=== PATIENT | male | born 1980 | race Caucasian/White ===

== ENCOUNTER 2018-11-27 18:07 | Emergency (ER) | payer OTHER, SELFPAY ==
[2018-11-27 18:23] VITALS: BP 112/74; PULSE 78; RESP 16; TEMP 36.1; O2SAT 98; BMI 25.7
--- NOTE | 2018-11-27 18:26 | DI.RAD.S_ITS ---
PROCEDURE: XR FINGER LT MIN 2V INDICATIONS: lacerated finger on machinery/disc pad grinder TECHNIQUE: AP hand, 2 views of the left second finger(s) acquired. COMPARISON: None. FINDINGS: Bones: No fractures or dislocations. No suspicious bony lesions. Soft tissues: No suspicious soft tissue calcifications. IMPRESSION: No acute fracture. No osseous lesion. If clinical suspicion and/or symptoms persist, further assessment with repeat plainfilms, or advanced imaging (e.g., CT, MRI, or bone scan) may be helpful for further assessment. Dictated by: Rufino Brown M.D. on 11/27/2018 at 19:16 Approved by: Rufino Brown M.D. on 11/27/2018 at 19:17
--- NOTE | 2018-11-27 19:36 | ED.UPPEXIN ---
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 He was using a circular saw at home and suffered the stated injury. He has full range of motion with a small amount of pain. He denies any numbness or tingling. He denies any other injury and is otherwise well and free of complaint complaint: injury to: left Onset (ago): minute(s) Other Extremity Injury: Left: fingers Other injuries: none Handedness: right Place: home Severity: mild Relieving factors: rest Exacerbating factors: movement of extremity Context: laceration Associated symptoms: denies other symptoms Treatments prior to arrival: bandage Related Data Home Medications Medication Instructions Recorded Confirmed Fexofenadine Hydrochloride 30 mg PO #0 04/04/12 (ALDEN~) Previous Rx's Medication Instructions Recorded cephalexin [Keflex] 500 mg PO QID 7 Days #28 cap 11/27/18 Review of Systems Constitutional Constitutional: Denies chills, Denies fatigue, Denies fever(s), Denies frequent falls, Denies lethargy and Denies weakness Eyes Eyes: Denies change in vision, Denies eye discharge, Denies irritation and Denies loss of vision ENT Ears, Nose, Mouth, and Throat: Denies change in voice, Denies dizziness, Denies neck pain, Denies sore throat and Denies throat swelling Cardiovascular Cardiovascular: Denies chest pain, Denies irregular heart rhythm, Denies lightheadedness, Denies palpitations, Denies dyspnea, Denies dyspnea on exertion and Denies orthopnea Respiratory Respiratory: Denies cough, Denies dyspnea, Denies dyspnea on exertion and Denies wheezing Gastrointestinal Gastrointestinal: Denies abdominal pain, Denies change in bowel habits, Denies diarrhea, Denies nausea and Denies vomiting Genitourinary Genitourinary: Denies hematuria, Denies flank pain, Denies urinary incontinence and Denies urinary urgency Musculoskeletal Musculoskeletal: Denies back pain, Denies muscle weakness, Denies neck pain, Denies numbness and Denies tingling Integumentary/Breasts Skin/Breast: Denies pruritus, Denies erythema, Denies rash and Reports wounds Neurologic Neurologic: Denies behavioral changes, Denies confusion, Denies dizziness, Denies frequent falls, Denies loss of vision, Denies numbness, Denies tingling and Denies weakness Psychiatric Psychiatric: Denies anxiety, Denies behavioral changes, Denies confusion, Denies depression, Denies homicidal ideation and Denies suicidal ideation Endocrine Endocrine: Denies fatigue, Denies flushing and Denies palpitations Hematologic/Lymphatic Hematologic/Lymphatic: Denies easy bruising Allergic/Immunologic Allergic/Immunologic: Denies urticaria, Denies throat swelling and Denies wheezing PFS Social History Smoking Status: Never smoker Social History Smoking Status: Never smoker Exam Narrative Exam Narrative: GEN: AOx3 and in mild distress EYES: Pupils are equal, round, and reactive to light and accommodation. Extraoccular muscles are intact bilaterally. There is no subconjunctival hemorrhage or exudate. CHEST: Lungs are clear to auscultation bilaterally and free of wheezes, rales, or rhonchi. Heart rate is regular rhythm, there are no murmurs, clicks, rubs, or gallops. There is no chest wall tenderness. ABD: Abdomen is soft and nontender. There is no guarding or rebound. Bowel sounds are normal in all 4 quadrants. There is no mass or organomegaly. EXT: Full painless ROM of all extremities with no loss of sensation or strength. SKIN: 1.25cm laceration on dorsal surface of L index finger overlying PIP. Visualized in bloodless field and no tendon injury noted. Warm, pink, and dry. No erythema or rash Initial Vital Signs Initial Vital Signs: Vital Signs Temperature 97.0 F L 11/27/18 18:23 Pulse Rate 78 11/27/18 18:23 Respiratory Rate 16 11/27/18 18:23 Blood Pressure 112/74 11/27/18 18:23 Pulse Oximetry 98 11/27/18 18:23 Procedures Laceration Repair Laceration 1: Site: hand Side (If applicable): left Size (cm): 1.25 Description: linear Depth: involves muscle layer Local Anesthetic: lidocaine 1% and with bicarb Amount of anesthesia used (mL): 3 Pre-repair: wound explored and irrigated extensively Skin layer closed with: nylon Size (cm): 5-0 Number of sutures: 3 Technique: simple, interrupted Course Orders Ordered: ED Orders 11/27/18 18:26 XR finger LT min 2V Stat Discontinued Medications Lidocaine/Sodium Bicarbonate (Buffered Lidocaine 10 Ml Syr) 10 ml INJ NOW ONE Stop: 11/27/18 19:18 Last Admin: 11/27/18 19:45 Dose: 4 ml Documented by: SKY Vital Signs Vital signs: Vital Signs - 8 hr 11/27/18 18:23 Temperature 97.0 F L Pulse Rate 78 Respiratory Rate 16 Blood Pressure 112/74 Pulse Oximetry 98 MDM - Extremity Injury (Upper) Imaging Data Finger Xray: Radiologist's impression: PROCEDURE: XR FINGER LT MIN 2V 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 COMPARISON: None. FINDINGS: Bones: No fractures or dislocations. No suspicious bony lesions. Soft tissues: No suspicious soft tissue calcifications. IMPRESSION: No acute fracture. No osseous lesion. If clinical suspicion and/or symptoms persist, further assessment with repeat plainfilms, or advanced imaging (e.g., CT, MRI, or bone scan) may be helpful for further assessment. Dictated by: Rufino Brown M.D. on 11/27/2018 at 19:16 Approved by: Rufino Brown M.D. on 11/27/2018 at 19:17 Discharge Plan Departure Patient Disposition: Home Clinical Impression: Finger laceration Qualifiers: Encounter type: initial encounter Finger: index finger Damage to nail status: without damage Foreign body presence: without foreign body Laterality: left Qualified Code(s): S61.211A - Laceration without foreign body of left index finger without damage to nail, initial encounter Discharge Date/Time: 11/27/18 19:50 Instructions: DI for Laceration Repair Activity Restrictions/Additional Instructions: Please keep the wound clean and dry to the best of your ability. Please monitor for signs of infection such as redness to the skin or increasing pain. Have the sutures removed by your doctor in about 7 days. If you are unable to get into your doctor, we would be happy to remove the sutures in that same timeframe. Prescriptions: New cephalexin [Keflex] 500 mg capsule 500 mg PO QID 7 Days Qty: 28 RF: 0 No Action Fexofenadine Hydrochloride (ALDEN~) 30 mg PO Qty: 0 RF: 0
[2018-11-27] MEDS: LIDO 1%/SOD BICARB 8.4% (10ML) 10 ML SYRINGE INJ (19:45)
== END 2018-11-27 19:50 | disposition home or self-care (01) ==
PROVIDERS: Emergency Provider Emergency Medicine
DX: S61.211A Laceration without foreign body of left index finger without damage to nail, initial encounter (principal); W31.2XXA Contact with powered woodworking and forming machines, initial encounter
CPT/HCPCS: 12001; 73140; 99282; 99283

== ENCOUNTER → 2020-02-12 09:34 | Outpatient (CLI) | payer OTHER, SELFPAY ==
--- NOTE | 2020-02-12 | DI.MRI.S_ITS ---
PROCEDURE: MR FOOT RT WO CON INDICATIONS: Pain in unspecified foot TECHNIQUE: Noncontrast sagittal T1 spin echo and T2 fast spin echo with fat saturation, long-axis T1 spin echo and T2 fast spin echo with fat saturation, short-axis T1 spin echo and T2 fast spin echo with fat saturation through the forefoot. COMPARISON: None. FINDINGS: Image quality: Excellent. Bones and joints: No bone marrow contusions or metatarsal stress fractures. The sesamoid bones appear in expected positions, without internal edema. No metatarsophalangeal joint degeneration. No intraosseous lesions. Soft tissues: The visualized plantar foot muscles demonstrate normal signal and bulk. Visualized flexor and extensor tendons appear intact, without tenosynovitis. The distal insertions of the peroneus brevis and longus tendons appear intact. The principal Lisfranc ligament appears intact. 1st MTP joint effusion. There is also small amount of fluid between the 1st and 2nd and 3rd and 4th metatarsal heads raising possibility of intermetatarsal bursitis. Sagittal images demonstrate no evidence for plantar plate tears. IMPRESSION: 1st MTP joint effusion 1st-2nd and 3rd-4th intermetatarsal bursitis. Dictated by: Artemio Dumont M.D. on 02/12/2020 at 11:10 Approved by: Artemio Dumont M.D. on 02/12/2020 at 11:15
== END ==
PROVIDERS: Visit Provider Student in an Organized Health Care Education/Training Program
DX: M79.673 Pain in unspecified foot (principal); M25.474 Effusion, right foot; M77.51 Other enthesopathy of right foot and ankle
CPT/HCPCS: 73718

== ENCOUNTER 2020-02-27 13:30 | Outpatient (RCR) | payer OTHER, SELFPAY ==
--- NOTE | 2020-01-15 12:17 | PT.OIE ---
Current Diagnoses Stiffness of left hand, not elsewhere classified (01/15/20) Muscle weakness (generalized) (01/15/20) Pain in unspecified finger(s) (01/15/20) Visit Care Team Role Provider Type Pramod Sams MD Attending Provider Non-Staff Primary Care Provider Referring Provider Specialty: Medical Address: [address] [place] [address], [id number] Email: Physical Therapy Initial Evaluation PT-OP-A Visit Information Start: 01/12/20 17:56 Freq: Status: Active Protocol: Document 01/15/20 10:00 LRN (Rec: 01/15/20 11:54 LRN [id number]) Out-Patient Physical Therapy Visit Information Visit Information Visit Type Initial Evaluation Visit Start Time 10:00 Visit Stop Time 10:51 Total Visit Minutes 51 Visit Number 1 Evaluation Information Evaluation Date 01/15/20 Precautions Precautions Back and neck pain PT-OP-B Current Condition Start: 01/12/20 17:56 Freq: Status: Active Protocol: Document 01/15/20 10:00 LRN (Rec: 01/15/20 11:54 LRN [id number]) Current Condition History of Current Condition Onset Date 11/18/19 Current Complaints Constant ache, sharp pain with use, can't bend knuckle History of Current Condition L index finger, ran terrazzo grinder across the knuckle 15 months ago, 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 Now with bending (PIP jt) gets pain, used to have scar tissue and smashed it between a wall and regfrigerator and squashed all the scar tissue giving him more movement. Since smashing his finge, the rod feeling under the skin has dissipated. Prior Treatments and Tests X-rays, he was told nothing was broken and no damage to ligs and tendons. Future Testing and Treatments Planned None Treatment Goals Patient/Caregiver Goals Pt goal is to get as much ROM back without pain as possible. Prior Functional Status Baseline Function- ADL's Independent Baseline Function- Mobility Independent Baseline Function- Other Normal Current Functional Impairments (Reported) Functional Limitations- ADL's L index finger PIP joint pain hinders: Pulling boots on using L index finger. Unscrewing a jar lid. Tying shoe laces. Pain with lateral movements of the finger, & with cold weather pain. Personal Factors Other Personal Factors That May Effect Back and neck pain. Therapy/Recovery PT-OP-C Subjective Start: 01/12/20 17:56 Freq: Status: Active Protocol: Document 01/15/20 10:00 LRN (Rec: 01/15/20 11:54 LRN [id number]) Patient Questionnaires Quick Dash- Upper Extremity Quick Dash UE Score 23 Quick Dash UE Impairment 20 to 39% Impaired (Score 20- 39) OP-PT Pain Assessment Pain Assessment Grid Paper Pain Assessment Grid Completed Yes Location Left Volar Finger Pain Location Details Top of L index finger PIP jt Intensity 4 Scale Used Numeric (0 - 10) Description Aching Description- Other Sharp when using, 80% of time aches Pain Duration Pain with squeezing or stress on lateral sides of finger. Other Pain Aggravating Factors Lateral stress on Other Pain Alleviating Factors Rub it. PT-OP-H Neuro Start: 01/12/20 17:56 Freq: Status: Active Protocol: Document 01/15/20 10:00 LRN (Rec: 01/15/20 11:54 LRN [id number]) Sensation Evaluation Location Details Left Dorsal Index Finger Light Touch Impaired Sharp/Dull Impaired Comments Summary Comments Sensation changes of the L index finger PIP joint at the Dorsal surface & Ulnar/Radial sides PT-OP-J Posture/Palpation/Skin Start: 01/12/20 17:56 Freq: Status: Active Protocol: Document 01/15/20 10:00 LRN (Rec: 01/15/20 11:54 LRN [id number]) Palpation Assessment Location L index finger/PIP joint Palpation Location L index finger/PIP joint: Radial/Ulnar side Palpation Findings Edema,Soft Tissue Tightness, Tenderness Palpation Details Decreased fascial mobility in distal to proximal direction in the dorsal, radial and ulnar side of the PIP joint. PT-OP-K Range of Motion Start: 01/12/20 17:56 Freq: Status: Active Protocol: Document 01/15/20 10:00 LRN (Rec: 01/15/20 11:54 LRN [id number]) Wrist Goniometric Range of Motion Wrist Right Wrist ROM WFL Yes Left Wrist ROM WFL Yes Finger Goniometric Range of Motion Finger Right Second Finger ROM WFL Yes PIP Flexion Active (degrees) 100 DIP Flexion Active (70-90 degrees) 27 L Left Second Finger ROM WFL No PIP Flexion Active (degrees) 90 PIP Extension Passive (degrees) 0 DIP Flexion Active (70-90 degrees) 16 L Finger ROM Limitations Comments DIP ROM measured with PIP joint in 0 deg's flexion. Thumb Goniometric Range of Motion Thumb Right Thumb ROM WFL Yes Left Thumb ROM WFL Yes PT-OP-M Strength Start: 01/12/20 17:56 Freq: Status: Active Protocol: Document 01/15/20 10:00 LRN (Rec: 01/15/20 11:54 LRN [id number]) Wrist Strength Wrist Manual Muscle Testing Right Comments WNL Left Comments WNL Finger/Thumb Strength Finger Manual Muscle Testing Right Second Flexion (fingers C8) 5 Normal Extension (thumb C8) 5 Normal Adduction 5 Normal Abduction (fingers T1) 5 Normal Left Second Flexion (fingers C8) 4+ Good+ Extension (thumb C8) 4+ Good+ Adduction 4 Good Abduction (fingers T1) 5 Normal Hand Log Carrier Operator/Pinch Strength Hand Dominance Hand Dominance Right Hand Strength Right Log Carrier Operator (lbs) 111 Tip Pinch (lbs) 12 Comments Log Carrier Operator: 3 Trials (lbs): 110, 112, 110 Pinch Test: 3 Trials (lbs): 13, 12, 12 Left Log Carrier Operator (lbs) 98 Tip Pinch (lbs) 11 Comments Log Carrier Operator: 3 Trials (lbs): 104, 95, 94 Pinch Test: 3 Trials (in lbs) : 11.5, 11.5, 10.5 PT-OP-Q Treatments Start: 01/12/20 17:56 Freq: Status: Active Protocol: Document 01/15/20 10:00 LRN (Rec: 01/15/20 11:54 LRN [id number]) Therapeutic Exercises Sitting Exercises L Index AD Sitting Exercise Name L Index AD Side left Equipment Used Yellow Putty L Index AB Sitting Exercise Name L Index AB Side left Equipment Used Yellow Putty L Index/Thumb Pinch Sitting Exercise Name L Index/Thumb Pinch Side left Equipment Used Yellow Putty Hand squeeze Sitting Exercise Name Hand squeeze Side left Equipment Used Yellow Putty Manual Therapy Treatment Soft Tissue Mobilization L Index, PIP joint Body Location L index finger, PIP joint Mobilization Type Myofascial Release Intensity/Depth Superficial Body Position Sitting Comments Restriction with distal to proximal glide on dorsal, radial, ulnar side of PIP joint. Self-Care/Home Management Treatment Education Patient Education Home Exercise Program Other Education Educated pt with verbal instructions given for Contrast Bath, and use of MH prior to stretch and cold water bath for post exercise. Activities Self-Care/Home Management Activities Issued Yellow T-Putty, reviewed Putty L hand exercises (see Therapeutic Exercises). I/S pt in self MFR of L index finger, PIP joint. PT-OP-T Assessment and Plan Start: 01/12/20 17:56 Freq: Status: Active Protocol: Document 01/15/20 10:00 LRN (Rec: 01/15/20 11:54 LRN [id number]) Physical Therapy Assessment Rehab Potential Rehabilitation Potential Good Evaluation Complexity Number of Personal Factors/Comorbidities 0 Number of Body Systems Impaired 4 or More Clinical Presentation at Evaluation Stable Impairments Impairments Functional Mobility,Pain,ROM, Sensation,Soft Tissue Mobility ,Strength Goals Four Impairment Constant ache in L index finger PIP joint. Short Term Goal (STG) Pain will no longer be constant with pain no greater than 2/10 with use. STG Duration 02/01/20 Correction Goal (LTG) L index finger PIP joint pain hinders: Pulling boots on using L index finger. Unscrewing a jar lid. Tying shoe laces. Pain with lateral movements of the finger. LTG Duration 03/15/20 Three Impairment Decreased L index finger strength, (pain with use) Short Term Goal (STG) Improve L index finger pinch strength with reports of less pain with tying shoes or pulling on boots STG Duration 02/01/20 Two Impairment Decreased L index finger PIP joint AROM Short Term Goal (STG) Improve while on a HEP, L index finger PIP joint AROM. STG Duration 02/01/20 One Impairment Lacks appropriate self care HEP Short Term Goal (STG) Pt will be independent in a self care HEP. STG Duration 02/01/20 Assessment Summary Assessment Pt presents with L index finger PIP joint decreased AROM due to soft tissue dysfunction of swelling and scar tissue restriction. He has decreased stability PIP joint, ulnar and radial side. Pt is expected to do well on his HEP to improve his L hand mobility and strength, but it may take time to resolve the swelling and pain at the PIP joint. The pt will benefit from skilled physical therapy for occasional rechecks to progress his home program, but if progress can't be achieved on a HEP then it would be recommended to continue on a more regular basis, probably 2x/week. Physical Therapy Plan Frequency and Duration Frequency of Treatment 1x/Week Plan of Care Start Date 01/15/20 Plan of Care End Date 03/15/20 Therapeutic Interventions Therapeutic Interventions Home Exercise Program,Joint Mobilizations,Manual Therapy, Patient/Caregiver Education, Self-Care/Home Management,Soft Tissue Mobilization,Taping, Therapeutic Exercises Modalities Cold Pack/Ice Massage,Hot Packs,Paraffin Bath Next Visit Focus/Plan Next Note Type Treatment Note Next Visit Plan Paraffin Dip, MFR (graston scrapping) and ROM, remeasure, review strengthening HEP & ADD finger ext strengthening. Probable DC to HEP if pt progressing well. Issue contrast bath handout and ROM (PIP joint of index finger)/ strengthening (L hand) exercises.
--- NOTE | 2020-02-01 11:38 | PT.OTN ---
Current Diagnoses Stiffness of left hand, not elsewhere classified (02/01/20) Muscle weakness (generalized) (02/01/20) Pain in unspecified finger(s) (02/01/20) Physical Therapy Treatment Note PT-OP-A Visit Information Start: 01/12/20 17:56 Freq: Status: Active Protocol: Document 02/01/20 08:17 LRN (Rec: 02/01/20 09:03 LRN [id number]) Out-Patient Physical Therapy Visit Information Visit Information Visit Type Treatment Note Visit Start Time 08:17 Visit Stop Time 09:00 Total Visit Minutes 43 Visit Number 2 PT-OP-B Current Condition Start: 01/12/20 17:56 Freq: Status: Active Protocol: Document 01/15/20 10:00 LRN (Rec: 01/15/20 11:54 LRN [id number]) Current Condition History of Current Condition Onset Date 11/18/19 Current Complaints Constant ache, sharp pain with use, can't bend knuckle History of Current Condition L index finger, 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 Now with bending (PIP jt) gets pain, used to have scar tissue and smashed it between a wall and regfrigerator and squashed all the scar tissue giving him more movement. Since smashing his finge, the ord feeling under the skin has dissipated. Prior Treatments and Tests X-rays, he was told nothing was broken and no damage to ligs and tendons. Future Testing and Treatments Planned None Treatment Goals Patient/Caregiver Goals Pt goal is to get as much ROM back without pain as possible. Prior Functional Status Baseline Function- ADL's Independent Baseline Function- Mobility Independent Baseline Function- Other Normal Current Functional Impairments (Reported) Functional Limitations- ADL's L index finger PIP joint pain hinders: Pulling boots on using L index finger. Unscrewing a jar lid. Tying shoe laces. Pain with lateral movements of the finger, & with cold weather pain. Personal Factors Other Personal Factors That May Effect Back and neck pain. Therapy/Recovery PT-OP-C Subjective Start: 01/12/20 17:56 Freq: Status: Active Protocol: Document 02/01/20 08:17 LRN (Rec: 02/01/20 09:03 LRN [id number]) OP-PT Subjective Patient Comments Patient Comments Has been squeezing the putty. Not getting the sharp pain when putting on shoes. PT-OP-H Neuro Start: 01/12/20 17:56 Freq: Status: Active Protocol: Document 01/15/20 10:00 LRN (Rec: 01/15/20 11:54 LRN [id number]) Sensation Evaluation Location Details Left Dorsal Index Finger Light Touch Impaired Sharp/Dull Impaired Comments Summary Comments Sensation changes of the L index finger PIP joint at the Dorsal surface & Ulnar/Radial sides PT-OP-J Posture/Palpation/Skin Start: 01/12/20 17:56 Freq: Status: Active Protocol: Document 01/15/20 10:00 LRN (Rec: 01/15/20 11:54 LRN [id number]) Palpation Assessment Location L index finger/PIP joint Palpation Location L index finger/PIP joint: Radial/Ulnar side Palpation Findings Edema,Soft Tissue Tightness, Tenderness Palpation Details Decreased fascial mobility in distal to proximal direction in the dorsal, radial and ulnar side of the PIP joint. PT-OP-K Range of Motion Start: 01/12/20 17:56 Freq: Status: Active Protocol: Document 02/01/20 08:17 LRN (Rec: 02/01/20 09:03 LRN [id number]) Finger Goniometric Range of Motion Finger Left Second Finger ROM WFL No MCP Flexion Active (degrees) 90 PIP Flexion Active (degrees) 86 PIP Flexion Passive (degrees) 110 DIP Flexion Active (70-90 degrees) 46 L PT-OP-M Strength Start: 01/12/20 17:56 Freq: Status: Active Protocol: Document 01/15/20 10:00 LRN (Rec: 01/15/20 11:54 LRN [id number]) Wrist Strength Wrist Manual Muscle Testing Right Comments WNL Left Comments WNL Finger/Thumb Strength Finger Manual Muscle Testing Right Second Flexion (fingers C8) 5 Normal Extension (thumb C8) 5 Normal Adduction 5 Normal Abduction (fingers T1) 5 Normal Left Second Flexion (fingers C8) 4+ Good+ Extension (thumb C8) 4+ Good+ Adduction 4 Good Abduction (fingers T1) 5 Normal Hand [employer] Foreman/Pinch Strength Hand Dominance Hand Dominance Right Hand Strength Right [employer] Foreman (lbs) 111 Tip Pinch (lbs) 12 Comments [employer] Foreman: 3 Trials (lbs): 110, 112, 110 Pinch Test: 3 Trials (lbs): 13, 12, 12 Left [employer] Foreman (lbs) 98 Tip Pinch (lbs) 11 Comments [employer] Foreman: 3 Trials (lbs): 104, 95, 94 Pinch Test: 3 Trials (in lbs) : 11.5, 11.5, 10.5 PT-OP-Q Treatments Start: 01/12/20 17:56 Freq: Status: Active Protocol: Document 02/01/20 08:17 LRN (Rec: 02/01/20 09:03 [facility] [id number]) Therapeutic Exercises Sitting Exercises L Index AD Sitting Exercise Name L Index AD Side left Equipment Used Rubberband Reps/Minutes 5' L Index AB Sitting Exercise Name L Index AB Side left Equipment Used Rubberband Reps/Minutes 5' L Index/Thumb Pinch Sitting Exercise Name L Index/Thumb Pinch Side left Equipment Used Digiflex 0.7 kg Reps/Minutes 4' Hand squeeze Sitting Exercise Name L index finger flex into fist. Side left Reps/Minutes 6' Comments Finger ROM taken after ex Manual Therapy Treatment Soft Tissue Mobilization L Index, PIP joint Body Location L index finger, PIP joint Mobilization Type Instrument Assisted,Myofascial Release Intensity/Depth Superficial Body Position Sitting Comments Restriction with distal to proximal glide on dorsal surface of PIP joint. Joint Mobilizations L index PIP jt Joint L index PIP Direction PA Grade II Body Position Sitting Reps/Duration 2' Manual Techniques MWM Type PA glide of 2nd phalanx and PIP jt with flex Body Position Sitting PROM Type L index PIP joint PROM - FLex Body Position Sitting Self-Care/Home Management Treatment Education Patient Education Home Exercise Program Activities Self-Care/Home Management Activities Issued & reviewed HEP for Contrast Baths. IS in finger strengtrhening with rubber band. PT-OP-R Modalities Start: 01/12/20 17:56 Freq: Status: Active Protocol: Document 02/01/20 08:17 LRN (Rec: 02/01/20 09:03 [facility] [id number]) Paraffin Bath Treatment Left Hand Treatment Technique Dip-immersion Number Wax Layers (layers) 6 Duration (minutes) 10 Patient Tolerance Good PT-OP-T Assessment and Plan Start: 01/12/20 17:56 Freq: Status: Active Protocol: Document 02/01/20 08:17 LRN (Rec: 02/01/20 09:03 LRN [id number]) Physical Therapy Assessment Goals Four Impairment Constant ache in L index finger PIP joint. Short Term Goal (STG) Pain will no longer be constant with pain no greater than 2/10 with use. STG Duration 02/01/20 Fdc Goal (LTG) L index finger PIP joint pain hinders: Pulling boots on using L index finger. Unscrewing a jar lid. Tying shoe laces. Pain with lateral movements of the finger. LTG Duration 03/15/20 Three Impairment Decreased L index finger strength, (pain with use) Short Term Goal (STG) Improve L index finger pinch strength with reports of less pain with tying shoes or pulling on boots. STG Duration 02/01/20 Two Impairment Decreased L index finger PIP joint AROM Short Term Goal (STG) Improve while on a HEP, L index finger PIP joint AROM. STG Duration 02/01/20 One Impairment Lacks appropriate self care HEP Short Term Goal (STG) Pt will be independent in a self care HEP. (02/01/20: Pt instructed in HEP of strengthening and ROM ex). STG Duration 02/01/20 (02/01/20: Progressing). Progress Towards Goals Progress Comments Pt not having sharp pain in L index finger PIP joint, only aches. Assessment Summary Assessment Pt pain symptoms have decreased. His L index finger DIP flexion mobility has improved, but the PIP joint remains limited. His PIP joint flex mobility tolerated greater flexion with MWM treatment. Pt appears to be in greater discomfort of his hips than finger. Physical Therapy Plan Frequency and Duration Frequency of Treatment 1x/Week Plan of Care Start Date 01/15/20 Plan of Care End Date 03/15/20 Next Visit Focus/Plan Next Note Type Treatment Note Next Visit Plan ROM taken to start, f/b Paraffin Dip, MFR (graston scrapping) and ROM, remeasure. Probable DC to HEP if pt progressing well. Assess response to contrast bath home program. Assess response to ROM (L index finger PIP joint ). Add: strengthening (L hand) exercises, then discuss DC with starting of therapy of the hips/back.
--- NOTE | 2020-02-27 14:58 | PT.OTN ---
Current Diagnoses Stiffness of left hand, not elsewhere classified (02/27/20) Muscle weakness (generalized) (02/27/20) Pain in unspecified finger(s) (02/27/20) Physical Therapy Treatment Note PT-OP-A Visit Information Start: 01/12/20 17:56 Freq: Status: Active Protocol: Document 02/27/20 13:36 LRN (Rec: 02/27/20 14:58 LRN [id number]) Out-Patient Physical Therapy Visit Information Visit Information Visit Type Treatment Note Visit Start Time 13:36 Visit Stop Time 14:25 Total Visit Minutes 49 Visit Number 3 Evaluation Information Evaluation Date 01/15/20 Precautions Precautions Back and neck pain PT-OP-B Current Condition Start: 01/12/20 17:56 Freq: Status: Active Protocol: Document 01/15/20 10:00 LRN (Rec: 01/15/20 11:54 LRN [id number]) Current Condition History of Current Condition Onset Date 11/18/19 Current Complaints Constant ache, sharp pain with use, can't bend knuckle History of Current Condition L index finger, 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 Now with bending (PIP jt) gets pain, used to have scar tissue and smashed it between a wall and regfrigerator and squashed all the scar tissue giving him more movement. Since smashing his finge, the rod feeling under the skin has dissipated. Prior Treatments and Tests X-rays, he was told nothing was broken and no damage to ligs and tendons. Future Testing and Treatments Planned None Treatment Goals Patient/Caregiver Goals Pt goal is to get as much ROM back without pain as possible. Prior Functional Status Baseline Function- ADL's Independent Baseline Function- Mobility Independent Baseline Function- Other Normal Current Functional Impairments (Reported) Functional Limitations- ADL's L index finger PIP joint pain hinders: Pulling boots on using L index finger. Unscrewing a jar lid. Tying shoe laces. Pain with lateral movements of the finger, & with cold weather pain. Personal Factors Other Personal Factors That May Effect Back and neck pain. Therapy/Recovery PT-OP-C Subjective Start: 01/12/20 17:56 Freq: Status: Active Protocol: Document 02/27/20 13:36 LRN (Rec: 02/27/20 14:58 LRN [id number]) OP-PT Subjective Patient Comments Patient Comments Thinks he has a little more motion. States he has a referral for his R hip so prefers to do therapy on hip and do HEP for finger. PT-OP-H Neuro Start: 01/12/20 17:56 Freq: Status: Active Protocol: Document 01/15/20 10:00 LRN (Rec: 01/15/20 11:54 LRN [id number]) Sensation Evaluation Location Details Left Dorsal Index Finger Light Touch Impaired Sharp/Dull Impaired Comments Summary Comments Sensation changes of the L index finger PIP joint at the Dorsal surface & Ulnar/Radial sides PT-OP-J Posture/Palpation/Skin Start: 01/12/20 17:56 Freq: Status: Active Protocol: Document 01/15/20 10:00 LRN (Rec: 01/15/20 11:54 LRN [id number]) Palpation Assessment Location L index finger/PIP joint Palpation Location L index finger/PIP joint: Radial/Ulnar side Palpation Findings Edema,Soft Tissue Tightness, Tenderness Palpation Details Decreased fascial mobility in distal to proximal direction in the dorsal, radial and ulnar side of the PIP joint. PT-OP-K Range of Motion Start: 01/12/20 17:56 Freq: Status: Active Protocol: Document 02/27/20 13:36 LRN (Rec: 02/27/20 14:58 LRN [id number]) Finger Goniometric Range of Motion Finger Right Second Finger ROM WFL Yes MCP Flexion Active (degrees) 90 PIP Flexion Active (degrees) 100 DIP Flexion Active (70-90 degrees) 72 Left Second Finger ROM WFL No MCP Flexion Active (degrees) 72 PIP Flexion Active (degrees) 90 PIP Flexion Passive (degrees) 98 DIP Flexion Active (70-90 degrees) 52 L Comments Above are pre-treatment ROM measurements. Post-treatment ROM measurements: Active MCP flex 80 deg's, passive flex 90 deg's, Active PIP flex 100 deg's, passive flex 100 deg's, Active PIP flex is 60 deg's, passive flex is 66 deg's. PT-OP-M Strength Start: 01/12/20 17:56 Freq: Status: Active Protocol: Document 01/15/20 10:00 LRN (Rec: 01/15/20 11:54 LRN [id number]) Wrist Strength Wrist Manual Muscle Testing Right Comments WNL Left Comments WNL Finger/Thumb Strength Finger Manual Muscle Testing Right Second Flexion (fingers C8) 5 Normal Extension (thumb C8) 5 Normal Adduction 5 Normal Abduction (fingers T1) 5 Normal Left Second Flexion (fingers C8) 4+ Good+ Extension (thumb C8) 4+ Good+ Adduction 4 Good Abduction (fingers T1) 5 Normal Hand Heel Burnisher/Pinch Strength Hand Dominance Hand Dominance Right Hand Strength Right Heel Burnisher (lbs) 111 Tip Pinch (lbs) 12 Comments Heel Burnisher: 3 Trials (lbs): 110, 112, 110 Pinch Test: 3 Trials (lbs): 13, 12, 12 Left Heel Burnisher (lbs) 98 Tip Pinch (lbs) 11 Comments Heel Burnisher: 3 Trials (lbs): 104, 95, 94 Pinch Test: 3 Trials (in lbs) : 11.5, 11.5, 10.5 PT-OP-Q Treatments Start: 01/12/20 17:56 Freq: Status: Active Protocol: Document 02/27/20 13:36 LRN (Rec: 02/27/20 14:58 LRN [id number]) Therapeutic Exercises Sitting Exercises Finger flex/hand intrinsic Sitting Exercise Name Assisted Form hook 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 Extra time to determine max stretch hold MCP/PIP/DIP stretch Sitting Exercise Name Index finger Side left Reps/Minutes 10 hold x 10 Comments Extra time to determine max stretch hold Manual Therapy Treatment Soft Tissue Mobilization L Index, PIP joint Body Location L index finger, PIP joint Mobilization Type Instrument Assisted,Myofascial Release Intensity/Depth Superficial Body Position Sitting Comments Mild restriction with distal to proximal glide on dorsal surface of PIP joint. Self-Care/Home Management Treatment Education Patient Education Home Exercise Program Activities Self-Care/Home Management Activities Issued & reviewed HEP: Index finger MCP/PIP/DIP flex stretch & intrinsic stretch; strengthening of finger flex, ext, AB, AD. PT-OP-R Modalities Start: 01/12/20 17:56 Freq: Status: Active Protocol: Document 02/27/20 13:36 LRN (Rec: 02/27/20 14:58 LRN [id number]) Paraffin Bath Treatment Left Hand Treatment Technique Dip-immersion Number Wax Layers (layers) 6 Duration (minutes) 10 Patient Tolerance Good PT-OP-T Assessment and Plan Start: 01/12/20 17:56 Freq: Status: Active Protocol: Document 02/27/20 13:36 LRN (Rec: 02/27/20 14:58 LRN [id number]) Physical Therapy Assessment Goals Four Impairment Constant ache in L index finger PIP joint. Short Term Goal (STG) Pain will no longer be constant with pain no greater than 2/10 with use. (02/27/20: Pt is not in constant pain. 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 Unscrewing a jar lid (MET GOAL). Tying shoe laces. Pain with lateral movements of the finger. LTG Duration 03/15/20 (02/27/20: PARTIALLY MET GOAL) Three Impairment Decreased L index finger strength, (pain with use) Short Term Goal (STG) Improve L index finger pinch strength with reports of less pain with tying shoes or pulling on boots. (02/27/20: Pt has not assessed ) STG Duration 02/01/20 (02/27/20: Not assessed by pt) Two Impairment Decreased L index finger PIP joint AROM Short Term Goal (STG) Improve while on a HEP, L index finger PIP joint AROM. (02/27/20: Improved as per ROM measurements in above note) STG Duration 02/01/20 (02/27/20: MET GOAL) One Impairment Lacks appropriate self care HEP Short Term Goal (STG) Pt will be independent in a self care HEP. (02/27/20: Pt issued HEP of strengthening and ROM ex's for index finger). STG Duration 02/01/20 (02/27/20: MET GOAL) . Assessment Summary Assessment Due to eary discharge the pt has only met some of his goals . He has potiential to improve but at this time due to insurance limitations he is choosing to change his therapy focus on his hip pain and will continue to work on his finger with a HEP. The pt would benefit from further physical or occupational therapy for his L finger in the future. Physical Therapy Plan Discharge Physical Therapy Discharge Reasons Patient Request Discharge Comments Pt choosing to discharge in order to start physical therapy for his hip. The pt has discharged early; therefore would benefit from physical or occupational therapy for his L finger in the future.
== END 2020-04-17 07:42 ==
LOC: PHYS 13:30
PROVIDERS: PCP Student in an Organized Health Care Education/Training Program; Referring Provider Student in an Organized Health Care Education/Training Program; Visit Provider Student in an Organized Health Care Education/Training Program
DX: M79.646 Pain in unspecified finger(s) (principal); M25.642 Stiffness of left hand, not elsewhere classified; M62.81 Muscle weakness (generalized)
CPT/HCPCS: 97018; 97110; 97140; 97161

== ENCOUNTER → 2020-03-22 12:42 | Outpatient (CLI) | payer OTHER, SELFPAY ==
--- NOTE | 2020-03-22 | DI.RAD.S_ITS ---
PROCEDURE: FL HIP INJECTION MR/CT RT INDICATIONS: Pain in right hip TECHNIQUE: The indications, alternatives, benefits, risks, and complications of the procedure were explained to the patient. Written informed consent was obtained and placed in the chart. The hip was examined fluoroscopically with the legs fixed in slight internal rotation, and a site for needle placement chosen for entry into the hip joint from an anterior approach. Care was taken to locate the common femoral artery and vein beforehand. The skin was prepped and draped in a sterile fashion, and 1% Lidocaine infiltrated from skin down to joint capsule. A spinal needle was inserted into the joint, and a small amount of iodinated contrast media injected to confirm intra-articular placement of the needle tip. This was followed by approximately 10 mL dilute solution of a gadolinium containing MR contrast agent. The needle was removed and a dressing was applied. The patient was given postprocedural instructions and sent to the MR suite for imaging. COMPARISON: None. FINDINGS: A single fluoroscopic spot image demonstrates intra-articular location of injected iodinated contrast. IMPRESSION: Successful fluoroscopically guided administration of dilute Gadolinium solution into the hip joint for MR arthrogram. Dictated by: Nishant Montez M.D. on 03/22/2020 at 13:52 Approved by: Nishant Montez M.D. on 03/22/2020 at 13:52
--- NOTE | 2020-03-22 | DI.MRI.S_ITS ---
PROCEDURE: MR HIP RT W CON INDICATIONS: Pain in right hip TECHNIQUE: After the administration of 10 mL of dilute intra-articular Gadolinium contrast, coronal STIR of the bony pelvis; coronal and oblique axial T1 spin echo with fat saturation, axial T2 fast spin echo with fat saturation, sagittal T1 spin echo with and without fat saturation of the involved hip. COMPARISON: None. FINDINGS: Image quality: Excellent. Bones and joints: There is no marrow edema. No fracture or dislocation. Mild right hip joint osteoarthritic changes are seen with superior joint space narrowing and small marginal osteophyte formation. Prominence of right femoral head neck junction is also seen which can be seen associated with CAM type femoral acetabular impingement. No avascular necrosis of the femoral head. The visualized lower lumbar spine appears normally aligned. The ligamental, neck, and labral plicae appear normal where visualized. Tendons and ligaments: The gluteus medius and minimus tendons appear intact, without associated muscle atrophy. The nearby proximal iliotibial band also appears intact. The iliopsoas tendon appears intact, without adjacent bursal fluid collections or evidence for impingement syndrome. The origin of the hamstring tendon is intact at the ischial tuberosity, as well as the associated sacrotuberous ligament. The straight and reflected heads of the rectus femoris muscle origin appear intact, as well as the conjoint tendon. The ligamentum teres appears intact where visualized. Labrum and cartilage: Focal area of signal abnormality and contour irregularity involving superior anterior labrum is seen consistent with focal superior anterior labral tear. Cartilage surface of the femoral head appears thinned. No paralabral cysts. The alpha angle of the femur is within normal limits at less than 55 degrees. Soft tissues: Visualized muscles demonstrate normal bulk and internal signal. Quadratus femoris muscle demonstrates no internal edema to suggest ischiofemoral impingement. The proximal sciatic neurovascular bundle appears normal adjacent to the hamstring tendons. No free pelvic fluid. Bladder wall thickness is normal. Genitourinary structures and bowel loops appear normal where visualized. IMPRESSION: 1. Mild right hip joint osteoarthritis and thinning of articulating cartilages of femoral head. No marrow edema. No evidence of avascular necrosis of femoral head. 2. Prominence of right femoral head neck junction which can be seen associated with CAM type femoral acetabular impingement. 3. Suggestion of focal superior anterior right hip labral tear. 4. No gross muscle or tendon signal abnormality. Dictated by: Maximiliano Hernandez M.D. on 03/22/2020 at 14:23 Approved by: Maximiliano Hernandez M.D. on 03/22/2020 at 15:41
== END ==
DX: M25.551 Pain in right hip (principal); M16.11 Unilateral primary osteoarthritis, right hip
CPT/HCPCS: 27093; 73722; 77002

== ENCOUNTER 2020-04-12 07:30 | Outpatient (RCR) | payer OTHER, SELFPAY ==
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
--- NOTE | 2020-03-06 16:16 | PT.OPPOC ---
Physical, Occupational & Speech Therapy At [facility] Current Diagnoses Pain in right hip (03/06/20) Other specified joint disorders, right hip (03/06/20) Visit Care Team Role Provider Type Santos Oneal Primary Care Provider Non-Staff Specialty: Medical Address: [id number] [place] [address], [id number] Email: Frederic Scott DO Attending Provider Non-Staff Referring Provider Specialty: Family Practice Address: [address] [place] [address], [id number] Email: Plan Of Care PT-OP-T Assessment and Plan Start: 03/05/20 07:58 Freq: Status: Active Protocol: Document 03/06/20 07:31 MB (Rec: 03/06/20 16:15 MB [id number]) Physical Therapy Assessment Rehab Potential Rehabilitation Potential Fair Evaluation Complexity Number of Personal Factors/Comorbidities 1-2 Number of Body Systems Impaired 1-2 Clinical Presentation at Evaluation Evolving Impairments Impairments Activity Tolerance,Gait,Pain, Posture,ROM,Soft Tissue Mobility,Strength Goals Four Thread Grinder Goal (LTG) Pt will report an overall 25% improvement in right hip pain to improve quality of life by 04/28/20. LTG Duration 6 weeks Three [facility] Goal (LTG) Pt will present with an improved LEF score to reflect no more than 40% impairment to improve quality of life by . LTG Duration 6 weeks Two Thread Grinder Goal (LTG) Pt will present with improved right hip flexion and abduction strength to 5/5 to improve gait quality and pain by 04/28/20. LTG Duration 6 weeks One Thread Grinder Goal (LTG) Pt will perform progressive HEP with I including pelvic realignment, flexibility, self -myofascial mobility, and strengthening exercises to improve pain and strength by . LTG Duration 6 weeks Assessment Summary Assessment Pt is a 39 y/o male presenting with progressive right hip pain that is in his groin and moves down his right leg. He has most trouble with standing and sitting and being still. He reports that recent right hip x-ray revealed changes to the joint. He presents with antalgic gait with decreased right hip and knee flexion, weakness, negative right SI testing and positive right hip testing with Scour, SLR and LEO today. PT suspects anatomical change to the joint including either the femoral head, labrum or ligaments. PT recommends right hip MRI with contrast to determine what the underlying change is in order to progress plan to include orthopedic surgeon consult. Pt will benefit from PT to improve hip myofascial flexibility, core and LE strength to tolerance in setting of anatomical changes. Physical Therapy Plan Frequency and Duration Frequency of Treatment 2x/Week Duration of Treatment 8 weeks Plan of Care Start Date 03/06/20 Plan of Care End Date 04/26/20 Therapeutic Interventions Therapeutic Interventions Balance Training,Canalithic Repositioning,Gait Training, Home Exercise Program,Joint Mobilizations,Manual Therapy, Neuromuscular Re-education, Patient/Caregiver Education, Self-Care/Home Management, Sensory Integration,Soft Tissue Mobilization,Taping, Therapeutic Activities, Therapeutic Exercises Modalities Cold Pack/Ice Massage,Electric Stimulation,Hot Packs, Ultrasound Next Visit Focus/Plan Next Note Type Treatment Note Next Visit Plan Initiate pelvic realignment exercises Plan of Care Dates Plan of Care Start Date 03/06/20 Plan of Care End Date 04/26/20 Electronically Signed by: Aislinn Wills PT 03/06/20 0847 Please Sign and Return: I have reviewed this Plan of Care and certify that the skilled therapy services above are required to meet the patient?s needs. Physician Signature Date Printed Name and Credentials Clinical Instructor Signature Printed Name and Credentials
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
== END 2020-04-16 10:01 ==
LOC: PHYS 07:30
PROVIDERS: Referring Provider Family Medicine; Visit Provider Family Medicine
DX: M25.551 Pain in right hip (principal); M25.851 Other specified joint disorders, right hip
CPT/HCPCS: 97110; 97140; 97161; 97535

== ENCOUNTER 2020-05-26 14:11 | Emergency (ER) | payer OTHER, SELFPAY ==
--- NOTE | 2020-05-26 14:30 | DI.RAD.S_ITS ---
PROCEDURE: XR ANKLE RT MIN 3V INDICATIONS: fell out of travel trailer. 3 feet fall. right ankle rolled TECHNIQUE: 3 views of the ankle were acquired. COMPARISON: [facility], MR, MR FOOT RT WO CON, 02/12/2020, 9:56. FINDINGS: Bones: No fractures or dislocations. Ankle mortise is normally aligned. No suspicious bony lesions. The talar dome demonstrates no gayla abnormality. Soft tissues: Soft tissue swelling is seen laterally. IMPRESSION: Soft tissue swelling is seen, without an acute bony abnormality seen by plain film. If there is point tenderness (or other clinical suspicion for a fracture not seen on these images) then a dedicated CT or a short-term followup plain film series could be considered for further evaluation, as clinically appropriate. Dictated by: Michele Walker M.D. on 05/26/2020 at 13:42 Approved by: Michele Walker M.D. on 05/26/2020 at 13:43
[2020-05-26 14:31] VITALS: BP 117/69; PULSE 73; RESP 18; TEMP 36.6; O2SAT 98; BMI 26.4
--- NOTE | 2020-05-26 15:09 | ED_ITS ---
HPI - Extremity Injury (Lower) <KATHRIN Martell - Last Filed: 05/26/20 16:22> General Chief Complaint: Extremity Injury, Lower Stated Complaint: right ankle Time Seen by Provider: 05/26/20 14:45 Source: patient Mode of arrival: Family Vehicle Limitations: no limitations History of Present Illness HPI Narrative: This is a 39-year-old male, nonsmoker, has no contributory medical history presents to ED with isolated injury to right ankle and pain. Patient reports fell backwards was stepping in travel trailer and possibly inverted right foot and reports pain and swelling in lateral right ankle. Patient denies mid foot pain and he was able to bear weight with discomfort. Patient reports is able to plantar flex and dorsiflex affected foot and has intact sensation and able to move all toes in right foot. Patient had taken ibuprofen before coming into ED. patient denies knee pain or lower extremity pain. Patient denies injuring head or other areas. Related Data Home Medications Medication Instructions Recorded Confirmed Fexofenadine Hydrochloride 30 mg PO #0 04/04/12 (ALDEN~) Allergies Allergy/AdvReac Type Severity Reaction Status Date / Time No Known Drug Allergies Allergy Verified 05/26/20 14:34 Review of Systems <KATHRIN Martell - Last Filed: 05/26/20 16:22> Review of Systems Narrative: General: Denies fever, chills, fatigue, malaise, sweats. Respiratory: Denies dyspnea, cough, wheezing, hemoptysis, sputum. Cardiovascular: Denies chest pain, palpitations, orthopnea, edema. Gastrointestinal: Denies nausea, vomiting, abdominal pain, diarrhea, constipation, melena. Musculoskeletal: See HPI Skin: Denies rash, skin lesions, or other. Neurologic: Denies weakness, headache, numbness, change in speech, confusion, seizures, incoordination. Patient History <KATHRIN Martell - Last Filed: 05/26/20 16:22> Social History Smoking Status: Never smoker Smoking Status: Never smoker alcohol intake frequency: 0-2 drinks per day Substance Use Type: does not use Exam <KATHRIN Martell - Last Filed: 05/26/20 16:22> Narrative Exam Narrative: General appearance: well developed, well nourished, in no acute distress. Head: normocephalic, atraumatic, no scalp lesions, non-tender. ENT: Hearing grossly intact. Airway patent. Neck/Thyroid: neck supple, full range of motion, no visible masses or meningeal signs. No JVD, non-tender without lymphadenopathy. Skin: no suspicious rashes, lesions over visible areas. Warm and dry and appropriate color for ethnicity. Heart: no clubbing, no cyanosis, no edema. Lungs: Breathing even and unlabored. No stridor. No accessory muscles used. Able to speak in full sentences. Chest: normal shape and expansion. Abdomen: non-obese, non-distended. Neurologic: alert and oriented. 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 Psych: good eye contact, normal affect. Initial Vital Signs Initial Vital Signs: Vital Signs Temperature 97.8 F 05/26/20 14:31 Pulse Rate 73 05/26/20 14:31 Respiratory Rate 18 05/26/20 14:31 Blood Pressure 117/69 05/26/20 14:31 Pulse Oximetry 98 05/26/20 14:31 Extrem Right lower extremity: lower leg Details: normal to inspection; no tenderness, ankle Details: abnormal to inspection, tenderness Location: of the lateral malleolus, swelling Details: laterally and normal ROM; no abrasions, no lacerations and no ecchymosis and foot Details: toes with normal ROM, vascular exam Details: dorsalis pedis pulse present and normal capillary refill, tendon exam Details: active flexion normal and active extension normal and motor- sensory exam Details: light-touch normal; no tenderness and no edema <Rebecca Boyer DO - Last Filed: 05/26/20 19:29> Initial Vital Signs Initial Vital Signs: Vital Signs Temperature 97.8 F 05/26/20 14:31 Pulse Rate 73 05/26/20 14:31 Respiratory Rate 18 05/26/20 14:31 Blood Pressure 117/69 05/26/20 14:31 Pulse Oximetry 98 05/26/20 14:31 Procedures <KATHRIN Martell - Last Filed: 05/26/20 16:22> Orthopedic Splinting/Casting Injury #1: Side: right Lower Extremity Injury Location: ankle Lower Extremity Immobilizer: stirrup splint and Palmer wrap Other Orthopedic Equipment: crutches Post splinting neuro exam: intact Post splinting vascular exam: intact Placed by: Nursing Scores <KATHRIN Martell - Last Filed: 05/26/20 16:22> GCS Margaret coma scale eye opening: Spontaneous Margaret coma scale verbal response: Orientated Margaret coma scale motor response: Obey commands Margaret coma scale total score: 15 Course <KATHRIN Martell - Last Filed: 05/26/20 16:22> Orders Ordered: ED Orders 05/26/20 14:30 XR ankle RT min 3V Stat Vital Signs Vital signs: Vital Signs - 8 hr 05/26/20 14:31 Temperature 97.8 F Pulse Rate 73 Respiratory Rate 18 Blood Pressure 117/69 Pulse Oximetry 98 <Rebecca Boyer DO - Last Filed: 05/26/20 19:29> Orders Ordered: ED Orders 05/26/20 14:30 XR ankle RT min 3V Stat Vital Signs Vital signs: Vital Signs - 8 hr 05/26/20 14:31 Temperature 97.8 F Pulse Rate 73 Respiratory Rate 18 Blood Pressure 117/69 Pulse Oximetry 98 MDM - Extremity Injury (Lower) <Regan DuffyKATHRIN Finch - Last Filed: 05/26/20 16:22> Differential Diagnosis Differential diagnosis: Likely ankle sprain and strain and ankle fracture Medical Records Attestation: I reviewed the patient's medical records. Imaging Data XR- Ankle RT: Radiologist's Impression: [address] [id number] ReportSigned Patient: Arnaud Jackson MMR#: [id number]: [id number]:[id number]/Sex: 39 / MDate of Service: 05/26/20Loc: EDAccession Number: [id number] Procedure: XR ankle RT min 3V Ordering Provider: Rebecca Boyer D.O. PROCEDURE: XR ANKLE RT MIN 3V INDICATIONS: fell out of travel trailer. 3 feet fall. right ankle rolled TECHNIQUE: 3 views of the ankle were acquired. COMPARISON: [facility], MR, MR FOOT RT WO CON, 02/12/2020, 9:56. FINDINGS: Bones: No fractures or dislocations. Ankle mortise is normally aligned. No suspicious bony lesions. The talar dome demonstrates no gayla abnormality. Soft tissues: Soft tissue swelling is seen laterally. IMPRESSION: Soft tissue swelling is seen, without an acute bony abnormality seen by plain film. If there is point tenderness (or other clinical suspicion for a fracture not seen on these images) then a dedicated CT or a short-term followup plain film series could be considered for further evaluation, as clinically appropriate. Dictated by: Michele Walker M.D. on 05/26/2020 at 13:42 Approved by: Michele Walker M.D. on 05/26/2020 at 13:43 [facility] Narrative Medical decision making narrative: This is a 39-year-old gentleman who presents to ED after possibly inverted right ankle when he was falling backwards hitting into travel trail before coming into ED. physical exam appreciated swelling to right lateral ankle with intact sensation and distal pedal pulse and brisk cap refills. Patient was able to plantar extend and dorsiflex against resistance without difficulty. Achillis tendon feels intact. X-ray test no acute findings such as fractures or dislocations. Affected foot applied on Palmer wrap and ster ile prefabricated splint provided crutches for ambulation. Patient advise early rehabilitation with gentle stretching exercises as soon as acute pain improves. Advised to use [id number] Tylenol and or Motrin as needed. Advised RICE therapy as well for pain. Return precautions discussed with patient and he verbalized understanding and agreement with the treatment plan. Discharge Plan Departure Patient Disposition: Home Clinical Impression: Ankle sprain and strain Instructions: DI for Ankle Sprain Activity Restrictions/Additional Instructions: You have been diagnosed with [right lateral ankle sprain. X-ray test does not show acute findings including dislocations or fractures but soft tissue swelling.]. What to do: *Take your medications as directed. Please use [id number] and or Motrin as needed for discomfort. Tylenol 650 mg up to 3 to 4 times a day as needed for pain. Ibuprofen 400-600 mg to 3 times a day as needed for pain with food to decrease GI irritations. Please use stirrup ankle splint and crutches for pain and immobilization/support. Use cool pack on affected site for swelling and inflammation for next couple of days. And elevate affected leg during rest. If bearing weight becomes painful, you can use crutches. When acute pain subsides, see do gentle stretching and rehabilitation exercises. *Follow up with your primary care provider in 2-3 days, call for an appointment. Let them know you were seen in the ED and that we asked you to be seen in follow up. *Return to ED if you have any new, worsening, or concerning symptoms, such as [worsening pain, tingling/numbness/weakness to affected ankle and distal foot, chest pain, breathing difficulty, unable to tolerate fluids, or any acute concerns]. Have a wonderful trip!! Prescriptions: No Action Fexofenadine Hydrochloride (ALDEN~) 30 mg PO Qty: 0 RF: 0 Referrals: Santos Oneal [Primary Care Provider] - <Rebecca Boyer DO - Last Filed: 05/26/20 19:29> Cosign ED Attending Abielature Attestation: I was immediately available in the department for consultation. Documentation has been reviewed.
== END 2020-05-26 15:55 | disposition home or self-care (01) ==
PROVIDERS: Emergency Provider Nurse Practitioner Family
DX: S93.401A Sprain of unspecified ligament of right ankle, initial encounter (principal); S96.911A Strain of unspecified muscle and tendon at ankle and foot level, right foot, initial encounter; W18.30XA Fall on same level, unspecified, initial encounter
CPT/HCPCS: 29540; 73610; 99283

== ENCOUNTER 2020-11-20 09:45 | Outpatient (RCR) | payer OTHER, SELFPAY ==
--- NOTE | 2020-07-22 17:57 | PT.OIE ---
Current Diagnoses Stiffness of unspecified hip, not elsewhere classified (07/22/20) Difficulty in walking, not elsewhere classified (07/22/20) Weakness (07/22/20) Other sprain of right hip, initial encounter (07/22/20) Visit Care Team Role Provider Type Santos Kimmy Primary Care Provider Non-Staff Specialty: Medical Address: [address] [place], [address] Email: Addison Sher MD Attending Provider Non-Staff Referring Provider Specialty: Orthopedic Surgery Address: [address] [place] [address] , [place], [address] Email: Physical Therapy Initial Evaluation PT-OP-A Visit Information Start: 07/21/20 08:10 Freq: Status: Active Protocol: Document 07/22/20 08:14 SAK (Rec: 07/22/20 09:05 SAK [id number]) Out-Patient Physical Therapy Visit Information Visit Information Visit Type Initial Evaluation Visit Note 19 days post-op right hip labral repair Visit Start Time 08:15 Visit Stop Time 09:10 Total Visit Minutes 55 Visit Number 1 Evaluation Information Evaluation Date 07/22/20 Precautions Precautions post-op protocol from physician in chart: Post-op days 1-7: NWB for first 2 days progressing to toe touch weight-bearing with crutches. Foot flat weight bearing appropriate if patient understands concept. Maintain foot-flat until four weeks postoperative. Immediate post-op exercises: glut sets, quad sets, hamstring sets, adductor sets, abductor sets, ankle pumps. AAAROM in all planes without pain. Limitations placed by surgeon with respect to overall range, usually limites include flexion to 90, IR to 30, ER 45 for the first month. Hip mobilization if beneficial in decreasing pain and increasing ROM with straight distraction: inf glide and posterior glide PT-OP-B Current Condition Start: 07/21/20 08:10 Freq: Status: Active Protocol: Document 07/22/20 08:14 SAK (Rec: 07/22/20 09:05 SAK [id number]) Current Condition History of Current Condition Onset Date 07/03/20 Current Complaints stiffness and pain right hip History of Current Condition s/p right labral repair 07/03/20 due to persistent, function- limitingright hip pain. Reports doctor said I could ditch the crutches after a couple days if it felt ok so hasn't used crutches since a couple days post-op. Had follow-up appointment last with surgeon's PA; states PA encouraged him to not overdo as it sounds like he had been, otherwise things looked good. Patient ambulating without device, c/o stiffness today, more than usual. May have overdone getting trailer ready for camping over weekend, in and out of trailer. Doing step- to on stairs. Worst pain he has experienced since surgery is with twisting to get off toilet. Has had difficulty putting socks on without rotating his leg. Reports right foot/ankle sore since surgery ( sprained ankle end of April and feels positioning during surgery may have contributed to this increase in pain). States he wasn't shown exercises after surgery. 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 Prior Functional Status Baseline Function- ADL's Independent Baseline Function- Mobility Independent Baseline Function- Gait no device, no limp Baseline Function- Work/School no limitations Baseline Function- Recreation/Hobbies mountain-biking Current Functional Impairments (Reported) Functional Limitations- ADL's painful, guarded Functional Limitations- Mobility/Gait limited to household, short distance community, no device but antalgic Functional Limitations- Work/School not back to work yet Functional Limitations- Recreation/ unable Hobbies Personal Factors Other Personal Factors That May Effect Patient tends to push too hard Therapy/Recovery PT-OP-C Subjective Start: 07/21/20 08:10 Freq: Status: Active Protocol: Document 07/22/20 08:14 YIN (Rec: 07/22/20 17:50 [facility] [id number]) Patient Questionnaires Lower Extremity Functional Scale LEFS Score 23 OP-PT Pain Assessment Pain Assessment Grid Paper Pain Assessment Grid Completed Yes Location Left Volar Finger Pain Location Details right anterior hip, right buttock Description Pulling,Tender,Tightness Frequency Intermittent Pain Duration twisting Pain Aggravating Factors Changing Position,Activity, Standing Pain Alleviating Factors Medication,Inactivity Pain Behaviors Pain Behaviors Facial Grimacing,Guarding, Wincing PT-OP-G Mobility & Gait Start: 07/21/20 08:10 Freq: Status: Active Protocol: Document 07/22/20 08:14 [facility] (Rec: 07/22/20 17:50 [facility] [id number]) OP Mobility Evaluation Bed Mobility Supine to and from Sit safe method without twisting Transfers Sit to Stand may decrease weight-bearing through right leg if painful Car Transfers instructed in correct method for hip protection, sit first, swing legs in, reverse to exit. Functional Movements Lifting and Carrying not allowed at this lb Squats not allowed Running Assessment unable/not allowed OP Gait Assessment Gait Gait Assistance Required: Independent Assistive Devices Assistive Device None Orthotic/Prosthetic Devices or Brace: No Gait Deviations General Gait Pattern Antalgic Factors Limiting Gait Function Factors Limiting Gait Function Limited Range of Motion,Pain Comments Gait Comments protocol states foot flat for 4 weeks, patient instructed to decrease step length, foot flat technique Stair Climbing Evaluation Comments Stair Climbing Comments not evaluated today, patient verbalizes correct sequencing for hip protection with step- to pattern PT-OP-H Neuro Start: 07/21/20 08:10 Freq: Status: Active Protocol: Document 07/22/20 08:14 [facility] (Rec: 07/22/20 17:50 [facility] [id number]) Sensation Evaluation Gross Sensation Gross Sensation WNL PT-OP-J Posture/Palpation/Skin Start: 07/21/20 08:10 Freq: Status: Active Protocol: Document 07/22/20 08:14 [facility] (Rec: 07/22/20 17:50 [facility] [id number]) Palpation Assessment Location right proximal thigh Palpation Findings Edema Skin Assessment Incisional Assessment Incision Appearance/Comments 3 small incisions, all healing well, no signs or symptoms of infection PT-OP-K Range of Motion Start: 07/21/20 08:10 Freq: Status: Active Protocol: Document 07/22/20 08:14 [facility] (Rec: 07/22/20 17:50 [facility] [id number]) Hip Goniometric Range of Motion Hip Right Flexion w/Knee Flexed 90 Extension 0 Abduction 25 Internal Rotation 5 External Rotation 30 Comments AAROM Left Hip ROM WFL Yes Hip ROM Limitations Hip ROM Limitations Pain Comments guarding with internal rotation Knee Goniometric Range of Motion Knee celestina Knee ROM WFL Yes Ankle and Foot Goniometric Range of Motion Ankle and Foot ROM Limitations ROM Limitations Pain Comments right foot limited due to pain , mild swelling PT-OP-M Strength Start: 07/21/20 08:10 Freq: Status: Active Protocol: Document 07/22/20 08:14 [facility] (Rec: 07/22/20 17:50 [facility] [id number]) Hip Strength Hip Manual Muscle Testing Right Comments not assessed due to post-op restrictions Left Comments WFL Knee Strength Knee Manual Muscle Testing celestina Comments anti-gravity extension PT-OP-Q Treatments Start: 07/21/20 08:10 Freq: Status: Active Protocol: Document 07/22/20 08:14 [facility] (Rec: 07/22/20 17:50 [facility] [id number]) Self-Care/Home Management Treatment Education Patient Education Home Exercise Program Other Education Read-through post-op instructions days 1-7 and weeks 2-3, clarified information as able, patient reports surgeon told him ok to wean off crutches after 2 days. Patient instructed in post-op isometric exercises, hasn't been doing, was issued handout. Activities Self-Care/Home Management Activities ice 2-3x/day due to swelling and to prevent post-exercise soreness. PT-OP-R Modalities Start: 07/21/20 08:10 Freq: Status: Active Protocol: Document 07/22/20 08:14 [facility] (Rec: 07/22/20 17:51 [facility] [id number]) Hot Pack/Cold Pack Treatment Cold Pack Location right anterior hip Patient Position Supine Treatment Duration (minutes) 10 Patient Tolerance Good PT-OP-T Assessment and Plan Start: 07/21/20 08:10 Freq: Status: Active Protocol: Document 07/22/20 08:14 [facility] (Rec: 07/22/20 17:50 [facility] [id number]) Physical Therapy Assessment Rehab Potential Rehabilitation Potential Good Evaluation Complexity Number of Personal Factors/Comorbidities 1-2 Number of Body Systems Impaired 3 Clinical Presentation at Evaluation Evolving Impairments Impairments Activity Tolerance,Gait,ROM, Strength Goals Four Impairment weakness right hip Short Term Goal (STG) Patient to be independent and compliant with progressive HEP following post-op protocol STG Duration 09/29/20 Fpc Goal (LTG) Patient to demonstrate at least 4+/5 muscle strength throughout right hip LTG Duration 10/20/20 Three Impairment limited right hip ROM with internal rotation 5 degrees Short Term Goal (STG) Patient to be independent and compliant with progressive HEP for hip ROM following post-op protocol Fpc Goal (LTG) Patient to improve right hip ROM to WNL with emphasis on hip internal rotation LTG Duration 10/20/20 Two Impairment Lower extremity functional scale 23% Short Term Goal (STG) Improve LEFS to at least 50% STG Duration Fpc Goal (LTG) Improve LEFS to at least 80% LTG Duration 10/20/20 One Impairment antalgic gait Short Term Goal (STG) Patient will be able to ambulate household distances with least restrictive device without limp STG Duration 08/08/20 Calculus Teacher Goal (LTG) Patient will be able to ambulate on level surfaces, stairs, other uneven surfaces without pain or limp, without assistive device LTG Duration 10/20/20 Assessment Summary Assessment Patient presents to PT for rehab 19 days post-op right hip labral repair, comes with post-op protocol. Was advised by physian he could wean off crutches after 2 days if felt ok. Patient ambulating without crutches with limp and was instructed in modification of his gait to eliminate limp or use 1-2 crutches to offload hip for improved gait. Incisions examined and appear to be healing well, almost ready for scar massage. No signs or symptoms of infection. Swelling without heat or redness evident in surgical area and increased frequency of icing advised. He was instructed in post-op exercises isometric exercises that he hasn't been doing and was issued a handout. Patient very guarded with internal rotation ROM with limitation of 5 degrees, external rotation to 20. Gentle AAROM performed to tolerance. Ice pack applied to right hip. Aquatic exercise encouraged. Discussed post-op protocol and patient advised not to overdo, to listen to his body. Ice after activity and exercise. He is highly motivated to return to his prior level of function that included mountain biking. He demonstrated good understanding of all instructions. Physical Therapy Plan Frequency and Duration Frequency of Treatment 2x/Week Duration of Treatment 12 weeks Plan of Care Start Date 07/22/20 Plan of Care End Date 10/20/20 Therapeutic Interventions Therapeutic Interventions Gait Training,Home Exercise Program,Joint Mobilizations, Manual Therapy,Neuromuscular Re-education,Patient/Caregiver Education,Self-Care/Home Management,Soft Tissue Mobilization,Taping, Therapeutic Activities, Therapeutic Exercises Modalities Cold Pack/Ice Massage,Electric Stimulation,Hot Packs Next Visit Focus/Plan Next Note Type Treatment Note Next Visit Plan Patient to be seen again in 2 days, will review HEP, do further gait training, AAROM to right hip, consider gentle joint mobilization as indicated, progress exercises as tolerated per protocol to include exercise bike. Issue handout for aquatic exercise.
--- NOTE | 2020-07-22 17:58 | PT.OPPOC ---
Physical, Occupational & Speech Therapy At [facility] Current Diagnoses Stiffness of unspecified hip, not elsewhere classified (07/22/20) Difficulty in walking, not elsewhere classified (07/22/20) Weakness (07/22/20) Other sprain of right hip, initial encounter (07/22/20) Visit Care Team Role Provider Type Santos Oneal Primary Care Provider Non-Staff Specialty: Medical Address: [address] [place] [address], [id number] Email: Addison Sher MD Attending Provider Non-Staff Referring Provider Specialty: Orthopedic Surgery Address: [facility] Erin Myers, [place], [address] Email: Plan Of Care PT-OP-T Assessment and Plan Start: 07/21/20 08:10 Freq: Status: Active Protocol: Document 07/22/20 08:14 [facility] (Rec: 07/22/20 17:50 [facility] [id number]) Physical Therapy Assessment Rehab Potential Rehabilitation Potential Good Evaluation Complexity Number of Personal Factors/Comorbidities 1-2 Number of Body Systems Impaired 3 Clinical Presentation at Evaluation Evolving Impairments Impairments Activity Tolerance,Gait,ROM, Strength Goals Four Impairment weakness right hip Short Term Goal (STG) Patient to be independent and compliant with progressive HEP following post-op protocol STG Duration 09/29/20 Cook Apprentice Pastry Goal (LTG) Patient to demonstrate at least 4+/5 muscle strength throughout right hip LTG Duration 10/20/20 Three Impairment limited right hip ROM with internal rotation 5 degrees Short Term Goal (STG) Patient to be independent and compliant with progressive HEP for hip ROM following post-op protocol Cook Apprentice Pastry Goal (LTG) Patient to improve right hip ROM to WNL with emphasis on hip internal rotation LTG Duration 10/20/20 Two Impairment Lower extremity functional scale 23% Short Term Goal (STG) Improve LEFS to at least 50% STG Duration Snf Goal (LTG) Improve LEFS to at least 80% LTG Duration 10/20/20 One Impairment antalgic gait Short Term Goal (STG) Patient will be able to ambulate household distances with least restrictive device without limp STG Duration 08/08/20 Snf Goal (LTG) Patient will be able to ambulate on level surfaces, stairs, other uneven surfaces without pain or limp, without assistive device LTG Duration 10/20/20 Assessment Summary Assessment Patient presents to PT for rehab 19 days post-op right hip labral repair, comes with post-op protocol. Was advised by physian he could wean off crutches after 2 days if felt ok. Patient ambulating without crutches with limp and was instructed in modification of his gait to eliminate limp or use 1-2 crutches to offload hip for improved gait. Incisions examined and appear to be healing well, almost ready for scar massage. No signs or symptoms of infection. Swelling without heat or redness evident in surgical area and increased frequency of icing advised. He was instructed in post-op exercises isometric exercises that he hasn't been doing and was issued a handout. Patient very guarded with internal rotation ROM with limitation of 5 degrees, external rotation to 20. Gentle AAROM performed to tolerance. Ice pack applied to right hip. Aquatic exercise encouraged. Discussed post-op protocol and patient advised not to overdo, to listen to his body. Ice after activity and exercise. He is highly motivated to return to his prior level of function that included mountain biking. He demonstrated good understanding of all instructions. Physical Therapy Plan Frequency and Duration Frequency of Treatment 2x/Week Duration of Treatment 12 weeks Plan of Care Start Date 07/22/20 Plan of Care End Date 10/20/20 Therapeutic Interventions Therapeutic Interventions Gait Training,Home Exercise Program,Joint Mobilizations, Manual Therapy,Neuromuscular Re-education,Patient/Caregiver Education,Self-Care/Home Management,Soft Tissue Mobilization,Taping, Therapeutic Activities, Therapeutic Exercises Modalities Cold Pack/Ice Massage,Electric Stimulation,Hot Packs Next Visit Focus/Plan Next Note Type Treatment Note Next Visit Plan Patient to be seen again in 2 days, will review HEP, do further gait training, AAROM to right hip, consider gentle joint mobilization as indicated, progress exercises as tolerated per protocol to include exercise bike. Issue handout for aquatic exercise. Plan of Care Dates Plan of Care Start Date 07/22/20 Plan of Care End Date 10/20/20 Electronically Signed by: Pina Taylor, PT 07/22/20 [id number] Please Sign and Return: I have reviewed this Plan of Care and certify that the skilled therapy services above are required to meet the patient?s needs. Physician Signature Date Printed Name and Credentials Clinical Instructor Signature Printed Name and Credentials
--- NOTE | 2020-07-24 10:54 | PT.OTN ---
Current Diagnoses Stiffness of unspecified hip, not elsewhere classified (07/24/20) Difficulty in walking, not elsewhere classified (07/24/20) Weakness (07/24/20) Other sprain of right hip, initial encounter (07/24/20) Physical Therapy Treatment Note PT-OP-A Visit Information Start: 07/21/20 08:10 Freq: Status: Active Protocol: Document 07/24/20 09:48 [facility] (Rec: 07/24/20 10:54 [facility] [id number]) Out-Patient Physical Therapy Visit Information Visit Information Visit Type Treatment Note Visit Note 21 days postop Visit Start Time 09:47 Total Visit Minutes 55 Visit Number 2 Evaluation Information Evaluation Date 07/22/20 Precautions Precautions post-op protocol from physician in chart: Post-op days 1-7: NWB for first 2 days progressing to toe touch weight-bearing with crutches. Foot flat weight bearing appropriate if patient understands concept. Maintain foot-flat until four weeks postoperative. Immediate post-op exercises: glut sets, quad sets, hamstring sets, adductor sets, abductor sets, ankle pumps. AAAROM in all planes without pain. Limitations placed by surgeon with respect to overall range, usually limites include flexion to 90, IR to 30, ER 45 for the first month. Hip mobilization if beneficial in decreasing pain and increasing ROM with straight distraction: inf glide and posterior glide PT-OP-B Current Condition Start: 07/21/20 08:10 Freq: Status: Active Protocol: Document 07/22/20 08:14 [facility] (Rec: 07/22/20 09:05 [facility] [id number]) Current Condition History of Current Condition Onset Date 07/03/20 Current Complaints stiffness and pain right hip History of Current Condition s/p right labral repair 07/03/20 due to persistent, function- limitingright hip pain. Reports doctor said I could ditch the crutches after a couple days if it felt ok so hasn't used crutches since a couple days post-op. Had follow-up appointment last with surgeon's PA; states PA encouraged him to not overdo as it sounds like he had been, otherwise things looked good. Patient ambulating without device, c/o stiffness today, more than usual. May have overdone getting trailer ready for camping over weekend, in and out of trailer. Doing step- to on stairs. Worst pain he has experienced since surgery is with twisting to get off toilet. Has had difficulty putting socks on without rotating his leg. Reports right foot/ankle sore since surgery ( sprained ankle end of April and feels positioning during surgery may have contributed to this increase in pain). States he wasn't shown exercises after surgery. 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 Prior Functional Status Baseline Function- ADL's Independent Baseline Function- Mobility Independent Baseline Function- Gait no device, no limp Baseline Function- Work/School no limitations Baseline Function- Recreation/Hobbies mountain-biking Current Functional Impairments (Reported) Functional Limitations- ADL's painful, guarded Functional Limitations- Mobility/Gait limited to household, short distance community, no device but antalgic Functional Limitations- Work/School not back to work yet Functional Limitations- Recreation/ unable Hobbies Personal Factors Other Personal Factors That May Effect Patient tends to push too hard Therapy/Recovery PT-OP-C Subjective Start: 07/21/20 08:10 Freq: Status: Active Protocol: Document 07/24/20 09:48 [facility] (Rec: 07/24/20 10:54 [facility] [id number]) OP-PT Subjective Patient Comments Patient Comments overdid a little yesterday fixing portable electric grill (green [employer] grill), no increase in pain. Iced more as instructed. No difficulty with exercises. Did 5 min on ex bike ([place]), no resistance PT-OP-G Mobility & Gait Start: 07/21/20 08:10 Freq: Status: Active Protocol: Document 07/22/20 08:14 [facility] (Rec: 07/22/20 17:50 [facility] [id number]) OP Mobility Evaluation Bed Mobility Supine to and from Sit safe method without twisting Transfers Sit to Stand may decrease weight-bearing through right leg if painful Car Transfers instructed in correct method for hip protection, sit first, swing legs in, reverse to exit. Functional Movements Lifting and Carrying not allowed at this lb Squats not allowed Running Assessment unable/not allowed OP Gait Assessment Gait Gait Assistance Required: Independent Assistive Devices Assistive Device None Orthotic/Prosthetic Devices or Brace: No Gait Deviations General Gait Pattern Antalgic Factors Limiting Gait Function Factors Limiting Gait Function Limited Range of Motion,Pain Comments Gait Comments protocol states foot flat for 4 weeks, patient instructed to decrease step length, foot flat technique Stair Climbing Evaluation Comments Stair Climbing Comments not evaluated today, patient verbalizes correct sequencing for hip protection with step- to pattern PT-OP-H Neuro Start: 07/21/20 08:10 Freq: Status: Active Protocol: Document 07/22/20 08:14 [facility] (Rec: 07/22/20 17:50 [facility] [id number]) Sensation Evaluation Gross Sensation Gross Sensation WNL PT-OP-J Posture/Palpation/Skin Start: 07/21/20 08:10 Freq: Status: Active Protocol: Document 07/22/20 08:14 [facility] (Rec: 07/22/20 17:50 [facility] [id number]) Palpation Assessment Location right proximal thigh Palpation Findings Edema Skin Assessment Incisional Assessment Incision Appearance/Comments 3 small incisions, all healing well, no signs or symptoms of infection PT-OP-K Range of Motion Start: 07/21/20 08:10 Freq: Status: Active Protocol: Document 07/22/20 08:14 [facility] (Rec: 07/22/20 17:50 [facility] [id number]) Hip Goniometric Range of Motion Hip Right Flexion w/Knee Flexed 90 Extension 0 Abduction 25 Internal Rotation 5 External Rotation 30 Comments AAROM Left Hip ROM WFL Yes Hip ROM Limitations Hip ROM Limitations Pain Comments guarding with internal rotation Knee Goniometric Range of Motion Knee celestina Knee ROM WFL Yes Ankle and Foot Goniometric Range of Motion Ankle and Foot ROM Limitations ROM Limitations Pain Comments right foot limited due to pain , mild swelling PT-OP-M Strength Start: 07/21/20 08:10 Freq: Status: Active Protocol: Document 07/22/20 08:14 [facility] (Rec: 07/22/20 17:50 [facility] [id number]) Hip Strength Hip Manual Muscle Testing Right Comments not assessed due to post-op restrictions Left Comments WFL Knee Strength Knee Manual Muscle Testing celestina Comments anti-gravity extension PT-OP-Q Treatments Start: 07/21/20 08:10 Freq: Status: Active Protocol: Document 07/24/20 09:48 [facility] (Rec: 07/24/20 10:54 [facility] [id number]) Cardio Equipment Bicycle (Upright) Duration (Minutes) 8 Resistance 1 Seat Position 6 Therapeutic Exercises Supine Exercises hip flexion Reps/Minutes 10x Comments right LE on 55 cm therapy ball , PT assist hip IR at 90 deg Reps/Minutes 10x Comments manual assist AAROM IR to no greater than 30 (matteo 10 today) , ER to 45 hooklying hip IR/ER Reps/Minutes 10x hip IR/ER Reps/Minutes 10x Comments leg straight, limit to 45 ER, 30 IR heel slide Reps/Minutes 10x hip abduction Equipment Used L2 TB Reps/Minutes 10x Comments knees straight Bridge Reps/Minutes 10x Standing Exercises hip ab,ad Equipment Used L2 TB Reps/Minutes 10x Self-Care/Home Management Treatment Education Patient Education Home Exercise Program,Pain Management Other Education don't overdo, take trekking poles for walking while camping Activities Self-Care/Home Management Activities ice 2-3x/day due to swelling and to prevent post-exercise soreness. May use heat alternately PT-OP-R Modalities Start: 07/21/20 08:10 Freq: Status: Active Protocol: Document 07/24/20 09:48 [facility] (Rec: 07/24/20 10:54 [facility] [id number]) Hot Pack/Cold Pack Treatment Cold Pack Location right anterior hip Patient Position Supine Treatment Duration (minutes) 10 Patient Tolerance Good PT-OP-T Assessment and Plan Start: 07/21/20 08:10 Freq: Status: Active Protocol: Document 07/24/20 09:48 [facility] (Rec: 07/24/20 10:54 [facility] [id number]) Physical Therapy Assessment Goals Four Impairment weakness right hip Short Term Goal (STG) Patient to be independent and compliant with progressive HEP following post-op protocol STG Duration 09/29/20 Hand Inserter Operator Goal (LTG) Patient to demonstrate at least 4+/5 muscle strength throughout right hip LTG Duration 10/20/20 Three Impairment limited right hip ROM with internal rotation 5 degrees Short Term Goal (STG) Patient to be independent and compliant with progressive HEP for hip ROM following post-op protocol Hand Inserter Operator Goal (LTG) Patient to improve right hip ROM to WNL with emphasis on hip internal rotation LTG Duration 10/20/20 Two Impairment Lower extremity functional scale 23% Short Term Goal (STG) Improve LEFS to at least 50% STG Duration Hand Inserter Operator Goal (LTG) Improve LEFS to at least 80% LTG Duration 10/20/20 One Impairment antalgic gait Short Term Goal (STG) Patient will be able to ambulate household distances with least restrictive device without limp STG Duration 08/08/20 Assisted Goal (LTG) Patient will be able to ambulate on level surfaces, stairs, other uneven surfaces without pain or limp, without assistive device LTG Duration 10/20/20 Assessment Summary Assessment Patient had muscle soreness but no increase in pain after first PT appointment, demonstrates good understanding of ther ex previously instructed in and progression of ex today with new handout. Also initiated scar massage with patient instructed for self-massage with vitamin E oil as has at home. Hip tight into flexion, unable to flex to 90 initially. Decreased pressure with inferior glide allowing patient to then flex to 90 degrees. Physical Therapy Plan Frequency and Duration Frequency of Treatment 2x/Week Duration of Treatment 12 weeks Plan of Care Start Date 07/22/20 Plan of Care End Date 10/20/20 Therapeutic Interventions Therapeutic Interventions Gait Training,Home Exercise Program,Joint Mobilizations, Manual Therapy,Neuromuscular Re-education,Patient/Caregiver Education,Self-Care/Home Management,Soft Tissue Mobilization,Taping, Therapeutic Activities, Therapeutic Exercises Modalities Cold Pack/Ice Massage,Electric Stimulation,Hot Packs Next Visit Focus/Plan Next Note Type Treatment Note Next Visit Plan Asses response to last session and progress ther ex per protocol, joint mobilization as indicated to improve ROM with inferior and posterior glides at 90 degrees flexion per protocol.
--- NOTE | 2020-07-24 15:23 | PT.OTN ---
Current Diagnoses Stiffness of unspecified hip, not elsewhere classified (07/24/20) Difficulty in walking, not elsewhere classified (07/24/20) Weakness (07/24/20) Other sprain of right hip, initial encounter (07/24/20) Physical Therapy Treatment Note PT-OP-A Visit Information Start: 07/21/20 08:10 Freq: Status: Active Protocol: Document 07/24/20 09:48 [facility] (Rec: 07/24/20 10:54 [facility] [id number]) Out-Patient Physical Therapy Visit Information Visit Information Visit Type Treatment Note Visit Note 21 days postop Visit Start Time 09:47 Total Visit Minutes 55 Visit Number 2 Evaluation Information Evaluation Date 07/22/20 Precautions Precautions post-op protocol from physician in chart: Post-op days 1-7: NWB for first 2 days progressing to toe touch weight-bearing with crutches. Foot flat weight bearing appropriate if patient understands concept. Maintain foot-flat until four weeks postoperative. Immediate post-op exercises: glut sets, quad sets, hamstring sets, adductor sets, abductor sets, ankle pumps. AAAROM in all planes without pain. Limitations placed by surgeon with respect to overall range, usually limites include flexion to 90, IR to 30, ER 45 for the first month. Hip mobilization if beneficial in decreasing pain and increasing ROM with straight distraction: inf glide and posterior glide PT-OP-B Current Condition Start: 07/21/20 08:10 Freq: Status: Active Protocol: Document 07/22/20 08:14 [facility] (Rec: 07/22/20 09:05 [facility] [id number]) Current Condition History of Current Condition Onset Date 07/03/20 Current Complaints stiffness and pain right hip History of Current Condition s/p right labral repair 07/03/20 due to persistent, function- limitingright hip pain. Reports doctor said I could ditch the crutches after a couple days if it felt ok so hasn't used crutches since a couple days post-op. Had follow-up appointment last with surgeon's PA; states PA encouraged him to not overdo as it sounds like he had been, otherwise things looked good. Patient ambulating without device, c/o stiffness today, more than usual. May have overdone getting trailer ready for camping over weekend, in and out of trailer. Doing step- to on stairs. Worst pain he has experienced since surgery is with twisting to get off toilet. Has had difficulty putting socks on without rotating his leg. Reports right foot/ankle sore since surgery ( sprained ankle end of April and feels positioning during surgery may have contributed to this increase in pain). States he wasn't shown exercises after surgery. 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 Prior Functional Status Baseline Function- ADL's Independent Baseline Function- Mobility Independent Baseline Function- Gait no device, no limp Baseline Function- Work/School no limitations Baseline Function- Recreation/Hobbies mountain-biking Current Functional Impairments (Reported) Functional Limitations- ADL's painful, guarded Functional Limitations- Mobility/Gait limited to household, short distance community, no device but antalgic Functional Limitations- Work/School not back to work yet Functional Limitations- Recreation/ unable Hobbies Personal Factors Other Personal Factors That May Effect Patient tends to push too hard Therapy/Recovery PT-OP-C Subjective Start: 07/21/20 08:10 Freq: Status: Active Protocol: Document 07/24/20 09:48 [facility] (Rec: 07/24/20 10:54 [facility] [id number]) OP-PT Subjective Patient Comments Patient Comments overdid a little yesterday fixing portable electric grill (green [employer] grill), no increase in pain. Iced more as instructed. No difficulty with exercises. Did 5 min on ex bike ([place]), no resistance with good tolerance PT-OP-G Mobility & Gait Start: 07/21/20 08:10 Freq: Status: Active Protocol: Document 07/22/20 08:14 [facility] (Rec: 07/22/20 17:50 [facility] [id number]) OP Mobility Evaluation Bed Mobility Supine to and from Sit safe method without twisting Transfers Sit to Stand may decrease weight-bearing through right leg if painful Car Transfers instructed in correct method for hip protection, sit first, swing legs in, reverse to exit. Functional Movements Lifting and Carrying not allowed at this lb Squats not allowed Running Assessment unable/not allowed OP Gait Assessment Gait Gait Assistance Required: Independent Assistive Devices Assistive Device None Orthotic/Prosthetic Devices or Brace: No Gait Deviations General Gait Pattern Antalgic Factors Limiting Gait Function Factors Limiting Gait Function Limited Range of Motion,Pain Comments Gait Comments protocol states foot flat for 4 weeks, patient instructed to decrease step length, foot flat technique Stair Climbing Evaluation Comments Stair Climbing Comments not evaluated today, patient verbalizes correct sequencing for hip protection with step- to pattern PT-OP-H Neuro Start: 07/21/20 08:10 Freq: Status: Active Protocol: Document 07/22/20 08:14 [facility] (Rec: 07/22/20 17:50 [facility] [id number]) Sensation Evaluation Gross Sensation Gross Sensation WNL PT-OP-J Posture/Palpation/Skin Start: 07/21/20 08:10 Freq: Status: Active Protocol: Document 07/22/20 08:14 [facility] (Rec: 07/22/20 17:50 [facility] [id number]) Palpation Assessment Location right proximal thigh Palpation Findings Edema Skin Assessment Incisional Assessment Incision Appearance/Comments 3 small incisions, all healing well, no signs or symptoms of infection PT-OP-K Range of Motion Start: 07/21/20 08:10 Freq: Status: Active Protocol: Document 07/22/20 08:14 [facility] (Rec: 07/22/20 17:50 [facility] [id number]) Hip Goniometric Range of Motion Hip Right Flexion w/Knee Flexed 90 Extension 0 Abduction 25 Internal Rotation 5 External Rotation 30 Comments AAROM Left Hip ROM WFL Yes Hip ROM Limitations Hip ROM Limitations Pain Comments guarding with internal rotation Knee Goniometric Range of Motion Knee celestina Knee ROM WFL Yes Ankle and Foot Goniometric Range of Motion Ankle and Foot ROM Limitations ROM Limitations Pain Comments right foot limited due to pain , mild swelling PT-OP-M Strength Start: 07/21/20 08:10 Freq: Status: Active Protocol: Document 07/22/20 08:14 [facility] (Rec: 07/22/20 17:50 [facility] [id number]) Hip Strength Hip Manual Muscle Testing Right Comments not assessed due to post-op restrictions Left Comments WFL Knee Strength Knee Manual Muscle Testing celestina Comments anti-gravity extension PT-OP-Q Treatments Start: 07/21/20 08:10 Freq: Status: Active Protocol: Document 07/24/20 09:48 [facility] (Rec: 07/24/20 10:54 [facility] [id number]) Cardio Equipment Bicycle (Upright) Duration (Minutes) 8 Resistance 2 Seat Position 6 Therapeutic Exercises Supine Exercises hip flexion Reps/Minutes 10x Comments right LE on 55 cm therapy ball , PT assist hip IR at 90 deg Reps/Minutes 10x Comments manual assist AAROM IR to no greater than 30 (matteo 10 today) , ER to 45 hooklying hip IR/ER Reps/Minutes 10x hip IR/ER Reps/Minutes 10x Comments leg straight, limit to 45 ER, 30 IR heel slide Reps/Minutes 10x hip abduction Equipment Used L2 TB Reps/Minutes 10x Comments knees straight Bridge Reps/Minutes 10x Standing Exercises hip ab,ad Equipment Used L2 TB Reps/Minutes 10x Comments preferred supine Manual Therapy Treatment Joint Mobilizations right hip Direction inferior glide, hip flexed to 90 Grade II Body Position Supine Reps/Duration 3 min Comments bambi d asilva reports decreased feeling of pressure Self-Care/Home Management Treatment Education Patient Education Home Exercise Program,Pain Management Other Education don't overdo, take trekking poles for walking while camping self scar massage instruction technique and use of vitamin E oil Activities Self-Care/Home Management Activities ice 2-3x/day due to swelling and to prevent post-exercise soreness. May use heat alternately PT-OP-R Modalities Start: 07/21/20 08:10 Freq: Status: Active Protocol: Document 07/24/20 09:48 [facility] (Rec: 07/24/20 10:54 [facility] [id number]) Hot Pack/Cold Pack Treatment Cold Pack Location right anterior hip Patient Position Supine Treatment Duration (minutes) 10 Patient Tolerance Good PT-OP-T Assessment and Plan Start: 07/21/20 08:10 Freq: Status: Active Protocol: Document 07/24/20 09:48 [facility] (Rec: 07/24/20 10:54 [facility] [id number]) Physical Therapy Assessment Goals Four Impairment weakness right hip Short Term Goal (STG) Patient to be independent and compliant with progressive HEP following post-op protocol STG Duration 09/29/20 Registered Pharmacy Technician Goal (LTG) Patient to demonstrate at least 4+/5 muscle strength throughout right hip LTG Duration 10/20/20 Three Impairment limited right hip ROM with internal rotation 5 degrees Short Term Goal (STG) Patient to be independent and compliant with progressive HEP for hip ROM following post-op protocol Registered Pharmacy Technician Goal (LTG) Patient to improve right hip ROM to WNL with emphasis on hip internal rotation LTG Duration 10/20/20 Two Impairment Lower extremity functional scale 23% Short Term Goal (STG) Improve LEFS to at least 50% STG Duration Senior Living Goal (LTG) Improve LEFS to at least 80% LTG Duration 10/20/20 One Impairment antalgic gait Short Term Goal (STG) Patient will be able to ambulate household distances with least restrictive device without limp STG Duration 08/08/20 Senior Living Goal (LTG) Patient will be able to ambulate on level surfaces, stairs, other uneven surfaces without pain or limp, without assistive device LTG Duration 10/20/20 Assessment Summary Assessment Patient had muscle soreness but no increase in pain after first PT appointment, demonstrates good understanding of ther ex previously instructed in and progression of ex today with new handout. Also initiated scar massage with patient instructed for self-massage with vitamin E oil as has at home. Hip tight into flexion, unable to flex to 90 initially. Decreased pressure with inferior glide allowing patient to then flex to 90 degrees. Physical Therapy Plan Frequency and Duration Frequency of Treatment 2x/Week Duration of Treatment 12 weeks Plan of Care Start Date 07/22/20 Plan of Care End Date 10/20/20 Therapeutic Interventions Therapeutic Interventions Gait Training,Home Exercise Program,Joint Mobilizations, Manual Therapy,Neuromuscular Re-education,Patient/Caregiver Education,Self-Care/Home Management,Soft Tissue Mobilization,Taping, Therapeutic Activities, Therapeutic Exercises Modalities Cold Pack/Ice Massage,Electric Stimulation,Hot Packs Next Visit Focus/Plan Next Note Type Treatment Note Next Visit Plan Asses response to last session and progress ther ex per protocol, joint mobilization as indicated to improve ROM with inferior and posterior glides at 90 degrees flexion per protocol.
--- NOTE | 2020-07-30 17:04 | PT.OTN ---
Current Diagnoses Stiffness of unspecified hip, not elsewhere classified (07/30/20) Difficulty in walking, not elsewhere classified (07/30/20) Weakness (07/30/20) Other sprain of right hip, initial encounter (07/30/20) Physical Therapy Treatment Note PT-OP-A Visit Information Start: 07/21/20 08:10 Freq: Status: Active Protocol: Document 07/30/20 08:13 [facility] (Rec: 07/30/20 08:58 [facility] [id number]) Out-Patient Physical Therapy Visit Information Visit Information Visit Type Treatment Note Visit Note 27 days post-op Visit Start Time 08:15 Visit Stop Time 09:10 Total Visit Minutes 55 Visit Number 3 Precautions Precautions post-op protocol from physician in chart: Post-op days 1-7: NWB for first 2 days progressing to toe touch weight-bearing with crutches. Foot flat weight bearing appropriate if patient understands concept. Maintain foot-flat until four weeks postoperative. Immediate post-op exercises: glut sets, quad sets, hamstring sets, adductor sets, abductor sets, ankle pumps. AAAROM in all planes without pain. Limitations placed by surgeon with respect to overall range, usually limites include flexion to 90, IR to 30, ER 45 for the first month. Hip mobilization if beneficial in decreasing pain and increasing ROM with straight distraction: inf glide and posterior glide PT-OP-B Current Condition Start: 07/21/20 08:10 Freq: Status: Active Protocol: Document 07/22/20 08:14 [facility] (Rec: 07/22/20 09:05 [facility] [id number]) Current Condition History of Current Condition Onset Date 07/03/20 Current Complaints stiffness and pain right hip History of Current Condition s/p right labral repair 07/03/20 due to persistent, function- limitingright hip pain. Reports doctor said I could ditch the crutches after a couple days if it felt ok so hasn't used crutches since a couple days post-op. Had follow-up appointment last with surgeon's PA; states PA encouraged him to not overdo as it sounds like he had been, otherwise things looked good. Patient ambulating without device, c/o stiffness today, more than usual. May have overdone getting trailer ready for camping over weekend, in and out of trailer. Doing step- to on stairs. Worst pain he has experienced since surgery is with twisting to get off toilet. Has had difficulty putting socks on without rotating his leg. Reports right foot/ankle sore since surgery ( sprained ankle end of April and feels positioning during surgery may have contributed to this increase in pain). States he wasn't shown exercises after surgery. 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 Prior Functional Status Baseline Function- ADL's Independent Baseline Function- Mobility Independent Baseline Function- Gait no device, no limp Baseline Function- Work/School no limitations Baseline Function- Recreation/Hobbies mountain-biking Current Functional Impairments (Reported) Functional Limitations- ADL's painful, guarded Functional Limitations- Mobility/Gait limited to household, short distance community, no device but antalgic Functional Limitations- Work/School not back to work yet Functional Limitations- Recreation/ unable Hobbies Personal Factors Other Personal Factors That May Effect Patient tends to push too hard Therapy/Recovery PT-OP-C Subjective Start: 07/21/20 08:10 Freq: Status: Active Protocol: Document 07/30/20 08:13 [facility] (Rec: 07/30/20 08:58 [facility] [id number]) OP-PT Subjective Patient Comments Patient Comments Reports sore from long drive back from camping yesterday, lots of switching from gas to brake due to high traffic level. Feels very tight when bending/squatting to help his daughter with fishing. Followed instruction to not use paddle board yet. Initially over the weekend walked up and down stairs with a step-to pattern, then switched to alternating pattern on steps with minimal to no pain. Took ice pack but didn't use. Did self-massage to scars. Patient Reported Progress Improving PT-OP-G Mobility & Gait Start: 07/21/20 08:10 Freq: Status: Active Protocol: Document 07/22/20 08:14 [facility] (Rec: 07/22/20 17:50 [facility] [id number]) OP Mobility Evaluation Bed Mobility Supine to and from Sit safe method without twisting Transfers Sit to Stand may decrease weight-bearing through right leg if painful Car Transfers instructed in correct method for hip protection, sit first, swing legs in, reverse to exit. Functional Movements Lifting and Carrying not allowed at this lb Squats not allowed Running Assessment unable/not allowed OP Gait Assessment Gait Gait Assistance Required: Independent Assistive Devices Assistive Device None Orthotic/Prosthetic Devices or Brace: No Gait Deviations General Gait Pattern Antalgic Factors Limiting Gait Function Factors Limiting Gait Function Limited Range of Motion,Pain Comments Gait Comments protocol states foot flat for 4 weeks, patient instructed to decrease step length, foot flat technique Stair Climbing Evaluation Comments Stair Climbing Comments not evaluated today, patient verbalizes correct sequencing for hip protection with step- to pattern PT-OP-H Neuro Start: 07/21/20 08:10 Freq: Status: Active Protocol: Document 07/22/20 08:14 [facility] (Rec: 07/22/20 17:50 [facility] [id number]) Sensation Evaluation Gross Sensation Gross Sensation WNL PT-OP-J Posture/Palpation/Skin Start: 07/21/20 08:10 Freq: Status: Active Protocol: Document 07/22/20 08:14 [facility] (Rec: 07/22/20 17:50 [facility] [id number]) Palpation Assessment Location right proximal thigh Palpation Findings Edema Skin Assessment Incisional Assessment Incision Appearance/Comments 3 small incisions, all healing well, no signs or symptoms of infection PT-OP-K Range of Motion Start: 07/21/20 08:10 Freq: Status: Active Protocol: Document 07/22/20 08:14 [facility] (Rec: 07/22/20 17:50 [facility] [id number]) Hip Goniometric Range of Motion Hip Right Flexion w/Knee Flexed 90 Extension 0 Abduction 25 Internal Rotation 5 External Rotation 30 Comments AAROM Left Hip ROM WFL Yes Hip ROM Limitations Hip ROM Limitations Pain Comments guarding with internal rotation Knee Goniometric Range of Motion Knee celestina Knee ROM WFL Yes Ankle and Foot Goniometric Range of Motion Ankle and Foot ROM Limitations ROM Limitations Pain Comments right foot limited due to pain , mild swelling PT-OP-M Strength Start: 07/21/20 08:10 Freq: Status: Active Protocol: Document 07/22/20 08:14 [facility] (Rec: 07/22/20 17:50 [facility] [id number]) Hip Strength Hip Manual Muscle Testing Right Comments not assessed due to post-op restrictions Left Comments WFL Knee Strength Knee Manual Muscle Testing celestina Comments anti-gravity extension PT-OP-Q Treatments Start: 07/21/20 08:10 Freq: Status: Active Protocol: Document 07/30/20 08:13 [facility] (Rec: 07/30/20 08:58 [facility] [id number]) Cardio Equipment Bicycle (Upright) Duration (Minutes) 8 Resistance 3 Seat Position 7 Gym Equipment Shuttle Recovery Unilateral Squats Resistance 37 Shuttle Recovery Platform Stable Reps/Time 10x2 Bilateral Squats Resistance 50 Shuttle Recovery Platform Stable Reps/Time 10x2 Therapeutic Exercises Supine Exercises SLR Side bilateral Reps/Minutes 10x Comments AAROM (PT assist) hip flexion Reps/Minutes 10x Comments PT assist with inf glide hip point hip IR at 90 deg Reps/Minutes 10x Comments manual assist AAROM IR to no greater than 30 (matteo 10 today) , ER to 45 hooklying hip IR/ER Reps/Minutes 10x hip IR/ER Reps/Minutes 10x Comments leg straight, limit to 45 ER, 30 IR Bridge Reps/Minutes 10x Sitting Exercises hamstring curl Equipment Used L2 TB Reps/Minutes 10x Standing Exercises flex/ext, ab/ad, circles Reps/Minutes 10x ea Comments standing on step Manual Therapy Treatment Joint Mobilizations right hip Direction inferior glide, posterior glide hip flexed to 90 Grade II Body Position Supine Reps/Duration 5 min Comments good tolerance reports decreased feeling of pressure Self-Care/Home Management Treatment Education Patient Education Home Exercise Program,Pain Management PT-OP-R Modalities Start: 07/21/20 08:10 Freq: Status: Active Protocol: Document 07/30/20 08:13 [facility] (Rec: 07/30/20 08:58 [facility] [id number]) Hot Pack/Cold Pack Treatment Cold Pack Location right anterior hip Patient Position Supine Treatment Duration (minutes) 10 Patient Tolerance Good PT-OP-T Assessment and Plan Start: 07/21/20 08:10 Freq: Status: Active Protocol: Document 07/30/20 08:13 [facility] (Rec: 07/30/20 08:58 [facility] [id number]) Physical Therapy Assessment Goals Four Impairment weakness right hip Short Term Goal (STG) Patient to be independent and compliant with progressive HEP following post-op protocol STG Duration 09/29/20 Cassandra Architect Goal (LTG) Patient to demonstrate at least 4+/5 muscle strength throughout right hip LTG Duration 10/20/20 Three Impairment limited right hip ROM with internal rotation 5 degrees Short Term Goal (STG) Patient to be independent and compliant with progressive HEP for hip ROM following post-op protocol Senior Living Goal (LTG) Patient to improve right hip ROM to WNL with emphasis on hip internal rotation LTG Duration 10/20/20 Two Impairment Lower extremity functional scale 23% Short Term Goal (STG) Improve LEFS to at least 50% STG Duration Senior Living Goal (LTG) Improve LEFS to at least 80% LTG Duration 10/20/20 One Impairment antalgic gait Short Term Goal (STG) Patient will be able to ambulate household distances with least restrictive device without limp STG Duration 08/08/20 Senior Living Goal (LTG) Patient will be able to ambulate on level surfaces, stairs, other uneven surfaces without pain or limp, without assistive device LTG Duration 10/20/20 Assessment Summary Assessment Patient ambulating without limp today, tolerated shuttle leg press well with low resistance, good tolerance for exercise bike, gentle wall squat. Hip IR to 30 deg, ER to 45 with good tolerance. Hip flex to 95 degrees with joint. Good progress Physical Therapy Plan Frequency and Duration Frequency of Treatment 2x/Week Duration of Treatment 12 weeks Plan of Care Start Date 07/22/20 Plan of Care End Date 10/20/20 Therapeutic Interventions Therapeutic Interventions Gait Training,Home Exercise Program,Joint Mobilizations, Manual Therapy,Neuromuscular Re-education,Patient/Caregiver Education,Self-Care/Home Management,Soft Tissue Mobilization,Taping, Therapeutic Activities, Therapeutic Exercises Modalities Cold Pack/Ice Massage,Electric Stimulation,Hot Packs Next Visit Focus/Plan Next Note Type Treatment Note Next Visit Plan Continue PT progression per protocol.
--- NOTE | 2020-08-01 12:15 | PT.OTN ---
Current Diagnoses Stiffness of unspecified hip, not elsewhere classified (08/01/20) Difficulty in walking, not elsewhere classified (08/01/20) Weakness (08/01/20) Other sprain of right hip, initial encounter (08/01/20) Physical Therapy Treatment Note PT-OP-A Visit Information Start: 07/21/20 08:10 Freq: Status: Active Protocol: Document 08/01/20 08:18 [facility] (Rec: 08/01/20 09:09 [facility] [id number]) Out-Patient Physical Therapy Visit Information Visit Information Visit Type Treatment Note Visit Note 29 days post-op Visit Start Time 08:15 Visit Stop Time 09:10 Total Visit Minutes 55 Visit Number 3 Precautions Precautions post-op protocol from physician in chart: Post-op days 1-7: NWB for first 2 days progressing to toe touch weight-bearing with crutches. Foot flat weight bearing appropriate if patient understands concept. Maintain foot-flat until four weeks postoperative. Immediate post-op exercises: glut sets, quad sets, hamstring sets, adductor sets, abductor sets, ankle pumps. AAAROM in all planes without pain. Limitations placed by surgeon with respect to overall range, usually limites include flexion to 90, IR to 30, ER 45 for the first month. Hip mobilization if beneficial in decreasing pain and increasing ROM with straight distraction: inf glide and posterior glide PT-OP-B Current Condition Start: 07/21/20 08:10 Freq: Status: Active Protocol: Document 07/22/20 08:14 [facility] (Rec: 07/22/20 09:05 [facility] [id number]) Current Condition History of Current Condition Onset Date 07/03/20 Current Complaints stiffness and pain right hip History of Current Condition s/p right labral repair 07/03/20 due to persistent, function- limitingright hip pain. Reports doctor said I could ditch the crutches after a couple days if it felt ok so hasn't used crutches since a couple days post-op. Had follow-up appointment last with surgeon's PA; states PA encouraged him to not overdo as it sounds like he had been, otherwise things looked good. Patient ambulating without device, c/o stiffness today, more than usual. May have overdone getting trailer ready for camping over weekend, in and out of trailer. Doing step- to on stairs. Worst pain he has experienced since surgery is with twisting to get off toilet. Has had difficulty putting socks on without rotating his leg. Reports right foot/ankle sore since surgery ( sprained ankle end of April and feels positioning during surgery may have contributed to this increase in pain). States he wasn't shown exercises after surgery. 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 Prior Functional Status Baseline Function- ADL's Independent Baseline Function- Mobility Independent Baseline Function- Gait no device, no limp Baseline Function- Work/School no limitations Baseline Function- Recreation/Hobbies mountain-biking Current Functional Impairments (Reported) Functional Limitations- ADL's painful, guarded Functional Limitations- Mobility/Gait limited to household, short distance community, no device but antalgic Functional Limitations- Work/School not back to work yet Functional Limitations- Recreation/ unable Hobbies Personal Factors Other Personal Factors That May Effect Patient tends to push too hard Therapy/Recovery PT-OP-C Subjective Start: 07/21/20 08:10 Freq: Status: Active Protocol: Document 08/01/20 08:18 [facility] (Rec: 08/01/20 09:09 [facility] [id number]) OP-PT Subjective Patient Comments Patient Comments Patient reports going back to work 2 days ago, pain increased feels more pinching 5/10 intensity this am. Feels inflamed. Tried to sit and stand throughout the day but states he sits for more than 1 hour at a time. No heat or ice while at work. 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 PT-OP-G Mobility & Gait Start: 07/21/20 08:10 Freq: Status: Active Protocol: Document 07/22/20 08:14 [facility] (Rec: 07/22/20 17:50 [facility] [id number]) OP Mobility Evaluation Bed Mobility Supine to and from Sit safe method without twisting Transfers Sit to Stand may decrease weight-bearing through right leg if painful Car Transfers instructed in correct method for hip protection, sit first, swing legs in, reverse to exit. Functional Movements Lifting and Carrying not allowed at this lb Squats not allowed Running Assessment unable/not allowed OP Gait Assessment Gait Gait Assistance Required: Independent Assistive Devices Assistive Device None Orthotic/Prosthetic Devices or Brace: No Gait Deviations General Gait Pattern Antalgic Factors Limiting Gait Function Factors Limiting Gait Function Limited Range of Motion,Pain Comments Gait Comments protocol states foot flat for 4 weeks, patient instructed to decrease step length, foot flat technique Stair Climbing Evaluation Comments Stair Climbing Comments not evaluated today, patient verbalizes correct sequencing for hip protection with step- to pattern PT-OP-H Neuro Start: 07/21/20 08:10 Freq: Status: Active Protocol: Document 07/22/20 08:14 [facility] (Rec: 07/22/20 17:50 [facility] [id number]) Sensation Evaluation Gross Sensation Gross Sensation WNL PT-OP-J Posture/Palpation/Skin Start: 07/21/20 08:10 Freq: Status: Active Protocol: Document 07/22/20 08:14 [facility] (Rec: 07/22/20 17:50 [facility] [id number]) Palpation Assessment Location right proximal thigh Palpation Findings Edema Skin Assessment Incisional Assessment Incision Appearance/Comments 3 small incisions, all healing well, no signs or symptoms of infection PT-OP-K Range of Motion Start: 07/21/20 08:10 Freq: Status: Active Protocol: Document 07/22/20 08:14 [facility] (Rec: 07/22/20 17:50 [facility] [id number]) Hip Goniometric Range of Motion Hip Right Flexion w/Knee Flexed 90 Extension 0 Abduction 25 Internal Rotation 5 External Rotation 30 Comments AAROM Left Hip ROM WFL Yes Hip ROM Limitations Hip ROM Limitations Pain Comments guarding with internal rotation Knee Goniometric Range of Motion Knee celestina Knee ROM WFL Yes Ankle and Foot Goniometric Range of Motion Ankle and Foot ROM Limitations ROM Limitations Pain Comments right foot limited due to pain , mild swelling PT-OP-M Strength Start: 07/21/20 08:10 Freq: Status: Active Protocol: Document 07/22/20 08:14 [facility] (Rec: 07/22/20 17:50 [facility] [id number]) Hip Strength Hip Manual Muscle Testing Right Comments not assessed due to post-op restrictions Left Comments WFL Knee Strength Knee Manual Muscle Testing celestina Comments anti-gravity extension PT-OP-Q Treatments Start: 07/21/20 08:10 Freq: Status: Active Protocol: Document 08/01/20 08:18 [facility] (Rec: 08/01/20 09:09 [facility] [id number]) Cardio Equipment Bicycle (Upright) Duration (Minutes) 10 Resistance 3 Seat Position 7 Therapeutic Exercises Supine Exercises hip flexion Reps/Minutes 10x Comments PT assist with inf glide hip point Sidelying Exercises hip abduction Reps/Minutes 10x Comments cues for alignment, core activation, non painful clam, reverse clam Reps/Minutes 10x Comments cues for alignment, core activation, non painful Manual Therapy Treatment Joint Mobilizations R hip Joint right hip Direction inferior glide at 90 deg Comments 90/90: trial use of L4 TB at upper thigh to facilitate inferior glide of hip with gentle hip flex, not tolerated . right hip Direction inferior glide, posterior glide hip flexed to 90, long axis distraction Grade II Body Position Supine Reps/Duration 5 min Comments good tolerance reports decreased feeling of pressure Self-Care/Home Management Treatment Education Patient Education Home Exercise Program,Pain Management Other Education heat in am, take breaks, stand at least every half hour for a few min, ice at work, see if able to wear tennis shoes vs work boots with uniform for better cushioning. PT-OP-R Modalities Start: 07/21/20 08:10 Freq: Status: Active Protocol: Document 08/01/20 08:18 [facility] (Rec: 08/01/20 09:09 [facility] [id number]) Hot Pack/Cold Pack Treatment Cold Pack Location right anterior hip Patient Position Supine Treatment Duration (minutes) 10 Patient Tolerance Good PT-OP-T Assessment and Plan Start: 07/21/20 08:10 Freq: Status: Active Protocol: Document 08/01/20 08:18 [facility] (Rec: 08/01/20 09:09 [facility] [id number]) Physical Therapy Assessment Goals Four Impairment weakness right hip Short Term Goal (STG) Patient to be independent and compliant with progressive HEP following post-op protocol STG Duration 09/29/20 Assisted Goal (LTG) Patient to demonstrate at least 4+/5 muscle strength throughout right hip LTG Duration 10/20/20 Three Impairment limited right hip ROM with internal rotation 5 degrees Short Term Goal (STG) Patient to be independent and compliant with progressive HEP for hip ROM following post-op protocol Assisted Goal (LTG) Patient to improve right hip ROM to WNL with emphasis on hip internal rotation LTG Duration 10/20/20 Two Impairment Lower extremity functional scale 23% Short Term Goal (STG) Improve LEFS to at least 50% STG Duration Machine Finisher Goal (LTG) Improve LEFS to at least 80% LTG Duration 10/20/20 One Impairment antalgic gait Short Term Goal (STG) Patient will be able to ambulate household distances with least restrictive device without limp STG Duration 08/08/20 Assisted Goal (LTG) Patient will be able to ambulate on level surfaces, stairs, other uneven surfaces without pain or limp, without assistive device LTG Duration 10/20/20 Assessment Summary Assessment Patient pain flared, appears likely due to work demands, change in footwear, increased time in seated, flexed position. Some relief with joint mobilizations. Patient education regarding possible different footwear, use of heat at home in am, ice at work, more frequent change in positions at work. Physical Therapy Plan Frequency and Duration Frequency of Treatment 2x/Week Duration of Treatment 12 weeks Plan of Care Start Date 07/22/20 Plan of Care End Date 10/20/20 Therapeutic Interventions Therapeutic Interventions Gait Training,Home Exercise Program,Joint Mobilizations, Manual Therapy,Neuromuscular Re-education,Patient/Caregiver Education,Self-Care/Home Management,Soft Tissue Mobilization,Taping, Therapeutic Activities, Therapeutic Exercises Modalities Cold Pack/Ice Massage,Electric Stimulation,Hot Packs Next Visit Focus/Plan Next Note Type Treatment Note Next Visit Plan Evaluate patient reponse to above recommendations, progress ther ex and HEP as tolerated per protocol.
--- NOTE | 2020-08-06 11:15 | PT.OTN ---
Current Diagnoses Stiffness of unspecified hip, not elsewhere classified (08/06/20) Difficulty in walking, not elsewhere classified (08/06/20) Weakness (08/06/20) Other sprain of right hip, initial encounter (08/06/20) Physical Therapy Treatment Note PT-OP-A Visit Information Start: 07/21/20 08:10 Freq: Status: Active Protocol: Document 08/06/20 08:14 [facility] (Rec: 08/06/20 09:50 [facility] [id number]) Out-Patient Physical Therapy Visit Information Visit Information Visit Type Treatment Note Visit Note 34 days post-op Visit Start Time 08:15 Visit Stop Time 09:10 Total Visit Minutes 55 Visit Number 4 Precautions Precautions post-op protocol from physician in chart: Post-op days 1-7: NWB for first 2 days progressing to toe touch weight-bearing with crutches. Foot flat weight bearing appropriate if patient understands concept. Maintain foot-flat until four weeks postoperative. Immediate post-op exercises: glut sets, quad sets, hamstring sets, adductor sets, abductor sets, ankle pumps. AAAROM in all planes without pain. Limitations placed by surgeon with respect to overall range, usually limites include flexion to 90, IR to 30, ER 45 for the first month. Hip mobilization if beneficial in decreasing pain and increasing ROM with straight distraction: inf glide and posterior glide PT-OP-B Current Condition Start: 07/21/20 08:10 Freq: Status: Active Protocol: Document 07/22/20 08:14 [facility] (Rec: 07/22/20 09:05 [facility] [id number]) Current Condition History of Current Condition Onset Date 07/03/20 Current Complaints stiffness and pain right hip History of Current Condition s/p right labral repair 07/03/20 due to persistent, function- limitingright hip pain. Reports doctor said I could ditch the crutches after a couple days if it felt ok so hasn't used crutches since a couple days post-op. Had follow-up appointment last with surgeon's PA; states PA encouraged him to not overdo as it sounds like he had been, otherwise things looked good. Patient ambulating without device, c/o stiffness today, more than usual. May have overdone getting trailer ready for camping over weekend, in and out of trailer. Doing step- to on stairs. Worst pain he has experienced since surgery is with twisting to get off toilet. Has had difficulty putting socks on without rotating his leg. Reports right foot/ankle sore since surgery ( sprained ankle end of April and feels positioning during surgery may have contributed to this increase in pain). States he wasn't shown exercises after surgery. 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 Prior Functional Status Baseline Function- ADL's Independent Baseline Function- Mobility Independent Baseline Function- Gait no device, no limp Baseline Function- Work/School no limitations Baseline Function- Recreation/Hobbies mountain-biking Current Functional Impairments (Reported) Functional Limitations- ADL's painful, guarded Functional Limitations- Mobility/Gait limited to household, short distance community, no device but antalgic Functional Limitations- Work/School not back to work yet Functional Limitations- Recreation/ unable Hobbies Personal Factors Other Personal Factors That May Effect Patient tends to push too hard Therapy/Recovery PT-OP-C Subjective Start: 07/21/20 08:10 Freq: Status: Active Protocol: Document 08/06/20 08:14 [facility] (Rec: 08/06/20 09:50 [facility] [id number]) OP-PT Subjective Patient Comments Patient Comments Trying to change positions frequently, had hard time sitting in bleachers to watch daughter's softball game last night. Trying to take weight off of his leg, standing on bottom stair as shown. Hasn't tried aquatic exercise yet. PT-OP-G Mobility & Gait Start: 07/21/20 08:10 Freq: Status: Active Protocol: Document 07/22/20 08:14 [facility] (Rec: 07/22/20 17:50 [facility] [id number]) OP Mobility Evaluation Bed Mobility Supine to and from Sit safe method without twisting Transfers Sit to Stand may decrease weight-bearing through right leg if painful Car Transfers instructed in correct method for hip protection, sit first, swing legs in, reverse to exit. Functional Movements Lifting and Carrying not allowed at this lb Squats not allowed Running Assessment unable/not allowed OP Gait Assessment Gait Gait Assistance Required: Independent Assistive Devices Assistive Device None Orthotic/Prosthetic Devices or Brace: No Gait Deviations General Gait Pattern Antalgic Factors Limiting Gait Function Factors Limiting Gait Function Limited Range of Motion,Pain Comments Gait Comments protocol states foot flat for 4 weeks, patient instructed to decrease step length, foot flat technique Stair Climbing Evaluation Comments Stair Climbing Comments not evaluated today, patient verbalizes correct sequencing for hip protection with step- to pattern PT-OP-H Neuro Start: 07/21/20 08:10 Freq: Status: Active Protocol: Document 07/22/20 08:14 [facility] (Rec: 07/22/20 17:50 [facility] [id number]) Sensation Evaluation Gross Sensation Gross Sensation WNL PT-OP-J Posture/Palpation/Skin Start: 07/21/20 08:10 Freq: Status: Active Protocol: Document 07/22/20 08:14 [facility] (Rec: 07/22/20 17:50 [facility] [id number]) Palpation Assessment Location right proximal thigh Palpation Findings Edema Skin Assessment Incisional Assessment Incision Appearance/Comments 3 small incisions, all healing well, no signs or symptoms of infection PT-OP-K Range of Motion Start: 07/21/20 08:10 Freq: Status: Active Protocol: Document 07/22/20 08:14 [facility] (Rec: 07/22/20 17:50 [facility] [id number]) Hip Goniometric Range of Motion Hip Right Flexion w/Knee Flexed 90 Extension 0 Abduction 25 Internal Rotation 5 External Rotation 30 Comments AAROM Left Hip ROM WFL Yes Hip ROM Limitations Hip ROM Limitations Pain Comments guarding with internal rotation Knee Goniometric Range of Motion Knee celestina Knee ROM WFL Yes Ankle and Foot Goniometric Range of Motion Ankle and Foot ROM Limitations ROM Limitations Pain Comments right foot limited due to pain , mild swelling PT-OP-M Strength Start: 07/21/20 08:10 Freq: Status: Active Protocol: Document 07/22/20 08:14 [facility] (Rec: 07/22/20 17:50 [facility] [id number]) Hip Strength Hip Manual Muscle Testing Right Comments not assessed due to post-op restrictions Left Comments WFL Knee Strength Knee Manual Muscle Testing celestina Comments anti-gravity extension PT-OP-Q Treatments Start: 07/21/20 08:10 Freq: Status: Active Protocol: Document 08/06/20 08:14 [facility] (Rec: 08/06/20 09:50 [facility] [id number]) Cardio Equipment Bicycle (Upright) Duration (Minutes) 10 Resistance 3 Seat Position 7 Therapeutic Exercises Supine Exercises hip flexion Reps/Minutes 10x Comments PT assist with inf glide hip point hip IR at 90 deg Reps/Minutes 10x Comments manual assist AAROM IR to no greater than 30 (matteo 10 today) , ER to 45 hooklying hip IR/ER Reps/Minutes 10x Sitting Exercises sit to stand Reps/Minutes 4x Comments emphasis on not moving into hip hyperextension hip hinge Reps/Minutes 2 min Comments knee below hip Standing Exercises wall posture Reps/Minutes 5 min Comments cues to prevent hip hyperextension hip hinge Reps/Minutes 50x Comments with cues for self-manual mobilization head of femur posterior, to 90 deg flex/ext, ab/ad, circles Reps/Minutes 10x ea Comments standing on step, extension to neutral only Manual Therapy Treatment Joint Mobilizations R hip Joint right hip Direction inferior glide at 90 deg Grade III Body Position Supine Reps/Duration 6 min Comments strap right hip Direction inferior glide, posterior glide hip flexed to 90, long axis distraction Grade II Body Position Supine Reps/Duration 5 min Comments good tolerance reports decreased feeling of pressure with inf glide with strap Self-Care/Home Management Treatment Education Other Education hip biomechanics, neutral posture with emphasis on not hyperextending hips as is patient's habit PT-OP-R Modalities Start: 07/21/20 08:10 Freq: Status: Active Protocol: Document 08/01/20 08:18 [facility] (Rec: 08/01/20 09:09 [facility] [id number]) Hot Pack/Cold Pack Treatment Cold Pack Location right anterior hip Patient Position Supine Treatment Duration (minutes) 10 Patient Tolerance Good PT-OP-T Assessment and Plan Start: 07/21/20 08:10 Freq: Status: Active Protocol: Document 08/06/20 08:14 [facility] (Rec: 08/06/20 09:50 [facility] [id number]) Physical Therapy Assessment Goals Four Impairment weakness right hip Short Term Goal (STG) Patient to be independent and compliant with progressive HEP following post-op protocol STG Duration 09/29/20 Stiff Neck Loader Goal (LTG) Patient to demonstrate at least 4+/5 muscle strength throughout right hip LTG Duration 10/20/20 Three Impairment limited right hip ROM with internal rotation 5 degrees Short Term Goal (STG) Patient to be independent and compliant with progressive HEP for hip ROM following post-op protocol Stiff Neck Loader Goal (LTG) Patient to improve right hip ROM to WNL with emphasis on hip internal rotation LTG Duration 10/20/20 Two Impairment Lower extremity functional scale 23% Short Term Goal (STG) Improve LEFS to at least 50% STG Duration Stiff Neck Loader Goal (LTG) Improve LEFS to at least 80% LTG Duration 10/20/20 One Impairment antalgic gait Short Term Goal (STG) Patient will be able to ambulate household distances with least restrictive device without limp STG Duration 08/08/20 Care Home Goal (LTG) Patient will be able to ambulate on level surfaces, stairs, other uneven surfaces without pain or limp, without assistive device LTG Duration 10/20/20 Assessment Summary Assessment some pinching initially on ex bike today, hasn't had that sensation before on bike. Hasn't changed footwear for work. After discussion of workstation thinking he may be sitting too low and will adjust higher. He demonstrated good understanding of hip biomechanics and need for head of femur to rotate back and down, and imortance of not hyperextending hips in standing to prevent anterior translation of femoral head causing pinching. Further discussion of benefits of aquatic exercise with patient reporting he will try. ROM limited to 90 degrees flexion at this time, ER 45, IR 20 right hip. Inferior glide with strap best at decompression right hip, symptoms return after mob, needs further gentle functional mobilization for correct biomechanics. Physical Therapy Plan Frequency and Duration Frequency of Treatment 2x/Week Duration of Treatment 12 weeks Plan of Care Start Date 07/22/20 Plan of Care End Date 10/20/20 Therapeutic Interventions Therapeutic Interventions Gait Training,Home Exercise Program,Joint Mobilizations, Manual Therapy,Neuromuscular Re-education,Patient/Caregiver Education,Self-Care/Home Management,Soft Tissue Mobilization,Taping, Therapeutic Activities, Therapeutic Exercises Modalities Cold Pack/Ice Massage,Electric Stimulation,Hot Packs Next Visit Focus/Plan Next Note Type Treatment Note Next Visit Plan Review hip biomechanics, sitting alignment at work, hip hinge, self-mob, standing posture. Joint mob post and inf hip and MWM for improved ROM right hip.
--- NOTE | 2020-08-08 12:33 | PT.OTN ---
Current Diagnoses Stiffness of unspecified hip, not elsewhere classified (08/08/20) Difficulty in walking, not elsewhere classified (08/08/20) Weakness (08/08/20) Other sprain of right hip, initial encounter (08/08/20) Physical Therapy Treatment Note PT-OP-A Visit Information Start: 07/21/20 08:10 Freq: Status: Active Protocol: Document 08/08/20 08:13 [facility] (Rec: 08/08/20 09:04 [facility] [id number]) Out-Patient Physical Therapy Visit Information Visit Information Visit Type Treatment Note Visit Note 36 days post-op Visit Start Time 08:15 Visit Stop Time 09:10 Total Visit Minutes 55 Visit Number 4 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 Foot flat weight bearing appropriate if patient understands concept. Maintain foot-flat until four weeks postoperative. Immediate post-op exercises: glut sets, quad sets, hamstring sets, adductor sets, abductor sets, ankle pumps. AAAROM in all planes without pain. Limitations placed by surgeon with respect to overall range, usually limites include flexion to 90, IR to 30, ER 45 for the first month. Hip mobilization if beneficial in decreasing pain and increasing ROM with straight distraction: inf glide and posterior glide PT-OP-B Current Condition Start: 07/21/20 08:10 Freq: Status: Active Protocol: Document 07/22/20 08:14 [facility] (Rec: 07/22/20 09:05 [facility] [id number]) Current Condition History of Current Condition Onset Date 07/03/20 Current Complaints stiffness and pain right hip History of Current Condition s/p right labral repair 07/03/20 due to persistent, function- limitingright hip pain. Reports doctor said I could ditch the crutches after a couple days if it felt ok so hasn't used crutches since a couple days post-op. Had follow-up appointment last with surgeon's PA; states PA encouraged him to not overdo as it sounds like he had been, otherwise things looked good. Patient ambulating without device, c/o stiffness today, more than usual. May have overdone getting trailer ready for camping over weekend, in and out of trailer. Doing step- to on stairs. Worst pain he has experienced since surgery is with twisting to get off toilet. Has had difficulty putting socks on without rotating his leg. Reports right foot/ankle sore since surgery ( sprained ankle end of April and feels positioning during surgery may have contributed to this increase in pain). States he wasn't shown exercises after surgery. 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 Prior Functional Status Baseline Function- ADL's Independent Baseline Function- Mobility Independent Baseline Function- Gait no device, no limp Baseline Function- Work/School no limitations Baseline Function- Recreation/Hobbies mountain-biking Current Functional Impairments (Reported) Functional Limitations- ADL's painful, guarded Functional Limitations- Mobility/Gait limited to household, short distance community, no device but antalgic Functional Limitations- Work/School not back to work yet Functional Limitations- Recreation/ unable Hobbies Personal Factors Other Personal Factors That May Effect Patient tends to push too hard Therapy/Recovery PT-OP-C Subjective Start: 07/21/20 08:10 Freq: Status: Active Protocol: Document 08/08/20 08:13 [facility] (Rec: 08/08/20 09:04 [facility] [id number]) OP-PT Subjective Patient Comments Patient Comments Sees doctor 08/15/20 for follow -up. Not as much pinching today, still pressure. Trying to sit on higher surfaces as recommended. PT-OP-G Mobility & Gait Start: 07/21/20 08:10 Freq: Status: Active Protocol: Document 07/22/20 08:14 [facility] (Rec: 07/22/20 17:50 [facility] [id number]) OP Mobility Evaluation Bed Mobility Supine to and from Sit safe method without twisting Transfers Sit to Stand may decrease weight-bearing through right leg if painful Car Transfers instructed in correct method for hip protection, sit first, swing legs in, reverse to exit. Functional Movements Lifting and Carrying not allowed at this lb Squats not allowed Running Assessment unable/not allowed OP Gait Assessment Gait Gait Assistance Required: Independent Assistive Devices Assistive Device None Orthotic/Prosthetic Devices or Brace: No Gait Deviations General Gait Pattern Antalgic Factors Limiting Gait Function Factors Limiting Gait Function Limited Range of Motion,Pain Comments Gait Comments protocol states foot flat for 4 weeks, patient instructed to decrease step length, foot flat technique Stair Climbing Evaluation Comments Stair Climbing Comments not evaluated today, patient verbalizes correct sequencing for hip protection with step- to pattern PT-OP-H Neuro Start: 07/21/20 08:10 Freq: Status: Active Protocol: Document 07/22/20 08:14 [facility] (Rec: 07/22/20 17:50 [facility] [id number]) Sensation Evaluation Gross Sensation Gross Sensation WNL PT-OP-J Posture/Palpation/Skin Start: 07/21/20 08:10 Freq: Status: Active Protocol: Document 07/22/20 08:14 [facility] (Rec: 07/22/20 17:50 [facility] [id number]) Palpation Assessment Location right proximal thigh Palpation Findings Edema Skin Assessment Incisional Assessment Incision Appearance/Comments 3 small incisions, all healing well, no signs or symptoms of infection PT-OP-K Range of Motion Start: 07/21/20 08:10 Freq: Status: Active Protocol: Document 07/22/20 08:14 [facility] (Rec: 07/22/20 17:50 [facility] [id number]) Hip Goniometric Range of Motion Hip Right Flexion w/Knee Flexed 90 Extension 0 Abduction 25 Internal Rotation 5 External Rotation 30 Comments AAROM Left Hip ROM WFL Yes Hip ROM Limitations Hip ROM Limitations Pain Comments guarding with internal rotation Knee Goniometric Range of Motion Knee celestina Knee ROM WFL Yes Ankle and Foot Goniometric Range of Motion Ankle and Foot ROM Limitations ROM Limitations Pain Comments right foot limited due to pain , mild swelling PT-OP-M Strength Start: 07/21/20 08:10 Freq: Status: Active Protocol: Document 07/22/20 08:14 [facility] (Rec: 07/22/20 17:50 [facility] [id number]) Hip Strength Hip Manual Muscle Testing Right Comments not assessed due to post-op restrictions Left Comments WFL Knee Strength Knee Manual Muscle Testing celestina Comments anti-gravity extension PT-OP-Q Treatments Start: 07/21/20 08:10 Freq: Status: Active Protocol: Document 08/08/20 08:13 [facility] (Rec: 08/08/20 09:04 [facility] [id number]) Cardio Equipment Bicycle (Upright) Duration (Minutes) 10 Resistance 3 Seat Position 9 Gym Equipment Shuttle Recovery Unilateral Squats Details pain-free ROM Resistance 25 Shuttle Recovery Platform Stable Reps/Time 10x2 Bilateral Squats Details pain-free ROM Resistance 50 Shuttle Recovery Platform Stable Reps/Time 10x2 Therapeutic Exercises Sitting Exercises sit to stand Reps/Minutes 4x Comments emphasis on not moving into hip hyperextension hip hinge Reps/Minutes 2 min Comments knee below hip Standing Exercises hip hinge Reps/Minutes 10x Comments R LE elevated 10 on stool, with self mobilization, to 100 deg Manual Therapy Treatment Soft Tissue Mobilization scar mobilization Body Location proximal right thigh, 3 arthroscopy scars Mobilization Type Myofascial Release,Rolling, Sustained Pressure Intensity/Depth Deep Body Position Hooklying Joint Mobilizations right hip Direction posterior glide Grade III Body Position Supine Reps/Duration 2 min Self-Care/Home Management Treatment Education Other Education hip biomechanics and arthrokinematics using hip skeleton model PT-OP-R Modalities Start: 07/21/20 08:10 Freq: Status: Active Protocol: Document 08/08/20 08:13 [facility] (Rec: 08/08/20 12:33 [facility] [id number]) Hot Pack/Cold Pack Treatment Hot Pack Location right anterior hip Patient Position Supine Treatment Duration (minutes) 10 Patient Tolerance Good PT-OP-T Assessment and Plan Start: 07/21/20 08:10 Freq: Status: Active Protocol: Document 08/08/20 08:13 [facility] (Rec: 08/08/20 09:04 [facility] [id number]) Physical Therapy Assessment Goals Four Impairment weakness right hip Short Term Goal (STG) Patient to be independent and compliant with progressive HEP following post-op protocol STG Duration 09/29/20 Lead Developer Goal (LTG) Patient to demonstrate at least 4+/5 muscle strength throughout right hip LTG Duration 10/20/20 Three Impairment limited right hip ROM with internal rotation 5 degrees Short Term Goal (STG) Patient to be independent and compliant with progressive HEP for hip ROM following post-op protocol Retirement Goal (LTG) Patient to improve right hip ROM to WNL with emphasis on hip internal rotation LTG Duration 10/20/20 Two Impairment Lower extremity functional scale 23% Short Term Goal (STG) Improve LEFS to at least 50% STG Duration Lead Developer Goal (LTG) Improve LEFS to at least 80% LTG Duration 10/20/20 One Impairment antalgic gait Short Term Goal (STG) Patient will be able to ambulate household distances with least restrictive device without limp STG Duration 08/08/20 Retirement Goal (LTG) Patient will be able to ambulate on level surfaces, stairs, other uneven surfaces without pain or limp, without assistive device LTG Duration 10/20/20 Assessment Summary Assessment Improved hip flexion to 100 deg on shuttle leg press today , continue to cue for ROM with out pain or pinching. patient demonstrating good understanding of hip biomechanics and arthrokinematics, value of joint mobilization by PT and also self-mob to facilitate improved movement. Patient modifying how he sits at work per recommendations. Good progress with flexion, no pinching pain with ex bike today unless bends forward too far. Physical Therapy Plan Frequency and Duration Frequency of Treatment 2x/Week Duration of Treatment 12 weeks Plan of Care Start Date 07/22/20 Plan of Care End Date 10/20/20 Therapeutic Interventions Therapeutic Interventions Gait Training,Home Exercise Program,Joint Mobilizations, Manual Therapy,Neuromuscular Re-education,Patient/Caregiver Education,Self-Care/Home Management,Soft Tissue Mobilization,Taping, Therapeutic Activities, Therapeutic Exercises Modalities Cold Pack/Ice Massage,Electric Stimulation,Hot Packs Next Visit Focus/Plan Next Note Type Treatment Note Next Visit Plan Emphasis on rotation ROM, continue PT per protocol. Patient to see physician next week.
--- NOTE | 2020-08-12 16:14 | PT.OTN ---
Current Diagnoses Stiffness of unspecified hip, not elsewhere classified (08/12/20) Difficulty in walking, not elsewhere classified (08/12/20) Weakness (08/12/20) Other sprain of right hip, initial encounter (08/12/20) Physical Therapy Treatment Note PT-OP-A Visit Information Start: 07/21/20 08:10 Freq: Status: Active Protocol: Document 08/12/20 08:13 [facility] (Rec: 08/12/20 09:02 [facility] [id number]) Out-Patient Physical Therapy Visit Information Visit Information Visit Type Treatment Note Visit Note 40 days post-op Visit Start Time 08:15 Visit Stop Time 09:10 Total Visit Minutes 55 Visit Number 6 Precautions Precautions post-op protocol from physician in chart: Post-op days 1-7: NWB for first 2 days progressing to toe touch weight-bearing with crutches. Foot flat weight bearing appropriate if patient understands concept. Maintain foot-flat until four weeks postoperative. Immediate post-op exercises: glut sets, quad sets, hamstring sets, adductor sets, abductor sets, ankle pumps. AAAROM in all planes without pain. Limitations placed by surgeon with respect to overall range, usually limites include flexion to 90, IR to 30, ER 45 for the first month. Hip mobilization if beneficial in decreasing pain and increasing ROM with straight distraction: inf glide and posterior glide PT-OP-B Current Condition Start: 07/21/20 08:10 Freq: Status: Active Protocol: Document 07/22/20 08:14 [facility] (Rec: 07/22/20 09:05 [facility] [id number]) Current Condition History of Current Condition Onset Date 07/03/20 Current Complaints stiffness and pain right hip History of Current Condition s/p right labral repair 07/03/20 due to persistent, function- limitingright hip pain. Reports doctor said I could ditch the crutches after a couple days if it felt ok so hasn't used crutches since a couple days post-op. Had follow-up appointment last with surgeon's PA; states PA encouraged him to not overdo as it sounds like he had been, otherwise things looked good. Patient ambulating without device, c/o stiffness today, more than usual. May have overdone getting trailer ready for camping over weekend, in and out of trailer. Doing step- to on stairs. Worst pain he has experienced since surgery is with twisting to get off toilet. Has had difficulty putting socks on without rotating his leg. Reports right foot/ankle sore since surgery ( sprained ankle end of April and feels positioning during surgery may have contributed to this increase in pain). States he wasn't shown exercises after surgery. 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 Prior Functional Status Baseline Function- ADL's Independent Baseline Function- Mobility Independent Baseline Function- Gait no device, no limp Baseline Function- Work/School no limitations Baseline Function- Recreation/Hobbies mountain-biking Current Functional Impairments (Reported) Functional Limitations- ADL's painful, guarded Functional Limitations- Mobility/Gait limited to household, short distance community, no device but antalgic Functional Limitations- Work/School not back to work yet Functional Limitations- Recreation/ unable Hobbies Personal Factors Other Personal Factors That May Effect Patient tends to push too hard Therapy/Recovery PT-OP-C Subjective Start: 07/21/20 08:10 Freq: Status: Active Protocol: Document 08/12/20 08:13 [facility] (Rec: 08/12/20 09:02 [facility] [id number]) OP-PT Subjective Patient Comments Patient Comments [place] good all weekend until sat on the floor, almost cross legged, then uncomfortable, not painful. Painful when absent mindedly did full squat Did some things around the house and yard, didn't sit much. Rode ex bike 10 min yesterday, felt good. Sees doctor 11:00 08/16/20. Able to do 2 [address] stairs with alternating pattern without pain. Had pain when sitting in waiting room chair with leg hanging down, straight leg. Used his hot tub for ROM, felt good, hasn't tried pool yet. PT-OP-G Mobility & Gait Start: 07/21/20 08:10 Freq: Status: Active Protocol: Document 07/22/20 08:14 [facility] (Rec: 07/22/20 17:50 [facility] [id number]) OP Mobility Evaluation Bed Mobility Supine to and from Sit safe method without twisting Transfers Sit to Stand may decrease weight-bearing through right leg if painful Car Transfers instructed in correct method for hip protection, sit first, swing legs in, reverse to exit. Functional Movements Lifting and Carrying not allowed at this lb Squats not allowed Running Assessment unable/not allowed OP Gait Assessment Gait Gait Assistance Required: Independent Assistive Devices Assistive Device None Orthotic/Prosthetic Devices or Brace: No Gait Deviations General Gait Pattern Antalgic Factors Limiting Gait Function Factors Limiting Gait Function Limited Range of Motion,Pain Comments Gait Comments protocol states foot flat for 4 weeks, patient instructed to decrease step length, foot flat technique Stair Climbing Evaluation Comments Stair Climbing Comments not evaluated today, patient verbalizes correct sequencing for hip protection with step- to pattern PT-OP-H Neuro Start: 07/21/20 08:10 Freq: Status: Active Protocol: Document 07/22/20 08:14 [facility] (Rec: 07/22/20 17:50 [facility] [id number]) Sensation Evaluation Gross Sensation Gross Sensation WNL PT-OP-J Posture/Palpation/Skin Start: 07/21/20 08:10 Freq: Status: Active Protocol: Document 07/22/20 08:14 [facility] (Rec: 07/22/20 17:50 [facility] [id number]) Palpation Assessment Location right proximal thigh Palpation Findings Edema Skin Assessment Incisional Assessment Incision Appearance/Comments 3 small incisions, all healing well, no signs or symptoms of infection PT-OP-K Range of Motion Start: 07/21/20 08:10 Freq: Status: Active Protocol: Document 07/22/20 08:14 [facility] (Rec: 07/22/20 17:50 [facility] [id number]) Hip Goniometric Range of Motion Hip Right Flexion w/Knee Flexed 90 Extension 0 Abduction 25 Internal Rotation 5 External Rotation 30 Comments AAROM Left Hip ROM WFL Yes Hip ROM Limitations Hip ROM Limitations Pain Comments guarding with internal rotation Knee Goniometric Range of Motion Knee celestina Knee ROM WFL Yes Ankle and Foot Goniometric Range of Motion Ankle and Foot ROM Limitations ROM Limitations Pain Comments right foot limited due to pain , mild swelling PT-OP-M Strength Start: 07/21/20 08:10 Freq: Status: Active Protocol: Document 07/22/20 08:14 [facility] (Rec: 07/22/20 17:50 [facility] [id number]) Hip Strength Hip Manual Muscle Testing Right Comments not assessed due to post-op restrictions Left Comments WFL Knee Strength Knee Manual Muscle Testing celestina Comments anti-gravity extension PT-OP-Q Treatments Start: 07/21/20 08:10 Freq: Status: Active Protocol: Document 08/12/20 08:13 [facility] (Rec: 08/12/20 09:02 [facility] [id number]) Cardio Equipment Bicycle (Upright) Duration (Minutes) 10 Resistance 3 Seat Position 8 Gym Equipment Shuttle Recovery Unilateral Squats Details pain-free ROM Resistance 25 Shuttle Recovery Platform Stable Reps/Time 10x2 Bilateral Squats Details pain-free ROM Resistance 50 Shuttle Recovery Platform Stable Reps/Time 10x2 Therapeutic Exercises Supine Exercises hip flexion Supine Exercise Name AAROM Reps/Minutes 10x Comments PT assist with inf glide hip joint mob hip IR at 90 deg Reps/Minutes 10x Comments manual assist AAROM IR to no greater than 30 (matteo 10 today) , ER to 45 hooklying hip IR/ER Reps/Minutes 10x2 Comments AAROM Prone Exercises hip extension Side bilateral Reps/Minutes 10x Comments from flex to neutral Sidelying Exercises hip ad Reps/Minutes 10x Comments top leg on pillows hip abduction Reps/Minutes 10x Comments bottom leg straight, cues for alignment and core activation clam, reverse clam Reps/Minutes 10x Comments cues for alignment, core activation, non painful Manual Therapy Treatment Joint Mobilizations R hip Joint right hip Direction inferior glide at 90 deg, lateral distraction Grade III Body Position Supine Reps/Duration 4 min ea Comments strap Manual Techniques contract relax Type for hip IR and ER Body Position supine 90/90 Reps/Duration 3x2 ea Comments submax contraction MWM Type hip IR/ER Comments AAROM Self-Care/Home Management Treatment Education Patient Education Home Exercise Program PT-OP-R Modalities Start: 07/21/20 08:10 Freq: Status: Active Protocol: Document 08/12/20 08:13 [facility] (Rec: 08/12/20 16:13 [facility] [id number]) Hot Pack/Cold Pack Treatment Cold Pack Location right anterior hip Patient Position Supine Treatment Duration (minutes) 10 Patient Tolerance Good PT-OP-T Assessment and Plan Start: 07/21/20 08:10 Freq: Status: Active Protocol: Document 08/12/20 08:13 [facility] (Rec: 08/12/20 09:02 [facility] [id number]) Physical Therapy Assessment Goals Four Impairment weakness right hip Short Term Goal (STG) Patient to be independent and compliant with progressive HEP following post-op protocol STG Duration 09/29/20 Mcc Goal (LTG) Patient to demonstrate at least 4+/5 muscle strength throughout right hip LTG Duration 10/20/20 Three Impairment limited right hip ROM with internal rotation 5 degrees Short Term Goal (STG) Patient to be independent and compliant with progressive HEP for hip ROM following post-op protocol Mcc Goal (LTG) Patient to improve right hip ROM to WNL with emphasis on hip internal rotation LTG Duration 10/20/20 Two Impairment Lower extremity functional scale 23% Short Term Goal (STG) Improve LEFS to at least 50% STG Duration Pre Sales Technical Consultant Goal (LTG) Improve LEFS to at least 80% LTG Duration 10/20/20 One Impairment antalgic gait Short Term Goal (STG) Patient will be able to ambulate household distances with least restrictive device without limp STG Duration 08/08/20 Pre Sales Technical Consultant Goal (LTG) Patient will be able to ambulate on level surfaces, stairs, other uneven surfaces without pain or limp, without assistive device LTG Duration 10/20/20 Assessment Summary Assessment Good tolerance contract relax with increased ROM into hip IR and ER; IR 30 deg, ER 50. Hip flex to 105 today. Good reesponse to hip joint mobs. Physical Therapy Plan Frequency and Duration Frequency of Treatment 2x/Week Duration of Treatment 12 weeks Plan of Care Start Date 07/22/20 Plan of Care End Date 10/20/20 Therapeutic Interventions Therapeutic Interventions Gait Training,Home Exercise Program,Joint Mobilizations, Manual Therapy,Neuromuscular Re-education,Patient/Caregiver Education,Self-Care/Home Management,Soft Tissue Mobilization,Taping, Therapeutic Activities, Therapeutic Exercises Modalities Cold Pack/Ice Massage,Electric Stimulation,Hot Packs Next Visit Focus/Plan Next Note Type Treatment Note Next Visit Plan Emphasis on rotation ROM, continue PT per protocol pending any further recommendations from physician 08/15/20.
--- NOTE | 2020-08-20 15:46 | PT.OTN ---
Current Diagnoses Stiffness of unspecified hip, not elsewhere classified (08/20/20) Difficulty in walking, not elsewhere classified (08/20/20) Weakness (08/20/20) Other sprain of right hip, initial encounter (08/20/20) Physical Therapy Treatment Note PT-OP-A Visit Information Start: 07/21/20 08:10 Freq: Status: Active Protocol: Document 08/20/20 08:09 [facility] (Rec: 08/20/20 09:01 [facility] [id number]) Out-Patient Physical Therapy Visit Information Visit Information Visit Type Treatment Note Visit Note 48 days post-op Visit Start Time 08:15 Visit Stop Time 09:10 Total Visit Minutes 55 Visit Number 6 Precautions Precautions post-op protocol from physician in chart: Post-op days 1-7: NWB for first 2 days progressing to toe touch weight-bearing with crutches. Foot flat weight bearing appropriate if patient understands concept. Maintain foot-flat until four weeks postoperative. Immediate post-op exercises: glut sets, quad sets, hamstring sets, adductor sets, abductor sets, ankle pumps. AAAROM in all planes without pain. Limitations placed by surgeon with respect to overall range, usually limites include flexion to 90, IR to 30, ER 45 for the first month. Hip mobilization if beneficial in decreasing pain and increasing ROM with straight distraction: inf glide and posterior glide PT-OP-B Current Condition Start: 07/21/20 08:10 Freq: Status: Active Protocol: Document 07/22/20 08:14 [facility] (Rec: 07/22/20 09:05 [facility] [id number]) Current Condition History of Current Condition Onset Date 07/03/20 Current Complaints stiffness and pain right hip History of Current Condition s/p right labral repair 07/03/20 due to persistent, function- limitingright hip pain. Reports doctor said I could ditch the crutches after a couple days if it felt ok so hasn't used crutches since a couple days post-op. Had follow-up appointment last with surgeon's PA; states PA encouraged him to not overdo as it sounds like he had been, otherwise things looked good. Patient ambulating without device, c/o stiffness today, more than usual. May have overdone getting trailer ready for camping over weekend, in and out of trailer. Doing step- to on stairs. Worst pain he has experienced since surgery is with twisting to get off toilet. Has had difficulty putting socks on without rotating his leg. Reports right foot/ankle sore since surgery ( sprained ankle end of April and feels positioning during surgery may have contributed to this increase in pain). States he wasn't shown exercises after surgery. 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 Prior Functional Status Baseline Function- ADL's Independent Baseline Function- Mobility Independent Baseline Function- Gait no device, no limp Baseline Function- Work/School no limitations Baseline Function- Recreation/Hobbies mountain-biking Current Functional Impairments (Reported) Functional Limitations- ADL's painful, guarded Functional Limitations- Mobility/Gait limited to household, short distance community, no device but antalgic Functional Limitations- Work/School not back to work yet Functional Limitations- Recreation/ unable Hobbies Personal Factors Other Personal Factors That May Effect Patient tends to push too hard Therapy/Recovery PT-OP-C Subjective Start: 07/21/20 08:10 Freq: Status: Active Protocol: Document 08/20/20 08:09 [facility] (Rec: 08/20/20 09:01 [facility] [id number]) OP-PT Subjective Patient Comments Patient Comments Saw doctor who stated things looked good, keep doing therapy, may ride bicycle on level surface, cautioned to take it easy if tries paddle boarding. Patient reports feeling pretty good. Minimal pinching, putting on shoes is easier and easier. Doesn't feel need to do self- mobilization of hip as much with flexion. Not as sore from work, continues to change positions frequently. Doing most of the exercises. PT-OP-G Mobility & Gait Start: 07/21/20 08:10 Freq: Status: Active Protocol: Document 07/22/20 08:14 [facility] (Rec: 07/22/20 17:50 [facility] [id number]) OP Mobility Evaluation Bed Mobility Supine to and from Sit safe method without twisting Transfers Sit to Stand may decrease weight-bearing through right leg if painful Car Transfers instructed in correct method for hip protection, sit first, swing legs in, reverse to exit. Functional Movements Lifting and Carrying not allowed at this lb Squats not allowed Running Assessment unable/not allowed OP Gait Assessment Gait Gait Assistance Required: Independent Assistive Devices Assistive Device None Orthotic/Prosthetic Devices or Brace: No Gait Deviations General Gait Pattern Antalgic Factors Limiting Gait Function Factors Limiting Gait Function Limited Range of Motion,Pain Comments Gait Comments protocol states foot flat for 4 weeks, patient instructed to decrease step length, foot flat technique Stair Climbing Evaluation Comments Stair Climbing Comments not evaluated today, patient verbalizes correct sequencing for hip protection with step- to pattern PT-OP-H Neuro Start: 07/21/20 08:10 Freq: Status: Active Protocol: Document 07/22/20 08:14 [facility] (Rec: 07/22/20 17:50 [facility] [id number]) Sensation Evaluation Gross Sensation Gross Sensation WNL PT-OP-J Posture/Palpation/Skin Start: 07/21/20 08:10 Freq: Status: Active Protocol: Document 07/22/20 08:14 [facility] (Rec: 07/22/20 17:50 [facility] [id number]) Palpation Assessment Location right proximal thigh Palpation Findings Edema Skin Assessment Incisional Assessment Incision Appearance/Comments 3 small incisions, all healing well, no signs or symptoms of infection PT-OP-K Range of Motion Start: 07/21/20 08:10 Freq: Status: Active Protocol: Document 07/22/20 08:14 [facility] (Rec: 07/22/20 17:50 [facility] [id number]) Hip Goniometric Range of Motion Hip Right Flexion w/Knee Flexed 90 Extension 0 Abduction 25 Internal Rotation 5 External Rotation 30 Comments AAROM Left Hip ROM WFL Yes Hip ROM Limitations Hip ROM Limitations Pain Comments guarding with internal rotation Knee Goniometric Range of Motion Knee celestina Knee ROM WFL Yes Ankle and Foot Goniometric Range of Motion Ankle and Foot ROM Limitations ROM Limitations Pain Comments right foot limited due to pain , mild swelling PT-OP-M Strength Start: 07/21/20 08:10 Freq: Status: Active Protocol: Document 07/22/20 08:14 [facility] (Rec: 07/22/20 17:50 [facility] [id number]) Hip Strength Hip Manual Muscle Testing Right Comments not assessed due to post-op restrictions Left Comments WFL Knee Strength Knee Manual Muscle Testing celestina Comments anti-gravity extension PT-OP-Q Treatments Start: 07/21/20 08:10 Freq: Status: Active Protocol: Document 08/20/20 08:09 [facility] (Rec: 08/20/20 09:01 [facility] [id number]) Cardio Equipment Bicycle (Upright) Duration (Minutes) 10 Resistance 4 Seat Position 8 Gym Equipment Shuttle Recovery Unilateral Squats Details pain-free ROM Resistance 25 Shuttle Recovery Platform Unstable Reps/Time 10x2 Bilateral Squats Details pain-free ROM Resistance 50 Shuttle Recovery Platform Unstable Reps/Time 10x2 Shuttle Balance chains red Details fwd/bck, side Reps/Duration 5 min Comments simulated paddle board, throw/ catch weighted ball, Therapeutic Exercises Supine Exercises LTR Equipment Used 65 cm ball Reps/Minutes 10x hip flex Equipment Used therapy ball 65 cm hooklying hip IR/ER Reps/Minutes 10x Comments AAROM after contract/relax in increased ROM hip IR/ER Supine Exercise Name unilateral opp directions, celestina LTR Reps/Minutes 10x ea Bridge Equipment Used therapy ball Reps/Minutes 10x Standing Exercises figure 8 Reps/Minutes 10x Manual Therapy Treatment Joint Mobilizations R hip Joint right hip Direction inferior glide at 90 deg, lateral distraction Grade III Body Position Supine Reps/Duration 4 min ea Comments strap right hip Direction posterior glide, inferior glide Grade III Body Position Supine Reps/Duration 2 min Manual Techniques hip flex MWM Comments therapy ball, belt contract relax Type for hip IR and ER Body Position supine 90/90 Reps/Duration 3x2 ea Comments submax contraction MWM Type hip IR/ER Comments AAROM PT-OP-R Modalities Start: 07/21/20 08:10 Freq: Status: Active Protocol: Document 08/20/20 08:09 [facility] (Rec: 08/20/20 09:01 [facility] [id number]) Hot Pack/Cold Pack Treatment Cold Pack Location right anterior hip Patient Position Supine Treatment Duration (minutes) 10 Patient Tolerance Good PT-OP-T Assessment and Plan Start: 07/21/20 08:10 Freq: Status: Active Protocol: Document 08/20/20 08:09 [facility] (Rec: 08/20/20 09:01 [facility] [id number]) Physical Therapy Assessment Goals Four Impairment weakness right hip Short Term Goal (STG) Patient to be independent and compliant with progressive HEP following post-op protocol STG Duration 09/29/20 [employer] Goal (LTG) Patient to demonstrate at least 4+/5 muscle strength throughout right hip LTG Duration 10/20/20 Three Impairment limited right hip ROM with internal rotation 5 degrees Short Term Goal (STG) Patient to be independent and compliant with progressive HEP for hip ROM following post-op protocol Intermediate Goal (LTG) Patient to improve right hip ROM to WNL with emphasis on hip internal rotation LTG Duration 10/20/20 Two Impairment Lower extremity functional scale 23% Short Term Goal (STG) Improve LEFS to at least 50% STG Duration Intermediate Goal (LTG) Improve LEFS to at least 80% LTG Duration 10/20/20 One Impairment antalgic gait Short Term Goal (STG) Patient will be able to ambulate household distances with least restrictive device without limp STG Duration 08/08/20 Intermediate Goal (LTG) Patient will be able to ambulate on level surfaces, stairs, other uneven surfaces without pain or limp, without assistive device LTG Duration 10/20/20 Progress Towards Goals Progress Towards Goals Progressing Toward Goals Assessment Summary Assessment Continues to make good progress, hip IR ROM improved to 40 deg after contract/relax , hip flex to 110, hip ER 55. Added shuttle balance activities, standing figure 8. Gait without limp, improving tolerance for work. hasn't tried riding his bicycle yet, but briefly tried stand-up paddle board, but reports he felt it pretty quickly and did for only a short time. Physical Therapy Plan Frequency and Duration Frequency of Treatment 2x/Week Duration of Treatment 12 weeks Plan of Care Start Date 07/22/20 Plan of Care End Date 10/20/20 Therapeutic Interventions Therapeutic Interventions Gait Training,Home Exercise Program,Joint Mobilizations, Manual Therapy,Neuromuscular Re-education,Patient/Caregiver Education,Self-Care/Home Management,Soft Tissue Mobilization,Taping, Therapeutic Activities, Therapeutic Exercises Modalities Cold Pack/Ice Massage,Electric Stimulation,Hot Packs Next Visit Focus/Plan Next Note Type Treatment Note Next Visit Plan Continue PT for ther ex to strengthen and stabilize hip and core, improve ROM to WNL, and help patient safely return to his PLF per post-op protocol.
--- NOTE | 2020-08-26 11:58 | PT.OTN ---
Current Diagnoses Stiffness of unspecified hip, not elsewhere classified (08/26/20) Difficulty in walking, not elsewhere classified (08/26/20) Weakness (08/26/20) Other sprain of right hip, initial encounter (08/26/20) Physical Therapy Treatment Note PT-OP-A Visit Information Start: 07/21/20 08:10 Freq: Status: Active Protocol: Document 08/26/20 08:10 [facility] (Rec: 08/26/20 09:02 [facility] [id number]) Out-Patient Physical Therapy Visit Information Visit Information Visit Type Treatment Note Visit Note 54 days post-op Visit Start Time 08:15 Visit Stop Time 09:10 Total Visit Minutes 55 Visit Number 7 Precautions Precautions post-op protocol from physician in chart: Post-op days 1-7: NWB for first 2 days progressing to toe touch weight-bearing with crutches. Foot flat weight bearing appropriate if patient understands concept. Maintain foot-flat until four weeks postoperative. Immediate post-op exercises: glut sets, quad sets, hamstring sets, adductor sets, abductor sets, ankle pumps. AAAROM in all planes without pain. Limitations placed by surgeon with respect to overall range, usually limites include flexion to 90, IR to 30, ER 45 for the first month. Hip mobilization if beneficial in decreasing pain and increasing ROM with straight distraction: inf glide and posterior glide PT-OP-B Current Condition Start: 07/21/20 08:10 Freq: Status: Active Protocol: Document 07/22/20 08:14 [facility] (Rec: 07/22/20 09:05 [facility] [id number]) Current Condition History of Current Condition Onset Date 07/03/20 Current Complaints stiffness and pain right hip History of Current Condition s/p right labral repair 07/03/20 due to persistent, function- limitingright hip pain. Reports doctor said I could ditch the crutches after a couple days if it felt ok so hasn't used crutches since a couple days post-op. Had follow-up appointment last with surgeon's PA; states PA encouraged him to not overdo as it sounds like he had been, otherwise things looked good. Patient ambulating without device, c/o stiffness today, more than usual. May have overdone getting trailer ready for camping over weekend, in and out of trailer. Doing step- to on stairs. Worst pain he has experienced since surgery is with twisting to get off toilet. Has had difficulty putting socks on without rotating his leg. Reports right foot/ankle sore since surgery ( sprained ankle end of April and feels positioning during surgery may have contributed to this increase in pain). States he wasn't shown exercises after surgery. 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 Prior Functional Status Baseline Function- ADL's Independent Baseline Function- Mobility Independent Baseline Function- Gait no device, no limp Baseline Function- Work/School no limitations Baseline Function- Recreation/Hobbies mountain-biking Current Functional Impairments (Reported) Functional Limitations- ADL's painful, guarded Functional Limitations- Mobility/Gait limited to household, short distance community, no device but antalgic Functional Limitations- Work/School not back to work yet Functional Limitations- Recreation/ unable Hobbies Personal Factors Other Personal Factors That May Effect Patient tends to push too hard Therapy/Recovery PT-OP-C Subjective Start: 07/21/20 08:10 Freq: Status: Active Protocol: Document 08/26/20 08:10 [facility] (Rec: 08/26/20 09:02 [facility] [id number]) OP-PT Subjective Patient Comments Patient Comments Spent a lot of time on his feet over weekend, 8000 steps. A little soreness but not bad , haven't iced. PT-OP-G Mobility & Gait Start: 07/21/20 08:10 Freq: Status: Active Protocol: Document 07/22/20 08:14 [facility] (Rec: 07/22/20 17:50 [facility] [id number]) OP Mobility Evaluation Bed Mobility Supine to and from Sit safe method without twisting Transfers Sit to Stand may decrease weight-bearing through right leg if painful Car Transfers instructed in correct method for hip protection, sit first, swing legs in, reverse to exit. Functional Movements Lifting and Carrying not allowed at this lb Squats not allowed Running Assessment unable/not allowed OP Gait Assessment Gait Gait Assistance Required: Independent Assistive Devices Assistive Device None Orthotic/Prosthetic Devices or Brace: No Gait Deviations General Gait Pattern Antalgic Factors Limiting Gait Function Factors Limiting Gait Function Limited Range of Motion,Pain Comments Gait Comments protocol states foot flat for 4 weeks, patient instructed to decrease step length, foot flat technique Stair Climbing Evaluation Comments Stair Climbing Comments not evaluated today, patient verbalizes correct sequencing for hip protection with step- to pattern PT-OP-H Neuro Start: 07/21/20 08:10 Freq: Status: Active Protocol: Document 07/22/20 08:14 [facility] (Rec: 07/22/20 17:50 [facility] [id number]) Sensation Evaluation Gross Sensation Gross Sensation WNL PT-OP-J Posture/Palpation/Skin Start: 07/21/20 08:10 Freq: Status: Active Protocol: Document 07/22/20 08:14 [facility] (Rec: 07/22/20 17:50 [facility] [id number]) Palpation Assessment Location right proximal thigh Palpation Findings Edema Skin Assessment Incisional Assessment Incision Appearance/Comments 3 small incisions, all healing well, no signs or symptoms of infection PT-OP-K Range of Motion Start: 07/21/20 08:10 Freq: Status: Active Protocol: Document 07/22/20 08:14 [facility] (Rec: 07/22/20 17:50 [facility] [id number]) Hip Goniometric Range of Motion Hip Right Flexion w/Knee Flexed 90 Extension 0 Abduction 25 Internal Rotation 5 External Rotation 30 Comments AAROM Left Hip ROM WFL Yes Hip ROM Limitations Hip ROM Limitations Pain Comments guarding with internal rotation Knee Goniometric Range of Motion Knee celestina Knee ROM WFL Yes Ankle and Foot Goniometric Range of Motion Ankle and Foot ROM Limitations ROM Limitations Pain Comments right foot limited due to pain , mild swelling PT-OP-M Strength Start: 07/21/20 08:10 Freq: Status: Active Protocol: Document 07/22/20 08:14 [facility] (Rec: 07/22/20 17:50 [facility] [id number]) Hip Strength Hip Manual Muscle Testing Right Comments not assessed due to post-op restrictions Left Comments WFL Knee Strength Knee Manual Muscle Testing celestina Comments anti-gravity extension PT-OP-Q Treatments Start: 07/21/20 08:10 Freq: Status: Active Protocol: Document 08/26/20 08:10 [facility] (Rec: 08/26/20 09:02 [facility] [id number]) Cardio Equipment Bicycle (Upright) Duration (Minutes) 10 Resistance 4 Seat Position 8 Gym Equipment Shuttle Recovery Unilateral Squats Details pain-free ROM Resistance 37 Shuttle Recovery Platform Unstable Reps/Time 10x2 Bilateral Squats Details pain-free ROM Resistance 62 Shuttle Recovery Platform Stable Reps/Time 10x2 Shuttle Balance chains red Details fwd/bck, side Reps/Duration 5 min Comments simulated paddle board, throw/ catch weighted ball, Therapeutic Exercises Supine Exercises hip flex Equipment Used therapy ball 65 cm Prone Exercises hip IR Comments with contract/relax Standing Exercises monster steps Resistance yellow band Reps/Minutes 2 min BOSU lunge Reps/Minutes 10x Manual Therapy Treatment Joint Mobilizations R hip Joint right hip Direction inferior glide at 90 deg, lateral distraction Grade III Body Position Supine Reps/Duration 4 min ea Comments strap right hip Direction posterior glide, inferior glide Grade III Body Position Supine Reps/Duration 2 min L index PIP jt Joint L index PIP Direction PA Grade II Body Position Sitting Reps/Duration 2' Manual Techniques hip flex MWM Comments therapy ball, belt contract relax Type for hip IR and ER Body Position supine 90/90 Reps/Duration 3x2 ea Comments submax contraction MWM Type hip IR/ER Comments AAROM PROM Type L index PIP joint PROM - FLex Body Position Sitting PT-OP-R Modalities Start: 07/21/20 08:10 Freq: Status: Active Protocol: Document 08/26/20 08:10 [facility] (Rec: 08/26/20 09:02 [facility] [id number]) Hot Pack/Cold Pack Treatment Cold Pack Location right anterior hip Patient Position Supine Treatment Duration (minutes) 10 Patient Tolerance Good PT-OP-T Assessment and Plan Start: 07/21/20 08:10 Freq: Status: Active Protocol: Document 08/26/20 08:10 [facility] (Rec: 08/26/20 09:02 [facility] [id number]) Physical Therapy Assessment Goals Four Impairment weakness right hip Short Term Goal (STG) Patient to be independent and compliant with progressive HEP following post-op protocol STG Duration 09/29/20 [facility] Goal (LTG) Patient to demonstrate at least 4+/5 muscle strength throughout right hip LTG Duration 10/20/20 Three Impairment limited right hip ROM with internal rotation 5 degrees Short Term Goal (STG) Patient to be independent and compliant with progressive HEP for hip ROM following post-op protocol Adult Live In Caregiver Goal (LTG) Patient to improve right hip ROM to WNL with emphasis on hip internal rotation LTG Duration 10/20/20 Two Impairment Lower extremity functional scale 23% Short Term Goal (STG) Improve LEFS to at least 50% STG Duration Adult Live In Caregiver Goal (LTG) Improve LEFS to at least 80% LTG Duration 10/20/20 One Impairment antalgic gait Short Term Goal (STG) Patient will be able to ambulate household distances with least restrictive device without limp STG Duration 08/08/20 [facility]fp Goal (LTG) Patient will be able to ambulate on level surfaces, stairs, other uneven surfaces without pain or limp, without assistive device LTG Duration 10/20/20 Assessment Summary Assessment Right hip flex to 113, most limited, able to get IR 40 but with pinching sensation. Needs further joint mobilization to allow free motion in hip; instructed in self-mobilization for inferior glide with flexion with L3 TB , good understanding. Physical Therapy Plan Frequency and Duration Frequency of Treatment 2x/Week Duration of Treatment 12 weeks Plan of Care Start Date 07/22/20 Plan of Care End Date 10/20/20 Therapeutic Interventions Therapeutic Interventions Gait Training,Home Exercise Program,Joint Mobilizations, Manual Therapy,Neuromuscular Re-education,Patient/Caregiver Education,Self-Care/Home Management,Soft Tissue Mobilization,Taping, Therapeutic Activities, Therapeutic Exercises Modalities Cold Pack/Ice Massage,Electric Stimulation,Hot Packs Next Visit Focus/Plan Next Note Type Treatment Note Next Visit Plan Emphasis on join mobilization and ROM.
--- NOTE | 2020-08-29 11:13 | PT.OTN ---
Current Diagnoses Stiffness of unspecified hip, not elsewhere classified (08/29/20) Difficulty in walking, not elsewhere classified (08/29/20) Weakness (08/29/20) Other sprain of right hip, initial encounter (08/29/20) Physical Therapy Treatment Note PT-OP-A Visit Information Start: 07/21/20 08:10 Freq: Status: Active Protocol: Document 08/29/20 08:56 [facility] (Rec: 08/29/20 09:47 [facility] [id number]) Out-Patient Physical Therapy Visit Information Visit Information Visit Type Treatment Note Visit Note 57 days post-op Visit Start Time 09:00 Visit Stop Time 09:45 Total Visit Minutes 45 Visit Number 7 Precautions Precautions post-op protocol from physician in chart: Post-op days 1-7: NWB for first 2 days progressing to toe touch weight-bearing with crutches. Foot flat weight bearing appropriate if patient understands concept. Maintain foot-flat until four weeks postoperative. Immediate post-op exercises: glut sets, quad sets, hamstring sets, adductor sets, abductor sets, ankle pumps. AAAROM in all planes without pain. Limitations placed by surgeon with respect to overall range, usually limites include flexion to 90, IR to 30, ER 45 for the first month. Hip mobilization if beneficial in decreasing pain and increasing ROM with straight distraction: inf glide and posterior glide PT-OP-B Current Condition Start: 07/21/20 08:10 Freq: Status: Active Protocol: Document 07/22/20 08:14 [facility] (Rec: 07/22/20 09:05 [facility] [id number]) Current Condition History of Current Condition Onset Date 07/03/20 Current Complaints stiffness and pain right hip History of Current Condition s/p right labral repair 07/03/20 due to persistent, function- limitingright hip pain. Reports doctor said I could ditch the crutches after a couple days if it felt ok so hasn't used crutches since a couple days post-op. Had follow-up appointment last with surgeon's PA; states PA encouraged him to not overdo as it sounds like he had been, otherwise things looked good. Patient ambulating without device, c/o stiffness today, more than usual. May have overdone getting trailer ready for camping over weekend, in and out of trailer. Doing step- to on stairs. Worst pain he has experienced since surgery is with twisting to get off toilet. Has had difficulty putting socks on without rotating his leg. Reports right foot/ankle sore since surgery ( sprained ankle end of April and feels positioning during surgery may have contributed to this increase in pain). States he wasn't shown exercises after surgery. 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 Prior Functional Status Baseline Function- ADL's Independent Baseline Function- Mobility Independent Baseline Function- Gait no device, no limp Baseline Function- Work/School no limitations Baseline Function- Recreation/Hobbies mountain-biking Current Functional Impairments (Reported) Functional Limitations- ADL's painful, guarded Functional Limitations- Mobility/Gait limited to household, short distance community, no device but antalgic Functional Limitations- Work/School not back to work yet Functional Limitations- Recreation/ unable Hobbies Personal Factors Other Personal Factors That May Effect Patient tends to push too hard Therapy/Recovery PT-OP-C Subjective Start: 07/21/20 08:10 Freq: Status: Active Protocol: Document 08/29/20 08:56 [facility] (Rec: 08/29/20 09:47 [facility] [id number]) OP-PT Subjective Patient Comments Patient Comments sore yesterday after PT, took a break from exercises yesterday. Was able to get a full squat in hot tub a couple days ago, doing hip rotation exercises in hot tub as instructed. More uncomfortable to cross right LE when sitting. Patient reports able to do a full squat. PT-OP-G Mobility & Gait Start: 07/21/20 08:10 Freq: Status: Active Protocol: Document 07/22/20 08:14 [facility] (Rec: 07/22/20 17:50 [facility] [id number]) OP Mobility Evaluation Bed Mobility Supine to and from Sit safe method without twisting Transfers Sit to Stand may decrease weight-bearing through right leg if painful Car Transfers instructed in correct method for hip protection, sit first, swing legs in, reverse to exit. Functional Movements Lifting and Carrying not allowed at this lb Squats not allowed Running Assessment unable/not allowed OP Gait Assessment Gait Gait Assistance Required: Independent Assistive Devices Assistive Device None Orthotic/Prosthetic Devices or Brace: No Gait Deviations General Gait Pattern Antalgic Factors Limiting Gait Function Factors Limiting Gait Function Limited Range of Motion,Pain Comments Gait Comments protocol states foot flat for 4 weeks, patient instructed to decrease step length, foot flat technique Stair Climbing Evaluation Comments Stair Climbing Comments not evaluated today, patient verbalizes correct sequencing for hip protection with step- to pattern PT-OP-H Neuro Start: 07/21/20 08:10 Freq: Status: Active Protocol: Document 07/22/20 08:14 [facility] (Rec: 07/22/20 17:50 [facility] [id number]) Sensation Evaluation Gross Sensation Gross Sensation WNL PT-OP-J Posture/Palpation/Skin Start: 07/21/20 08:10 Freq: Status: Active Protocol: Document 07/22/20 08:14 [facility] (Rec: 07/22/20 17:50 [facility] [id number]) Palpation Assessment Location right proximal thigh Palpation Findings Edema Skin Assessment Incisional Assessment Incision Appearance/Comments 3 small incisions, all healing well, no signs or symptoms of infection PT-OP-K Range of Motion Start: 07/21/20 08:10 Freq: Status: Active Protocol: Document 07/22/20 08:14 [facility] (Rec: 07/22/20 17:50 [facility] [id number]) Hip Goniometric Range of Motion Hip Right Flexion w/Knee Flexed 90 Extension 0 Abduction 25 Internal Rotation 5 External Rotation 30 Comments AAROM Left Hip ROM WFL Yes Hip ROM Limitations Hip ROM Limitations Pain Comments guarding with internal rotation Knee Goniometric Range of Motion Knee celestina Knee ROM WFL Yes Ankle and Foot Goniometric Range of Motion Ankle and Foot ROM Limitations ROM Limitations Pain Comments right foot limited due to pain , mild swelling PT-OP-M Strength Start: 07/21/20 08:10 Freq: Status: Active Protocol: Document 07/22/20 08:14 [facility] (Rec: 07/22/20 17:50 [facility] [id number]) Hip Strength Hip Manual Muscle Testing Right Comments not assessed due to post-op restrictions Left Comments WFL Knee Strength Knee Manual Muscle Testing celestina Comments anti-gravity extension PT-OP-Q Treatments Start: 07/21/20 08:10 Freq: Status: Active Protocol: Document 08/29/20 08:56 [facility] (Rec: 08/29/20 09:47 [facility] [id number]) Cardio Equipment Bicycle (Upright) Duration (Minutes) 10 Resistance 6 Seat Position 8 Therapeutic Exercises Supine Exercises hip flex Equipment Used therapy ball 65 cm hip IR/ER Supine Exercise Name unilateral opp directions, celestina LTR Reps/Minutes 10x ea Prone Exercises quad stretch Equipment Used strap Reps/Minutes 2x30 hip IR Reps/Minutes 3x contract/relax x 2 Comments with contract/relax to inc IR ROM, followed by active IR x 10 reps Sidelying Exercises clam, reverse clam Resistance L1 TB Reps/Minutes 10x Comments cues for alignment, core activation, non painful Sitting Exercises hip rotation stretch Sitting Exercise Name figure 4 and cross body Reps/Minutes 2x 30 Manual Therapy Treatment Soft Tissue Mobilization right LE Body Location lateral quad, IT band Mobilization Type Instrument Assisted Intensity/Depth Deep Body Position Supine Comments rolling pin, white roller Joint Mobilizations R hip Joint right hip Direction long axis distraction Grade III Body Position Supine Reps/Duration 5 min Comments strap right hip Direction posterior glide, inferior glide Grade III Body Position Supine Reps/Duration 10 min Manual Techniques contract relax Type for hip IR and ER Body Position supine 90/90 Reps/Duration 3x2 ea Comments submax contraction MWM Type hip IR/ER Comments AAROM Self-Care/Home Management Treatment Education Patient Education Home Exercise Program,Pain Management Other Education Importance of aquatic exercise , go to pool. PT-OP-R Modalities Start: 07/21/20 08:10 Freq: Status: Active Protocol: Document 08/26/20 08:10 [facility] (Rec: 08/26/20 09:02 [facility] [id number]) Hot Pack/Cold Pack Treatment Cold Pack Location right anterior hip Patient Position Supine Treatment Duration (minutes) 10 Patient Tolerance Good PT-OP-T Assessment and Plan Start: 07/21/20 08:10 Freq: Status: Active Protocol: Document 08/29/20 08:56 [facility] (Rec: 08/29/20 09:47 [facility] [id number]) Physical Therapy Assessment Goals Four Impairment weakness right hip Short Term Goal (STG) Patient to be independent and compliant with progressive HEP following post-op protocol 08/29/20: goal met, ongoing progression STG Duration 09/29/20 Patient Transportation Driver Goal (LTG) Patient to demonstrate at least 4+/5 muscle strength throughout right hip LTG Duration 10/20/20 Three Impairment limited right hip ROM with internal rotation 5 degrees Short Term Goal (STG) Patient to be independent and compliant with progressive HEP for hip ROM following post-op protocol 08/29/20: goal met, ongoing progression STG Duration 08/29/20 Mcfp Goal (LTG) Patient to improve right hip ROM to WNL with emphasis on hip internal rotation 08/29/20: ER WNL, IR to 40 degrees LTG Duration 10/20/20 Two Impairment Lower extremity functional scale 23% Short Term Goal (STG) Improve LEFS to at least 50% 08/29/20: not done this date STG Duration Patient Transportation Driver Goal (LTG) Improve LEFS to at least 80% LTG Duration 10/20/20 One Impairment antalgic gait Short Term Goal (STG) Patient will be able to ambulate household distances with least restrictive device without limp 08/29/20: goal met, no device. STG Duration 08/08/20 Patient Transportation Driver Goal (LTG) Patient will be able to ambulate on level surfaces, stairs, other uneven surfaces without pain or limp, without assistive device 08/29/20: haven't started uneven surface training, able to ambulate without limp on level surfaces LTG Duration 10/20/20 Assessment Summary Assessment After demonstrating full squat for PT reports he feels a delayed pain after doing it at home and experienced same after doing in PT today. Improved pain with joint mobilization. ROM improved hip IR after joint mob and contract/relax techniques. Continue to emphasize benefits of aquatic ex; patient reports he is off next week and will go to pool as instructed. Physical Therapy Plan Frequency and Duration Frequency of Treatment 2x/Week Duration of Treatment 12 weeks Plan of Care Start Date 07/22/20 Plan of Care End Date 10/20/20 Therapeutic Interventions Therapeutic Interventions Gait Training,Home Exercise Program,Joint Mobilizations, Manual Therapy,Neuromuscular Re-education,Patient/Caregiver Education,Self-Care/Home Management,Soft Tissue Mobilization,Taping, Therapeutic Activities, Therapeutic Exercises Modalities Cold Pack/Ice Massage,Electric Stimulation,Hot Packs Next Visit Focus/Plan Next Note Type Treatment Note Next Visit Plan LEFS questionnaire. Continue PT with emphasis on normalizing right hip flex and IR without impingement symptoms in hip, functional strengthening as tolerated. Review self mobilization for inferior glide using theraband .
--- NOTE | 2020-09-09 16:47 | PT.OTN ---
Current Diagnoses Stiffness of unspecified hip, not elsewhere classified (09/09/20) Difficulty in walking, not elsewhere classified (09/09/20) Weakness (09/09/20) Other sprain of right hip, initial encounter (09/09/20) Physical Therapy Treatment Note PT-OP-A Visit Information Start: 07/21/20 08:10 Freq: Status: Active Protocol: Document 09/09/20 08:13 [facility] (Rec: 09/09/20 09:04 [facility] [id number]) Out-Patient Physical Therapy Visit Information Visit Information Visit Type Treatment Note Visit Note 68 days post-op Visit Start Time 08:15 Visit Stop Time 09:10 Total Visit Minutes 55 Visit Number 8 Precautions Precautions post-op protocol from physician in chart: Post-op days 1-7: NWB for first 2 days progressing to toe touch weight-bearing with crutches. Foot flat weight bearing appropriate if patient understands concept. Maintain foot-flat until four weeks postoperative. Immediate post-op exercises: glut sets, quad sets, hamstring sets, adductor sets, abductor sets, ankle pumps. AAAROM in all planes without pain. Limitations placed by surgeon with respect to overall range, usually limites include flexion to 90, IR to 30, ER 45 for the first month. Hip mobilization if beneficial in decreasing pain and increasing ROM with straight distraction: inf glide and posterior glide PT-OP-B Current Condition Start: 07/21/20 08:10 Freq: Status: Active Protocol: Document 07/22/20 08:14 [facility] (Rec: 07/22/20 09:05 [facility] [id number]) Current Condition History of Current Condition Onset Date 07/03/20 Current Complaints stiffness and pain right hip History of Current Condition s/p right labral repair 07/03/20 due to persistent, function- limitingright hip pain. Reports doctor said I could ditch the crutches after a couple days if it felt ok so hasn't used crutches since a couple days post-op. Had follow-up appointment last with surgeon's PA; states PA encouraged him to not overdo as it sounds like he had been, otherwise things looked good. Patient ambulating without device, c/o stiffness today, more than usual. May have overdone getting trailer ready for camping over weekend, in and out of trailer. Doing step- to on stairs. Worst pain he has experienced since surgery is with twisting to get off toilet. Has had difficulty putting socks on without rotating his leg. Reports right foot/ankle sore since surgery ( sprained ankle end of April and feels positioning during surgery may have contributed to this increase in pain). States he wasn't shown exercises after surgery. 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 Prior Functional Status Baseline Function- ADL's Independent Baseline Function- Mobility Independent Baseline Function- Gait no device, no limp Baseline Function- Work/School no limitations Baseline Function- Recreation/Hobbies mountain-biking Current Functional Impairments (Reported) Functional Limitations- ADL's painful, guarded Functional Limitations- Mobility/Gait limited to household, short distance community, no device but antalgic Functional Limitations- Work/School not back to work yet Functional Limitations- Recreation/ unable Hobbies Personal Factors Other Personal Factors That May Effect Patient tends to push too hard Therapy/Recovery PT-OP-C Subjective Start: 07/21/20 08:10 Freq: Status: Active Protocol: Document 09/09/20 08:13 [facility] (Rec: 09/09/20 09:04 [facility] [id number]) OP-PT Subjective Patient Comments Patient Comments Starting on the 01 of September feels like he has gone backward, feels really tight in hip and having more pinching. States did family games on the including a plank challenge on toes; had been doing on his knees; had to stop due to pain. also reports turning over in the middle of the night pushed off with right leg and had sharp pain in hip last night. 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 Uncomfortable ride in car over to [facility] over weekend. Had planned to be out of town last week so no PT was scheduled. Forgot bands for exercise and self- mobilization over the weekend. Having buttock pain again past 4-5 days as well. Also having right knee pain. Hasn't used exercise bike at home or gone to pool for deep water walking as recommended. PT-OP-G Mobility & Gait Start: 07/21/20 08:10 Freq: Status: Active Protocol: Document 07/22/20 08:14 [facility] (Rec: 07/22/20 17:50 [facility] [id number]) OP Mobility Evaluation Bed Mobility Supine to and from Sit safe method without twisting Transfers Sit to Stand may decrease weight-bearing through right leg if painful Car Transfers instructed in correct method for hip protection, sit first, swing legs in, reverse to exit. Functional Movements Lifting and Carrying not allowed at this lb Squats not allowed Running Assessment unable/not allowed OP Gait Assessment Gait Gait Assistance Required: Independent Assistive Devices Assistive Device None Orthotic/Prosthetic Devices or Brace: No Gait Deviations General Gait Pattern Antalgic Factors Limiting Gait Function Factors Limiting Gait Function Limited Range of Motion,Pain Comments Gait Comments protocol states foot flat for 4 weeks, patient instructed to decrease step length, foot flat technique Stair Climbing Evaluation Comments Stair Climbing Comments not evaluated today, patient verbalizes correct sequencing for hip protection with step- to pattern PT-OP-H Neuro Start: 07/21/20 08:10 Freq: Status: Active Protocol: Document 07/22/20 08:14 [facility] (Rec: 07/22/20 17:50 [facility] [id number]) Sensation Evaluation Gross Sensation Gross Sensation WNL PT-OP-J Posture/Palpation/Skin Start: 07/21/20 08:10 Freq: Status: Active Protocol: Document 07/22/20 08:14 [facility] (Rec: 07/22/20 17:50 [facility] [id number]) Palpation Assessment Location right proximal thigh Palpation Findings Edema Skin Assessment Incisional Assessment Incision Appearance/Comments 3 small incisions, all healing well, no signs or symptoms of infection PT-OP-K Range of Motion Start: 07/21/20 08:10 Freq: Status: Active Protocol: Document 07/22/20 08:14 [facility] (Rec: 07/22/20 17:50 [facility] [id number]) Hip Goniometric Range of Motion Hip Right Flexion w/Knee Flexed 90 Extension 0 Abduction 25 Internal Rotation 5 External Rotation 30 Comments AAROM Left Hip ROM WFL Yes Hip ROM Limitations Hip ROM Limitations Pain Comments guarding with internal rotation Knee Goniometric Range of Motion Knee celestina Knee ROM WFL Yes Ankle and Foot Goniometric Range of Motion Ankle and Foot ROM Limitations ROM Limitations Pain Comments right foot limited due to pain , mild swelling PT-OP-M Strength Start: 07/21/20 08:10 Freq: Status: Active Protocol: Document 07/22/20 08:14 [facility] (Rec: 07/22/20 17:50 [facility] [id number]) Hip Strength Hip Manual Muscle Testing Right Comments not assessed due to post-op restrictions Left Comments WFL Knee Strength Knee Manual Muscle Testing celestina Comments anti-gravity extension PT-OP-Q Treatments Start: 07/21/20 08:10 Freq: Status: Active Protocol: Document 09/09/20 08:13 [facility] (Rec: 09/09/20 09:04 [facility] [id number]) Cardio Equipment Bicycle (Upright) Duration (Minutes) 10 Resistance 5 Seat Position 8 Gym Equipment Shuttle Recovery Bilateral Squats Details pain-free ROM Resistance 62 Shuttle Recovery Platform Stable Reps/Time 10x2 Therapeutic Exercises Supine Exercises Shmuel stretch with abdominal drawing in Side bilateral Reps/Minutes 30x2 Prone Exercises hip IR Reps/Minutes 3x contract/relax x 2 Comments with contract/relax to inc IR ROM, followed by active IR x 10 reps Manual Therapy Treatment Joint Mobilizations R hip Joint right hip Direction long axis distraction Grade III Body Position Supine Reps/Duration 5 min Comments strap, Dycem right hip Direction posterior glide, inferior glide Grade III Body Position Supine Reps/Duration 10 min Comments strap for inf Manual Techniques contract relax Type for hip IR and ER, hip flex Body Position supine 90/90 Reps/Duration 3x2 ea Comments submax contraction Self-Care/Home Management Treatment Education Patient Education Body Mechanics,Home Exercise Program,Joint Protection,Pain Management Other Education emphasis on no twisting on hip , use of ice, use of tennis ball for DTM, self-mob for inf glide with theraband as previously instructed. Importance of aquatic exercise , go to pool PT-OP-R Modalities Start: 07/21/20 08:10 Freq: Status: Active Protocol: Document 09/09/20 08:13 [facility] (Rec: 09/09/20 16:47 [facility] [id number]) Hot Pack/Cold Pack Treatment Cold Pack Location right anterior hip Patient Position Supine Treatment Duration (minutes) 10 Patient Tolerance Good PT-OP-T Assessment and Plan Start: 07/21/20 08:10 Freq: Status: Active Protocol: Document 09/09/20 08:13 [facility] (Rec: 09/09/20 09:04 [facility] [id number]) Physical Therapy Assessment Goals Four Impairment weakness right hip Short Term Goal (STG) Patient to be independent and compliant with progressive HEP following post-op protocol 08/29/20: goal met, ongoing progression STG Duration 09/29/20 Senior Care Goal (LTG) Patient to demonstrate at least 4+/5 muscle strength throughout right hip LTG Duration 10/20/20 Three Impairment limited right hip ROM with internal rotation 5 degrees Short Term Goal (STG) Patient to be independent and compliant with progressive HEP for hip ROM following post-op protocol 08/29/20: goal met, ongoing progression STG Duration 08/29/20 Metal Worker Goal (LTG) Patient to improve right hip ROM to WNL with emphasis on hip internal rotation 08/29/20: ER WNL, IR to 40 degrees LTG Duration 10/20/20 Two Impairment Lower extremity functional scale 23% Short Term Goal (STG) Improve LEFS to at least 50% 08/29/20: not done this STG Duration Senior Care Goal (LTG) Improve LEFS to at least 80% LTG Duration 10/20/20 One Impairment antalgic gait Short Term Goal (STG) Patient will be able to ambulate household distances with least restrictive device without limp 08/29/20: goal met, no device. STG Duration 08/08/20 Senior Care Goal (LTG) Patient will be able to ambulate on level surfaces, stairs, other uneven surfaces without pain or limp, without assistive device 08/29/20: haven't started uneven surface training, able to ambulate without limp on level surfaces LTG Duration 10/20/20 Assessment Summary Assessment Patient experienced good inc in hip flex with contract/ relax, mild improvement with IR though less ROM than prev; only to 33 deg IR. Hip flex to 120. Increase in impingment symptoms, needs further low impact exercise, hip distr, inf glide. Low tolerance for posterior glide today. Physical Therapy Plan Frequency and Duration Frequency of Treatment 2x/Week Duration of Treatment 12 weeks Plan of Care Start Date 07/22/20 Plan of Care End Date 10/20/20 Therapeutic Interventions Therapeutic Interventions Gait Training,Home Exercise Program,Joint Mobilizations, Manual Therapy,Neuromuscular Re-education,Patient/Caregiver Education,Self-Care/Home Management,Soft Tissue Mobilization,Taping, Therapeutic Activities, Therapeutic Exercises Modalities Cold Pack/Ice Massage,Electric Stimulation,Hot Packs Next Visit Focus/Plan Next Note Type Treatment Note Next Visit Plan LEFS questionnaire. Continue PT with emphasis on normalizing right hip flex and IR without impingement symptoms in hip, functional strengthening as tolerated. Further instruction in aquatic exercise to include deep water hip distraction
--- NOTE | 2020-09-17 08:13 | PT.OTN ---
Current Diagnoses Stiffness of unspecified hip, not elsewhere classified (09/17/20) Difficulty in walking, not elsewhere classified (09/17/20) Weakness (09/17/20) Other sprain of right hip, initial encounter (09/17/20) Physical Therapy Treatment Note PT-OP-A Visit Information Start: 07/21/20 08:10 Freq: Status: Active Protocol: Document 09/17/20 07:29 MB (Rec: 09/17/20 08:13 MB [id number]) Out-Patient Physical Therapy Visit Information Visit Information Visit Type Treatment Note Visit Note 75 days post-op Visit Start Time 07:29 Visit Stop Time 08:14 Total Visit Minutes 45 Visit Number 9 Precautions Precautions post-op protocol from physician in chart: Post-op days 1-7: NWB for first 2 days progressing to toe touch weight-bearing with crutches. Foot flat weight bearing appropriate if patient understands concept. Maintain foot-flat until four weeks postoperative. Immediate post-op exercises: glut sets, quad sets, hamstring sets, adductor sets, abductor sets, ankle pumps. AAAROM in all planes without pain. Limitations placed by surgeon with respect to overall range, usually limites include flexion to 90, IR to 30, ER 45 for the first month. Hip mobilization if beneficial in decreasing pain and increasing ROM with straight distraction: inf glide and posterior glide PT-OP-B Current Condition Start: 07/21/20 08:10 Freq: Status: Active Protocol: Document 07/22/20 08:14 [facility]AK (Rec: 07/22/20 09:05 SAK [id number]) Current Condition History of Current Condition Onset Date 07/03/20 Current Complaints stiffness and pain right hip History of Current Condition s/p right labral repair 07/03/20 due to persistent, function- limitingright hip pain. Reports doctor said I could ditch the crutches after a couple days if it felt ok so hasn't used crutches since a couple days post-op. Had follow-up appointment last with surgeon's PA; states PA encouraged him to not overdo as it sounds like he had been, otherwise things looked good. Patient ambulating without device, c/o stiffness today, more than usual. May have overdone getting trailer ready for camping over weekend, in and out of trailer. Doing step- to on stairs. Worst pain he has experienced since surgery is with twisting to get off toilet. Has had difficulty putting socks on without rotating his leg. Reports right foot/ankle sore since surgery ( sprained ankle end of April and feels positioning during surgery may have contributed to this increase in pain). States he wasn't shown exercises after surgery. 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 Prior Functional Status Baseline Function- ADL's Independent Baseline Function- Mobility Independent Baseline Function- Gait no device, no limp Baseline Function- Work/School no limitations Baseline Function- Recreation/Hobbies mountain-biking Current Functional Impairments (Reported) Functional Limitations- ADL's painful, guarded Functional Limitations- Mobility/Gait limited to household, short distance community, no device but antalgic Functional Limitations- Work/School not back to work yet Functional Limitations- Recreation/ unable Hobbies Personal Factors Other Personal Factors That May Effect Patient tends to push too hard Therapy/Recovery PT-OP-C Subjective Start: 07/21/20 08:10 Freq: Status: Active Protocol: Document 09/17/20 07:29 MB (Rec: 09/17/20 08:13 MB [id number]) OP-PT Subjective Patient Comments Patient Comments Pt notices deep ache pain with certain activities. PT-OP-G Mobility & Gait Start: 07/21/20 08:10 Freq: Status: Active Protocol: Document 07/22/20 08:14 [facility] (Rec: 07/22/20 17:50 [facility] [id number]) OP Mobility Evaluation Bed Mobility Supine to and from Sit safe method without twisting Transfers Sit to Stand may decrease weight-bearing through right leg if painful Car Transfers instructed in correct method for hip protection, sit first, swing legs in, reverse to exit. Functional Movements Lifting and Carrying not allowed at this lb Squats not allowed Running Assessment unable/not allowed OP Gait Assessment Gait Gait Assistance Required: Independent Assistive Devices Assistive Device None Orthotic/Prosthetic Devices or Brace: No Gait Deviations General Gait Pattern Antalgic Factors Limiting Gait Function Factors Limiting Gait Function Limited Range of Motion,Pain Comments Gait Comments protocol states foot flat for 4 weeks, patient instructed to decrease step length, foot flat technique Stair Climbing Evaluation Comments Stair Climbing Comments not evaluated today, patient verbalizes correct sequencing for hip protection with step- to pattern PT-OP-H Neuro Start: 07/21/20 08:10 Freq: Status: Active Protocol: Document 07/22/20 08:14 [facility] (Rec: 07/22/20 17:50 [facility] [id number]) Sensation Evaluation Gross Sensation Gross Sensation WNL PT-OP-J Posture/Palpation/Skin Start: 07/21/20 08:10 Freq: Status: Active Protocol: Document 07/22/20 08:14 [facility] (Rec: 07/22/20 17:50 [facility] [id number]) Palpation Assessment Location right proximal thigh Palpation Findings Edema Skin Assessment Incisional Assessment Incision Appearance/Comments 3 small incisions, all healing well, no signs or symptoms of infection PT-OP-K Range of Motion Start: 07/21/20 08:10 Freq: Status: Active Protocol: Document 07/22/20 08:14 [facility] (Rec: 07/22/20 17:50 [facility] [id number]) Hip Goniometric Range of Motion Hip Right Flexion w/Knee Flexed 90 Extension 0 Abduction 25 Internal Rotation 5 External Rotation 30 Comments AAROM Left Hip ROM WFL Yes Hip ROM Limitations Hip ROM Limitations Pain Comments guarding with internal rotation Knee Goniometric Range of Motion Knee celestina Knee ROM WFL Yes Ankle and Foot Goniometric Range of Motion Ankle and Foot ROM Limitations ROM Limitations Pain Comments right foot limited due to pain , mild swelling PT-OP-M Strength Start: 07/21/20 08:10 Freq: Status: Active Protocol: Document 07/22/20 08:14 [facility] (Rec: 07/22/20 17:50 [facility] [id number]) Hip Strength Hip Manual Muscle Testing Right Comments not assessed due to post-op restrictions Left Comments WFL Knee Strength Knee Manual Muscle Testing celestina Comments anti-gravity extension PT-OP-Q Treatments Start: 07/21/20 08:10 Freq: Status: Active Protocol: Document 09/17/20 07:29 MB (Rec: 09/17/20 08:13 MB [id number]) Cardio Equipment Bicycle (Upright) Duration (Minutes) 10 Resistance 8 Seat Position 8 Therapeutic Exercises Prone Exercises Racquet ball positional release hip flexor Comments Racquet ball at hip flexor Manual Therapy Treatment Other Other Manual Treatments Pt supine: STM right iliacus and psoas, adductors with leg static and with pt performing heel slide with knee in and out--mobilization with movement. Next, right TFL MWM with PT palpating TrP and pt performing active right hip ER and IR leg straight. Contract and relax with knee bent and resistance through tibia for ER right hip PT-OP-R Modalities Start: 07/21/20 08:10 Freq: Status: Active Protocol: Document 09/09/20 08:13 SAK (Rec: 09/09/20 16:47 SAK [id number]) Hot Pack/Cold Pack Treatment Cold Pack Location right anterior hip Patient Position Supine Treatment Duration (minutes) 10 Patient Tolerance Good PT-OP-T Assessment and Plan Start: 07/21/20 08:10 Freq: Status: Active Protocol: Document 09/17/20 07:29 MB (Rec: 09/17/20 08:13 MB [id number]) Physical Therapy Assessment Goals Four Impairment weakness right hip Short Term Goal (STG) Patient to be independent and compliant with progressive HEP following post-op protocol 08/29/20: goal met, ongoing progression STG Duration 09/29/20 Director Of Design Goal (LTG) Patient to demonstrate at least 4+/5 muscle strength throughout right hip LTG Duration 10/20/20 Three Impairment limited right hip ROM with internal rotation 5 degrees Short Term Goal (STG) Patient to be independent and compliant with progressive HEP for hip ROM following post-op protocol 08/29/20: goal met, ongoing progression STG Duration 08/29/20 Director Of Design Goal (LTG) Patient to improve right hip ROM to WNL with emphasis on hip internal rotation 08/29/20: ER WNL, IR to 40 degrees LTG Duration 10/20/20 Two Impairment Lower extremity functional scale 23% Short Term Goal (STG) Improve LEFS to at least 50% 08/29/20: not done this date STG Duration Custodial Goal (LTG) Improve LEFS to at least 80% LTG Duration 10/20/20 One Impairment antalgic gait Short Term Goal (STG) Patient will be able to ambulate household distances with least restrictive device without limp 08/29/20: goal met, no device. STG Duration 08/08/20 Director Of Design Goal (LTG) Patient will be able to ambulate on level surfaces, stairs, other uneven surfaces without pain or limp, without assistive device 08/29/20: haven't started uneven surface training, able to ambulate without limp on level surfaces LTG Duration 10/20/20 Assessment Summary Assessment Upright bike, manual work and ed pt how to perform racquet ball release of right hip flexor and iliacus in prone. Pt tolerates treatment well. He is due for progress note next treatment/10th visit. Physical Therapy Plan Frequency and Duration Frequency of Treatment 2x/Week Duration of Treatment 12 weeks Plan of Care Start Date 07/22/20 Plan of Care End Date 10/20/20 Therapeutic Interventions Therapeutic Interventions Gait Training,Home Exercise Program,Joint Mobilizations, Manual Therapy,Neuromuscular Re-education,Patient/Caregiver Education,Self-Care/Home Management,Soft Tissue Mobilization,Taping, Therapeutic Activities, Therapeutic Exercises Modalities Cold Pack/Ice Massage,Electric Stimulation,Hot Packs Next Visit Focus/Plan Next Note Type Progress Note Next Visit Plan Per primary PT: LEFS questionnaire. Continue PT with emphasis on normalizing right hip flex and IR without impingement symptoms in hip, functional strengthening as tolerated. Further instruction in aquatic exercise to include deep water hip distraction
--- NOTE | 2020-09-23 12:11 | PT.OTN ---
Current Diagnoses Stiffness of unspecified hip, not elsewhere classified (09/23/20) Difficulty in walking, not elsewhere classified (09/23/20) Weakness (09/23/20) Other sprain of right hip, initial encounter (09/23/20) Physical Therapy Treatment Note PT-OP-A Visit Information Start: 07/21/20 08:10 Freq: Status: Active Protocol: Document 09/23/20 08:13 [facility] (Rec: 09/23/20 09:00 [facility] [id number]) Out-Patient Physical Therapy Visit Information Visit Information Visit Type Treatment Note Visit Note 81 days post-op Visit Start Time 08:15 Visit Stop Time 08:59 Total Visit Minutes 44 Visit Number 10 Precautions Precautions post-op protocol from physician in chart: Post-op days 1-7: NWB for first 2 days progressing to toe touch weight-bearing with crutches. Foot flat weight bearing appropriate if patient understands concept. Maintain foot-flat until four weeks postoperative. Immediate post-op exercises: glut sets, quad sets, hamstring sets, adductor sets, abductor sets, ankle pumps. AAAROM in all planes without pain. Limitations placed by surgeon with respect to overall range, usually limites include flexion to 90, IR to 30, ER 45 for the first month. Hip mobilization if beneficial in decreasing pain and increasing ROM with straight distraction: inf glide and posterior glide PT-OP-B Current Condition Start: 07/21/20 08:10 Freq: Status: Active Protocol: Document 07/22/20 08:14 [facility] (Rec: 07/22/20 09:05 [facility] [id number]) Current Condition History of Current Condition Onset Date 07/03/20 Current Complaints stiffness and pain right hip History of Current Condition s/p right labral repair 07/03/20 due to persistent, function- limitingright hip pain. Reports doctor said I could ditch the crutches after a couple days if it felt ok so hasn't used crutches since a couple days post-op. Had follow-up appointment last with surgeon's PA; states PA encouraged him to not overdo as it sounds like he had been, otherwise things looked good. Patient ambulating without device, c/o stiffness today, more than usual. May have overdone getting trailer ready for camping over weekend, in and out of trailer. Doing step- to on stairs. Worst pain he has experienced since surgery is with twisting to get off toilet. Has had difficulty putting socks on without rotating his leg. Reports right foot/ankle sore since surgery ( sprained ankle end of April and feels positioning during surgery may have contributed to this increase in pain). States he wasn't shown exercises after surgery. 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 Prior Functional Status Baseline Function- ADL's Independent Baseline Function- Mobility Independent Baseline Function- Gait no device, no limp Baseline Function- Work/School no limitations Baseline Function- Recreation/Hobbies mountain-biking Current Functional Impairments (Reported) Functional Limitations- ADL's painful, guarded Functional Limitations- Mobility/Gait limited to household, short distance community, no device but antalgic Functional Limitations- Work/School not back to work yet Functional Limitations- Recreation/ unable Hobbies Personal Factors Other Personal Factors That May Effect Patient tends to push too hard Therapy/Recovery PT-OP-C Subjective Start: 07/21/20 08:10 Freq: Status: Active Protocol: Document 09/23/20 08:13 [facility] (Rec: 09/23/20 09:00 [facility] [id number]) OP-PT Subjective Patient Comments Patient Comments Sore today after being very active, moving furniture. Pain not deep today, more surface. Goes back to doctor 10/17/20. Pain better than before surgery but still persists at 5-6/10 level at worst. Reports manual treatment last time felt good but no long lasting effects, feels joint mobilization helpful. Hasn't done self- mobilization with band at home for awhile. Can cross leg to put on shoe, sore but I can tolerate it. PT-OP-G Mobility & Gait Start: 07/21/20 08:10 Freq: Status: Active Protocol: Document 07/22/20 08:14 [facility] (Rec: 07/22/20 17:50 [facility] [id number]) OP Mobility Evaluation Bed Mobility Supine to and from Sit safe method without twisting Transfers Sit to Stand may decrease weight-bearing through right leg if painful Car Transfers instructed in correct method for hip protection, sit first, swing legs in, reverse to exit. Functional Movements Lifting and Carrying not allowed at this lb Squats not allowed Running Assessment unable/not allowed OP Gait Assessment Gait Gait Assistance Required: Independent Assistive Devices Assistive Device None Orthotic/Prosthetic Devices or Brace: No Gait Deviations General Gait Pattern Antalgic Factors Limiting Gait Function Factors Limiting Gait Function Limited Range of Motion,Pain Comments Gait Comments protocol states foot flat for 4 weeks, patient instructed to decrease step length, foot flat technique Stair Climbing Evaluation Comments Stair Climbing Comments not evaluated today, patient verbalizes correct sequencing for hip protection with step- to pattern PT-OP-H Neuro Start: 07/21/20 08:10 Freq: Status: Active Protocol: Document 07/22/20 08:14 [facility] (Rec: 07/22/20 17:50 [facility] [id number]) Sensation Evaluation Gross Sensation Gross Sensation WNL PT-OP-J Posture/Palpation/Skin Start: 07/21/20 08:10 Freq: Status: Active Protocol: Document 07/22/20 08:14 [facility] (Rec: 07/22/20 17:50 [facility] [id number]) Palpation Assessment Location right proximal thigh Palpation Findings Edema Skin Assessment Incisional Assessment Incision Appearance/Comments 3 small incisions, all healing well, no signs or symptoms of infection PT-OP-K Range of Motion Start: 07/21/20 08:10 Freq: Status: Active Protocol: Document 07/22/20 08:14 [facility] (Rec: 07/22/20 17:50 [facility] [id number]) Hip Goniometric Range of Motion Hip Right Flexion w/Knee Flexed 90 Extension 0 Abduction 25 Internal Rotation 5 External Rotation 30 Comments AAROM Left Hip ROM WFL Yes Hip ROM Limitations Hip ROM Limitations Pain Comments guarding with internal rotation Knee Goniometric Range of Motion Knee celestina Knee ROM WFL Yes Ankle and Foot Goniometric Range of Motion Ankle and Foot ROM Limitations ROM Limitations Pain Comments right foot limited due to pain , mild swelling PT-OP-M Strength Start: 07/21/20 08:10 Freq: Status: Active Protocol: Document 07/22/20 08:14 [facility] (Rec: 07/22/20 17:50 [facility] [id number]) Hip Strength Hip Manual Muscle Testing Right Comments not assessed due to post-op restrictions Left Comments WFL Knee Strength Knee Manual Muscle Testing celestina Comments anti-gravity extension PT-OP-Q Treatments Start: 07/21/20 08:10 Freq: Status: Active Protocol: Document 09/23/20 08:13 [facility] (Rec: 09/23/20 09:00 [facility] [id number]) Cardio Equipment Bicycle (Upright) Duration (Minutes) 10 Resistance 8 Seat Position 8 Gym Equipment Shuttle Recovery Unilateral Squats Details pain-free ROM Resistance 37 Shuttle Recovery Platform Unstable Reps/Time 10x2 Bilateral Squats Details pain-free ROM Resistance 62 Shuttle Recovery Platform Stable Reps/Time 10x2 Therapeutic Exercises Prone Exercises Racquet ball positional release hip flexor Comments tennis ball at hip flexor, IT band hip IR Reps/Minutes 3x contract/relax x 2 Comments with contract/relax to inc IR ROM, followed by active IR x 10 reps Manual Therapy Treatment Joint Mobilizations R hip Joint right hip Direction long axis distraction Grade III Body Position Supine Reps/Duration 5 min Comments strap, Dycem right hip Direction posterior glide, inferior glide Grade III Body Position Supine Reps/Duration 10 min Comments strap for inf Manual Techniques self massage Body Location right hip flex, prox quad, prox TFL. Comments use of tennis ball contract relax Type for hip IR and ER, hip flex Body Position supine 90/90 Reps/Duration 3x2 ea Comments submax contraction Self-Care/Home Management Treatment Education Patient Education Body Mechanics,Home Exercise Program,Joint Protection,Pain Management Other Education emphasis on no twisting on hip , use of ice, use of tennis ball for DTM, self-mob for inf glide with theraband as previously instructed. Importance of aquatic exercise , go to pool PT-OP-R Modalities Start: 07/21/20 08:10 Freq: Status: Active Protocol: Document 09/09/20 08:13 [facility] (Rec: 09/09/20 16:47 [facility] [id number]) Hot Pack/Cold Pack Treatment Cold Pack Location right anterior hip Patient Position Supine Treatment Duration (minutes) 10 Patient Tolerance Good PT-OP-T Assessment and Plan Start: 07/21/20 08:10 Freq: Status: Active Protocol: Document 09/23/20 08:13 [facility] (Rec: 09/23/20 09:00 [facility] [id number]) Physical Therapy Assessment Goals Four Impairment weakness right hip Short Term Goal (STG) Patient to be independent and compliant with progressive HEP following post-op protocol 08/29/20: goal met, ongoing progression STG Duration 8/1/21 Skilled Nursing Goal (LTG) Patient to demonstrate at least 4+/5 muscle strength throughout right hip 09/23/20: right hip flex 3+/5 with pain, ext 4-/5 with pain, abduction 4-/5 with c/o pain. LTG Duration 10/20/20 Three Impairment limited right hip ROM with internal rotation 5 degrees Short Term Goal (STG) Patient to be independent and compliant with progressive HEP for hip ROM following post-op protocol 08/29/20: goal met, ongoing progression STG Duration 08/29/20 Honing Machine Operator S[employer]utomatic Goal (LTG) Patient to improve right hip ROM to WNL with emphasis on hip internal rotation 08/29/20: ER WNL, IR to 40 degrees 09/23/20: ER more tight at 55 deg, IR max 40 at end of session. LTG Duration 10/20/20 Two Impairment Lower extremity functional scale 23% Short Term Goal (STG) Improve LEFS to at least 50% 08/29/20: not done this date 09/23/20: pain level 5-6/10 at worst with turning in ed, bending squatting, twisting, and lifting. LEFS: 50%, goal met. STG Duration Honing Machine Operator Semiautomatic Goal (LTG) Improve LEFS to at least 80% LTG Duration 10/20/20 One Impairment antalgic gait Short Term Goal (STG) Patient will be able to ambulate household distances with least restrictive device without limp 08/29/20: goal met, no device. STG Duration 08/08/20 Skilled Nursing Goal (LTG) Patient will be able to ambulate on level surfaces, stairs, other uneven surfaces without pain or limp, without assistive device 08/29/20: haven't started uneven surface training, able to ambulate without limp on level surfaces 09/23/20: stairs once or twice ok, but then difficult, at times still has to to step-to pattern, though getting better . LTG Duration 10/20/20 Assessment Summary Assessment Making some progress, LEFS improved to 50%. Pain level still as high as 5-6/10 with above activities. Patient has not gone to pool for aquatic exercise, has not been highly compliant to HEP or self- massage; PT stressed importance of all. Physical Therapy Plan Frequency and Duration Frequency of Treatment 2x/Week Duration of Treatment 12 weeks Plan of Care Start Date 07/22/20 Plan of Care End Date 10/20/20 Therapeutic Interventions Therapeutic Interventions Gait Training,Home Exercise Program,Joint Mobilizations, Manual Therapy,Neuromuscular Re-education,Patient/Caregiver Education,Self-Care/Home Management,Soft Tissue Mobilization,Taping, Therapeutic Activities, Therapeutic Exercises Modalities Cold Pack/Ice Massage,Electric Stimulation,Hot Packs Next Visit Focus/Plan Next Note Type Treatment Note Next Visit Plan Continue PT per POC, continue to stress importance of HEP, aquatic ex, self-massage.
--- NOTE | 2020-09-23 15:56 | PT.OPPN ---
Current Diagnoses Stiffness of unspecified hip, not elsewhere classified (09/23/20) Difficulty in walking, not elsewhere classified (09/23/20) Weakness (09/23/20) Other sprain of right hip, initial encounter (09/23/20) Physical Therapy Progress Note PT-OP-A Visit Information Start: 07/21/20 08:10 Freq: Status: Active Protocol: Document 09/23/20 08:13 [facility] (Rec: 09/23/20 09:00 [facility] [id number]) Out-Patient Physical Therapy Visit Information Visit Information Visit Type Treatment Note Visit Note 81 days post-op Visit Start Time 08:15 Visit Stop Time 08:59 Total Visit Minutes 44 Visit Number 10 Precautions Precautions post-op protocol from physician in chart: Post-op days 1-7: NWB for first 2 days progressing to toe touch weight-bearing with crutches. Foot flat weight bearing appropriate if patient understands concept. Maintain foot-flat until four weeks postoperative. Immediate post-op exercises: glut sets, quad sets, hamstring sets, adductor sets, abductor sets, ankle pumps. AAAROM in all planes without pain. Limitations placed by surgeon with respect to overall range, usually limites include flexion to 90, IR to 30, ER 45 for the first month. Hip mobilization if beneficial in decreasing pain and increasing ROM with straight distraction: inf glide and posterior glide PT-OP-B Current Condition Start: 07/21/20 08:10 Freq: Status: Active Protocol: Document 07/22/20 08:14 [facility] (Rec: 07/22/20 09:05 [facility] [id number]) Current Condition History of Current Condition Onset Date 07/03/20 Current Complaints stiffness and pain right hip History of Current Condition s/p right labral repair 07/03/20 due to persistent, function- limitingright hip pain. Reports doctor said I could ditch the crutches after a couple days if it felt ok so hasn't used crutches since a couple days post-op. Had follow-up appointment last with surgeon's PA; states PA encouraged him to not overdo as it sounds like he had been, otherwise things looked good. Patient ambulating without device, c/o stiffness today, more than usual. May have overdone getting trailer ready for camping over weekend, in and out of trailer. Doing step- to on stairs. Worst pain he has experienced since surgery is with twisting to get off toilet. Has had difficulty putting socks on without rotating his leg. Reports right foot/ankle sore since surgery ( sprained ankle end of April and feels positioning during surgery may have contributed to this increase in pain). States he wasn't shown exercises after surgery. 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 Prior Functional Status Baseline Function- ADL's Independent Baseline Function- Mobility Independent Baseline Function- Gait no device, no limp Baseline Function- Work/School no limitations Baseline Function- Recreation/Hobbies mountain-biking Current Functional Impairments (Reported) Functional Limitations- ADL's painful, guarded Functional Limitations- Mobility/Gait limited to household, short distance community, no device but antalgic Functional Limitations- Work/School not back to work yet Functional Limitations- Recreation/ unable Hobbies Personal Factors Other Personal Factors That May Effect Patient tends to push too hard Therapy/Recovery PT-OP-C Subjective Start: 07/21/20 08:10 Freq: Status: Active Protocol: Document 09/23/20 08:13 [facility] (Rec: 09/23/20 09:00 [facility] [id number]) OP-PT Subjective Patient Comments Patient Comments Sore today after being very active, moving furniture. Pain not deep today, more surface. Goes back to doctor 10/17/20. Pain better than before surgery but still persists at 5-6/10 level at worst. Reports manual treatment last time felt good but no long lasting effects, feels joint mobilization helpful. Hasn't done self- mobilization with band at home for awhile. Can cross leg to put on shoe, sore but I can tolerate it. PT-OP-G Mobility & Gait Start: 07/21/20 08:10 Freq: Status: Active Protocol: Document 07/22/20 08:14 [facility] (Rec: 07/22/20 17:50 [facility] [id number]) OP Mobility Evaluation Bed Mobility Supine to and from Sit safe method without twisting Transfers Sit to Stand may decrease weight-bearing through right leg if painful Car Transfers instructed in correct method for hip protection, sit first, swing legs in, reverse to exit. Functional Movements Lifting and Carrying not allowed at this lb Squats not allowed Running Assessment unable/not allowed OP Gait Assessment Gait Gait Assistance Required: Independent Assistive Devices Assistive Device None Orthotic/Prosthetic Devices or Brace: No Gait Deviations General Gait Pattern Antalgic Factors Limiting Gait Function Factors Limiting Gait Function Limited Range of Motion,Pain Comments Gait Comments protocol states foot flat for 4 weeks, patient instructed to decrease step length, foot flat technique Stair Climbing Evaluation Comments Stair Climbing Comments not evaluated today, patient verbalizes correct sequencing for hip protection with step- to pattern PT-OP-H Neuro Start: 07/21/20 08:10 Freq: Status: Active Protocol: Document 07/22/20 08:14 [facility] (Rec: 07/22/20 17:50 [facility] [id number]) Sensation Evaluation Gross Sensation Gross Sensation WNL PT-OP-J Posture/Palpation/Skin Start: 07/21/20 08:10 Freq: Status: Active Protocol: Document 07/22/20 08:14 [facility] (Rec: 07/22/20 17:50 [facility] [id number]) Palpation Assessment Location right proximal thigh Palpation Findings Edema Skin Assessment Incisional Assessment Incision Appearance/Comments 3 small incisions, all healing well, no signs or symptoms of infection PT-OP-K Range of Motion Start: 07/21/20 08:10 Freq: Status: Active Protocol: Document 07/22/20 08:14 [facility] (Rec: 07/22/20 17:50 [facility] [id number]) Hip Goniometric Range of Motion Hip Measured in Degrees Right Flexion w/Knee Flexed 90 Extension 0 Abduction 25 Internal Rotation 5 External Rotation 30 Comments AAROM Left Hip ROM WFL Yes Hip ROM Limitations Hip ROM Limitations Pain Comments guarding with internal rotation Knee Goniometric Range of Motion Knee Measured in Degrees celestina Knee ROM WFL Yes Ankle and Foot Goniometric Range of Motion Ankle and Foot ROM Limitations ROM Limitations Pain Comments right foot limited due to pain , mild swelling PT-OP-M Strength Start: 07/21/20 08:10 Freq: Status: Active Protocol: Document 07/22/20 08:14 [facility] (Rec: 07/22/20 17:50 [facility] [id number]) Hip Strength Hip Manual Muscle Testing Right Comments not assessed due to post-op restrictions Left Comments WFL Knee Strength Knee Manual Muscle Testing celestina Comments anti-gravity extension PT-OP-T Assessment and Plan Start: 07/21/20 08:10 Freq: Status: Active Protocol: Document 09/23/20 08:13 [facility] (Rec: 09/23/20 09:00 [facility] [id number]) Physical Therapy Assessment Goals Four Impairment weakness right hip Short Term Goal (STG) Patient to be independent and compliant with progressive HEP following post-op protocol 08/29/20: goal met, ongoing progression STG Duration 09/29/20 Safety Professional Goal (LTG) Patient to demonstrate at least 4+/5 muscle strength throughout right hip 09/23/20: right hip flex 3+/5 with pain, ext 4-/5 with pain, abduction 4-/5 with c/o pain. LTG Duration 10/20/20 Three Impairment limited right hip ROM with internal rotation 5 degrees Short Term Goal (STG) Patient to be independent and compliant with progressive HEP for hip ROM following post-op protocol 08/29/20: goal met, ongoing progression STG Duration 08/29/20 Mcc Goal (LTG) Patient to improve right hip ROM to WNL with emphasis on hip internal rotation 08/29/20: ER WNL, IR to 40 degrees 09/23/20: ER more tight at 55 deg, IR max 40 at end of session. LTG Duration 10/20/20 Two Impairment Lower extremity functional scale 23% Short Term Goal (STG) Improve LEFS to at least 50% 08/29/20: not done this date 09/23/20: pain level 5-6/10 at worst with turning in ed, bending squatting, twisting, and lifting. LEFS: 50%, goal met. STG Duration Mcc Goal (LTG) Improve LEFS to at least 80% LTG Duration 10/20/20 One Impairment antalgic gait Short Term Goal (STG) Patient will be able to ambulate household distances with least restrictive device without limp 08/29/20: goal met, no device. STG Duration 08/08/20 Mcc Goal (LTG) Patient will be able to ambulate on level surfaces, stairs, other uneven surfaces without pain or limp, without assistive device 08/29/20: haven't started uneven surface training, able to ambulate without limp on level surfaces 09/23/20: stairs once or twice ok, but then difficult, at times still has to to step-to pattern, though getting better . LTG Duration 10/20/20 Assessment Summary Assessment Making some progress, LEFS improved to 50%. Pain level still as high as 5-6/10 with above activities. Patient has not gone to pool for aquatic exercise, has not been highly compliant to HEP or self- massage; PT stressed importance of all. Physical Therapy Plan Frequency and Duration Frequency of Treatment 2x/Week Duration of Treatment 12 weeks Plan of Care Start Date 07/22/20 Plan of Care End Date 10/20/20 Therapeutic Interventions Therapeutic Interventions Gait Training,Home Exercise Program,Joint Mobilizations, Manual Therapy,Neuromuscular Re-education,Patient/Caregiver Education,Self-Care/Home Management,Soft Tissue Mobilization,Taping, Therapeutic Activities, Therapeutic Exercises Modalities Cold Pack/Ice Massage,Electric Stimulation,Hot Packs Next Visit Focus/Plan Next Note Type Treatment Note Next Visit Plan Continue PT per POC, continue to stress importance of HEP, aquatic ex, self-massage.
--- NOTE | 2020-10-03 10:03 | PT.OTN ---
Current Diagnoses Stiffness of unspecified hip, not elsewhere classified (10/03/20) Difficulty in walking, not elsewhere classified (10/03/20) Weakness (10/03/20) Other sprain of right hip, initial encounter (10/03/20) Physical Therapy Treatment Note PT-OP-A Visit Information Start: 07/21/20 08:10 Freq: Status: Active Protocol: Document 10/03/20 08:12 [facility] (Rec: 10/03/20 09:02 [facility] [id number]) Out-Patient Physical Therapy Visit Information Visit Information Visit Type Treatment Note Visit Note 83 days post-op Visit Start Time 15:13 Visit Stop Time 16:08 Total Visit Minutes 55 Visit Number 11 Evaluation Information Evaluation Date 07/22/20 Precautions Precautions per protocol in chart PT-OP-B Current Condition Start: 07/21/20 08:10 Freq: Status: Active Protocol: Document 07/22/20 08:14 [facility] (Rec: 07/22/20 09:05 [facility] [id number]) Current Condition History of Current Condition Onset Date 07/03/20 Current Complaints stiffness and pain right hip History of Current Condition s/p right labral repair 07/03/20 due to persistent, function- limitingright hip pain. Reports doctor said I could ditch the crutches after a couple days if it felt ok so hasn't used crutches since a couple days post-op. Had follow-up appointment last with surgeon's PA; states PA encouraged him to not overdo as it sounds like he had been, otherwise things looked good. Patient ambulating without device, c/o stiffness today, more than usual. May have overdone getting trailer ready for camping over weekend, in and out of trailer. Doing step- to on stairs. Worst pain he has experienced since surgery is with twisting to get off toilet. Has had difficulty putting socks on without rotating his leg. Reports right foot/ankle sore since surgery ( sprained ankle end of April and feels positioning during surgery may have contributed to this increase in pain). States he wasn't shown exercises after surgery. 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 Prior Functional Status Baseline Function- ADL's Independent Baseline Function- Mobility Independent Baseline Function- Gait no device, no limp Baseline Function- Work/School no limitations Baseline Function- Recreation/Hobbies mountain-biking Current Functional Impairments (Reported) Functional Limitations- ADL's painful, guarded Functional Limitations- Mobility/Gait limited to household, short distance community, no device but antalgic Functional Limitations- Work/School not back to work yet Functional Limitations- Recreation/ unable Hobbies Personal Factors Other Personal Factors That May Effect Patient tends to push too hard Therapy/Recovery PT-OP-C Subjective Start: 07/21/20 08:10 Freq: Status: Active Protocol: Document 10/03/20 08:12 [facility] (Rec: 10/03/20 09:02 [facility] [id number]) OP-PT Subjective Patient Comments Patient Comments Sees surgeon in a couple weeks . Got approval for 12 more visits. Feeling a little tight, but minimal pain except with standing rotation doing woodworking. Did single leg bridge, not resisted walking yet. PT-OP-G Mobility & Gait Start: 07/21/20 08:10 Freq: Status: Active Protocol: Document 07/22/20 08:14 [facility] (Rec: 07/22/20 17:50 [facility] [id number]) OP Mobility Evaluation Bed Mobility Supine to and from Sit safe method without twisting Transfers Sit to Stand may decrease weight-bearing through right leg if painful Car Transfers instructed in correct method for hip protection, sit first, swing legs in, reverse to exit. Functional Movements Lifting and Carrying not allowed at this lb Squats not allowed Running Assessment unable/not allowed OP Gait Assessment Gait Gait Assistance Required: Independent Assistive Devices Assistive Device None Orthotic/Prosthetic Devices or Brace: No Gait Deviations General Gait Pattern Antalgic Factors Limiting Gait Function Factors Limiting Gait Function Limited Range of Motion,Pain Comments Gait Comments protocol states foot flat for 4 weeks, patient instructed to decrease step length, foot flat technique Stair Climbing Evaluation Comments Stair Climbing Comments not evaluated today, patient verbalizes correct sequencing for hip protection with step- to pattern PT-OP-H Neuro Start: 07/21/20 08:10 Freq: Status: Active Protocol: Document 07/22/20 08:14 [facility] (Rec: 07/22/20 17:50 [facility] [id number]) Sensation Evaluation Gross Sensation Gross Sensation WNL PT-OP-J Posture/Palpation/Skin Start: 07/21/20 08:10 Freq: Status: Active Protocol: Document 07/22/20 08:14 [facility] (Rec: 07/22/20 17:50 [facility] [id number]) Palpation Assessment Location right proximal thigh Palpation Findings Edema Skin Assessment Incisional Assessment Incision Appearance/Comments 3 small incisions, all healing well, no signs or symptoms of infection PT-OP-K Range of Motion Start: 07/21/20 08:10 Freq: Status: Active Protocol: Document 07/22/20 08:14 [facility] (Rec: 07/22/20 17:50 [facility] [id number]) Hip Goniometric Range of Motion Hip Right Flexion w/Knee Flexed 90 Extension 0 Abduction 25 Internal Rotation 5 External Rotation 30 Comments AAROM Left Hip ROM WFL Yes Hip ROM Limitations Hip ROM Limitations Pain Comments guarding with internal rotation Knee Goniometric Range of Motion Knee celestina Knee ROM WFL Yes Ankle and Foot Goniometric Range of Motion Ankle and Foot ROM Limitations ROM Limitations Pain Comments right foot limited due to pain , mild swelling PT-OP-M Strength Start: 07/21/20 08:10 Freq: Status: Active Protocol: Document 07/22/20 08:14 [facility] (Rec: 07/22/20 17:50 [facility] [id number]) Hip Strength Hip Manual Muscle Testing Right Comments not assessed due to post-op restrictions Left Comments WFL Knee Strength Knee Manual Muscle Testing celestina Comments anti-gravity extension PT-OP-Q Treatments Start: 07/21/20 08:10 Freq: Status: Active Protocol: Document 10/03/20 08:12 [facility] (Rec: 10/03/20 09:02 [facility] [id number]) Cardio Equipment Elliptical Duration (Minutes) 7 Resistance 1 Other cues for neutral LE's Bicycle (Upright) Duration (Minutes) 7 Resistance 10 Seat Position 8 Gym Equipment Cable Column (Body Solid) hip add Resistance 30 Reps/Time 10x hip abd Resistance 30 Reps/Time 10x Shuttle Recovery Unilateral Squats Details pain-free ROM Resistance 50 left, Shuttle Recovery Platform Unstable Reps/Time 10x2 Bilateral Squats Details pain-free ROM Resistance 75 Shuttle Recovery Platform Stable Reps/Time 10x2 Therapeutic Exercises Supine Exercises IT band stretch Reps/Minutes 30 x 1 piriformis stretch Reps/Minutes 30x1 Prone Exercises hip IR Reps/Minutes 3x contract/relax x 2 Comments with contract/relax to inc IR ROM, followed by active IR x 10 reps with MR Standing Exercises monster steps Standing Exercise Name fwd/bck/side Resistance yellow band Reps/Minutes 4 min Manual Therapy Treatment Joint Mobilizations right hip Direction inferior glide Grade III Body Position Supine Reps/Duration 8 min Comments strap, with increasing hip flexion Manual Techniques contract relax Type for hip IR and ER, hip flex Body Position supine 90/90 Reps/Duration 3x2 ea Comments submax contraction Self-Care/Home Management Treatment Education Patient Education Body Mechanics,Home Exercise Program,Joint Protection,Pain Management PT-OP-R Modalities Start: 07/21/20 08:10 Freq: Status: Active Protocol: Document 10/03/20 08:12 [facility] (Rec: 10/03/20 09:02 [facility] [id number]) Hot Pack/Cold Pack Treatment Cold Pack Location right anterior hip Patient Position Supine Treatment Duration (minutes) 10 Patient Tolerance Good PT-OP-T Assessment and Plan Start: 07/21/20 08:10 Freq: Status: Active Protocol: Document 10/03/20 08:12 [facility] (Rec: 10/03/20 09:02 [facility] [id number]) Physical Therapy Assessment Goals Four Impairment weakness right hip Short Term Goal (STG) Patient to be independent and compliant with progressive HEP following post-op protocol 08/29/20: goal met, ongoing progression STG Duration 09/29/20 Diffusion Operator Goal (LTG) Patient to demonstrate at least 4+/5 muscle strength throughout right hip 09/23/20: right hip flex 3+/5 with pain, ext 4-/5 with pain, abduction 4-/5 with c/o pain. LTG Duration 10/20/20 Three Impairment limited right hip ROM with internal rotation 5 degrees Short Term Goal (STG) Patient to be independent and compliant with progressive HEP for hip ROM following post-op protocol 08/29/20: goal met, ongoing progression STG Duration 08/29/20 Diffusion Operator Goal (LTG) Patient to improve right hip ROM to WNL with emphasis on hip internal rotation 08/29/20: ER WNL, IR to 40 degrees 09/23/20: ER more tight at 55 deg, IR max 40 at end of session. Hip flexion to 109 right, 135 left. LTG Duration 10/20/20 Two Impairment Lower extremity functional scale 23% Short Term Goal (STG) Improve LEFS to at least 50% 08/29/20: not done this date 09/23/20: pain level 5-6/10 at worst with turning in ed, bending squatting, twisting, and lifting. LEFS: 50%, goal met. STG Duration Diffusion Operator Goal (LTG) Improve LEFS to at least 80% LTG Duration 10/20/20 One Impairment antalgic gait Short Term Goal (STG) Patient will be able to ambulate household distances with least restrictive device without limp 08/29/20: goal met, no device. STG Duration 08/08/20 Intermediate Goal (LTG) Patient will be able to ambulate on level surfaces, stairs, other uneven surfaces without pain or limp, without assistive device 08/29/20: haven't started uneven surface training, able to ambulate without limp on level surfaces 09/23/20: stairs once or twice ok, but then difficult, at times still has to to step-to pattern, though getting better . LTG Duration 10/20/20 Assessment Summary Assessment Increasing exercise tolerance without pain, added elliptical , monster walks all directions , increased resistance on shuttle leg press, added hip add and abd on weight machine. Still some tightness but ROM improving. Patient has not yet gone to pool but plans to in the next couple days. Physical Therapy Plan Frequency and Duration Frequency of Treatment 2x/Week Duration of Treatment 12 weeks Plan of Care Start Date 07/22/20 Plan of Care End Date 10/20/20 Therapeutic Interventions Therapeutic Interventions Gait Training,Home Exercise Program,Joint Mobilizations, Manual Therapy,Neuromuscular Re-education,Patient/Caregiver Education,Self-Care/Home Management,Soft Tissue Mobilization,Taping, Therapeutic Activities, Therapeutic Exercises Modalities Cold Pack/Ice Massage,Electric Stimulation,Hot Packs Next Visit Focus/Plan Next Note Type Treatment Note Next Visit Plan Continue to progress with hip ROM and functional strengthening.
--- NOTE | 2020-10-10 16:53 | PT.OTN ---
Current Diagnoses Stiffness of unspecified hip, not elsewhere classified (10/10/20) Difficulty in walking, not elsewhere classified (10/10/20) Weakness (10/10/20) Other sprain of right hip, initial encounter (10/10/20) Physical Therapy Treatment Note PT-OP-A Visit Information Start: 07/21/20 08:10 Freq: Status: Active Protocol: Document 10/10/20 08:14 SAK (Rec: 10/10/20 09:02 SAK [id number]) Out-Patient Physical Therapy Visit Information Visit Information Visit Type Treatment Note Visit Start Time 08:15 Visit Stop Time 09:10 Total Visit Minutes 55 Visit Number 13 Precautions Precautions per protocol in chart PT-OP-B Current Condition Start: 07/21/20 08:10 Freq: Status: Active Protocol: Document 07/22/20 08:14 SAK (Rec: 07/22/20 09:05 SAK [id number]) Current Condition History of Current Condition Onset Date 07/03/20 Current Complaints stiffness and pain right hip History of Current Condition s/p right labral repair 07/03/20 due to persistent, function- limitingright hip pain. Reports doctor said I could ditch the crutches after a couple days if it felt ok so hasn't used crutches since a couple days post-op. Had follow-up appointment last with surgeon's PA; states PA encouraged him to not overdo as it sounds like he had been, otherwise things looked good. Patient ambulating without device, c/o stiffness today, more than usual. May have overdone getting trailer ready for camping over weekend, in and out of trailer. Doing step- to on stairs. Worst pain he has experienced since surgery is with twisting to get off toilet. Has had difficulty putting socks on without rotating his leg. Reports right foot/ankle sore since surgery ( sprained ankle end of April and feels positioning during surgery may have contributed to this increase in pain). States he wasn't shown exercises after surgery. 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 Prior Functional Status Baseline Function- ADL's Independent Baseline Function- Mobility Independent Baseline Function- Gait no device, no limp Baseline Function- Work/School no limitations Baseline Function- Recreation/Hobbies mountain-biking Current Functional Impairments (Reported) Functional Limitations- ADL's painful, guarded Functional Limitations- Mobility/Gait limited to household, short distance community, no device but antalgic Functional Limitations- Work/School not back to work yet Functional Limitations- Recreation/ unable Hobbies Personal Factors Other Personal Factors That May Effect Patient tends to push too hard Therapy/Recovery PT-OP-C Subjective Start: 07/21/20 08:10 Freq: Status: Active Protocol: Document 10/10/20 08:14 [facility] (Rec: 10/10/20 09:02 [facility] [id number]) OP-PT Subjective Patient Comments Patient Comments No new c/o, good tolerance for last PT session. Able to walk trail 1.5 miles about 200 ft of elevation. Reports having impingement symptoms more in left hip, not right. Was able to do a few planks, no difficulty this time. Feels has turned a corner this week. PT-OP-G Mobility & Gait Start: 07/21/20 08:10 Freq: Status: Active Protocol: Document 07/22/20 08:14 [facility] (Rec: 07/22/20 17:50 [facility] [id number]) OP Mobility Evaluation Bed Mobility Supine to and from Sit safe method without twisting Transfers Sit to Stand may decrease weight-bearing through right leg if painful Car Transfers instructed in correct method for hip protection, sit first, swing legs in, reverse to exit. Functional Movements Lifting and Carrying not allowed at this lb Squats not allowed Running Assessment unable/not allowed OP Gait Assessment Gait Gait Assistance Required: Independent Assistive Devices Assistive Device None Orthotic/Prosthetic Devices or Brace: No Gait Deviations General Gait Pattern Antalgic Factors Limiting Gait Function Factors Limiting Gait Function Limited Range of Motion,Pain Comments Gait Comments protocol states foot flat for 4 weeks, patient instructed to decrease step length, foot flat technique Stair Climbing Evaluation Comments Stair Climbing Comments not evaluated today, patient verbalizes correct sequencing for hip protection with step- to pattern PT-OP-H Neuro Start: 07/21/20 08:10 Freq: Status: Active Protocol: Document 07/22/20 08:14 [facility] (Rec: 07/22/20 17:50 [facility] [id number]) Sensation Evaluation Gross Sensation Gross Sensation WNL PT-OP-J Posture/Palpation/Skin Start: 07/21/20 08:10 Freq: Status: Active Protocol: Document 07/22/20 08:14 [facility]AK (Rec: 07/22/20 17:50 [facility] [id number]) Palpation Assessment Location right proximal thigh Palpation Findings Edema Skin Assessment Incisional Assessment Incision Appearance/Comments 3 small incisions, all healing well, no signs or symptoms of infection PT-OP-K Range of Motion Start: 07/21/20 08:10 Freq: Status: Active Protocol: Document 07/22/20 08:14 [facility]AK (Rec: 07/22/20 17:50 [facility] [id number]) Hip Goniometric Range of Motion Hip Right Flexion w/Knee Flexed 90 Extension 0 Abduction 25 Internal Rotation 5 External Rotation 30 Comments AAROM Left Hip ROM WFL Yes Hip ROM Limitations Hip ROM Limitations Pain Comments guarding with internal rotation Knee Goniometric Range of Motion Knee celestina Knee ROM WFL Yes Ankle and Foot Goniometric Range of Motion Ankle and Foot ROM Limitations ROM Limitations Pain Comments right foot limited due to pain , mild swelling PT-OP-M Strength Start: 07/21/20 08:10 Freq: Status: Active Protocol: Document 07/22/20 08:14 [facility] (Rec: 07/22/20 17:50 [facility] [id number]) Hip Strength Hip Manual Muscle Testing Right Comments not assessed due to post-op restrictions Left Comments WFL Knee Strength Knee Manual Muscle Testing celestina Comments anti-gravity extension PT-OP-Q Treatments Start: 07/21/20 08:10 Freq: Status: Active Protocol: Document 10/10/20 08:14 [facility] (Rec: 10/10/20 09:02 [facility] [id number]) Cardio Equipment Elliptical Duration (Minutes) 10 Resistance 8 Other cues for neutral LE's Bicycle (Upright) Duration (Minutes) 5 Resistance 10 Seat Position 8 Gym Equipment Cable Column (Body Solid) hamstring curl Resistance 60 Reps/Time 10x2 hip add Resistance 40 Reps/Time 10x2 hip abd Resistance 40 Reps/Time 10x2 Shuttle Recovery Unilateral Squats Details pain-free ROM Resistance 62 left, Shuttle Recovery Platform Stable Reps/Time 10x2 Bilateral Squats Details pain-free ROM Resistance 87 Shuttle Recovery Platform Stable Reps/Time 10x2 Sport Cord red Exercise Details fwd march at end range, , side with inc velocity, back march Cord/Resistance red Reps/Duration 5x ea Therapeutic Exercises Standing Exercises lift Reps/Minutes 10x BOSU Standing Exercise Name Balance dbl , sngl, march, step-ups fwd and side (all round side up) Reps/Minutes 7 min lunge walk Reps/Minutes 20'x2 BOSU lunge Reps/Minutes 5x ea LE Self-Care/Home Management Treatment Education Other Education do hip flex exercise with theraband for distraction to left hip as well as right PT-OP-R Modalities Start: 07/21/20 08:10 Freq: Status: Active Protocol: Document 10/10/20 08:14 [facility]AK (Rec: 10/10/20 09:02 [facility] [id number]) Hot Pack/Cold Pack Treatment Cold Pack Location right anterior hip Patient Position Supine Treatment Duration (minutes) 10 Patient Tolerance Good PT-OP-T Assessment and Plan Start: 07/21/20 08:10 Freq: Status: Active Protocol: Document 10/10/20 08:14 [facility] (Rec: 10/10/20 09:02 [facility] [id number]) Physical Therapy Assessment Goals Four Impairment weakness right hip Short Term Goal (STG) Patient to be independent and compliant with progressive HEP following post-op protocol 08/29/20: goal met, ongoing progression STG Duration 09/29/20 Cook Box Filler Goal (LTG) Patient to demonstrate at least 4+/5 muscle strength throughout right hip 09/23/20: right hip flex 3+/5 with pain, ext 4-/5 with pain, abduction 4-/5 with c/o pain. LTG Duration 10/20/20 Three Impairment limited right hip ROM with internal rotation 5 degrees Short Term Goal (STG) Patient to be independent and compliant with progressive HEP for hip ROM following post-op protocol 08/29/20: goal met, ongoing progression STG Duration 08/29/20 Longterm Goal (LTG) Patient to improve right hip ROM to WNL with emphasis on hip internal rotation 08/29/20: ER WNL, IR to 40 degrees 09/23/20: ER more tight at 55 deg, IR max 40 at end of session. Hip flexion to 109 right, 135 left. LTG Duration 10/20/20 Two Impairment Lower extremity functional scale 23% Short Term Goal (STG) Improve LEFS to at least 50% 08/29/20: not done this date 09/23/20: pain level 5-6/10 at worst with turning in ed, bending squatting, twisting, and lifting. LEFS: 50%, goal met. STG Duration Cook Box Filler Goal (LTG) Improve LEFS to at least 80% LTG Duration 10/20/20 One Impairment antalgic gait Short Term Goal (STG) Patient will be able to ambulate household distances with least restrictive device without limp 08/29/20: goal met, no device. STG Duration 08/08/20 Cook Box Filler Goal (LTG) Patient will be able to ambulate on level surfaces, stairs, other uneven surfaces without pain or limp, without assistive device 08/29/20: haven't started uneven surface training, able to ambulate without limp on level surfaces 09/23/20: stairs once or twice ok, but then difficult, at times still has to to step-to pattern, though getting better . LTG Duration 10/20/20 Progress Towards Goals Progress Towards Goals Progressing Toward Goals Assessment Summary Assessment Good tolerance for progression of exercise, focused on functional strengthening vs ROM today. Physical Therapy Plan Frequency and Duration Frequency of Treatment 2x/Week Duration of Treatment 12 weeks Plan of Care Start Date 07/22/20 Plan of Care End Date 10/20/20 Therapeutic Interventions Therapeutic Interventions Gait Training,Home Exercise Program,Joint Mobilizations, Manual Therapy,Neuromuscular Re-education,Patient/Caregiver Education,Self-Care/Home Management,Soft Tissue Mobilization,Taping, Therapeutic Activities, Therapeutic Exercises Modalities Cold Pack/Ice Massage,Electric Stimulation,Hot Packs Next Visit Focus/Plan Next Note Type Treatment Note Next Visit Plan After ellipitical assess and work on hip ROM with contract relax techniques and and hip mobilization as indicated prior to further strengthening ex.
--- NOTE | 2020-10-14 10:48 | PT.OTN ---
Current Diagnoses Stiffness of unspecified hip, not elsewhere classified (10/14/20) Difficulty in walking, not elsewhere classified (10/14/20) Weakness (10/14/20) Other sprain of right hip, initial encounter (10/14/20) Physical Therapy Treatment Note PT-OP-A Visit Information Start: 07/21/20 08:10 Freq: Status: Active Protocol: Document 10/14/20 09:01 [facility] (Rec: 10/14/20 09:48 [facility] [id number]) Out-Patient Physical Therapy Visit Information Visit Information Visit Type Treatment Note Visit Start Time 09:01 Visit Stop Time 09:56 Total Visit Minutes 55 Visit Number 14 Precautions Precautions per protocol in chart PT-OP-B Current Condition Start: 07/21/20 08:10 Freq: Status: Active Protocol: Document 07/22/20 08:14 [facility] (Rec: 07/22/20 09:05 [facility] [id number]) Current Condition History of Current Condition Onset Date 07/03/20 Current Complaints stiffness and pain right hip History of Current Condition s/p right labral repair 07/03/20 due to persistent, function- limitingright hip pain. Reports doctor said I could ditch the crutches after a couple days if it felt ok so hasn't used crutches since a couple days post-op. Had follow-up appointment last with surgeon's PA; states PA encouraged him to not overdo as it sounds like he had been, otherwise things looked good. Patient ambulating without device, c/o stiffness today, more than usual. May have overdone getting trailer ready for camping over weekend, in and out of trailer. Doing step- to on stairs. Worst pain he has experienced since surgery is with twisting to get off toilet. Has had difficulty putting socks on without rotating his leg. Reports right foot/ankle sore since surgery ( sprained ankle end of April and feels positioning during surgery may have contributed to this increase in pain). States he wasn't shown exercises after surgery. 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 Prior Functional Status Baseline Function- ADL's Independent Baseline Function- Mobility Independent Baseline Function- Gait no device, no limp Baseline Function- Work/School no limitations Baseline Function- Recreation/Hobbies mountain-biking Current Functional Impairments (Reported) Functional Limitations- ADL's painful, guarded Functional Limitations- Mobility/Gait limited to household, short distance community, no device but antalgic Functional Limitations- Work/School not back to work yet Functional Limitations- Recreation/ unable Hobbies Personal Factors Other Personal Factors That May Effect Patient tends to push too hard Therapy/Recovery PT-OP-C Subjective Start: 07/21/20 08:10 Freq: Status: Active Protocol: Document 10/14/20 09:01 [facility] (Rec: 10/14/20 09:48 [facility] [id number]) OP-PT Subjective Patient Comments Patient Comments Pt states that he has started to have twinges in left hip. It is deep and sharp when it comes. It then changes to an ache. This is simliar to how his right hip pain started. He notices it more with being still such as when sleeping. PT-OP-G Mobility & Gait Start: 07/21/20 08:10 Freq: Status: Active Protocol: Document 07/22/20 08:14 [facility] (Rec: 07/22/20 17:50 [facility] [id number]) OP Mobility Evaluation Bed Mobility Supine to and from Sit safe method without twisting Transfers Sit to Stand may decrease weight-bearing through right leg if painful Car Transfers instructed in correct method for hip protection, sit first, swing legs in, reverse to exit. Functional Movements Lifting and Carrying not allowed at this lb Squats not allowed Running Assessment unable/not allowed OP Gait Assessment Gait Gait Assistance Required: Independent Assistive Devices Assistive Device None Orthotic/Prosthetic Devices or Brace: No Gait Deviations General Gait Pattern Antalgic Factors Limiting Gait Function Factors Limiting Gait Function Limited Range of Motion,Pain Comments Gait Comments protocol states foot flat for 4 weeks, patient instructed to decrease step length, foot flat technique Stair Climbing Evaluation Comments Stair Climbing Comments not evaluated today, patient verbalizes correct sequencing for hip protection with step- to pattern PT-OP-H Neuro Start: 07/21/20 08:10 Freq: Status: Active Protocol: Document 07/22/20 08:14 [facility] (Rec: 07/22/20 17:50 [facility] [id number]) Sensation Evaluation Gross Sensation Gross Sensation WNL PT-OP-J Posture/Palpation/Skin Start: 07/21/20 08:10 Freq: Status: Active Protocol: Document 07/22/20 08:14 [facility] (Rec: 07/22/20 17:50 [facility] [id number]) Palpation Assessment Location right proximal thigh Palpation Findings Edema Skin Assessment Incisional Assessment Incision Appearance/Comments 3 small incisions, all healing well, no signs or symptoms of infection PT-OP-K Range of Motion Start: 07/21/20 08:10 Freq: Status: Active Protocol: Document 07/22/20 08:14 [facility] (Rec: 07/22/20 17:50 [facility] [id number]) Hip Goniometric Range of Motion Hip Right Flexion w/Knee Flexed 90 Extension 0 Abduction 25 Internal Rotation 5 External Rotation 30 Comments AAROM Left Hip ROM WFL Yes Hip ROM Limitations Hip ROM Limitations Pain Comments guarding with internal rotation Knee Goniometric Range of Motion Knee celestina Knee ROM WFL Yes Ankle and Foot Goniometric Range of Motion Ankle and Foot ROM Limitations ROM Limitations Pain Comments right foot limited due to pain , mild swelling PT-OP-M Strength Start: 07/21/20 08:10 Freq: Status: Active Protocol: Document 07/22/20 08:14 [facility] (Rec: 07/22/20 17:50 [facility] [id number]) Hip Strength Hip Manual Muscle Testing Right Comments not assessed due to post-op restrictions Left Comments WFL Knee Strength Knee Manual Muscle Testing celestina Comments anti-gravity extension PT-OP-Q Treatments Start: 07/21/20 08:10 Freq: Status: Active Protocol: Document 10/14/20 09:01 [facility] (Rec: 10/14/20 09:48 [facility] [id number]) Cardio Equipment Bicycle (Upright) Duration (Minutes) 10 Resistance 10 Seat Position 9 Therapeutic Exercises Supine Exercises Hip adductor stretch with heel slide Side bilateral Comments Opposite leg bent, one at a time piriformis stretch Side bilateral Comments 30 sec hold x1 Bridge Side bilateral Comments Level 3 band around knees Hook lying clam Side bilateral Comments 10 reps slowly, level 3 band Shmuel stretch with abdominal drawing in Side bilateral Comments Abd drawing in first, HS for MWM Pelvic realignment exercises Side bilateral Comments 5 rep, 3 sec hold all exercises Prone Exercises Racquet ball positional release hip flexor Comments Verbally reviewed and pt to con't on both legs at home Manual Therapy Treatment Other Other Manual Treatments Right hip flexor MWM with PT performing TrP pressure and pt performing HS, also STM hip flexor PT-OP-R Modalities Start: 07/21/20 08:10 Freq: Status: Active Protocol: Document 10/10/20 08:14 [facility] (Rec: 10/10/20 09:02 [facility] [id number]) Hot Pack/Cold Pack Treatment Cold Pack Location right anterior hip Patient Position Supine Treatment Duration (minutes) 10 Patient Tolerance Good PT-OP-T Assessment and Plan Start: 07/21/20 08:10 Freq: Status: Active Protocol: Document 10/14/20 09:01 [facility] (Rec: 10/14/20 09:48 [facility] [id number]) Physical Therapy Assessment Goals Four Impairment weakness right hip Short Term Goal (STG) Patient to be independent and compliant with progressive HEP following post-op protocol 08/29/20: goal met, ongoing progression STG Duration 09/29/20 Fdc Goal (LTG) Patient to demonstrate at least 4+/5 muscle strength throughout right hip 09/23/20: right hip flex 3+/5 with pain, ext 4-/5 with pain, abduction 4-/5 with c/o pain. 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 Hip flexion to 109 right, 135 left. LTG Duration 10/20/20 Two Impairment Lower extremity functional scale 23% Short Term Goal (STG) Improve LEFS to at least 50% 08/29/20: not done this date 09/23/20: pain level 5-6/10 at worst with turning in ed, bending squatting, twisting, and lifting. LEFS: 50%, goal met. STG Duration Fdc Goal (LTG) Improve LEFS to at least 80% LTG Duration 10/20/20 One Impairment antalgic gait Short Term Goal (STG) Patient will be able to ambulate household distances with least restrictive device without limp 08/29/20: goal met, no device. STG Duration 08/08/20 Fdc Goal (LTG) Patient will be able to ambulate on level surfaces, stairs, other uneven surfaces without pain or limp, without assistive device 08/29/20: haven't started uneven surface training, able to ambulate without limp on level surfaces 09/23/20: stairs once or twice ok, but then difficult, at times still has to to step-to pattern, though getting better . LTG Duration 10/20/20 Assessment Summary Assessment Given reports of left hip pain starting, PT screens left hip . Pt presents with some groin discomfort with left FABERS and Scour and pt states this is not as bad as the right pre -op. His right hip IR is neutral passively. No pain with right hip ROM. This PT did see patient pre-op right hip and recommends orthopedic surgeon consult to check out left hip and possible dxs. Pt sees surgeon on and will ask about left hip and PT will send this note to surgeon. Given pt's left hip pain, revised exercises today to focus on both hips and working them similarly. Physical Therapy Plan Frequency and Duration Frequency of Treatment 2x/Week Duration of Treatment 12 weeks Plan of Care Start Date 07/22/20 Plan of Care End Date 10/20/20 Therapeutic Interventions Therapeutic Interventions Gait Training,Home Exercise Program,Joint Mobilizations, Manual Therapy,Neuromuscular Re-education,Patient/Caregiver Education,Self-Care/Home Management,Soft Tissue Mobilization,Taping, Therapeutic Activities, Therapeutic Exercises Modalities Cold Pack/Ice Massage,Electric Stimulation,Hot Packs Other Referrals/Consults Referrals/Consults Recommended Follow-up with orthopedic surgeon about left hip pain/ symptoms and possible dxs Next Visit Focus/Plan Next Note Type Treatment Note Next Visit Plan Review core progression and other exercises, revise HEP further
--- NOTE | 2020-10-17 08:18 | PT.OTN ---
Current Diagnoses Stiffness of unspecified hip, not elsewhere classified (10/17/20) Difficulty in walking, not elsewhere classified (10/17/20) Weakness (10/17/20) Other sprain of right hip, initial encounter (10/17/20) Physical Therapy Treatment Note PT-OP-A Visit Information Start: 07/21/20 08:10 Freq: Status: Active Protocol: Document 10/17/20 07:30 MB (Rec: 10/17/20 08:17 MB [id number]) Out-Patient Physical Therapy Visit Information Visit Information Visit Type Treatment Note Visit Start Time 07:30 Visit Stop Time 08:15 Total Visit Minutes 45 Visit Number 15 Precautions Precautions per protocol in chart PT-OP-B Current Condition Start: 07/21/20 08:10 Freq: Status: Active Protocol: Document 07/22/20 08:14 SAK (Rec: 07/22/20 09:05 SAK [id number]) Current Condition History of Current Condition Onset Date 07/03/20 Current Complaints stiffness and pain right hip History of Current Condition s/p right labral repair 07/03/20 due to persistent, function- limitingright hip pain. Reports doctor said I could ditch the crutches after a couple days if it felt ok so hasn't used crutches since a couple days post-op. Had follow-up appointment last with surgeon's PA; states PA encouraged him to not overdo as it sounds like he had been, otherwise things looked good. Patient ambulating without device, c/o stiffness today, more than usual. May have overdone getting trailer ready for camping over weekend, in and out of trailer. Doing step- to on stairs. Worst pain he has experienced since surgery is with twisting to get off toilet. Has had difficulty putting socks on without rotating his leg. Reports right foot/ankle sore since surgery ( sprained ankle end of April and feels positioning during surgery may have contributed to this increase in pain). States he wasn't shown exercises after surgery. 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 Prior Functional Status Baseline Function- ADL's Independent Baseline Function- Mobility Independent Baseline Function- Gait no device, no limp Baseline Function- Work/School no limitations Baseline Function- Recreation/Hobbies mountain-biking Current Functional Impairments (Reported) Functional Limitations- ADL's painful, guarded Functional Limitations- Mobility/Gait limited to household, short distance community, no device but antalgic Functional Limitations- Work/School not back to work yet Functional Limitations- Recreation/ unable Hobbies Personal Factors Other Personal Factors That May Effect Patient tends to push too hard Therapy/Recovery PT-OP-C Subjective Start: 07/21/20 08:10 Freq: Status: Active Protocol: Document 10/17/20 07:30 MB (Rec: 10/17/20 08:17 MB [id number]) OP-PT Subjective Patient Comments Patient Comments Pt brings in handouts. PT-OP-G Mobility & Gait Start: 07/21/20 08:10 Freq: Status: Active Protocol: Document 07/22/20 08:14 SAK (Rec: 07/22/20 17:50 SAK [id number]) OP Mobility Evaluation Bed Mobility Supine to and from Sit safe method without twisting Transfers Sit to Stand may decrease weight-bearing through right leg if painful Car Transfers instructed in correct method for hip protection, sit first, swing legs in, reverse to exit. Functional Movements Lifting and Carrying not allowed at this lb Squats not allowed Running Assessment unable/not allowed OP Gait Assessment Gait Gait Assistance Required: Independent Assistive Devices Assistive Device None Orthotic/Prosthetic Devices or Brace: No Gait Deviations General Gait Pattern Antalgic Factors Limiting Gait Function Factors Limiting Gait Function Limited Range of Motion,Pain Comments Gait Comments protocol states foot flat for 4 weeks, patient instructed to decrease step length, foot flat technique Stair Climbing Evaluation Comments Stair Climbing Comments not evaluated today, patient verbalizes correct sequencing for hip protection with step- to pattern PT-OP-H Neuro Start: 07/21/20 08:10 Freq: Status: Active Protocol: Document 07/22/20 08:14 SAK (Rec: 07/22/20 17:50 SAK [id number]) Sensation Evaluation Gross Sensation Gross Sensation WNL PT-OP-J Posture/Palpation/Skin Start: 07/21/20 08:10 Freq: Status: Active Protocol: Document 07/22/20 08:14 SAK (Rec: 07/22/20 17:50 SAK [id number]) Palpation Assessment Location right proximal thigh Palpation Findings Edema Skin Assessment Incisional Assessment Incision Appearance/Comments 3 small incisions, all healing well, no signs or symptoms of infection PT-OP-K Range of Motion Start: 07/21/20 08:10 Freq: Status: Active Protocol: Document 07/22/20 08:14 SAK (Rec: 07/22/20 17:50 [facility] [id number]) Hip Goniometric Range of Motion Hip Right Flexion w/Knee Flexed 90 Extension 0 Abduction 25 Internal Rotation 5 External Rotation 30 Comments AAROM Left Hip ROM WFL Yes Hip ROM Limitations Hip ROM Limitations Pain Comments guarding with internal rotation Knee Goniometric Range of Motion Knee celestina Knee ROM WFL Yes Ankle and Foot Goniometric Range of Motion Ankle and Foot ROM Limitations ROM Limitations Pain Comments right foot limited due to pain , mild swelling PT-OP-M Strength Start: 07/21/20 08:10 Freq: Status: Active Protocol: Document 07/22/20 08:14 SAK (Rec: 07/22/20 17:50 [facility] [id number]) Hip Strength Hip Manual Muscle Testing Right Comments not assessed due to post-op restrictions Left Comments WFL Knee Strength Knee Manual Muscle Testing celestina Comments anti-gravity extension PT-OP-Q Treatments Start: 07/21/20 08:10 Freq: Status: Active Protocol: Document 10/17/20 07:30 MB (Rec: 10/17/20 08:17 MB [id number]) Cardio Equipment Bicycle (Upright) Duration (Minutes) 10 Resistance 11 Seat Position 9 Therapeutic Exercises Supine Exercises ILU bowel massage Side bilateral Comments 10 reps all for visceral and hip flexor massage Core progression Supine Exercise Name Abd drawing in, pelvic tilt and spine flat Side bilateral Comments Lumbar rotation, HS and mini march Prone Exercises Plank and downward dog Comments Practiced arms straight and bent, down dog Other Exercises Verbally reviewed HEP Comments Reviewed all handouts in folder and made more revisions Manual Therapy Treatment Other Other Manual Treatments Pt prone and right hip in ER: MWM with PT providing TrP pressure at rotators and pt performing active ER and IR with knee bent Pt supine: right hip flexor positional release and STM, MWM with leg straight IR and ER and vastus lateralis and TFL MWM PT-OP-R Modalities Start: 07/21/20 08:10 Freq: Status: Active Protocol: Document 10/10/20 08:14 SAK (Rec: 10/10/20 09:02 SAK [id number]) Hot Pack/Cold Pack Treatment Cold Pack Location right anterior hip Patient Position Supine Treatment Duration (minutes) 10 Patient Tolerance Good PT-OP-T Assessment and Plan Start: 07/21/20 08:10 Freq: Status: Active Protocol: Document 10/17/20 07:30 MB (Rec: 10/17/20 08:17 MB [id number]) Physical Therapy Assessment Goals Four Impairment weakness right hip Short Term Goal (STG) Patient to be independent and compliant with progressive HEP following post-op protocol 08/29/20: goal met, ongoing progression STG Duration 09/29/20 Intermediate Goal (LTG) Patient to demonstrate at least 4+/5 muscle strength throughout right hip 09/23/20: right hip flex 3+/5 with pain, ext 4-/5 with pain, abduction 4-/5 with c/o pain. LTG Duration 10/20/20 Three Impairment limited right hip ROM with internal rotation 5 degrees Short Term Goal (STG) Patient to be independent and compliant with progressive HEP for hip ROM following post-op protocol 08/29/20: goal met, ongoing progression STG Duration 08/29/20 Intermediate Goal (LTG) Patient to improve right hip ROM to WNL with emphasis on hip internal rotation 08/29/20: ER WNL, IR to 40 degrees 09/23/20: ER more tight at 55 deg, IR max 40 at end of session. Hip flexion to 109 right, 135 left. LTG Duration 10/20/20 Two Impairment Lower extremity functional scale 23% Short Term Goal (STG) Improve LEFS to at least 50% 08/29/20: not done this date 09/23/20: pain level 5-6/10 at worst with turning in ed, bending squatting, twisting, and lifting. LEFS: 50%, goal met. STG Duration Toll Line Mechanic Goal (LTG) Improve LEFS to at least 80% LTG Duration 10/20/20 One Impairment antalgic gait Short Term Goal (STG) Patient will be able to ambulate household distances with least restrictive device without limp 08/29/20: goal met, no device. STG Duration 08/08/20 Intermediate Goal (LTG) Patient will be able to ambulate on level surfaces, stairs, other uneven surfaces without pain or limp, without assistive device 08/29/20: haven't started uneven surface training, able to ambulate without limp on level surfaces 09/23/20: stairs once or twice ok, but then difficult, at times still has to to step-to pattern, though getting better . LTG Duration 10/20/20 Assessment Summary Assessment Progressed core strengthening and plank today, manual work. Con't progression. Physical Therapy Plan Frequency and Duration Frequency of Treatment 2x/Week Duration of Treatment 12 weeks Plan of Care Start Date 07/22/20 Plan of Care End Date 10/20/20 Therapeutic Interventions Therapeutic Interventions Gait Training,Home Exercise Program,Joint Mobilizations, Manual Therapy,Neuromuscular Re-education,Patient/Caregiver Education,Self-Care/Home Management,Soft Tissue Mobilization,Taping, Therapeutic Activities, Therapeutic Exercises Modalities Cold Pack/Ice Massage,Electric Stimulation,Hot Packs Other Referrals/Consults Referrals/Consults Recommended Follow-up with orthopedic surgeon about left hip pain/ symptoms and possible dxs Next Visit Focus/Plan Next Note Type Progress Note Next Visit Plan PNF in side lying Consider Trauma Release Exercise
--- NOTE | 2020-10-21 13:56 | PT.OTN ---
Current Diagnoses Stiffness of unspecified hip, not elsewhere classified (10/21/20) Difficulty in walking, not elsewhere classified (10/21/20) Weakness (10/21/20) Other sprain of right hip, initial encounter (10/21/20) Physical Therapy Treatment Note PT-OP-A Visit Information Start: 07/21/20 08:10 Freq: Status: Active Protocol: Document 10/21/20 09:01 SUDHA (Rec: 10/21/20 09:23 MB [id number]) Out-Patient Physical Therapy Visit Information Visit Information Visit Type Progress Note Visit Start Time 09:01 Visit Stop Time 09:41 Total Visit Minutes 40 Visit Number 16 Precautions Precautions Per pt, he states that the surgeon cleared him to do everything PT-OP-B Current Condition Start: 07/21/20 08:10 Freq: Status: Active Protocol: Document 07/22/20 08:14 SAK (Rec: 07/22/20 09:05 SAK [id number]) Current Condition History of Current Condition Onset Date 07/03/20 Current Complaints stiffness and pain right hip History of Current Condition s/p right labral repair 07/03/20 due to persistent, function- limitingright hip pain. Reports doctor said I could ditch the crutches after a couple days if it felt ok so hasn't used crutches since a couple days post-op. Had follow-up appointment last with surgeon's PA; states PA encouraged him to not overdo as it sounds like he had been, otherwise things looked good. Patient ambulating without device, c/o stiffness today, more than usual. May have overdone getting trailer ready for camping over weekend, in and out of trailer. Doing step- to on stairs. Worst pain he has experienced since surgery is with twisting to get off toilet. Has had difficulty putting socks on without rotating his leg. Reports right foot/ankle sore since surgery ( sprained ankle end of April and feels positioning during surgery may have contributed to this increase in pain). States he wasn't shown exercises after surgery. 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 Prior Functional Status Baseline Function- ADL's Independent Baseline Function- Mobility Independent Baseline Function- Gait no device, no limp Baseline Function- Work/School no limitations Baseline Function- Recreation/Hobbies mountain-biking Current Functional Impairments (Reported) Functional Limitations- ADL's painful, guarded Functional Limitations- Mobility/Gait limited to household, short distance community, no device but antalgic Functional Limitations- Work/School not back to work yet Functional Limitations- Recreation/ unable Hobbies Personal Factors Other Personal Factors That May Effect Patient tends to push too hard Therapy/Recovery PT-OP-C Subjective Start: 07/21/20 08:10 Freq: Status: Active Protocol: Document 10/21/20 09:01 MB (Rec: 10/21/20 09:23 MB [id number]) OP-PT Subjective Patient Comments Patient Comments Pt states that the surgeon didn't say much. He said that he was clear to do what he wants. He would like to con't with ROM and strength. He told the pt to call back in 6-12 weeks if his left hip con't to bother him. PT-OP-G Mobility & Gait Start: 07/21/20 08:10 Freq: Status: Active Protocol: Document 07/22/20 08:14 [facility] (Rec: 07/22/20 17:50 [facility] [id number]) OP Mobility Evaluation Bed Mobility Supine to and from Sit safe method without twisting Transfers Sit to Stand may decrease weight-bearing through right leg if painful Car Transfers instructed in correct method for hip protection, sit first, swing legs in, reverse to exit. Functional Movements Lifting and Carrying not allowed at this lb Squats not allowed Running Assessment unable/not allowed OP Gait Assessment Gait Gait Assistance Required: Independent Assistive Devices Assistive Device None Orthotic/Prosthetic Devices or Brace: No Gait Deviations General Gait Pattern Antalgic Factors Limiting Gait Function Factors Limiting Gait Function Limited Range of Motion,Pain Comments Gait Comments protocol states foot flat for 4 weeks, patient instructed to decrease step length, foot flat technique Stair Climbing Evaluation Comments Stair Climbing Comments not evaluated today, patient verbalizes correct sequencing for hip protection with step- to pattern PT-OP-H Neuro Start: 07/21/20 08:10 Freq: Status: Active Protocol: Document 07/22/20 08:14 [facility] (Rec: 07/22/20 17:50 [facility] [id number]) Sensation Evaluation Gross Sensation Gross Sensation WNL PT-OP-J Posture/Palpation/Skin Start: 07/21/20 08:10 Freq: Status: Active Protocol: Document 07/22/20 08:14 SAK (Rec: 07/22/20 17:50 SAK [id number]) Palpation Assessment Location right proximal thigh Palpation Findings Edema Skin Assessment Incisional Assessment Incision Appearance/Comments 3 small incisions, all healing well, no signs or symptoms of infection PT-OP-K Range of Motion Start: 07/21/20 08:10 Freq: Status: Active Protocol: Document 07/22/20 08:14 SAK (Rec: 07/22/20 17:50 [facility] [id number]) Hip Goniometric Range of Motion Hip Right Flexion w/Knee Flexed 90 Extension 0 Abduction 25 Internal Rotation 5 External Rotation 30 Comments AAROM Left Hip ROM WFL Yes Hip ROM Limitations Hip ROM Limitations Pain Comments guarding with internal rotation Knee Goniometric Range of Motion Knee celestina Knee ROM WFL Yes Ankle and Foot Goniometric Range of Motion Ankle and Foot ROM Limitations ROM Limitations Pain Comments right foot limited due to pain , mild swelling PT-OP-M Strength Start: 07/21/20 08:10 Freq: Status: Active Protocol: Document 07/22/20 08:14 SAK (Rec: 07/22/20 17:50 [facility] [id number]) Hip Strength Hip Manual Muscle Testing Right Comments not assessed due to post-op restrictions Left Comments WFL Knee Strength Knee Manual Muscle Testing celestina Comments anti-gravity extension PT-OP-Q Treatments Start: 07/21/20 08:10 Freq: Status: Active Protocol: Document 10/21/20 09:01 SUDHA (Rec: 10/21/20 09:23 MB [id number]) Cardio Equipment Bicycle (Upright) Duration (Minutes) 15 Resistance 11 Seat Position 9 Therapeutic Exercises Supine Exercises Hip ER and IR self-mobs Comments Demo from PT today Sitting Exercises Self-resisted hip flexion Side bilateral Comments Performed today with UE pressure Other Exercises Doorway stretch for hip Side right Comments Toes pointed inward, hip flexor stretch Trauma release exercises Side bilateral Comments Instructed today and performed on both legs PT-OP-R Modalities Start: 07/21/20 08:10 Freq: Status: Active Protocol: Document 10/10/20 08:14 YIN (Rec: 10/10/20 09:02 SAK [id number]) Hot Pack/Cold Pack Treatment Cold Pack Location right anterior hip Patient Position Supine Treatment Duration (minutes) 10 Patient Tolerance Good PT-OP-T Assessment and Plan Start: 07/21/20 08:10 Freq: Status: Active Protocol: Document 10/21/20 09:01 MB (Rec: 10/21/20 09:23 MB [id number]) Physical Therapy Assessment Goals Four Impairment weakness right hip Short Term Goal (STG) Pt is performing progressive and revised HEP. Machine I Cutter Goal (LTG) Patient to demonstrate at least 4+/5 muscle strength throughout right hip 10/21/20: Met. Right hip flexion, abduction and extension 4+/5 LTG Duration 10/20/20 Three Impairment limited right hip ROM with internal rotation 5 degrees Machine I Cutter Goal (LTG) Patient to improve right hip ROM to WNL with emphasis on hip internal rotation 10/21/20: Right hip ER 40 deg and IR 20 deg LTG Duration 11/18/20 Two Impairment Lower extremity functional scale 23% Machine I Cutter Goal (LTG) Pt will present with LEF score reflecting no more than 20% impairment to improve functional mobility. 10/21/20: LEF score reflects 33 .75% impairment, which is an improvement LTG Duration 11/18/20 One Impairment antalgic gait Short Term Goal (STG) Patient will be able to ambulate household distances with least restrictive device without limp 08/29/20: goal met, no device. STG Duration Met Nursing Home Goal (LTG) Patient will be able to ambulate on level surfaces, stairs, other uneven surfaces without pain or limp, without assistive device 08/29/20: haven't started uneven surface training, able to ambulate without limp on level surfaces 09/23/20: stairs once or twice ok, but then difficult, at times still has to to step-to pattern, though getting better . LTG Duration Met Assessment Summary Assessment Pt has progressed towards right hip strength, HEP, and LEF scores since starting PT. His right hip IR and ER con't to be limited, especially IR and added doorway stretch today with toes inward. Also progressed to trauma release exercises today. Pt's left hip has started to be troublesome and there is concern for congenital anatomical changes in it as well. He will benefit from 4 more PT treatments to further progress range. Physical Therapy Plan Frequency and Duration Frequency of Treatment 1-2x/Week Duration of Treatment 4 more treatments Plan of Care Start Date 10/21/20 Plan of Care End Date 11/18/20 Therapeutic Interventions Therapeutic Interventions Gait Training,Home Exercise Program,Joint Mobilizations, Manual Therapy,Neuromuscular Re-education,Patient/Caregiver Education,Self-Care/Home Management,Soft Tissue Mobilization,Taping, Therapeutic Activities, Therapeutic Exercises Modalities Cold Pack/Ice Massage,Electric Stimulation,Hot Packs Next Visit Focus/Plan Next Note Type Treatment Note Next Visit Plan PNF in side lying Donkey kick for hip extension
--- NOTE | 2020-10-21 13:56 | PT.OPPOC ---
Physical, Occupational & Speech Therapy At [facility] Current Diagnoses Stiffness of unspecified hip, not elsewhere classified (10/21/20) Difficulty in walking, not elsewhere classified (10/21/20) Weakness (10/21/20) Other sprain of right hip, initial encounter (10/21/20) Visit Care Team Role Provider Type Santos Oneal Primary Care Provider Non-Staff Specialty: Medical Address: [address] [place] [address], [id number] Email: Addison Sher MD Attending Provider Non-Staff Referring Provider Specialty: Orthopedic Surgery Address: [facility] [address], [place], [address] Email: Plan Of Care PT-OP-T Assessment and Plan Start: 07/21/20 08:10 Freq: Status: Active Protocol: Document 10/21/20 09:01 MB (Rec: 10/21/20 09:23 MB [id number]) Physical Therapy Assessment Goals Four Impairment weakness right hip Short Term Goal (STG) Pt is performing progressive and revised HEP. Fdc Goal (LTG) Patient to demonstrate at least 4+/5 muscle strength throughout right hip 10/21/20: Met. Right hip flexion, abduction and extension 4+/5 LTG Duration 10/20/20 Three Impairment limited right hip ROM with internal rotation 5 degrees Net Repairer Goal (LTG) Patient to improve right hip ROM to WNL with emphasis on hip internal rotation 10/21/20: Right hip ER 40 deg and IR 20 deg LTG Duration 11/18/20 Two Impairment Lower extremity functional scale 23% Net Repairer Goal (LTG) Pt will present with LEF score reflecting no more than 20% impairment to improve functional mobility. 10/21/20: LEF score reflects 33 .75% impairment, which is an improvement LTG Duration 11/18/20 One Impairment antalgic gait Short Term Goal (STG) Patient will be able to ambulate household distances with least restrictive device without limp 08/29/20: goal met, no device. STG Duration Met Net Repairer Goal (LTG) Patient will be able to ambulate on level surfaces, stairs, other uneven surfaces without pain or limp, without assistive device 08/29/20: haven't started uneven surface training, able to ambulate without limp on level surfaces 09/23/20: stairs once or twice ok, but then difficult, at times still has to to step-to pattern, though getting better . LTG Duration Met Assessment Summary Assessment Pt has progressed towards right hip strength, HEP, and LEF scores since starting PT. His right hip IR and ER con't to be limited, especially IR and added doorway stretch today with toes inward. Also progressed to trauma release exercises today. Pt's left hip has started to be troublesome and there is concern for congenital anatomical changes in it as well. He will benefit from 4 more PT treatments to further progress range. Physical Therapy Plan Frequency and Duration Frequency of Treatment 1-2x/Week Duration of Treatment 4 more treatments Plan of Care Start Date 10/21/20 Plan of Care End Date 11/18/20 Therapeutic Interventions Therapeutic Interventions Gait Training,Home Exercise Program,Joint Mobilizations, Manual Therapy,Neuromuscular Re-education,Patient/Caregiver Education,Self-Care/Home Management,Soft Tissue Mobilization,Taping, Therapeutic Activities, Therapeutic Exercises Modalities Cold Pack/Ice Massage,Electric Stimulation,Hot Packs Next Visit Focus/Plan Next Note Type Treatment Note Next Visit Plan PNF in side lying Donkey kick for hip extension Plan of Care Dates Plan of Care Start Date 10/21/20 Plan of Care End Date 11/18/20 Electronically Signed by: Aislinn Wills, PT 10/21/20 [id number] Please Sign and Return: I have reviewed this Plan of Care and certify that the skilled therapy services above are required to meet the patient?s needs. Physician Signature Date Printed Name and Credentials Clinical Instructor Signature Printed Name and Credentials
--- NOTE | 2020-10-24 09:00 | PT.OTN ---
Current Diagnoses Stiffness of unspecified hip, not elsewhere classified (10/24/20) Difficulty in walking, not elsewhere classified (10/24/20) Weakness (10/24/20) Other sprain of right hip, initial encounter (10/24/20) Physical Therapy Treatment Note PT-OP-A Visit Information Start: 07/21/20 08:10 Freq: Status: Active Protocol: Document 10/24/20 08:15 MB (Rec: 10/24/20 09:00 MB [id number]) Out-Patient Physical Therapy Visit Information Visit Information Visit Type Treatment Note Visit Start Time 08:15 Visit Stop Time 08:58 Total Visit Minutes 43 Visit Number 17 Precautions Precautions Per pt, he states that the surgeon cleared him to do everything PT-OP-B Current Condition Start: 07/21/20 08:10 Freq: Status: Active Protocol: Document 07/22/20 08:14 SAK (Rec: 07/22/20 09:05 SAK [id number]) Current Condition History of Current Condition Onset Date 07/03/20 Current Complaints stiffness and pain right hip History of Current Condition s/p right labral repair 07/03/20 due to persistent, function- limitingright hip pain. Reports doctor said I could ditch the crutches after a couple days if it felt ok so hasn't used crutches since a couple days post-op. Had follow-up appointment last with surgeon's PA; states PA encouraged him to not overdo as it sounds like he had been, otherwise things looked good. Patient ambulating without device, c/o stiffness today, more than usual. May have overdone getting trailer ready for camping over weekend, in and out of trailer. Doing step- to on stairs. Worst pain he has experienced since surgery is with twisting to get off toilet. Has had difficulty putting socks on without rotating his leg. Reports right foot/ankle sore since surgery ( sprained ankle end of April and feels positioning during surgery may have contributed to this increase in pain). States he wasn't shown exercises after surgery. 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 Prior Functional Status Baseline Function- ADL's Independent Baseline Function- Mobility Independent Baseline Function- Gait no device, no limp Baseline Function- Work/School no limitations Baseline Function- Recreation/Hobbies mountain-biking Current Functional Impairments (Reported) Functional Limitations- ADL's painful, guarded Functional Limitations- Mobility/Gait limited to household, short distance community, no device but antalgic Functional Limitations- Work/School not back to work yet Functional Limitations- Recreation/ unable Hobbies Personal Factors Other Personal Factors That May Effect Patient tends to push too hard Therapy/Recovery PT-OP-C Subjective Start: 07/21/20 08:10 Freq: Status: Active Protocol: Document 10/24/20 08:15 MB (Rec: 10/24/20 09:00 MB [id number]) OP-PT Subjective Patient Comments Patient Comments Pt states that he is looking into PRX. PT-OP-G Mobility & Gait Start: 07/21/20 08:10 Freq: Status: Active Protocol: Document 07/22/20 08:14 SAK (Rec: 07/22/20 17:50 [facility] [id number]) OP Mobility Evaluation Bed Mobility Supine to and from Sit safe method without twisting Transfers Sit to Stand may decrease weight-bearing through right leg if painful Car Transfers instructed in correct method for hip protection, sit first, swing legs in, reverse to exit. Functional Movements Lifting and Carrying not allowed at this lb Squats not allowed Running Assessment unable/not allowed OP Gait Assessment Gait Gait Assistance Required: Independent Assistive Devices Assistive Device None Orthotic/Prosthetic Devices or Brace: No Gait Deviations General Gait Pattern Antalgic Factors Limiting Gait Function Factors Limiting Gait Function Limited Range of Motion,Pain Comments Gait Comments protocol states foot flat for 4 weeks, patient instructed to decrease step length, foot flat technique Stair Climbing Evaluation Comments Stair Climbing Comments not evaluated today, patient verbalizes correct sequencing for hip protection with step- to pattern PT-OP-H Neuro Start: 07/21/20 08:10 Freq: Status: Active Protocol: Document 07/22/20 08:14 SAK (Rec: 07/22/20 17:50 [facility] [id number]) Sensation Evaluation Gross Sensation Gross Sensation WNL PT-OP-J Posture/Palpation/Skin Start: 07/21/20 08:10 Freq: Status: Active Protocol: Document 07/22/20 08:14 SAK (Rec: 07/22/20 17:50 [facility] [id number]) Palpation Assessment Location right proximal thigh Palpation Findings Edema Skin Assessment Incisional Assessment Incision Appearance/Comments 3 small incisions, all healing well, no signs or symptoms of infection PT-OP-K Range of Motion Start: 07/21/20 08:10 Freq: Status: Active Protocol: Document 07/22/20 08:14 SAK (Rec: 07/22/20 17:50 [facility] [id number]) Hip Goniometric Range of Motion Hip Right Flexion w/Knee Flexed 90 Extension 0 Abduction 25 Internal Rotation 5 External Rotation 30 Comments AAROM Left Hip ROM WFL Yes Hip ROM Limitations Hip ROM Limitations Pain Comments guarding with internal rotation Knee Goniometric Range of Motion Knee celestina Knee ROM WFL Yes Ankle and Foot Goniometric Range of Motion Ankle and Foot ROM Limitations ROM Limitations Pain Comments right foot limited due to pain , mild swelling PT-OP-M Strength Start: 07/21/20 08:10 Freq: Status: Active Protocol: Document 07/22/20 08:14 [facility] (Rec: 07/22/20 17:50 [facility] [id number]) Hip Strength Hip Manual Muscle Testing Right Comments not assessed due to post-op restrictions Left Comments WFL Knee Strength Knee Manual Muscle Testing celestina Comments anti-gravity extension PT-OP-Q Treatments Start: 07/21/20 08:10 Freq: Status: Active Protocol: Document 10/24/20 08:15 MB (Rec: 10/24/20 09:00 MB [id number]) Cardio Equipment Bicycle (Upright) Duration (Minutes) 10 Resistance 11 Seat Position 9 Therapeutic Exercises Sidelying Exercises Open book Side bilateral Comments 10 reps each side, end-range breath Standing Exercises [employer]'s Lift Exercise Comments Ed today and pt to perform after knee bends with JOVANNI Manual Therapy Treatment Other Other Manual Treatments Pt in side lying: B STM thoracolumbar paraspinals, QL, TFL and vastus lateralis and rib recoil with coordinated breathing to release thoracolumbar paraspinals and QL Neuro Re-Education Treatment Movement Re-Education Movement Re-education Activities PNF B side lying for pelvis and LE movement with manual assist and VCs from PT with pelvis moving forward and back and leg into flexion and extnsion hip, knee and ankle PT-OP-R Modalities Start: 07/21/20 08:10 Freq: Status: Active Protocol: Document 10/10/20 08:14 SAK (Rec: 10/10/20 09:02 SAK [id number]) Hot Pack/Cold Pack Treatment Cold Pack Location right anterior hip Patient Position Supine Treatment Duration (minutes) 10 Patient Tolerance Good PT-OP-T Assessment and Plan Start: 07/21/20 08:10 Freq: Status: Active Protocol: Document 10/24/20 08:15 MB (Rec: 10/24/20 09:00 MB [id number]) Physical Therapy Assessment Goals Three Impairment limited right hip ROM with internal rotation 5 degrees Skilled Nursing Goal (LTG) Patient to improve right hip ROM to WNL with emphasis on hip internal rotation 10/21/20: Right hip ER 40 deg and IR 20 deg LTG Duration 11/18/20 Two Impairment Lower extremity functional scale 23% Skilled Nursing Goal (LTG) Pt will present with LEF score reflecting no more than 20% impairment to improve functional mobility. 10/21/20: LEF score reflects 33 .75% impairment, which is an improvement LTG Duration 11/18/20 Assessment Summary Assessment Progressed glute strengthening and PNF today and pt fatigues well. His left hip is starting to bother him more and recommend work-up for it soon. Physical Therapy Plan Frequency and Duration Frequency of Treatment 1-2x/Week Duration of Treatment 4 more treatments Plan of Care Start Date 10/21/20 Plan of Care End Date 11/18/20 Therapeutic Interventions Therapeutic Interventions Gait Training,Home Exercise Program,Joint Mobilizations, Manual Therapy,Neuromuscular Re-education,Patient/Caregiver Education,Self-Care/Home Management,Soft Tissue Mobilization,Taping, Therapeutic Activities, Therapeutic Exercises Modalities Cold Pack/Ice Massage,Electric Stimulation,Hot Packs Next Visit Focus/Plan Next Note Type Treatment Note Next Visit Plan PNF in side lying and hip mobs per primary PT
--- NOTE | 2020-10-28 18:12 | PT.OTN ---
Current Diagnoses Stiffness of unspecified hip, not elsewhere classified (10/28/20) Difficulty in walking, not elsewhere classified (10/28/20) Weakness (10/28/20) Other sprain of right hip, initial encounter (10/28/20) Physical Therapy Treatment Note PT-OP-A Visit Information Start: 07/21/20 08:10 Freq: Status: Active Protocol: Document 10/28/20 08:13 SAK (Rec: 10/28/20 09:03 [facility] [id number]) Out-Patient Physical Therapy Visit Information Visit Information Visit Type Treatment Note Visit Start Time 08:15 Visit Stop Time 09:00 Total Visit Minutes 845 Visit Number 18 Precautions Precautions Per pt, he states that the surgeon cleared him to do everything PT-OP-B Current Condition Start: 07/21/20 08:10 Freq: Status: Active Protocol: Document 07/22/20 08:14 SAK (Rec: 07/22/20 09:05 [facility] [id number]) Current Condition History of Current Condition Onset Date 07/03/20 Current Complaints stiffness and pain right hip History of Current Condition s/p right labral repair 07/03/20 due to persistent, function- limitingright hip pain. Reports doctor said I could ditch the crutches after a couple days if it felt ok so hasn't used crutches since a couple days post-op. Had follow-up appointment last with surgeon's PA; states PA encouraged him to not overdo as it sounds like he had been, otherwise things looked good. Patient ambulating without device, c/o stiffness today, more than usual. May have overdone getting trailer ready for camping over weekend, in and out of trailer. Doing step- to on stairs. Worst pain he has experienced since surgery is with twisting to get off toilet. Has had difficulty putting socks on without rotating his leg. Reports right foot/ankle sore since surgery ( sprained ankle end of April and feels positioning during surgery may have contributed to this increase in pain). States he wasn't shown exercises after surgery. 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 Prior Functional Status Baseline Function- ADL's Independent Baseline Function- Mobility Independent Baseline Function- Gait no device, no limp Baseline Function- Work/School no limitations Baseline Function- Recreation/Hobbies mountain-biking Current Functional Impairments (Reported) Functional Limitations- ADL's painful, guarded Functional Limitations- Mobility/Gait limited to household, short distance community, no device but antalgic Functional Limitations- Work/School not back to work yet Functional Limitations- Recreation/ unable Hobbies Personal Factors Other Personal Factors That May Effect Patient tends to push too hard Therapy/Recovery PT-OP-C Subjective Start: 07/21/20 08:10 Freq: Status: Active Protocol: Document 10/28/20 08:13 [facility] (Rec: 10/28/20 09:03 [facility] [id number]) OP-PT Subjective Patient Comments Patient Comments Hiked 5 miles yesterday, 1100 ft elevation, was tight but iced and stretched and feels ok today. Still feels some deep tightness within his hip , some pinching when brings hip across her body. PT-OP-G Mobility & Gait Start: 07/21/20 08:10 Freq: Status: Active Protocol: Document 07/22/20 08:14 [facility] (Rec: 07/22/20 17:50 [facility] [id number]) OP Mobility Evaluation Bed Mobility Supine to and from Sit safe method without twisting Transfers Sit to Stand may decrease weight-bearing through right leg if painful Car Transfers instructed in correct method for hip protection, sit first, swing legs in, reverse to exit. Functional Movements Lifting and Carrying not allowed at this lb Squats not allowed Running Assessment unable/not allowed OP Gait Assessment Gait Gait Assistance Required: Independent Assistive Devices Assistive Device None Orthotic/Prosthetic Devices or Brace: No Gait Deviations General Gait Pattern Antalgic Factors Limiting Gait Function Factors Limiting Gait Function Limited Range of Motion,Pain Comments Gait Comments protocol states foot flat for 4 weeks, patient instructed to decrease step length, foot flat technique Stair Climbing Evaluation Comments Stair Climbing Comments not evaluated today, patient verbalizes correct sequencing for hip protection with step- to pattern PT-OP-H Neuro Start: 07/21/20 08:10 Freq: Status: Active Protocol: Document 07/22/20 08:14 [facility] (Rec: 07/22/20 17:50 [facility] [id number]) Sensation Evaluation Gross Sensation Gross Sensation WNL PT-OP-J Posture/Palpation/Skin Start: 07/21/20 08:10 Freq: Status: Active Protocol: Document 07/22/20 08:14 SAK (Rec: 07/22/20 17:50 [facility] [id number]) Palpation Assessment Location right proximal thigh Palpation Findings Edema Skin Assessment Incisional Assessment Incision Appearance/Comments 3 small incisions, all healing well, no signs or symptoms of infection PT-OP-K Range of Motion Start: 07/21/20 08:10 Freq: Status: Active Protocol: Document 07/22/20 08:14 SAK (Rec: 07/22/20 17:50 [facility] [id number]) Hip Goniometric Range of Motion Hip Right Flexion w/Knee Flexed 90 Extension 0 Abduction 25 Internal Rotation 5 External Rotation 30 Comments AAROM Left Hip ROM WFL Yes Hip ROM Limitations Hip ROM Limitations Pain Comments guarding with internal rotation Knee Goniometric Range of Motion Knee celestina Knee ROM WFL Yes Ankle and Foot Goniometric Range of Motion Ankle and Foot ROM Limitations ROM Limitations Pain Comments right foot limited due to pain , mild swelling PT-OP-M Strength Start: 07/21/20 08:10 Freq: Status: Active Protocol: Document 07/22/20 08:14 SAK (Rec: 07/22/20 17:50 [facility] [id number]) Hip Strength Hip Manual Muscle Testing Right Comments not assessed due to post-op restrictions Left Comments WFL Knee Strength Knee Manual Muscle Testing celestina Comments anti-gravity extension PT-OP-Q Treatments Start: 07/21/20 08:10 Freq: Status: Active Protocol: Document 10/28/20 08:13 SAK (Rec: 10/28/20 09:03 [facility] [id number]) Cardio Equipment Bicycle (Upright) Duration (Minutes) 10 Resistance 11 Seat Position 9 Gym Equipment Cable Column (Body Solid) hamstring curl Details celestina, unil Resistance 60,30 Reps/Time 10x2 hip add Resistance 40 Reps/Time 10x2 hip abd Resistance 40 Reps/Time 10x2 Shuttle Recovery Unilateral Squats Details pain-free ROM Resistance 50, Shuttle Recovery Platform Unstable Reps/Time 10x2 Bilateral Squats Details pain-free ROM Resistance 75 Shuttle Recovery Platform Unstable Reps/Time 10x2 Therapeutic Exercises Standing Exercises calf stretch Equipment Used MERVAT Reps/Minutes 2x30 Other Exercises all 4's donkey kick Reps/Minutes 10x2 Manual Therapy Treatment Joint Mobilizations right hip Direction inferior glide Grade III Body Position Supine Reps/Duration 8 min Comments strap, with increasing hip flexion Manual Techniques contract relax Type for hip IR and ER, hip flex Body Position supine 90/90, prone Reps/Duration 3x2 ea Comments submax contraction PT-OP-R Modalities Start: 07/21/20 08:10 Freq: Status: Active Protocol: Document 10/10/20 08:14 SAK (Rec: 10/10/20 09:02 [facility] [id number]) Hot Pack/Cold Pack Treatment Cold Pack Location right anterior hip Patient Position Supine Treatment Duration (minutes) 10 Patient Tolerance Good PT-OP-T Assessment and Plan Start: 07/21/20 08:10 Freq: Status: Active Protocol: Document 10/28/20 08:13 SAK (Rec: 10/28/20 09:03 [facility] [id number]) Physical Therapy Assessment Goals Three Impairment limited right hip ROM with internal rotation 5 degrees [employer] Goal (LTG) Patient to improve right hip ROM to WNL with emphasis on hip internal rotation 10/21/20: Right hip ER 40 deg and IR 20 deg LTG Duration 11/18/20 Two Impairment Lower extremity functional scale 23% Shelter Goal (LTG) Pt will present with LEF score reflecting no more than 20% impairment to improve functional mobility. 10/21/20: LEF score reflects 33 .75% impairment, which is an improvement LTG Duration 11/18/20 Assessment Summary Assessment Progressed to unstable surface on shuttle leg press. Improved tolerance for hiking. Resumed right hip joint mobs due to pinching sensation and decreased hip IR. Will do further PNF and manual techniques next session. Physical Therapy Plan Frequency and Duration Frequency of Treatment 1-2x/Week Duration of Treatment 4 more treatments Plan of Care Start Date 10/21/20 Plan of Care End Date 11/18/20 Therapeutic Interventions Therapeutic Interventions Gait Training,Home Exercise Program,Joint Mobilizations, Manual Therapy,Neuromuscular Re-education,Patient/Caregiver Education,Self-Care/Home Management,Soft Tissue Mobilization,Taping, Therapeutic Activities, Therapeutic Exercises Modalities Cold Pack/Ice Massage,Electric Stimulation,Hot Packs Next Visit Focus/Plan Next Note Type Treatment Note Next Visit Plan PNF pelvis and LE, hip mobs, progress ther ex as tolerated.
--- NOTE | 2020-11-06 16:31 | PT.OTN ---
Current Diagnoses Stiffness of unspecified hip, not elsewhere classified (11/06/20) Difficulty in walking, not elsewhere classified (11/06/20) Weakness (11/06/20) Other sprain of right hip, initial encounter (11/06/20) Physical Therapy Treatment Note PT-OP-A Visit Information Start: 07/21/20 08:10 Freq: Status: Active Protocol: Document 11/06/20 15:17 [facility] (Rec: 11/06/20 15:32 [facility] [id number]) Out-Patient Physical Therapy Visit Information Visit Information Visit Type Treatment Note Visit Start Time 15:15 Visit Stop Time 16:00 Total Visit Minutes 45 Visit Number 19 Precautions Precautions Per pt, he states that the surgeon cleared him to do everything PT-OP-B Current Condition Start: 07/21/20 08:10 Freq: Status: Active Protocol: Document 07/22/20 08:14 [facility]AK (Rec: 07/22/20 09:05 [facility]AK [id number]) Current Condition History of Current Condition Onset Date 07/03/20 Current Complaints stiffness and pain right hip History of Current Condition s/p right labral repair 07/03/20 due to persistent, function- limitingright hip pain. Reports doctor said I could ditch the crutches after a couple days if it felt ok so hasn't used crutches since a couple days post-op. Had follow-up appointment last with surgeon's PA; states PA encouraged him to not overdo as it sounds like he had been, otherwise things looked good. Patient ambulating without device, c/o stiffness today, more than usual. May have overdone getting trailer ready for camping over weekend, in and out of trailer. Doing step- to on stairs. Worst pain he has experienced since surgery is with twisting to get off toilet. Has had difficulty putting socks on without rotating his leg. Reports right foot/ankle sore since surgery ( sprained ankle end of April and feels positioning during surgery may have contributed to this increase in pain). States he wasn't shown exercises after surgery. 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 Prior Functional Status Baseline Function- ADL's Independent Baseline Function- Mobility Independent Baseline Function- Gait no device, no limp Baseline Function- Work/School no limitations Baseline Function- Recreation/Hobbies mountain-biking Current Functional Impairments (Reported) Functional Limitations- ADL's painful, guarded Functional Limitations- Mobility/Gait limited to household, short distance community, no device but antalgic Functional Limitations- Work/School not back to work yet Functional Limitations- Recreation/ unable Hobbies Personal Factors Other Personal Factors That May Effect Patient tends to push too hard Therapy/Recovery PT-OP-C Subjective Start: 07/21/20 08:10 Freq: Status: Active Protocol: Document 11/06/20 15:17 [facility] (Rec: 11/06/20 15:32 [facility] [id number]) OP-PT Subjective Patient Comments Patient Comments Walked 2 1/2 miles this am, no pain. Biggest c/o is lack of full motion into flexion and internal rotation, still some difficulty tying his shoes. Hasn't done HEP over past week due to being off work, taking walks. Has been playing some basketball with his daughter. Was invited to go on hike over weekend but was 9 miles and felt he wasn't ready. PT-OP-G Mobility & Gait Start: 07/21/20 08:10 Freq: Status: Active Protocol: Document 07/22/20 08:14 [facility] (Rec: 07/22/20 17:50 [facility] [id number]) OP Mobility Evaluation Bed Mobility Supine to and from Sit safe method without twisting Transfers Sit to Stand may decrease weight-bearing through right leg if painful Car Transfers instructed in correct method for hip protection, sit first, swing legs in, reverse to exit. Functional Movements Lifting and Carrying not allowed at this lb Squats not allowed Running Assessment unable/not allowed OP Gait Assessment Gait Gait Assistance Required: Independent Assistive Devices Assistive Device None Orthotic/Prosthetic Devices or Brace: No Gait Deviations General Gait Pattern Antalgic Factors Limiting Gait Function Factors Limiting Gait Function Limited Range of Motion,Pain Comments Gait Comments protocol states foot flat for 4 weeks, patient instructed to decrease step length, foot flat technique Stair Climbing Evaluation Comments Stair Climbing Comments not evaluated today, patient verbalizes correct sequencing for hip protection with step- to pattern PT-OP-H Neuro Start: 07/21/20 08:10 Freq: Status: Active Protocol: Document 07/22/20 08:14 [facility] (Rec: 07/22/20 17:50 [facility] [id number]) Sensation Evaluation Gross Sensation Gross Sensation WNL PT-OP-J Posture/Palpation/Skin Start: 07/21/20 08:10 Freq: Status: Active Protocol: Document 07/22/20 08:14 [facility] (Rec: 07/22/20 17:50 [facility] [id number]) Palpation Assessment Location right proximal thigh Palpation Findings Edema Skin Assessment Incisional Assessment Incision Appearance/Comments 3 small incisions, all healing well, no signs or symptoms of infection PT-OP-K Range of Motion Start: 07/21/20 08:10 Freq: Status: Active Protocol: Document 11/06/20 15:17 [facility]AK (Rec: 11/06/20 16:31 [facility] [id number]) Hip Goniometric Range of Motion Hip Right Flexion w/Knee Flexed 120 Internal Rotation 40 External Rotation 80 PT-OP-M Strength Start: 07/21/20 08:10 Freq: Status: Active Protocol: Document 07/22/20 08:14 [facility] (Rec: 07/22/20 17:50 [facility] [id number]) Hip Strength Hip Manual Muscle Testing Right Comments not assessed due to post-op restrictions Left Comments WFL Knee Strength Knee Manual Muscle Testing celestina Comments anti-gravity extension PT-OP-Q Treatments Start: 07/21/20 08:10 Freq: Status: Active Protocol: Document 11/06/20 15:17 [facility] (Rec: 11/06/20 15:32 [facility] [id number]) Cardio Equipment Bicycle (Upright) Duration (Minutes) 10 Resistance 11 Seat Position 9 Gym Equipment Cable Column (Body Solid) hamstring curl Details celestina, unil Resistance 60,30 Reps/Time 10x2 hip add Resistance 40 Reps/Time 10x2 hip abd Resistance 40 Reps/Time 10x2 Shuttle Recovery Unilateral Squats Details pain-free ROM Resistance 50, Shuttle Recovery Platform Unstable Reps/Time 10x2 Bilateral Squats Details pain-free ROM Resistance 75 Shuttle Recovery Platform Unstable Reps/Time 10x2 Therapeutic Exercises Sidelying Exercises clam, reverse clam Resistance L3 TB Reps/Minutes 10x2 ea Manual Therapy Treatment Soft Tissue Mobilization hip flexor release Body Location right hip flexor Mobilization Type Sustained Pressure Intensity/Depth Moderate Joint Mobilizations right hip Direction inferior glide Grade III Body Position Supine Reps/Duration 8 min Comments strap, with increasing hip flexion Manual Techniques contract relax Type for hip IR and ER, hip flex Body Position supine 90/90, prone Reps/Duration 3x2 ea Comments followed by 10 reps into IR each position with gentle MR PT-OP-R Modalities Start: 07/21/20 08:10 Freq: Status: Active Protocol: Document 10/10/20 08:14 [facility] (Rec: 10/10/20 09:02 [facility] [id number]) Hot Pack/Cold Pack Treatment Cold Pack Location right anterior hip Patient Position Supine Treatment Duration (minutes) 10 Patient Tolerance Good PT-OP-T Assessment and Plan Start: 07/21/20 08:10 Freq: Status: Active Protocol: Document 11/06/20 15:17 [facility]AK (Rec: 11/06/20 15:32 [facility] [id number]) Physical Therapy Assessment Goals Three Impairment limited right hip ROM with internal rotation 5 degrees Personal Banking Representative Goal (LTG) Patient to improve right hip ROM to WNL with emphasis on hip internal rotation 10/21/20: Right hip ER 40 deg and IR 20 deg LTG Duration 11/18/20 Two Impairment Lower extremity functional scale 23% Personal Banking Representative Goal (LTG) Pt will present with LEF score reflecting no more than 20% impairment to improve functional mobility. 10/21/20: LEF score reflects 33 .75% impairment, which is an improvement LTG Duration 11/18/20 Assessment Summary Assessment Continues to increase tolerance for walking and hiking, though used good judgement to not increase distance and difficulty too quickly. Improved hip flex and IR with treatment, urged increased compliance to use of band for self-mobilization into hip flexion and to have to contract/relax technique with him, plus resume clam and reverse clam with increased resistance after the stretching. Physical Therapy Plan Frequency and Duration Frequency of Treatment 1-2x/Week Duration of Treatment 4 more treatments Plan of Care Start Date 10/21/20 Plan of Care End Date 11/18/20 Therapeutic Interventions Therapeutic Interventions Gait Training,Home Exercise Program,Joint Mobilizations, Manual Therapy,Neuromuscular Re-education,Patient/Caregiver Education,Self-Care/Home Management,Soft Tissue Mobilization,Taping, Therapeutic Activities, Therapeutic Exercises Modalities Cold Pack/Ice Massage,Electric Stimulation,Hot Packs Next Visit Focus/Plan Next Note Type Treatment Note Next Visit Plan Progress ther ex, manual techniques for full ROM and function right hip. Step-ups on progressively higher boxes, single leg lifts possibly add weight, functional squats.
--- NOTE | 2020-11-20 12:01 | PT.OTRE ---
Current Diagnoses Stiffness of unspecified hip, not elsewhere classified (11/20/20) Difficulty in walking, not elsewhere classified (11/20/20) Weakness (11/20/20) Other sprain of right hip, initial encounter (11/20/20) Visit Care Team Role Provider Type Santos Oneal Primary Care Provider Non-Staff Specialty: Medical Address: [address] [place], [address] Email: Addison Sher MD Attending Provider Non-Staff Referring Provider Specialty: Orthopedic Surgery Address: [address] [place] [address] , [place], [address] Email: Physical Therapy Re-Evaluation PT-OP-A Visit Information Start: 07/21/20 08:10 Freq: Status: Active Protocol: Document 11/20/20 09:47 [facility] (Rec: 11/20/20 10:30 [facility] [id number]) Out-Patient Physical Therapy Visit Information Visit Information Visit Type Treatment Note Visit Start Time 09:46 Visit Stop Time 10:32 Total Visit Minutes 45 Visit Number 20 Precautions Precautions Per pt, he states that the surgeon cleared him to do everything PT-OP-B Current Condition Start: 07/21/20 08:10 Freq: Status: Active Protocol: Document 07/22/20 08:14 [facility]AK (Rec: 07/22/20 09:05 [facility]AK [id number]) Current Condition History of Current Condition Onset Date 07/03/20 Current Complaints stiffness and pain right hip History of Current Condition s/p right labral repair 07/03/20 due to persistent, function- limitingright hip pain. Reports doctor said I could ditch the crutches after a couple days if it felt ok so hasn't used crutches since a couple days post-op. Had follow-up appointment last with surgeon's PA; states PA encouraged him to not overdo as it sounds like he had been, otherwise things looked good. Patient ambulating without device, c/o stiffness today, more than usual. May have overdone getting trailer ready for camping over weekend, in and out of trailer. Doing step- to on stairs. Worst pain he has experienced since surgery is with twisting to get off toilet. Has had difficulty putting socks on without rotating his leg. Reports right foot/ankle sore since surgery ( sprained ankle end of April and feels positioning during surgery may have contributed to this increase in pain). States he wasn't shown exercises after surgery. 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 Prior Functional Status Baseline Function- ADL's Independent Baseline Function- Mobility Independent Baseline Function- Gait no device, no limp Baseline Function- Work/School no limitations Baseline Function- Recreation/Hobbies mountain-biking Current Functional Impairments (Reported) Functional Limitations- ADL's painful, guarded Functional Limitations- Mobility/Gait limited to household, short distance community, no device but antalgic Functional Limitations- Work/School not back to work yet Functional Limitations- Recreation/ unable Hobbies Personal Factors Other Personal Factors That May Effect Patient tends to push too hard Therapy/Recovery PT-OP-C Subjective Start: 07/21/20 08:10 Freq: Status: Active Protocol: Document 11/20/20 09:47 [facility] (Rec: 11/20/20 10:30 [facility] [id number]) OP-PT Subjective Patient Comments Patient Comments States his hip is feeling good , just living life. Has not done any more hiking and is mindful of not doing too much too fast. Tolerated doing yardwork well, up and down stairs not a problem. Has started doing squats, some joint pain, relieved with TRX bands; agreeable to do more leg press with increasing weight vs full body weight with barbells. Hasn't added band to clamshells and reverse clamshells as instructed last session. PT-OP-G Mobility & Gait Start: 07/21/20 08:10 Freq: Status: Active Protocol: Document 07/22/20 08:14 [facility] (Rec: 07/22/20 17:50 [facility] [id number]) OP Mobility Evaluation Bed Mobility Supine to and from Sit safe method without twisting Transfers Sit to Stand may decrease weight-bearing through right leg if painful Car Transfers instructed in correct method for hip protection, sit first, swing legs in, reverse to exit. Functional Movements Lifting and Carrying not allowed at this lb Squats not allowed Running Assessment unable/not allowed OP Gait Assessment Gait Gait Assistance Required: Independent Assistive Devices Assistive Device None Orthotic/Prosthetic Devices or Brace: No Gait Deviations General Gait Pattern Antalgic Factors Limiting Gait Function Factors Limiting Gait Function Limited Range of Motion,Pain Comments Gait Comments protocol states foot flat for 4 weeks, patient instructed to decrease step length, foot flat technique Stair Climbing Evaluation Comments Stair Climbing Comments not evaluated today, patient verbalizes correct sequencing for hip protection with step- to pattern PT-OP-H Neuro Start: 07/21/20 08:10 Freq: Status: Active Protocol: Document 07/22/20 08:14 [facility] (Rec: 07/22/20 17:50 [facility] [id number]) Sensation Evaluation Gross Sensation Gross Sensation WNL PT-OP-J Posture/Palpation/Skin Start: 07/21/20 08:10 Freq: Status: Active Protocol: Document 07/22/20 08:14 [facility] (Rec: 07/22/20 17:50 [facility] [id number]) Palpation Assessment Location right proximal thigh Palpation Findings Edema Skin Assessment Incisional Assessment Incision Appearance/Comments 3 small incisions, all healing well, no signs or symptoms of infection PT-OP-K Range of Motion Start: 07/21/20 08:10 Freq: Status: Active Protocol: Document 11/06/20 15:17 [facility] (Rec: 11/06/20 16:31 [facility] [id number]) Hip Goniometric Range of Motion Hip Measured in Degrees Right Flexion w/Knee Flexed 120 Internal Rotation 40 External Rotation 80 PT-OP-M Strength Start: 07/21/20 08:10 Freq: Status: Active Protocol: Document 07/22/20 08:14 [facility] (Rec: 07/22/20 17:50 [facility] [id number]) Hip Strength Hip Manual Muscle Testing Right Comments not assessed due to post-op restrictions Left Comments WFL Knee Strength Knee Manual Muscle Testing celestina Comments anti-gravity extension PT-OP-Q Treatments Start: 07/21/20 08:10 Freq: Status: Active Protocol: Document 11/20/20 09:47 [facility] (Rec: 11/20/20 10:30 [facility] [id number]) Cardio Equipment Bicycle (Upright) Duration (Minutes) 10 Resistance 11 Seat Position 9 Gym Equipment Shuttle Recovery Unilateral Squats Details pain-free ROM Resistance 62 Shuttle Recovery Platform Unstable Reps/Time 10x2 Bilateral Squats Details pain-free ROM Resistance 100 Shuttle Recovery Platform Unstable Reps/Time 10x2 Therapeutic Exercises Supine Exercises hip adductor stretch Equipment Used strap Reps/Minutes 2x30 hamstring stretch Reps/Minutes 30x2 IT band stretch Equipment Used strap Reps/Minutes 30x2 Prone Exercises hamstring curl Reps/Minutes 10x Sidelying Exercises clam, reverse clam Resistance L3 TB Comments verbal instruction to resume with TB Standing Exercises squat Reps/Minutes 1x Comments full squat Manual Therapy Treatment Joint Mobilizations right hip Direction inferior glide Grade III Body Position Supine Reps/Duration 8 min Comments strap, with increasing hip flexion shown with foot on table, knee bent, long axis distraction with hands on thigh for or daughter to do Manual Techniques contract relax Type for hip IR and ER, hip flex Body Position supine 90/90, prone Reps/Duration 3x2 ea Comments followed by 10 reps into IR each position with gentle MR Self-Care/Home Management Treatment Education Patient Education Home Exercise Program,Joint Protection,Pain Management PT-OP-R Modalities Start: 07/21/20 08:10 Freq: Status: Active Protocol: Document 10/10/20 08:14 [facility] (Rec: 10/10/20 09:02 [facility] [id number]) Hot Pack/Cold Pack Treatment Cold Pack Location right anterior hip Patient Position Supine Treatment Duration (minutes) 10 Patient Tolerance Good PT-OP-T Assessment and Plan Start: 07/21/20 08:10 Freq: Status: Active Protocol: Document 11/20/20 09:47 [facility] (Rec: 11/20/20 10:30 [facility] [id number]) Physical Therapy Assessment Goals Three Impairment limited right hip ROM with internal rotation 5 degrees Site Supervising Technical Operator Goal (LTG) Patient to improve right hip ROM to WNL with emphasis on hip internal rotation 10/21/20: Right hip ER 40 deg and IR 20 deg 11/20/20: right hip ER 60, IR 42 LTG Duration 11/18/20 Two Impairment Lower extremity functional scale 23% Senior Living Goal (LTG) Pt will present with LEF score reflecting no more than 20% impairment to improve functional mobility. 10/21/20: LEF score reflects 33 .75% impairment, which is an improvement 11/20/20: LEFS score 73% or 27% impairment, improved LTG Duration 11/18/20 Assessment Summary Assessment Patient continues to gradually increase his activity level with good tolerance, mostly just tight sensation in right hip at times. Mostly has resumed prior activities except hasn't gone on longer hikes. Able to do a full squat, able to do plank exercise. Reminded of self- mobilization and method for to assist with joint decompression. Also encouraged aquatic exercise. Right hip internal rotation 42 degrees. Muscle strength testing right hip 4+/5 all motions. At this time we have decided to cancel his last 2 scheduled appointments, but do a followo-up appointment in 1 month to assess progress with self care and make any modifications to his program as indicated. Will asses need for any further PT but anticipate discharge at that time. Physical Therapy Plan Frequency and Duration Frequency of Treatment 1-2x/Week Duration of Treatment 4 more treatments Plan of Care Start Date 11/20/20 Plan of Care End Date 12/25/20 Therapeutic Interventions Therapeutic Interventions Gait Training,Home Exercise Program,Joint Mobilizations, Manual Therapy,Neuromuscular Re-education,Patient/Caregiver Education,Self-Care/Home Management,Soft Tissue Mobilization,Taping, Therapeutic Activities, Therapeutic Exercises Modalities Cold Pack/Ice Massage,Electric Stimulation,Hot Packs Next Visit Focus/Plan Next Note Type Treatment Note Next Visit Plan follow up appointment in 1 month
--- NOTE | 2020-11-20 12:01 | PT.OPPOC ---
Physical, Occupational & Speech Therapy At [facility] Current Diagnoses Stiffness of unspecified hip, not elsewhere classified (11/20/20) Difficulty in walking, not elsewhere classified (11/20/20) Weakness (11/20/20) Other sprain of right hip, initial encounter (11/20/20) Visit Care Team Role Provider Type Santos Oneal Primary Care Provider Non-Staff Specialty: Medical Address: [address] [place] [address], [address] Email: Addison Sher MD Attending Provider Non-Staff Referring Provider Specialty: Orthopedic Surgery Address: [facility] , [place], [address] Email: Plan Of Care PT-OP-T Assessment and Plan Start: 07/21/20 08:10 Freq: Status: Active Protocol: Document 11/20/20 09:47 [facility] (Rec: 11/20/20 10:30 [facility] [id number]) Physical Therapy Assessment Goals Three Impairment limited right hip ROM with internal rotation 5 degrees Clinical Audiologist Goal (LTG) Patient to improve right hip ROM to WNL with emphasis on hip internal rotation 10/21/20: Right hip ER 40 deg and IR 20 deg 11/20/20: right hip ER 60, IR 42 LTG Duration 11/18/20 Two Impairment Lower extremity functional scale 23% Fdc Goal (LTG) Pt will present with LEF score reflecting no more than 20% impairment to improve functional mobility. 10/21/20: LEF score reflects 33 .75% impairment, which is an improvement 11/20/20: LEFS score 73% or 27% impairment, improved LTG Duration 11/18/20 Assessment Summary Assessment Patient continues to gradually increase his activity level with good tolerance, mostly just tight sensation in right hip at times. Mostly has resumed prior activities except hasn't gone on longer hikes. Able to do a full squat, able to do plank exercise. Reminded of self- mobilization and method for to assist with joint decompression. Also encouraged aquatic exercise. Right hip internal rotation 42 degrees. Muscle strength testing right hip 4+/5 all motions. At this time we have decided to cancel his last 2 scheduled appointments, but do a followo-up appointment in 1 month to assess progress with self care and make any modifications to his program as indicated. Will asses need for any further PT but anticipate discharge at that time. Physical Therapy Plan Frequency and Duration Frequency of Treatment 1-2x/Week Duration of Treatment 4 more treatments Plan of Care Start Date 11/20/20 Plan of Care End Date 12/25/20 Therapeutic Interventions Therapeutic Interventions Gait Training,Home Exercise Program,Joint Mobilizations, Manual Therapy,Neuromuscular Re-education,Patient/Caregiver Education,Self-Care/Home Management,Soft Tissue Mobilization,Taping, Therapeutic Activities, Therapeutic Exercises Modalities Cold Pack/Ice Massage,Electric Stimulation,Hot Packs Next Visit Focus/Plan Next Note Type Treatment Note Next Visit Plan follow up appointment in 1 month Plan of Care Dates Plan of Care Start Date 11/20/20 Plan of Care End Date 12/25/20 Electronically Signed by: Pina Taylor, PT 11/20/20 1203 Please Sign and Return: I have reviewed this Plan of Care and certify that the skilled therapy services above are required to meet the patient?s needs. Physician Signature Date Printed Name and Credentials Clinical Instructor Signature Printed Name and Credentials
--- NOTE | 2021-05-05 09:52 | PT.OPDS ---
Current Diagnoses Stiffness of unspecified hip, not elsewhere classified (11/20/20) Difficulty in walking, not elsewhere classified (11/20/20) Weakness (11/20/20) Other sprain of right hip, initial encounter (11/20/20) Visit Care Team Role Provider Type Santos Oneal Primary Care Provider Non-Staff Specialty: Medical Address: [address] [facility], [place], [address] Email: Addison Sher MD Attending Provider Non-Staff Referring Provider Specialty: Orthopedic Surgery Address: [address] [place] [address] , [place], [address] Email: Visit Number Visit Number 20 Discharge Summary PT-OP-B Current Condition Start: 07/21/20 08:10 Freq: Status: Active Protocol: Document 07/22/20 08:14 YIN (Rec: 07/22/20 09:05 SAK [id number]) Current Condition History of Current Condition Onset Date 07/03/20 Current Complaints stiffness and pain right hip History of Current Condition s/p right labral repair 07/03/20 due to persistent, function- limitingright hip pain. Reports doctor said I could ditch the crutches after a couple days if it felt ok so hasn't used crutches since a couple days post-op. Had follow-up appointment last with surgeon's PA; states PA encouraged him to not overdo as it sounds like he had been, otherwise things looked good. Patient ambulating without device, c/o stiffness today, more than usual. May have overdone getting trailer ready for camping over weekend, in and out of trailer. Doing step- to on stairs. Worst pain he has experienced since surgery is with twisting to get off toilet. Has had difficulty putting socks on without rotating his leg. Reports right foot/ankle sore since surgery ( sprained ankle end of April and feels positioning during surgery may have contributed to this increase in pain). States he wasn't shown exercises after surgery. 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 Prior Functional Status Baseline Function- ADL's Independent Baseline Function- Mobility Independent Baseline Function- Gait no device, no limp Baseline Function- Work/School no limitations Baseline Function- Recreation/Hobbies mountain-biking Current Functional Impairments (Reported) Functional Limitations- ADL's painful, guarded Functional Limitations- Mobility/Gait limited to household, short distance community, no device but antalgic Functional Limitations- Work/School not back to work yet Functional Limitations- Recreation/ unable Hobbies Personal Factors Other Personal Factors That May Effect Patient tends to push too hard Therapy/Recovery PT-OP-C Subjective Start: 07/21/20 08:10 Freq: Status: Active Protocol: Document 11/20/20 09:47 SAK (Rec: 11/20/20 10:30 [facility] [id number]) OP-PT Subjective Patient Comments Patient Comments States his hip is feeling good , just living life. Has not done any more hiking and is mindful of not doing too much too fast. Tolerated doing yardwork well, up and down stairs not a problem. Has started doing squats, some joint pain, relieved with TRX bands; agreeable to do more leg press with increasing weight vs full body weight with barbells. Hasn't added band to clamshells and reverse clamshells as instructed last session. PT-OP-G Mobility & Gait Start: 07/21/20 08:10 Freq: Status: Active Protocol: Document 07/22/20 08:14 SAK (Rec: 07/22/20 17:50 [facility] [id number]) OP Mobility Evaluation Bed Mobility Supine to and from Sit safe method without twisting Transfers Sit to Stand may decrease weight-bearing through right leg if painful Car Transfers instructed in correct method for hip protection, sit first, swing legs in, reverse to exit. Functional Movements Lifting and Carrying not allowed at this lb Squats not allowed Running Assessment unable/not allowed OP Gait Assessment Gait Gait Assistance Required: Independent Assistive Devices Assistive Device None Orthotic/Prosthetic Devices or Brace: No Gait Deviations General Gait Pattern Antalgic Factors Limiting Gait Function Factors Limiting Gait Function Limited Range of Motion,Pain Comments Gait Comments protocol states foot flat for 4 weeks, patient instructed to decrease step length, foot flat technique Stair Climbing Evaluation Comments Stair Climbing Comments not evaluated today, patient verbalizes correct sequencing for hip protection with step- to pattern PT-OP-H Neuro Start: 07/21/20 08:10 Freq: Status: Active Protocol: Document 07/22/20 08:14 SAK (Rec: 07/22/20 17:50 [facility] [id number]) Sensation Evaluation Gross Sensation Gross Sensation WNL PT-OP-J Posture/Palpation/Skin Start: 07/21/20 08:10 Freq: Status: Active Protocol: Document 07/22/20 08:14 SAK (Rec: 07/22/20 17:50 [facility] [id number]) Palpation Assessment Location right proximal thigh Palpation Findings Edema Skin Assessment Incisional Assessment Incision Appearance/Comments 3 small incisions, all healing well, no signs or symptoms of infection PT-OP-K Range of Motion Start: 07/21/20 08:10 Freq: Status: Active Protocol: Document 11/06/20 15:17 SAK (Rec: 11/06/20 16:31 [facility] [id number]) Hip Goniometric Range of Motion Hip Right Flexion w/Knee Flexed 120 Internal Rotation 40 External Rotation 80 PT-OP-M Strength Start: 07/21/20 08:10 Freq: Status: Active Protocol: Document 07/22/20 08:14 [facility] (Rec: 07/22/20 17:50 [facility] [id number]) Hip Strength Hip Manual Muscle Testing Right Comments not assessed due to post-op restrictions Left Comments WFL Knee Strength Knee Manual Muscle Testing celestina Comments anti-gravity extension PT-OP-T Assessment and Plan Start: 07/21/20 08:10 Freq: Status: Active Protocol: Document 05/05/21 09:47 [facility] (Rec: 05/05/21 09:52 [facility] [id number]) Physical Therapy Plan Discharge Physical Therapy Discharge Reasons No Longer Attending PT Discharge Comments As above.
== END 2021-05-07 14:14 ==
LOC: PHYS 09:45
PROVIDERS: Referring Provider Orthopaedic Surgery; Visit Provider Orthopaedic Surgery
DX: S73.191A Other sprain of right hip, initial encounter (principal); R26.2 Difficulty in walking, not elsewhere classified; R53.1 Weakness; M25.659 Stiffness of unspecified hip, not elsewhere classified
CPT/HCPCS: 97010; 97110; 97112; 97140; 97162; 97535

== ENCOUNTER → 2021-01-30 09:07 | Outpatient (CLI) | payer OTHER, SELFPAY ==
--- NOTE | 2021-01-30 09:11 | DI.RAD.S_ITS ---
PROCEDURE: FL HIP INJECTION MR/CT LT INDICATIONS: left hip pain TECHNIQUE: The indications, alternatives, benefits, risks, and complications of the procedure were explained to the patient. Written informed consent was obtained and placed in the chart. The hip was examined fluoroscopically with the legs fixed in slight internal rotation, and a site for needle placement chosen for entry into the hip joint from an anterior approach. Care was taken to locate the common femoral artery and vein beforehand. The skin was prepped and draped in a sterile fashion, and 1% Lidocaine infiltrated from skin down to joint capsule. A spinal needle was inserted into the joint, and a small amount of iodinated contrast media injected to confirm intra-articular placement of the needle tip. This was followed by approximately 10 mL dilute solution of a gadolinium containing MR contrast agent. The needle was removed and a dressing was applied. The patient was given postprocedural instructions and sent to the MR suite for imaging. COMPARISON: [facility], , MR HIP LT W CON, 01/30/2021, 9:32. [facility], [place], [place] HIP INJECTION MR/CT RT, 03/22/2020, 13:56. FINDINGS: A single fluoroscopic spot image demonstrates intra-articular location of injected iodinated contrast. IMPRESSION: Successful fluoroscopically guided administration of dilute Gadolinium solution into the hip joint for MR arthrogram. Dictated by: Artemio Dumont M.D. on 01/30/2021 at 12:48 Approved by: Artemio Dumont M.D. on 01/30/2021 at 12:49
--- NOTE | 2021-01-30 09:15 | DI.MRI.S_ITS ---
PROCEDURE: MR HIP LT W CON INDICATIONS: HIP pain TECHNIQUE: After the administration of 10 mL of dilute intra-articular Gadolinium contrast, coronal STIR of the bony pelvis; coronal and oblique axial T1 spin echo with fat saturation, axial T2 fast spin echo with fat saturation, sagittal T1 spin echo with and without fat saturation of the involved hip. COMPARISON: [facility], MR, MR HIP RT W CON, 03/22/2020, 13:03. FINDINGS: Image quality: Excellent. Bones and joints: Small focus of T2 hyperintense signal in the anterior femoral head/neck junction, compatible with fibrocystic change. No intraosseous lesions or fractures. No avascular necrosis of the femoral head. The ligamental, neck, and labral plicae appear normal where visualized. Tendons and ligaments: The gluteus medius and minimus tendons appear intact, without associated muscle atrophy. The nearby proximal iliotibial band also appears intact. The iliopsoas tendon appears intact, without adjacent bursal fluid collections or evidence for impingement syndrome. The origin of the hamstring tendon is intact at the ischial tuberosity, as well as the associated sacrotuberous ligament. The straight and reflected heads of the rectus femoris muscle origin appear intact, as well as the conjoint tendon. The ligamentum teres appears intact where visualized. Labrum and cartilage: The acetabular labrum appears intact throughout. Cartilage surface of the femoral head appears of normal thickness. No paralabral cysts. The alpha angle measures approximately 60 degrees, which is abnormal. Soft tissues: Visualized muscles demonstrate normal bulk and internal signal. Quadratus femoris muscle demonstrates no internal edema to suggest ischiofemoral impingement. The proximal sciatic neurovascular bundle appears normal adjacent to the hamstring tendons. No free pelvic fluid. Bladder wall thickness is normal. Genitourinary structures and bowel loops appear normal where visualized. IMPRESSION: 1. 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 Dictated by: Po Pelayo M.D. on 01/30/2021 at 12:26 Approved by: Po Pelayo M.D. on 01/30/2021 at 12:39
== END ==
PROVIDERS: Referring Provider Internal Medicine; Visit Provider Internal Medicine
DX: M25.552 Pain in left hip (principal)
CPT/HCPCS: 27093; 73722; 77002

== ENCOUNTER → 2022-01-08 07:16 | Outpatient (CLI) | payer OTHER, SELFPAY ==
--- NOTE | 2022-01-08 | DI.MRI.S_ITS ---
PROCEDURE: MR ANKLE RT WO CON INDICATIONS: Pain in right ankle and joints of right foot TECHNIQUE: Noncontrast sagittal T1 spin echo and T2 fast spin echo with fat saturation, axial proton density fast spin echo and T2 fast spin echo with fat saturation, coronal T1 spin echo and T2 fast spin echo with fat saturation through the ankle/hindfoot. COMPARISON: None. FINDINGS: Image quality: Excellent. There appears to be some increased marrow edema present within the shaft of the patient's left 5th metatarsal however this is incompletely visualized on this examination. Visualized ankle ligaments and tendons of appear within normal limits. No loculated fluid collections or soft tissue masses are seen. No significant degenerative changes are present. There is no evidence for significant osteochondral defect. No significant joint effusion is identified. The Achilles tendon and plantar fascia appear within normal limits. IMPRESSION: 1. Incompletely visualized marrow edema within the shaft of the 5th metatarsal. 2. Otherwise unremarkable MRI of the ankle. Dictated by: Fausto See M.D. on 01/08/2022 at 14:10 Approved by: Fausto See M.D. on 01/08/2022 at 14:37
== END ==
DX: M25.571 Pain in right ankle and joints of right foot (principal)
CPT/HCPCS: 73721

== ENCOUNTER 2022-02-19 07:30 | Outpatient (RCR) | payer OTHER, SELFPAY ==
--- NOTE | 2021-10-29 18:55 | PT.OIE ---
Current Diagnoses Other specified joint disorders, left hip (10/29/21) Difficulty in walking, not elsewhere classified (10/29/21) Abnormal posture (10/29/21) Weakness (10/29/21) Other sprain of right hip, subsequent encounter (10/29/21) Visit Care Team Role Provider Type Santos Oneal Family Provider Non-Staff Primary Care Provider Specialty: Medical Address: [id number] [place] [address], [place], [address] Email: Addison Sher MD Attending Provider Non-Staff Referring Provider Specialty: Orthopedic Surgery Address: [address] [place] [address] , [place], [address] Email: Physical Therapy Initial Evaluation PT-OP-A Visit Information Start: 10/28/21 17:46 Freq: Status: Active Protocol: Document 10/29/21 07:29 [facility] (Rec: 10/29/21 08:21 [facility] [id number]) Out-Patient Physical Therapy Visit Information Visit Information Visit Type Initial Evaluation Visit Start Time 07:31 Visit Stop Time 08:17 Total Visit Minutes 46 Visit Number 03/24 Number of TRAFFIC ENGINEERING DIRECTOR Visits 0 PT-OP-B Current Condition Start: 10/28/21 17:46 Freq: Status: Active Protocol: Document 10/29/21 07:29 [facility] (Rec: 10/29/21 08:21 [facility] [id number]) Current Condition History of Current Condition Current Complaints B hip History of Current Condition Pt reports R hip has been given him trouble for about a year for unknown reason. He had surgery for impingement of L hip and repaired labrum in early May. Surgeon was Dr. Sher. Long strides, hills, and twisting gives it pain. R hip is currently doing pretty well. He has done some small walks that are pretty flat. He will notice discomfort by the end in L hip. He rides the [place] at home. Pt is cleared for activity as tolerated. He does not return to MD until completing PT. ROlled R ankle about 1 year ago. LBP that is chronic. R hip pt had surgery for labral tear and impingment of june Treatment Goals Patient/Caregiver Goals improve ROM of hips, Return to hiking, light mtn biking, being active PT-OP-C Subjective Start: 10/28/21 17:46 Freq: Status: Active Protocol: Document 10/29/21 07:29 [facility] (Rec: 10/29/21 08:21 [facility] [id number]) Patient Questionnaires Lower Extremity Functional Scale LEFS Score 38/80 OP-PT Pain Assessment Location L hip Pain Location Details L ant hip (deep) Scale Used 3/10 best worst 7/10 Description Aching,Sharp Frequency Constant Pain Duration if aggrevates can last through the night Radiating Location lat hip Pain Aggravating Factors Exercise,Walking,Stair Climbing Other Pain Aggravating Factors squat, get up off couch/car/ desk @work (hobbles at 1st) Pain Alleviating Factors Inactivity Other Pain Alleviating Factors tylenol R hip Pain Location Details ant hip and thigh Description- Other used to sharp stabbing not as much anymore Frequency Occasional Other Pain Aggravating Factors yard work, squatting a lot, long day PT-OP-D Balance Start: 10/28/21 17:46 Freq: Status: Active Protocol: Document 10/29/21 07:29 [facility] (Rec: 10/29/21 08:21 [facility] [id number]) Balance Tests Single Limb Standing Single Limb- Right >30 sec Single Limb- Left >30 sec w/slight lat lean PT-OP-F Manual Assessment Start: 10/28/21 17:46 Freq: Status: Active Protocol: Document 10/29/21 07:29 [facility] (Rec: 10/29/21 08:21 [facility] [id number]) Manual Assessments Soft Tissue Assessment Soft Tissue Mobility Assessment tightness in B hip flexors, ITB, adductors, VL, RF Joint Mobility Assessment Joint Mobility Assessment ER of femur and tibia L; R ER of femur and IR of tibia w/ knee bend PT-OP-G Mobility & Gait Start: 10/28/21 17:46 Freq: Status: Active Protocol: Document 10/29/21 07:29 [facility] (Rec: 10/29/21 08:21 [facility] [id number]) OP Gait Assessment Comments Gait Comments lat lean L w/WB L, dec pelvis motion, dec push off PT-OP-J Posture/Palpation/Skin Start: 10/28/21 17:46 Freq: Status: Active Protocol: Document 10/29/21 07:29 [facility] (Rec: 10/29/21 08:21 [facility] [id number]) Posture Evaluation Qiana Postural Classification System Qiana Postural Classifications Posterior/Posterior Lumbar Protective Mechanism Left AP 1 Lumbar Protective Mechanism Right AP 1 Lumbar Protective Mechanism Left PA 2 Lumbar Protective Mechanism Right PA 2 PT-OP-K Range of Motion Start: 10/28/21 17:46 Freq: Status: Active Protocol: Document 10/29/21 07:29 [facility] (Rec: 10/29/21 08:21 [facility] [id number]) Hip Goniometric Range of Motion Hip Right Active Flexion w/Knee Flexed 97 Straight Leg Raise 71 Abduction 38 Internal Rotation 27 External Rotation 28 Left Active Flexion w/Knee Flexed 95 Straight Leg Raise 68 Abduction 20 Internal Rotation 20 External Rotation 25 PT-OP-L Special Tests Start: 10/28/21 17:46 Freq: Status: Active Protocol: Document 10/29/21 07:29 [facility] (Rec: 10/29/21 08:21 [facility] [id number]) Special Tests Hip Special Tests Obers Test Results neg R, mild tightness L Shmuel Test Results tight TFL, dec opp hip flex ROM but WNL for RF & hip flexor PT-OP-M Strength Start: 10/28/21 17:46 Freq: Status: Active Protocol: Document 10/29/21 07:29 [facility] (Rec: 10/29/21 08:21 [facility] [id number]) Hip Strength Hip Manual Muscle Testing Right Flexion (L2) 4 Good Extension (S1) 4 Good Abduction 4+ Good+ Adduction 5 Normal External Rotation 5 Normal Internal Rotation 4+ Good+ Left Flexion (L2) 3+ Fair+ Extension (S1) 4- Good- Abduction 4- Good- Adduction 3+ Fair+ External Rotation 3+ Fair+ Internal Rotation 3+ Fair+ Comments pain w/hip flex, IR B, ER pain L Knee Strength Knee Manual Muscle Testing Right Flexion (S2) 5 Normal Extension (L3) 5 Normal Left Flexion (S2) 4 Good Extension (L3) 4+ Good+ Ankle/Foot Strength Ankle and Foot Manual Muscle Testing Right Dorsiflexion (L4) 5 Normal Plantarflexion (S1) 5 Normal Comments 20 heel raises, pain in R ankle Left Dorsiflexion (L4) 5 Normal Plantarflexion (S1) 5 Normal Comments 20 heel raises PT-OP-Q Treatments Start: 10/28/21 17:46 Freq: Status: Active Protocol: Document 10/29/21 07:29 [facility] (Rec: 10/29/21 18:42 [facility] [id number]) Therapeutic Exercises Supine Exercises ROM Supine Exercise Name IR/ER in 3 positions Side left Reps/Minutes 3 Sitting Exercises stretch Sitting Exercise Name HS Side bilateral Reps/Minutes 30 sec Standing Exercises stretch Side bilateral Reps/Minutes 30 sec PT-OP-T Assessment and Plan Start: 10/28/21 17:46 Freq: Status: Active Protocol: Document 10/29/21 07:29 [facility] (Rec: 10/29/21 08:21 [facility] [id number]) Physical Therapy Assessment Goals activity Short Term Goal (STG) pt will be able to get out of chair/car/couch w/o inc hip pain or difficulty. STG Duration 12/28 Prison Goal (LTG) Pt will return to hiking on uneven terrain for greater than 3 miles w/o inc pain greater than 1/10 LTG Duration 01/28 strength Short Term Goal (STG) Ptw ill be indep w/HEP for stability, strength, balance and ROM STG Duration 12/28/21 Relations Mgr Goal (LTG) Pt will score at least 4/5 on LPM in all planes and 5/5 MMT B in all planes w/o inc pain to inc hip stability and allow pt return to typical activities LTG Duration 01/28 ROM Short Term Goal (STG) Pt will improve hip flex to 110 deg B STG Duration Relations Mgr Goal (LTG) Pt will improve ROM to report ease w/donning/doffing socks/ shoes and squatting. LTG Duration 01/28/22 LEFS Impairment 38/80 Short Term Goal (STG) Pt will improve LEFS score to at least 50/80 to show improved functional ability. STG Duration 12/18/21 Relations Mgr Goal (LTG) Pt will improve LEFS score to at least 70/80 to show improved functional ability. LTG Duration 01/28/22 Assessment Summary Assessment Pt presents over 4 months s/p L hip labral repair and over 1 year s/p R hip labral repair d/t impingment. HE has had difficulty getting into PT d/t referral/auth issues, so has had a delayed start to rehab. He has significantly dec strength on L, dec ROM in B hips and dec functional ability.he typically is very active and enjoys hiking, biking, and outdoor activities , but has been limited to small flat walks d/t that being painful for him. He would benefit from skilled PT to address these deficits and progress him back to typical functional ability. Physical Therapy Plan Frequency and Duration Frequency of Treatment 2x/Week Duration of Treatment 3 months Plan of Care Start Date 10/29/21 Plan of Care End Date 01/28/22 Therapeutic Interventions Therapeutic Interventions Aquatic Therapy,Balance Training,Gait Training,Home Exercise Program,Joint Mobilizations,Manual Therapy, Neuromuscular Re-education, Patient/Caregiver Education, Self-Care/Home Management,Soft Tissue Mobilization,Taping, Therapeutic Activities, Therapeutic Exercises Modalities Cold Pack/Ice Massage,Electric Stimulation,Hot Packs, Infrared Therapy,Iontophoresis ,Ultrasound Next Visit Focus/Plan Next Note Type Treatment Note Next Visit Plan HEP: mini squats, review stretches, add figure 4 stretch, DL isometric flex supine, manual to hip flexors B, hip inf glide B, innominate flex FM B, HS STM
--- NOTE | 2021-10-29 18:55 | PT.OPPOC ---
Physical, Occupational & Speech Therapy At [facility] Current Diagnoses Other specified joint disorders, left hip (10/29/21) Difficulty in walking, not elsewhere classified (10/29/21) Abnormal posture (10/29/21) Weakness (10/29/21) Other sprain of right hip, subsequent encounter (10/29/21) Visit Care Team Role Provider Type Santos Oneal Family Provider Non-Staff Primary Care Provider Specialty: Medical Address: [address] [place], [address] Email: Addison Sher MD Attending Provider Non-Staff Referring Provider Specialty: Orthopedic Surgery Address: [address] [facility] , [place], [address] Email: Plan Of Care PT-OP-T Assessment and Plan Start: 10/28/21 17:46 Freq: Status: Active Protocol: Document 10/29/21 07:29 [facility] (Rec: 10/29/21 08:21 [facility] [id number]) Physical Therapy Assessment Goals activity Short Term Goal (STG) pt will be able to get out of chair/car/couch w/o inc hip pain or difficulty. STG Duration 12/28 Wharf Tender Goal (LTG) Pt will return to hiking on uneven terrain for greater than 3 miles w/o inc pain greater than 1/10 LTG Duration 01/28 strength Short Term Goal (STG) Ptw ill be indep w/HEP for stability, strength, balance and ROM STG Duration 12/28/21 Wharf Tender Goal (LTG) Pt will score at least 4/5 on LPM in all planes and 5/5 MMT B in all planes w/o inc pain to inc hip stability and allow pt return to typical activities LTG Duration 01/28 ROM Short Term Goal (STG) Pt will improve hip flex to 110 deg B STG Duration Shelter Goal (LTG) Pt will improve ROM to report ease w/donning/doffing socks/ shoes and squatting. LTG Duration 01/28/22 LEFS Impairment 38/80 Short Term Goal (STG) Pt will improve LEFS score to at least 50/80 to show improved functional ability. STG Duration 12/18/21 Shelter Goal (LTG) Pt will improve LEFS score to at least 70/80 to show improved functional ability. LTG Duration 01/28/22 Assessment Summary Assessment Pt presents over 4 months s/p L hip labral repair and over 1 year s/p R hip labral repair d/t impingment. HE has had difficulty getting into PT d/t referral/auth issues, so has had a delayed start to rehab. He has significantly dec strength on L, dec ROM in B hips and dec functional ability.he typically is very active and enjoys hiking, biking, and outdoor activities , but has been limited to small flat walks d/t that being painful for him. He would benefit from skilled PT to address these deficits and progress him back to typical functional ability. Physical Therapy Plan Frequency and Duration Frequency of Treatment 2x/Week Duration of Treatment 3 months Plan of Care Start Date 10/29/21 Plan of Care End Date 01/28/22 Therapeutic Interventions Therapeutic Interventions Aquatic Therapy,Balance Training,Gait Training,Home Exercise Program,Joint Mobilizations,Manual Therapy, Neuromuscular Re-education, Patient/Caregiver Education, Self-Care/Home Management,Soft Tissue Mobilization,Taping, Therapeutic Activities, Therapeutic Exercises Modalities Cold Pack/Ice Massage,Electric Stimulation,Hot Packs, Infrared Therapy,Iontophoresis ,Ultrasound Next Visit Focus/Plan Next Note Type Treatment Note Next Visit Plan HEP: mini squats, review stretches, add figure 4 stretch, DL isometric flex supine, manual to hip flexors B, hip inf glide B, innominate flex FM B, HS STM Plan of Care Dates Plan of Care Start Date 10/29/21 Plan of Care End Date 01/28/22 Electronically Signed by: Tea Andersen, PT 10/29/21 [id number] If you are in agreement with this Plan of Care, please return a signed and dated copy. I have reviewed this Plan of Care and certify that the skilled therapy services above are required to meet the patient?s needs. Physician Signature Date Printed Name and Credentials Clinical Instructor Signature Printed Name and Credentials
--- NOTE | 2021-11-05 09:07 | PT.OTN ---
Current Diagnoses Other specified joint disorders, left hip (11/05/21) Difficulty in walking, not elsewhere classified (11/05/21) Abnormal posture (11/05/21) Weakness (11/05/21) Other sprain of right hip, subsequent encounter (11/05/21) Physical Therapy Treatment Note PT-OP-A Visit Information Start: 10/28/21 17:46 Freq: Status: Active Protocol: Document 11/05/21 07:28 [facility] (Rec: 11/05/21 09:07 [facility] [id number]) Out-Patient Physical Therapy Visit Information Visit Information Visit Type Treatment Note Visit Start Time 08:17 Visit Stop Time 09:00 Total Visit Minutes 43 Visit Number 04/24 Number of PANEL BUILDER Visits 0 PT-OP-B Current Condition Start: 10/28/21 17:46 Freq: Status: Active Protocol: Document 10/29/21 07:29 [facility] (Rec: 10/29/21 08:21 [facility] [id number]) Current Condition History of Current Condition Current Complaints B hip History of Current Condition Pt reports R hip has been given him trouble for about a year for unknown reason. He had surgery for impingement of L hip and repaired labrum in early May. Surgeon was Dr. Sher. Long strides, hills, and twisting gives it pain. R hip is currently doing pretty well. He has done some small walks that are pretty flat. He will notice discomfort by the end in L hip. He rides the [place] at home. Pt is cleared for activity as tolerated. He does not return to [place] until completing PT. ROlled R ankle about 1 year ago. LBP that is chronic. R hip pt had surgery for labral tear and impingment of june o f2021 Treatment Goals Patient/Caregiver Goals improve ROM of hips, Return to hiking, light mtn biking, being active PT-OP-C Subjective Start: 10/28/21 17:46 Freq: Status: Active Protocol: Document 11/05/21 07:28 [facility] (Rec: 11/05/21 09:07 [facility] [id number]) OP-PT Subjective Patient Comments Patient Comments pt reprots sore wednesday [place]. Also pain after having to stop and give a larger gentleman the hymlic PT-OP-D Balance Start: 10/28/21 17:46 Freq: Status: Active Protocol: Document 10/29/21 07:29 [facility] (Rec: 10/29/21 08:21 [facility] [id number]) Balance Tests Single Limb Standing Single Limb- Right >30 sec Single Limb- Left >30 sec w/slight lat lean PT-OP-F Manual Assessment Start: 10/28/21 17:46 Freq: Status: Active Protocol: Document 10/29/21 07:29 [facility] (Rec: 10/29/21 08:21 [facility] [id number]) Manual Assessments Soft Tissue Assessment Soft Tissue Mobility Assessment tightness in B hip flexors, ITB, adductors, VL, RF Joint Mobility Assessment Joint Mobility Assessment ER of femur and tibia L; R ER of femur and IR of tibia w/ knee bend PT-OP-G Mobility & Gait Start: 10/28/21 17:46 Freq: Status: Active Protocol: Document 10/29/21 07:29 [facility] (Rec: 10/29/21 08:21 [facility] [id number]) OP Gait Assessment Comments Gait Comments lat lean L w/WB L, dec pelvis motion, dec push off PT-OP-J Posture/Palpation/Skin Start: 10/28/21 17:46 Freq: Status: Active Protocol: Document 10/29/21 07:29 [facility] (Rec: 10/29/21 08:21 [facility] [id number]) Posture Evaluation Qiana Postural Classification System Qiana Postural Classifications Posterior/Posterior Lumbar Protective Mechanism Left AP 1 Lumbar Protective Mechanism Right AP 1 Lumbar Protective Mechanism Left PA 2 Lumbar Protective Mechanism Right PA 2 PT-OP-K Range of Motion Start: 10/28/21 17:46 Freq: Status: Active Protocol: Document 10/29/21 07:29 [facility] (Rec: 10/29/21 08:21 [facility] [id number]) Hip Goniometric Range of Motion Hip Right Active Flexion w/Knee Flexed 97 Straight Leg Raise 71 Abduction 38 Internal Rotation 27 External Rotation 28 Left Active Flexion w/Knee Flexed 95 Straight Leg Raise 68 Abduction 20 Internal Rotation 20 External Rotation 25 PT-OP-L Special Tests Start: 10/28/21 17:46 Freq: Status: Active Protocol: Document 10/29/21 07:29 [facility] (Rec: 10/29/21 08:21 [facility] [id number]) Special Tests Hip Special Tests Obers Test Results neg R, mild tightness L Shmuel Test Results tight TFL, dec opp hip flex ROM but WNL for RF & hip flexor PT-OP-M Strength Start: 10/28/21 17:46 Freq: Status: Active Protocol: Document 10/29/21 07:29 [facility] (Rec: 10/29/21 08:21 [facility] [id number]) Hip Strength Hip Manual Muscle Testing Right Flexion (L2) 4 Good Extension (S1) 4 Good Abduction 4+ Good+ Adduction 5 Normal External Rotation 5 Normal Internal Rotation 4+ Good+ Left Flexion (L2) 3+ Fair+ Extension (S1) 4- Good- Abduction 4- Good- Adduction 3+ Fair+ External Rotation 3+ Fair+ Internal Rotation 3+ Fair+ Comments pain w/hip flex, IR B, ER pain L Knee Strength Knee Manual Muscle Testing Right Flexion (S2) 5 Normal Extension (L3) 5 Normal Left Flexion (S2) 4 Good Extension (L3) 4+ Good+ Ankle/Foot Strength Ankle and Foot Manual Muscle Testing Right Dorsiflexion (L4) 5 Normal Plantarflexion (S1) 5 Normal Comments 20 heel raises, pain in R ankle Left Dorsiflexion (L4) 5 Normal Plantarflexion (S1) 5 Normal Comments 20 heel raises PT-OP-Q Treatments Start: 10/28/21 17:46 Freq: Status: Active Protocol: Document 11/05/21 07:28 [facility] (Rec: 11/05/21 09:07 [facility] [id number]) Gym Equipment Therapeutic Ball seated Ball Size/Color 75cm Body Position seated Reps/Duration 12 Comments april wcue for posture Therapeutic Exercises Supine Exercises core Supine Exercise Name DL isometric Side bilateral Reps/Minutes 30 sec ROM Supine Exercise Name IR/ER in 3 positions Side left Reps/Minutes 3 Sitting Exercises stretch Sitting Exercise Name 1.HS 2.figure 4 Side bilateral Reps/Minutes 30 sec ea Standing Exercises squats Standing Exercise Name 1. mini over chair 2. wall w/ ball Side bilateral Reps/Minutes 1.8 2.15 stretch Side bilateral Reps/Minutes 30 sec Manual Therapy Treatment Soft Tissue Mobilization adductors Body Location L w/hip IR/ER Mobilization Type Rolling,Strumming,Sustained Pressure Intensity/Depth Moderate Body Position Hooklying quads Body Location L Mobilization Type Rolling,Strumming Intensity/Depth Moderate Body Position Hooklying Comments hip IR/ER hip flexors Mobilization Type Rolling,Strumming,Sustained Pressure Intensity/Depth Moderate Body Position Supine Joint Mobilizations hip Joint L Direction inf, ER, IR FM Body Position Hooklying PT-OP-T Assessment and Plan Start: 10/28/21 17:46 Freq: Status: Active Protocol: Document 11/05/21 07:28 [facility] (Rec: 11/05/21 09:07 [facility] [id number]) Physical Therapy Assessment Goals activity Short Term Goal (STG) pt will be able to get out of chair/car/couch w/o inc hip pain or difficulty. STG Duration 12/28 Service Consultant Goal (LTG) Pt will return to hiking on uneven terrain for greater than 3 miles w/o inc pain greater than 1/10 LTG Duration 01/28 strength Short Term Goal (STG) Ptw ill be indep w/HEP for stability, strength, balance and ROM STG Duration 12/28/21 Service Consultant Goal (LTG) Pt will score at least 4/5 on LPM in all planes and 5/5 MMT B in all planes w/o inc pain to inc hip stability and allow pt return to typical activities LTG Duration 01/28 ROM Short Term Goal (STG) Pt will improve hip flex to 110 deg B STG Duration Service Consultant Goal (LTG) Pt will improve ROM to report ease w/donning/doffing socks/ shoes and squatting. LTG Duration 01/28/22 LEFS Impairment 38/80 Short Term Goal (STG) Pt will improve LEFS score to at least 50/80 to show improved functional ability. STG Duration 12/18/21 Service Consultant Goal (LTG) Pt will improve LEFS score to at least 70/80 to show improved functional ability. LTG Duration 01/28/22 Assessment Summary Assessment Pt had imrpoved hip flex w/ less ER after manual and improved IR mobility. Pt did well with exercsies w/min cues . Squats free standing were a litle painful but pt did better w/wall squat Physical Therapy Plan Frequency and Duration Frequency of Treatment 2x/Week Duration of Treatment 3 months Plan of Care Start Date 10/29/21 Plan of Care End Date 01/28/22 Next Visit Focus/Plan Next Note Type Treatment Note Next Visit Plan review HEP, manual to hip flexors and hip joint mobs
--- NOTE | 2021-11-13 09:11 | PT.OTN ---
Current Diagnoses Other specified joint disorders, left hip (11/13/21) Difficulty in walking, not elsewhere classified (11/13/21) Abnormal posture (11/13/21) Weakness (11/13/21) Other sprain of right hip, subsequent encounter (11/13/21) Physical Therapy Treatment Note PT-OP-A Visit Information Start: 10/28/21 17:46 Freq: Status: Active Protocol: Document 11/13/21 08:20 [facility] (Rec: 11/13/21 09:10 [facility] [id number]) Out-Patient Physical Therapy Visit Information Visit Information Visit Type Treatment Note Visit Start Time 08:20 Visit Stop Time 09:01 Total Visit Minutes 41 Visit Number 05/22 Number of SUPERVISOR LUMP ROOM Visits 0 PT-OP-B Current Condition Start: 10/28/21 17:46 Freq: Status: Active Protocol: Document 10/29/21 07:29 [facility] (Rec: 10/29/21 08:21 [facility] [id number]) Current Condition History of Current Condition Current Complaints B hip History of Current Condition Pt reports R hip has been given him trouble for about a year for unknown reason. He had surgery for impingement of L hip and repaired labrum in early May. Surgeon was Dr. Sher. Long strides, hills, and twisting gives it pain. R hip is currently doing pretty well. He has done some small walks that are pretty flat. He will notice discomfort by the end in L hip. He rides the [place] at home. Pt is cleared for activity as tolerated. He does not return to MD until completing PT. ROlled R ankle about 1 year ago. LBP that is chronic. R hip pt had surgery for labral tear and impingment of june o f2021 Treatment Goals Patient/Caregiver Goals improve ROM of hips, Return to hiking, light mtn biking, being active PT-OP-C Subjective Start: 10/28/21 17:46 Freq: Status: Active Protocol: Document 11/13/21 08:20 [facility] (Rec: 11/13/21 09:10 [facility] [id number]) OP-PT Subjective Patient Comments Patient Comments Pt reports he was sore after last session, Compliance w/HEP PT-OP-D Balance Start: 10/28/21 17:46 Freq: Status: Active Protocol: Document 10/29/21 07:29 [facility] (Rec: 10/29/21 08:21 [facility] [id number]) Balance Tests Single Limb Standing Single Limb- Right >30 sec Single Limb- Left >30 sec w/slight lat lean PT-OP-F Manual Assessment Start: 10/28/21 17:46 Freq: Status: Active Protocol: Document 10/29/21 07:29 [facility] (Rec: 10/29/21 08:21 [facility] [id number]) Manual Assessments Soft Tissue Assessment Soft Tissue Mobility Assessment tightness in B hip flexors, ITB, adductors, VL, RF Joint Mobility Assessment Joint Mobility Assessment ER of femur and tibia L; R ER of femur and IR of tibia w/ knee bend PT-OP-G Mobility & Gait Start: 10/28/21 17:46 Freq: Status: Active Protocol: Document 10/29/21 07:29 [facility] (Rec: 10/29/21 08:21 [facility] [id number]) OP Gait Assessment Comments Gait Comments lat lean L w/WB L, dec pelvis motion, dec push off PT-OP-J Posture/Palpation/Skin Start: 10/28/21 17:46 Freq: Status: Active Protocol: Document 10/29/21 07:29 [facility] (Rec: 10/29/21 08:21 [facility] [id number]) Posture Evaluation Qiana Postural Classification System Qiana Postural Classifications Posterior/Posterior Lumbar Protective Mechanism Left AP 1 Lumbar Protective Mechanism Right AP 1 Lumbar Protective Mechanism Left PA 2 Lumbar Protective Mechanism Right PA 2 PT-OP-K Range of Motion Start: 10/28/21 17:46 Freq: Status: Active Protocol: Document 10/29/21 07:29 [facility] (Rec: 10/29/21 08:21 [facility] [id number]) Hip Goniometric Range of Motion Hip Right Active Flexion w/Knee Flexed 97 Straight Leg Raise 71 Abduction 38 Internal Rotation 27 External Rotation 28 Left Active Flexion w/Knee Flexed 95 Straight Leg Raise 68 Abduction 20 Internal Rotation 20 External Rotation 25 PT-OP-L Special Tests Start: 10/28/21 17:46 Freq: Status: Active Protocol: Document 10/29/21 07:29 [facility] (Rec: 10/29/21 08:21 [facility] [id number]) Special Tests Hip Special Tests Obers Test Results neg R, mild tightness L Shmuel Test Results tight TFL, dec opp hip flex ROM but WNL for RF & hip flexor PT-OP-M Strength Start: 10/28/21 17:46 Freq: Status: Active Protocol: Document 10/29/21 07:29 [facility] (Rec: 10/29/21 08:21 [facility] [id number]) Hip Strength Hip Manual Muscle Testing Right Flexion (L2) 4 Good Extension (S1) 4 Good Abduction 4+ Good+ Adduction 5 Normal External Rotation 5 Normal Internal Rotation 4+ Good+ Left Flexion (L2) 3+ Fair+ Extension (S1) 4- Good- Abduction 4- Good- Adduction 3+ Fair+ External Rotation 3+ Fair+ Internal Rotation 3+ Fair+ Comments pain w/hip flex, IR B, ER pain L Knee Strength Knee Manual Muscle Testing Right Flexion (S2) 5 Normal Extension (L3) 5 Normal Left Flexion (S2) 4 Good Extension (L3) 4+ Good+ Ankle/Foot Strength Ankle and Foot Manual Muscle Testing Right Dorsiflexion (L4) 5 Normal Plantarflexion (S1) 5 Normal Comments 20 heel raises, pain in R ankle Left Dorsiflexion (L4) 5 Normal Plantarflexion (S1) 5 Normal Comments 20 heel raises PT-OP-Q Treatments Start: 10/28/21 17:46 Freq: Status: Active Protocol: Document 11/13/21 08:20 [facility] (Rec: 11/13/21 09:10 [facility] [id number]) Gym Equipment Therapeutic Ball seated Ball Size/Color 75cm Body Position seated Reps/Duration 12 Comments 1.april w/cue for posture 2. V sit back Therapeutic Exercises Supine Exercises core Supine Exercise Name DL isometric Side bilateral Reps/Minutes 30 sec Sidelying Exercises clamshell Side bilateral Equipment Used lvl 1 R only Reps/Minutes 15 Standing Exercises sidesteps Side bilateral Equipment Used lvl 1 at ankles Reps/Minutes 20ft x2 squats Standing Exercise Name at wall w/ball Side bilateral Reps/Minutes 15 (last 5 w/3 sec hold at bottom Manual Therapy Treatment Soft Tissue Mobilization glutes Body Location L Mobilization Type Rolling,Strumming Intensity/Depth Moderate Body Position Sidelying ITB Body Location L Mobilization Type Rolling,Strumming Intensity/Depth Moderate Body Position Hooklying Comments IR/ER adductors Body Location L w/hip IR/ER Mobilization Type Rolling,Strumming,Sustained Pressure Intensity/Depth Moderate Body Position Hooklying quads Body Location L Mobilization Type Rolling,Strumming Intensity/Depth Moderate Body Position Hooklying Comments hip IR/ER hip flexors Mobilization Type Rolling,Strumming,Sustained Pressure Intensity/Depth Moderate Body Position Supine Joint Mobilizations hip Joint L Direction inf, IR FM Body Position Hooklying PT-OP-T Assessment and Plan Start: 10/28/21 17:46 Freq: Status: Active Protocol: Document 11/13/21 08:20 [facility] (Rec: 11/13/21 09:10 [facility] [id number]) Physical Therapy Assessment Goals activity Short Term Goal (STG) pt will be able to get out of chair/car/couch w/o inc hip pain or difficulty. STG Duration 12/28 Long-Term Goal (LTG) Pt will return to hiking on uneven terrain for greater than 3 miles w/o inc pain greater than 1/10 LTG Duration 01/28 strength Short Term Goal (STG) Ptw ill be indep w/HEP for stability, strength, balance and ROM STG Duration 12/28/21 Long-Term Goal (LTG) Pt will score at least 4/5 on LPM in all planes and 5/5 MMT B in all planes w/o inc pain to inc hip stability and allow pt return to typical activities LTG Duration 01/28 ROM Short Term Goal (STG) Pt will improve hip flex to 110 deg B STG Duration Staff Nurse Goal (LTG) Pt will improve ROM to report ease w/donning/doffing socks/ shoes and squatting. LTG Duration 01/28/22 LEFS Impairment 38/80 Short Term Goal (STG) Pt will improve LEFS score to at least 50/80 to show improved functional ability. STG Duration 12/18/21 Staff Nurse Goal (LTG) Pt will improve LEFS score to at least 70/80 to show improved functional ability. LTG Duration 01/28/22 Assessment Summary Assessment Pt did well with exercises today with good challenge w/ exercises. He does well with form with some cueing but does fatigue w/exercises. Improved hip flex with more neutral positioning and improved IR w/ manual treatment today. Pt did maintain some gains from last session showing an improved ROM into flex at start today compared to eval. Physical Therapy Plan Frequency and Duration Frequency of Treatment 2x/Week Duration of Treatment 3 months Plan of Care Start Date 10/29/21 Plan of Care End Date 01/28/22 Next Visit Focus/Plan Next Note Type Treatment Note Next Visit Plan Cont to wrok on hip stability, start some balance activity, cont manual to hip to work on ROM
--- NOTE | 2021-11-19 09:05 | PT.OTN ---
Current Diagnoses Other specified joint disorders, left hip (11/19/21) Difficulty in walking, not elsewhere classified (11/19/21) Abnormal posture (11/19/21) Weakness (11/19/21) Other sprain of right hip, subsequent encounter (11/19/21) Physical Therapy Treatment Note PT-OP-A Visit Information Start: 10/28/21 17:46 Freq: Status: Active Protocol: Document 11/19/21 07:29 [facility] (Rec: 11/19/21 09:05 [facility] [id number]) Out-Patient Physical Therapy Visit Information Visit Information Visit Type Treatment Note Visit Start Time 07:30 Visit Stop Time 08:15 Total Visit Minutes 45 Visit Number 06/22 Number of FOREST FIRE PREVENTION MANAGER Visits 0 PT-OP-B Current Condition Start: 10/28/21 17:46 Freq: Status: Active Protocol: Document 10/29/21 07:29 [facility] (Rec: 10/29/21 08:21 [facility] [id number]) Current Condition History of Current Condition Current Complaints B hip History of Current Condition Pt reports R hip has been given him trouble for about a year for unknown reason. He had surgery for impingement of L hip and repaired labrum in early May. Surgeon was Dr. Sher. Long strides, hills, and twisting gives it pain. R hip is currently doing pretty well. He has done some small walks that are pretty flat. He will notice discomfort by the end in L hip. He rides the [place] at home. Pt is cleared for activity as tolerated. He does not return to MD until completing PT. ROlled R ankle about 1 year ago. LBP that is chronic. R hip pt had surgery for labral tear and impingment of june o f2021 Treatment Goals Patient/Caregiver Goals improve ROM of hips, Return to hiking, light mtn biking, being active PT-OP-C Subjective Start: 10/28/21 17:46 Freq: Status: Active Protocol: Document 11/19/21 07:29 [facility] (Rec: 11/19/21 09:05 [facility] [id number]) OP-PT Subjective Patient Comments Patient Comments Pt reports he felt pretty loose after last session. PT-OP-D Balance Start: 10/28/21 17:46 Freq: Status: Active Protocol: Document 10/29/21 07:29 [facility] (Rec: 10/29/21 08:21 [facility] [id number]) Balance Tests Single Limb Standing Single Limb- Right >30 sec Single Limb- Left >30 sec w/slight lat lean PT-OP-F Manual Assessment Start: 10/28/21 17:46 Freq: Status: Active Protocol: Document 10/29/21 07:29 [facility] (Rec: 10/29/21 08:21 [facility] [id number]) Manual Assessments Soft Tissue Assessment Soft Tissue Mobility Assessment tightness in B hip flexors, ITB, adductors, VL, RF Joint Mobility Assessment Joint Mobility Assessment ER of femur and tibia L; R ER of femur and IR of tibia w/ knee bend PT-OP-G Mobility & Gait Start: 10/28/21 17:46 Freq: Status: Active Protocol: Document 10/29/21 07:29 [facility] (Rec: 10/29/21 08:21 [facility] [id number]) OP Gait Assessment Comments Gait Comments lat lean L w/WB L, dec pelvis motion, dec push off PT-OP-J Posture/Palpation/Skin Start: 10/28/21 17:46 Freq: Status: Active Protocol: Document 10/29/21 07:29 [facility] (Rec: 10/29/21 08:21 [facility] [id number]) Posture Evaluation Qiana Postural Classification System Qiana Postural Classifications Posterior/Posterior Lumbar Protective Mechanism Left AP 1 Lumbar Protective Mechanism Right AP 1 Lumbar Protective Mechanism Left PA 2 Lumbar Protective Mechanism Right PA 2 PT-OP-K Range of Motion Start: 10/28/21 17:46 Freq: Status: Active Protocol: Document 10/29/21 07:29 [facility] (Rec: 10/29/21 08:21 [facility] [id number]) Hip Goniometric Range of Motion Hip Right Active Flexion w/Knee Flexed 97 Straight Leg Raise 71 Abduction 38 Internal Rotation 27 External Rotation 28 Left Active Flexion w/Knee Flexed 95 Straight Leg Raise 68 Abduction 20 Internal Rotation 20 External Rotation 25 PT-OP-L Special Tests Start: 10/28/21 17:46 Freq: Status: Active Protocol: Document 10/29/21 07:29 [facility] (Rec: 10/29/21 08:21 [facility] [id number]) Special Tests Hip Special Tests Obers Test Results neg R, mild tightness L Shmuel Test Results tight TFL, dec opp hip flex ROM but WNL for RF & hip flexor PT-OP-M Strength Start: 10/28/21 17:46 Freq: Status: Active Protocol: Document 10/29/21 07:29 [facility] (Rec: 10/29/21 08:21 [facility] [id number]) Hip Strength Hip Manual Muscle Testing Right Flexion (L2) 4 Good Extension (S1) 4 Good Abduction 4+ Good+ Adduction 5 Normal External Rotation 5 Normal Internal Rotation 4+ Good+ Left Flexion (L2) 3+ Fair+ Extension (S1) 4- Good- Abduction 4- Good- Adduction 3+ Fair+ External Rotation 3+ Fair+ Internal Rotation 3+ Fair+ Comments pain w/hip flex, IR B, ER pain L Knee Strength Knee Manual Muscle Testing Right Flexion (S2) 5 Normal Extension (L3) 5 Normal Left Flexion (S2) 4 Good Extension (L3) 4+ Good+ Ankle/Foot Strength Ankle and Foot Manual Muscle Testing Right Dorsiflexion (L4) 5 Normal Plantarflexion (S1) 5 Normal Comments 20 heel raises, pain in R ankle Left Dorsiflexion (L4) 5 Normal Plantarflexion (S1) 5 Normal Comments 20 heel raises PT-OP-Q Treatments Start: 10/28/21 17:46 Freq: Status: Active Protocol: Document 11/19/21 07:29 [facility] (Rec: 11/19/21 09:05 [facility] [id number]) Gym Equipment Shuttle Balance chains red Details Head turns Comments fwd &side: WBOS & NBOS fwd: staggered stance Therapeutic Exercises Standing Exercises lunges Side bilateral Reps/Minutes 2x5 squats Standing Exercise Name over chair Side bilateral Reps/Minutes 15 Other Exercises ankle mob Other Exercise Name 1/2 kneel fwd lean Side bilateral Reps/Minutes 15 Manual Therapy Treatment Soft Tissue Mobilization hip flexors Body Location L Mobilization Type Rolling,Strumming,Sustained Pressure Intensity/Depth Moderate Body Position Supine Joint Mobilizations ankle Comments 1.calcaneus distraction & med & lat glides FM 2. talus distraction, med/lat glides, AP FM hip Joint L Direction inf, IR FM Body Position Hooklying PT-OP-T Assessment and Plan Start: 10/28/21 17:46 Freq: Status: Active Protocol: Document 11/19/21 07:29 [facility] (Rec: 11/19/21 09:05 [facility] [id number]) Physical Therapy Assessment Goals activity Short Term Goal (STG) pt will be able to get out of chair/car/couch w/o inc hip pain or difficulty. STG Duration 12/28 Mcfp Goal (LTG) Pt will return to hiking on uneven terrain for greater than 3 miles w/o inc pain greater than 1/10 LTG Duration 01/28 strength Short Term Goal (STG) Ptw ill be indep w/HEP for stability, strength, balance and ROM STG Duration 12/28/21 Manager Inventory Goal (LTG) Pt will score at least 4/5 on LPM in all planes and 5/5 MMT B in all planes w/o inc pain to inc hip stability and allow pt return to typical activities LTG Duration 01/28 ROM Short Term Goal (STG) Pt will improve hip flex to 110 deg B STG Duration Mcfp Goal (LTG) Pt will improve ROM to report ease w/donning/doffing socks/ shoes and squatting. LTG Duration 01/28/22 LEFS Impairment 38/80 Short Term Goal (STG) Pt will improve LEFS score to at least 50/80 to show improved functional ability. STG Duration 12/18/21 Manager Inventory Goal (LTG) Pt will improve LEFS score to at least 70/80 to show improved functional ability. LTG Duration 01/28/22 Assessment Summary Assessment Pt had limit of R ankle mobility which affects her ability to squat and limited her ROM in hip. After mobs, he was able to squat further w/ less pain in hips. Physical Therapy Plan Frequency and Duration Frequency of Treatment 2x/Week Duration of Treatment 3 months Plan of Care Start Date 10/29/21 Plan of Care End Date 01/28/22 Next Visit Focus/Plan Next Note Type Treatment Note Next Visit Plan Cont to wrok on hip stability, start some balance activity, cont manual to hip to work on ROM
--- NOTE | 2021-11-28 08:15 | PT.OTN ---
Current Diagnoses Other specified joint disorders, left hip (11/28/21) Difficulty in walking, not elsewhere classified (11/28/21) Abnormal posture (11/28/21) Weakness (11/28/21) Other sprain of right hip, subsequent encounter (11/28/21) Physical Therapy Treatment Note PT-OP-A Visit Information Start: 10/28/21 17:46 Freq: Status: Active Protocol: Document 11/28/21 07:31 [facility] (Rec: 11/28/21 08:18 [facility] [id number]) Out-Patient Physical Therapy Visit Information Visit Information Visit Type Treatment Note Visit Start Time 07:31 Visit Stop Time 08:15 Total Visit Minutes 44 Visit Number 07/22 Number of ELEMENTARY CLASSROOM TEACHER Visits 1 PT-OP-B Current Condition Start: 10/28/21 17:46 Freq: Status: Active Protocol: Document 10/29/21 07:29 [facility] (Rec: 10/29/21 08:21 [facility] [id number]) Current Condition History of Current Condition Current Complaints B hip History of Current Condition Pt reports R hip has been given him trouble for about a year for unknown reason. He had surgery for impingement of L hip and repaired labrum in early May. Surgeon was Dr. Sher. Long strides, hills, and twisting gives it pain. R hip is currently doing pretty well. He has done some small walks that are pretty flat. He will notice discomfort by the end in L hip. He rides the [place] at home. Pt is cleared for activity as tolerated. He does not return to MD until completing PT. ROlled R ankle about 1 year ago. LBP that is chronic. R hip pt had surgery for labral tear and impingment of june o f2021 Treatment Goals Patient/Caregiver Goals improve ROM of hips, Return to hiking, light mtn biking, being active PT-OP-C Subjective Start: 10/28/21 17:46 Freq: Status: Active Protocol: Document 11/28/21 07:31 [facility] (Rec: 11/28/21 08:18 [facility] [id number]) OP-PT Subjective Patient Comments Patient Comments Pt reported ankle little sore but feels better after manual last tx. Did get sore/stiff sititng on bleachers last night on his stadium seating. Did see Dr Sher last week and not at baseline so gave updated referral to continue and follow late Nov. PT-OP-D Balance Start: 10/28/21 17:46 Freq: Status: Active Protocol: Document 10/29/21 07:29 [facility] (Rec: 10/29/21 08:21 [facility] [id number]) Balance Tests Single Limb Standing Single Limb- Right >30 sec Single Limb- Left >30 sec w/slight lat lean PT-OP-F Manual Assessment Start: 10/28/21 17:46 Freq: Status: Active Protocol: Document 10/29/21 07:29 [facility] (Rec: 10/29/21 08:21 [facility] [id number]) Manual Assessments Soft Tissue Assessment Soft Tissue Mobility Assessment tightness in B hip flexors, ITB, adductors, VL, RF Joint Mobility Assessment Joint Mobility Assessment ER of femur and tibia L; R ER of femur and IR of tibia w/ knee bend PT-OP-G Mobility & Gait Start: 10/28/21 17:46 Freq: Status: Active Protocol: Document 10/29/21 07:29 [facility] (Rec: 10/29/21 08:21 [facility] [id number]) OP Gait Assessment Comments Gait Comments lat lean L w/WB L, dec pelvis motion, dec push off PT-OP-J Posture/Palpation/Skin Start: 10/28/21 17:46 Freq: Status: Active Protocol: Document 10/29/21 07:29 [facility] (Rec: 10/29/21 08:21 [facility] [id number]) Posture Evaluation Qiana Postural Classification System Qiana Postural Classifications Posterior/Posterior Lumbar Protective Mechanism Left AP 1 Lumbar Protective Mechanism Right AP 1 Lumbar Protective Mechanism Left PA 2 Lumbar Protective Mechanism Right PA 2 PT-OP-K Range of Motion Start: 10/28/21 17:46 Freq: Status: Active Protocol: Document 10/29/21 07:29 [facility] (Rec: 10/29/21 08:21 [facility] [id number]) Hip Goniometric Range of Motion Hip Right Active Flexion w/Knee Flexed 97 Straight Leg Raise 71 Abduction 38 Internal Rotation 27 External Rotation 28 Left Active Flexion w/Knee Flexed 95 Straight Leg Raise 68 Abduction 20 Internal Rotation 20 External Rotation 25 PT-OP-L Special Tests Start: 10/28/21 17:46 Freq: Status: Active Protocol: Document 10/29/21 07:29 [facility] (Rec: 10/29/21 08:21 [facility] [id number]) Special Tests Hip Special Tests Obers Test Results neg R, mild tightness L Shmuel Test Results tight TFL, dec opp hip flex ROM but WNL for RF & hip flexor PT-OP-M Strength Start: 10/28/21 17:46 Freq: Status: Active Protocol: Document 10/29/21 07:29 [facility] (Rec: 10/29/21 08:21 [facility] [id number]) Hip Strength Hip Manual Muscle Testing Right Flexion (L2) 4 Good Extension (S1) 4 Good Abduction 4+ Good+ Adduction 5 Normal External Rotation 5 Normal Internal Rotation 4+ Good+ Left Flexion (L2) 3+ Fair+ Extension (S1) 4- Good- Abduction 4- Good- Adduction 3+ Fair+ External Rotation 3+ Fair+ Internal Rotation 3+ Fair+ Comments pain w/hip flex, IR B, ER pain L Knee Strength Knee Manual Muscle Testing Right Flexion (S2) 5 Normal Extension (L3) 5 Normal Left Flexion (S2) 4 Good Extension (L3) 4+ Good+ Ankle/Foot Strength Ankle and Foot Manual Muscle Testing Right Dorsiflexion (L4) 5 Normal Plantarflexion (S1) 5 Normal Comments 20 heel raises, pain in R ankle Left Dorsiflexion (L4) 5 Normal Plantarflexion (S1) 5 Normal Comments 20 heel raises PT-OP-Q Treatments Start: 10/28/21 17:46 Freq: Status: Active Protocol: Document 11/28/21 07:31 [facility] (Rec: 11/28/21 08:18 [facility] [id number]) Therapeutic Exercises Supine Exercises ROM Supine Exercise Name IR/ER in 3 positions: FIg 4, Shmuel, IR Side left Reps/Minutes 5 Standing Exercises sidesteps Side bilateral Equipment Used lvl 1 at ankles Reps/Minutes 20ft x2 squats Standing Exercise Name over chair Side bilateral Reps/Minutes 15 Comments cued hip hinge over chair Other Exercises self STMs Other Exercise Name added to HEP: quad, HS, calf, ITB Side bilateral Equipment Used rolling pin, ballwall Reps/Minutes 4 min Comments good feedback response: sit, stand ankle mob Other Exercise Name 1/2 kneel fwd lean: 1. TLF stretch, 2. ankle mob Side bilateral Resistance foot propped up on 2 step, knee on oval foam Equipment Used YTB around ant R ankle and thigh Reps/Minutes 15 ankle mob, 30 RLF stretch Comments cued RLE IR then fwd lean TLF stretch, Manual Therapy Treatment Soft Tissue Mobilization ITB Body Location L Mobilization Type Rolling,Strumming Intensity/Depth Moderate Body Position Hooklying Comments IR/ER adductors Body Location L w/hip IR/ER Mobilization Type Rolling,Strumming,Sustained Pressure Intensity/Depth Moderate Body Position Hooklying quads Body Location L Glut med Mobilization Type Rolling,Strumming Intensity/Depth Moderate Body Position Hooklying Comments hip IR/ER hip flexors Body Location L TFL, Glut Mobilization Type Rolling,Strumming,Sustained Pressure Intensity/Depth Moderate Body Position Supine Joint Mobilizations ankle Comments 1.calcaneus distraction & med & lat glides FM 2. talus distraction, med/lat glides, AP FM hip Joint L Direction inf, IR FM Grade II Body Position Hooklying Comments w/ mob strap PT-OP-T Assessment and Plan Start: 10/28/21 17:46 Freq: Status: Active Protocol: Document 11/28/21 07:31 [facility] (Rec: 11/28/21 08:18 [facility] [id number]) Physical Therapy Assessment Goals activity Short Term Goal (STG) pt will be able to get out of chair/car/couch w/o inc hip pain or difficulty. STG Duration 12/28 Sales Contract Administrator Goal (LTG) Pt will return to hiking on uneven terrain for greater than 3 miles w/o inc pain greater than 1/10 LTG Duration 01/28 strength Short Term Goal (STG) Ptw ill be indep w/HEP for stability, strength, balance and ROM STG Duration 12/28/21 Usp Goal (LTG) Pt will score at least 4/5 on LPM in all planes and 5/5 MMT B in all planes w/o inc pain to inc hip stability and allow pt return to typical activities LTG Duration 01/28 ROM Short Term Goal (STG) Pt will improve hip flex to 110 deg B STG Duration Usp Goal (LTG) Pt will improve ROM to report ease w/donning/doffing socks/ shoes and squatting. LTG Duration 01/28/22 LEFS Impairment 38/80 Short Term Goal (STG) Pt will improve LEFS score to at least 50/80 to show improved functional ability. STG Duration 12/18/21 Sales Contract Administrator Goal (LTG) Pt will improve LEFS score to at least 70/80 to show improved functional ability. LTG Duration 01/28/22 Assessment Summary Assessment Tx focused on self STMs ball wall and rolling pin and stretching HEP for flexibility assist carryover on own. Initiated TFL stretch in 1/2 kneel to allow increase ROM, and TB resistance with ankle mobility elevated with improved ankle elevated 2 on step. Will continue balance progression/ stability next tx . Physical Therapy Plan Frequency and Duration Frequency of Treatment 2x/Week Plan of Care Start Date 10/29/21 Plan of Care End Date 01/28/22 Therapeutic Interventions Therapeutic Interventions Aquatic Therapy,Balance Training,Gait Training,Home Exercise Program,Joint Mobilizations,Manual Therapy, Neuromuscular Re-education, Patient/Caregiver Education, Self-Care/Home Management,Soft Tissue Mobilization,Taping, Therapeutic Activities, Therapeutic Exercises Modalities Cold Pack/Ice Massage,Electric Stimulation,Hot Packs, Infrared Therapy,Iontophoresis ,Ultrasound Next Visit Focus/Plan Next Note Type Treatment Note Next Visit Plan Assess self STMs, ankle mobility added for self at home set up. POC: Cont to wrok on hip stability, start some balance activity, cont manual to hip to work on ROM
--- NOTE | 2021-12-02 11:20 | PT.OTN ---
Current Diagnoses Other specified joint disorders, left hip (12/02/21) Difficulty in walking, not elsewhere classified (12/02/21) Abnormal posture (12/02/21) Weakness (12/02/21) Other sprain of right hip, subsequent encounter (12/02/21) Physical Therapy Treatment Note PT-OP-A Visit Information Start: 10/28/21 17:46 Freq: Status: Active Protocol: Document 12/02/21 08:08 [facility] (Rec: 12/02/21 11:20 [facility] [id number]) Out-Patient Physical Therapy Visit Information Visit Information Visit Type Treatment Note Visit Start Time 08:23 Visit Stop Time 09:13 Total Visit Minutes 50 Visit Number 08/22 Number of MEDICAL INFORMATION SPECIALIST Visits 0 PT-OP-B Current Condition Start: 10/28/21 17:46 Freq: Status: Active Protocol: Document 10/29/21 07:29 [facility] (Rec: 10/29/21 08:21 [facility] [id number]) Current Condition History of Current Condition Current Complaints B hip History of Current Condition Pt reports R hip has been given him trouble for about a year for unknown reason. He had surgery for impingement of L hip and repaired labrum in early May. Surgeon was Dr. Sher. Long strides, hills, and twisting gives it pain. R hip is currently doing pretty well. He has done some small walks that are pretty flat. He will notice discomfort by the end in L hip. He rides the pel[place] at home. Pt is cleared for activity as tolerated. He does not return to MD until completing PT. ROlled R ankle about 1 year ago. LBP that is chronic. R hip pt had surgery for labral tear and impingment of june o f2021 Treatment Goals Patient/Caregiver Goals improve ROM of hips, Return to hiking, light mtn biking, being active PT-OP-C Subjective Start: 10/28/21 17:46 Freq: Status: Active Protocol: Document 12/02/21 08:08 [facility] (Rec: 12/02/21 11:20 [facility] [id number]) OP-PT Subjective Patient Comments Patient Comments Pt reprots his R ankle swelled up this weekend when kicking a ball w/dgt and also L hip last night was painful when turning over. PT-OP-D Balance Start: 10/28/21 17:46 Freq: Status: Active Protocol: Document 10/29/21 07:29 [facility] (Rec: 10/29/21 08:21 [facility] [id number]) Balance Tests Single Limb Standing Single Limb- Right >30 sec Single Limb- Left >30 sec w/slight lat lean PT-OP-F Manual Assessment Start: 10/28/21 17:46 Freq: Status: Active Protocol: Document 10/29/21 07:29 [facility] (Rec: 10/29/21 08:21 [facility] [id number]) Manual Assessments Soft Tissue Assessment Soft Tissue Mobility Assessment tightness in B hip flexors, ITB, adductors, VL, RF Joint Mobility Assessment Joint Mobility Assessment ER of femur and tibia L; R ER of femur and IR of tibia w/ knee bend PT-OP-G Mobility & Gait Start: 10/28/21 17:46 Freq: Status: Active Protocol: Document 10/29/21 07:29 [facility] (Rec: 10/29/21 08:21 [facility] [id number]) OP Gait Assessment Comments Gait Comments lat lean L w/WB L, dec pelvis motion, dec push off PT-OP-J Posture/Palpation/Skin Start: 10/28/21 17:46 Freq: Status: Active Protocol: Document 10/29/21 07:29 [facility] (Rec: 10/29/21 08:21 [facility] [id number]) Posture Evaluation [facility] Postural Classification System Qiana Postural Classifications Posterior/Posterior Lumbar Protective Mechanism Left AP 1 Lumbar Protective Mechanism Right AP 1 Lumbar Protective Mechanism Left PA 2 Lumbar Protective Mechanism Right PA 2 PT-OP-K Range of Motion Start: 10/28/21 17:46 Freq: Status: Active Protocol: Document 10/29/21 07:29 [facility] (Rec: 10/29/21 08:21 [facility] [id number]) Hip Goniometric Range of Motion Hip Right Active Flexion w/Knee Flexed 97 Straight Leg Raise 71 Abduction 38 Internal Rotation 27 External Rotation 28 Left Active Flexion w/Knee Flexed 95 Straight Leg Raise 68 Abduction 20 Internal Rotation 20 External Rotation 25 PT-OP-L Special Tests Start: 10/28/21 17:46 Freq: Status: Active Protocol: Document 10/29/21 07:29 [facility] (Rec: 10/29/21 08:21 [facility] [id number]) Special Tests Hip Special Tests Obers Test Results neg R, mild tightness L Shmuel Test Results tight TFL, dec opp hip flex ROM but WNL for RF & hip flexor PT-OP-M Strength Start: 10/28/21 17:46 Freq: Status: Active Protocol: Document 10/29/21 07:29 [facility] (Rec: 10/29/21 08:21 [facility] [id number]) Hip Strength Hip Manual Muscle Testing Right Flexion (L2) 4 Good Extension (S1) 4 Good Abduction 4+ Good+ Adduction 5 Normal External Rotation 5 Normal Internal Rotation 4+ Good+ Left Flexion (L2) 3+ Fair+ Extension (S1) 4- Good- Abduction 4- Good- Adduction 3+ Fair+ External Rotation 3+ Fair+ Internal Rotation 3+ Fair+ Comments pain w/hip flex, IR B, ER pain L Knee Strength Knee Manual Muscle Testing Right Flexion (S2) 5 Normal Extension (L3) 5 Normal Left Flexion (S2) 4 Good Extension (L3) 4+ Good+ Ankle/Foot Strength Ankle and Foot Manual Muscle Testing Right Dorsiflexion (L4) 5 Normal Plantarflexion (S1) 5 Normal Comments 20 heel raises, pain in R ankle Left Dorsiflexion (L4) 5 Normal Plantarflexion (S1) 5 Normal Comments 20 heel raises PT-OP-Q Treatments Start: 10/28/21 17:46 Freq: Status: Active Protocol: Document 12/02/21 08:08 [facility] (Rec: 12/02/21 11:20 [facility] [id number]) Manual Therapy Treatment Soft Tissue Mobilization abdomen Body Location L to R w/RA & general abdoemn ITB Body Location L ITB & TFL Mobilization Type Rolling,Strumming Intensity/Depth Moderate Body Position Hooklying Comments IR/ER hip flexors Body Location L iliacus & psoas Mobilization Type Rolling,Strumming,Sustained Pressure Intensity/Depth Moderate Body Position Supine Joint Mobilizations innominate Joint L IR FM hip Joint L Comments 1. inf FM 2. hip on axis IR & ER FM prone PT-OP-T Assessment and Plan Start: 10/28/21 17:46 Freq: Status: Active Protocol: Document 12/02/21 08:08 [facility] (Rec: 12/02/21 11:20 [facility] [id number]) Physical Therapy Assessment Goals activity Short Term Goal (STG) pt will be able to get out of chair/car/couch w/o inc hip pain or difficulty. STG Duration 12/28 Custodial Goal (LTG) Pt will return to hiking on uneven terrain for greater than 3 miles w/o inc pain greater than 1/10 LTG Duration 01/28 strength Short Term Goal (STG) Ptw ill be indep w/HEP for stability, strength, balance and ROM STG Duration 12/28/21 Custodial Goal (LTG) Pt will score at least 4/5 on LPM in all planes and 5/5 MMT B in all planes w/o inc pain to inc hip stability and allow pt return to typical activities LTG Duration 01/28 ROM Short Term Goal (STG) Pt will improve hip flex to 110 deg B STG Duration Banana Expert Goal (LTG) Pt will improve ROM to report ease w/donning/doffing socks/ shoes and squatting. LTG Duration 01/28/22 LEFS Impairment 38/80 Short Term Goal (STG) Pt will improve LEFS score to at least 50/80 to show improved functional ability. STG Duration 12/18/21 Banana Expert Goal (LTG) Pt will improve LEFS score to at least 70/80 to show improved functional ability. LTG Duration 01/28/22 Assessment Summary Assessment Pt came in more sore so focus was on manual today. He had imrpoved IR in neutral position of LE but when in flexed position, was more limited today tahn last seen by PT and had some gradual inc w/manual Physical Therapy Plan Frequency and Duration Frequency of Treatment 2x/Week Plan of Care Start Date 10/29/21 Plan of Care End Date 01/28/22 Next Visit Focus/Plan Next Note Type Treatment Note Next Visit Plan : Cont to wrok on hip stability, start some balance activity, cont manual to hip to work on ROM
--- NOTE | 2021-12-04 09:06 | PT.OTN ---
Current Diagnoses Other specified joint disorders, left hip (12/04/21) Difficulty in walking, not elsewhere classified (12/04/21) Abnormal posture (12/04/21) Weakness (12/04/21) Other sprain of right hip, subsequent encounter (12/04/21) Physical Therapy Treatment Note PT-OP-A Visit Information Start: 10/28/21 17:46 Freq: Status: Active Protocol: Document 12/04/21 07:31 [facility] (Rec: 12/04/21 09:06 [facility] [id number]) Out-Patient Physical Therapy Visit Information Visit Information Visit Type Treatment Note Visit Start Time 08:18 Visit Stop Time 08:58 Total Visit Minutes 40 Visit Number 09/21 Number of OR MANAGER Visits 0 PT-OP-B Current Condition Start: 10/28/21 17:46 Freq: Status: Active Protocol: Document 10/29/21 07:29 [facility] (Rec: 10/29/21 08:21 [facility] [id number]) Current Condition History of Current Condition Current Complaints B hip History of Current Condition Pt reports R hip has been given him trouble for about a year for unknown reason. He had surgery for impingement of L hip and repaired labrum in early May. Surgeon was Dr. Sher. Long strides, hills, and twisting gives it pain. R hip is currently doing pretty well. He has done some small walks that are pretty flat. He will notice discomfort by the end in L hip. He rides the [place] at home. Pt is cleared for activity as tolerated. He does not return to MD until completing PT. ROlled R ankle about 1 year ago. LBP that is chronic. R hip pt had surgery for labral tear and impingment of june o f2021 Treatment Goals Patient/Caregiver Goals improve ROM of hips, Return to hiking, light mtn biking, being active PT-OP-C Subjective Start: 10/28/21 17:46 Freq: Status: Active Protocol: Document 12/04/21 07:31 [facility] (Rec: 12/04/21 09:06 [facility] [id number]) OP-PT Subjective Patient Comments Patient Comments Pt reports not getting in much exercise since last time. PT-OP-D Balance Start: 10/28/21 17:46 Freq: Status: Active Protocol: Document 10/29/21 07:29 [facility] (Rec: 10/29/21 08:21 [facility] [id number]) Balance Tests Single Limb Standing Single Limb- Right >30 sec Single Limb- Left >30 sec w/slight lat lean PT-OP-F Manual Assessment Start: 10/28/21 17:46 Freq: Status: Active Protocol: Document 10/29/21 07:29 [facility] (Rec: 10/29/21 08:21 [facility] [id number]) Manual Assessments Soft Tissue Assessment Soft Tissue Mobility Assessment tightness in B hip flexors, ITB, adductors, VL, RF Joint Mobility Assessment Joint Mobility Assessment ER of femur and tibia L; R ER of femur and IR of tibia w/ knee bend PT-OP-G Mobility & Gait Start: 10/28/21 17:46 Freq: Status: Active Protocol: Document 10/29/21 07:29 [facility] (Rec: 10/29/21 08:21 [facility] [id number]) OP Gait Assessment Comments Gait Comments lat lean L w/WB L, dec pelvis motion, dec push off PT-OP-J Posture/Palpation/Skin Start: 10/28/21 17:46 Freq: Status: Active Protocol: Document 10/29/21 07:29 [facility] (Rec: 10/29/21 08:21 [facility] [id number]) Posture Evaluation Qiana Postural Classification System Qiana Postural Classifications Posterior/Posterior Lumbar Protective Mechanism Left AP 1 Lumbar Protective Mechanism Right AP 1 Lumbar Protective Mechanism Left PA 2 Lumbar Protective Mechanism Right PA 2 PT-OP-K Range of Motion Start: 10/28/21 17:46 Freq: Status: Active Protocol: Document 10/29/21 07:29 [facility] (Rec: 10/29/21 08:21 [facility] [id number]) Hip Goniometric Range of Motion Hip Right Active Flexion w/Knee Flexed 97 Straight Leg Raise 71 Abduction 38 Internal Rotation 27 External Rotation 28 Left Active Flexion w/Knee Flexed 95 Straight Leg Raise 68 Abduction 20 Internal Rotation 20 External Rotation 25 PT-OP-L Special Tests Start: 10/28/21 17:46 Freq: Status: Active Protocol: Document 10/29/21 07:29 [facility] (Rec: 10/29/21 08:21 [facility] [id number]) Special Tests Hip Special Tests Obers Test Results neg R, mild tightness L Shmuel Test Results tight TFL, dec opp hip flex ROM but WNL for RF & hip flexor PT-OP-M Strength Start: 10/28/21 17:46 Freq: Status: Active Protocol: Document 10/29/21 07:29 [facility] (Rec: 10/29/21 08:21 [facility] [id number]) Hip Strength Hip Manual Muscle Testing Right Flexion (L2) 4 Good Extension (S1) 4 Good Abduction 4+ Good+ Adduction 5 Normal External Rotation 5 Normal Internal Rotation 4+ Good+ Left Flexion (L2) 3+ Fair+ Extension (S1) 4- Good- Abduction 4- Good- Adduction 3+ Fair+ External Rotation 3+ Fair+ Internal Rotation 3+ Fair+ Comments pain w/hip flex, IR B, ER pain L Knee Strength Knee Manual Muscle Testing Right Flexion (S2) 5 Normal Extension (L3) 5 Normal Left Flexion (S2) 4 Good Extension (L3) 4+ Good+ Ankle/Foot Strength Ankle and Foot Manual Muscle Testing Right Dorsiflexion (L4) 5 Normal Plantarflexion (S1) 5 Normal Comments 20 heel raises, pain in R ankle Left Dorsiflexion (L4) 5 Normal Plantarflexion (S1) 5 Normal Comments 20 heel raises PT-OP-Q Treatments Start: 10/28/21 17:46 Freq: Status: Active Protocol: Document 12/04/21 07:31 [facility] (Rec: 12/04/21 09:06 [facility] [id number]) Gym Equipment Shuttle Balance chains red Details Head turns Comments fwd &side: WBOS & NBOS fwd: staggered stance Therapeutic Exercises Other Exercises self mob Other Exercise Name 1/2 kneel w/inf glide w/band Side left Reps/Minutes fwd leans x10 kathe pose Side bilateral Reps/Minutes 1 min Manual Therapy Treatment Soft Tissue Mobilization ITB Body Location L ITB & TFL Mobilization Type Rolling,Strumming Intensity/Depth Moderate Body Position Hooklying Comments IR/ER adductors Body Location L HS/adductors Mobilization Type Rolling,Strumming,Sustained Pressure Intensity/Depth Moderate Body Position Hooklying Comments w/leg on PT shoulder Joint Mobilizations hip Reps/Duration FM Comments B inf glide L lat glide Neuro Re-Education Treatment Balance Activities bosu Comments 1.step up w/alt april x10 B 2. fwd lunge mini x10 B 3. side lunge mini x10 B PT-OP-T Assessment and Plan Start: 10/28/21 17:46 Freq: Status: Active Protocol: Document 12/04/21 07:31 [facility] (Rec: 12/04/21 09:06 [facility] [id number]) Physical Therapy Assessment Goals activity Short Term Goal (STG) pt will be able to get out of chair/car/couch w/o inc hip pain or difficulty. STG Duration 12/28 Alf Goal (LTG) Pt will return to hiking on uneven terrain for greater than 3 miles w/o inc pain greater than 1/10 LTG Duration 01/28 strength Short Term Goal (STG) Ptw ill be indep w/HEP for stability, strength, balance and ROM STG Duration 12/28/21 Alf Goal (LTG) Pt will score at least 4/5 on LPM in all planes and 5/5 MMT B in all planes w/o inc pain to inc hip stability and allow pt return to typical activities LTG Duration 01/28 ROM Short Term Goal (STG) Pt will improve hip flex to 110 deg B STG Duration Alf Goal (LTG) Pt will improve ROM to report ease w/donning/doffing socks/ shoes and squatting. LTG Duration 01/28/22 LEFS Impairment 38/80 Short Term Goal (STG) Pt will improve LEFS score to at least 50/80 to show improved functional ability. STG Duration 12/18/21 Alf Goal (LTG) Pt will improve LEFS score to at least 70/80 to show improved functional ability. LTG Duration 01/28/22 Assessment Summary Assessment Pt did well with red clips w/o major challenge but was more challenged by bosu activities. Improved hip ROM into flex B with manual treatment Physical Therapy Plan Frequency and Duration Frequency of Treatment 2x/Week Plan of Care Start Date 10/29/21 Plan of Care End Date 01/28/22 Next Visit Focus/Plan Next Note Type Treatment Note Next Visit Plan Cont to wrok on hip stability, balance activity, cont manual to hip to work on ROM
--- NOTE | 2021-12-08 09:06 | PT.OTN ---
Current Diagnoses Other specified joint disorders, left hip (12/08/21) Difficulty in walking, not elsewhere classified (12/08/21) Abnormal posture (12/08/21) Weakness (12/08/21) Other sprain of right hip, subsequent encounter (12/08/21) Physical Therapy Treatment Note PT-OP-A Visit Information Start: 10/28/21 17:46 Freq: Status: Active Protocol: Document 12/08/21 08:20 [facility] (Rec: 12/08/21 09:06 [facility] [id number]) Out-Patient Physical Therapy Visit Information Visit Information Visit Type Treatment Note Visit Start Time 08:20 Visit Stop Time 09:10 Total Visit Minutes 50 Visit Number 10/22 Number of DOCK COORDINATOR Visits 0 PT-OP-B Current Condition Start: 10/28/21 17:46 Freq: Status: Active Protocol: Document 10/29/21 07:29 [facility] (Rec: 10/29/21 08:21 [facility] [id number]) Current Condition History of Current Condition Current Complaints B hip History of Current Condition Pt reports R hip has been given him trouble for about a year for unknown reason. He had surgery for impingement of L hip and repaired labrum in early May. Surgeon was Dr. Sher. Long strides, hills, and twisting gives it pain. R hip is currently doing pretty well. He has done some small walks that are pretty flat. He will notice discomfort by the end in L hip. He rides the [place] at home. Pt is cleared for activity as tolerated. He does not return to MD until completing PT. ROlled R ankle about 1 year ago. LBP that is chronic. R hip pt had surgery for labral tear and impingment of june o f2021 Treatment Goals Patient/Caregiver Goals improve ROM of hips, Return to hiking, light mtn biking, being active PT-OP-C Subjective Start: 10/28/21 17:46 Freq: Status: Active Protocol: Document 12/08/21 08:20 [facility] (Rec: 12/08/21 09:06 [facility] [id number]) OP-PT Subjective Patient Comments Patient Comments Pt reports hips have been feeling pretty good. He had some pops last night in L hip but it felt more like relief. Notes R ankle a little sore after last session and on sat after stretching and standing alot. Was able to vacum house yesterday w/o inc pain in hips Patient Reported Progress Improving PT-OP-D Balance Start: 10/28/21 17:46 Freq: Status: Active Protocol: Document 10/29/21 07:29 [facility] (Rec: 10/29/21 08:21 [facility] [id number]) Balance Tests Single Limb Standing Single Limb- Right >30 sec Single Limb- Left >30 sec w/slight lat lean PT-OP-F Manual Assessment Start: 10/28/21 17:46 Freq: Status: Active Protocol: Document 10/29/21 07:29 [facility] (Rec: 10/29/21 08:21 [facility] [id number]) Manual Assessments Soft Tissue Assessment Soft Tissue Mobility Assessment tightness in B hip flexors, ITB, adductors, VL, RF Joint Mobility Assessment Joint Mobility Assessment ER of femur and tibia L; R ER of femur and IR of tibia w/ knee bend PT-OP-G Mobility & Gait Start: 10/28/21 17:46 Freq: Status: Active Protocol: Document 10/29/21 07:29 [facility] (Rec: 10/29/21 08:21 [facility] [id number]) OP Gait Assessment Comments Gait Comments lat lean L w/WB L, dec pelvis motion, dec push off PT-OP-J Posture/Palpation/Skin Start: 10/28/21 17:46 Freq: Status: Active Protocol: Document 10/29/21 07:29 [facility] (Rec: 10/29/21 08:21 [facility] [id number]) Posture Evaluation Qiana Postural Classification System Qiana Postural Classifications Posterior/Posterior Lumbar Protective Mechanism Left AP 1 Lumbar Protective Mechanism Right AP 1 Lumbar Protective Mechanism Left PA 2 Lumbar Protective Mechanism Right PA 2 PT-OP-K Range of Motion Start: 10/28/21 17:46 Freq: Status: Active Protocol: Document 10/29/21 07:29 [facility] (Rec: 10/29/21 08:21 [facility] [id number]) Hip Goniometric Range of Motion Hip Right Active Flexion w/Knee Flexed 97 Straight Leg Raise 71 Abduction 38 Internal Rotation 27 External Rotation 28 Left Active Flexion w/Knee Flexed 95 Straight Leg Raise 68 Abduction 20 Internal Rotation 20 External Rotation 25 PT-OP-L Special Tests Start: 10/28/21 17:46 Freq: Status: Active Protocol: Document 10/29/21 07:29 [facility] (Rec: 10/29/21 08:21 [facility] [id number]) Special Tests Hip Special Tests Obers Test Results neg R, mild tightness L Shmuel Test Results tight TFL, dec opp hip flex ROM but WNL for RF & hip flexor PT-OP-M Strength Start: 10/28/21 17:46 Freq: Status: Active Protocol: Document 10/29/21 07:29 [facility] (Rec: 10/29/21 08:21 [facility] [id number]) Hip Strength Hip Manual Muscle Testing Right Flexion (L2) 4 Good Extension (S1) 4 Good Abduction 4+ Good+ Adduction 5 Normal External Rotation 5 Normal Internal Rotation 4+ Good+ Left Flexion (L2) 3+ Fair+ Extension (S1) 4- Good- Abduction 4- Good- Adduction 3+ Fair+ External Rotation 3+ Fair+ Internal Rotation 3+ Fair+ Comments pain w/hip flex, IR B, ER pain L Knee Strength Knee Manual Muscle Testing Right Flexion (S2) 5 Normal Extension (L3) 5 Normal Left Flexion (S2) 4 Good Extension (L3) 4+ Good+ Ankle/Foot Strength Ankle and Foot Manual Muscle Testing Right Dorsiflexion (L4) 5 Normal Plantarflexion (S1) 5 Normal Comments 20 heel raises, pain in R ankle Left Dorsiflexion (L4) 5 Normal Plantarflexion (S1) 5 Normal Comments 20 heel raises PT-OP-Q Treatments Start: 10/28/21 17:46 Freq: Status: Active Protocol: Document 12/08/21 08:20 [facility] (Rec: 12/08/21 09:06 [facility] [id number]) Therapeutic Exercises Supine Exercises core Supine Exercise Name DL isometric Side bilateral Reps/Minutes 30 sec Standing Exercises squats Side bilateral Reps/Minutes 15 Manual Therapy Treatment Soft Tissue Mobilization ITB Body Location L ITB & TFL Mobilization Type Rolling,Strumming Intensity/Depth Moderate Body Position Hooklying Comments IR/ER hip flexors Body Location B Mobilization Type Rolling,Strumming,Sustained Pressure Intensity/Depth Moderate Body Position Supine Comments and erlinda knife position FM Joint Mobilizations innominate Joint R flex FM hip Reps/Duration FM Comments B inf glide L lat glide Neuro Re-Education Treatment Balance Activities SLS Comments 1. SLS w/rotation B 2. SLS on blue side bosu B 3. SLS EC B bosu Comments 1.step up w/alt april x10 B 2. fwd lunge mini x10 B 3. side lunge mini x10 B 4. black side mini squat x10 PT-OP-T Assessment and Plan Start: 10/28/21 17:46 Freq: Status: Active Protocol: Document 12/08/21 08:20 [facility] (Rec: 12/08/21 09:06 [facility] [id number]) Physical Therapy Assessment Goals activity Short Term Goal (STG) pt will be able to get out of chair/car/couch w/o inc hip pain or difficulty. STG Duration 12/28 Mcc Goal (LTG) Pt will return to hiking on uneven terrain for greater than 3 miles w/o inc pain greater than 1/10 LTG Duration 01/28 strength Short Term Goal (STG) Ptw ill be indep w/HEP for stability, strength, balance and ROM STG Duration 12/28/21 Mcc Goal (LTG) Pt will score at least 4/5 on LPM in all planes and 5/5 MMT B in all planes w/o inc pain to inc hip stability and allow pt return to typical activities LTG Duration 01/28 ROM Short Term Goal (STG) Pt will improve hip flex to 110 deg B STG Duration Mcc Goal (LTG) Pt will improve ROM to report ease w/donning/doffing socks/ shoes and squatting. LTG Duration 01/28/22 LEFS Impairment 38/80 Short Term Goal (STG) Pt will improve LEFS score to at least 50/80 to show improved functional ability. STG Duration 12/18/21 Mcc Goal (LTG) Pt will improve LEFS score to at least 70/80 to show improved functional ability. LTG Duration 01/28/22 Assessment Summary Assessment Pt imprvoing w/ROM of B hips today overall with manual. L still more restricted and still has pinching that my be related to pubic bone immobility. He is improving w/ strength and showed improved squat Physical Therapy Plan Frequency and Duration Frequency of Treatment 2x/Week Plan of Care Start Date 10/29/21 Plan of Care End Date 01/28/22 Next Visit Focus/Plan Next Note Type Treatment Note Next Visit Plan Cont to wrok on hip stability, balance activity, cont manual to hip to work on ROM
--- NOTE | 2021-12-10 09:08 | PT.OTN ---
Current Diagnoses Other specified joint disorders, left hip (12/10/21) Difficulty in walking, not elsewhere classified (12/10/21) Abnormal posture (12/10/21) Weakness (12/10/21) Other sprain of right hip, subsequent encounter (12/10/21) Physical Therapy Treatment Note PT-OP-A Visit Information Start: 10/28/21 17:46 Freq: Status: Active Protocol: Document 12/10/21 08:32 [facility] (Rec: 12/10/21 09:08 [facility] [id number]) Out-Patient Physical Therapy Visit Information Visit Information Visit Type Treatment Note Visit Start Time 08:21 Visit Stop Time 09:10 Total Visit Minutes 49 Visit Number 11/22 Number of BEER STILL RUNNER COMPOUNDER Visits 0 PT-OP-B Current Condition Start: 10/28/21 17:46 Freq: Status: Active Protocol: Document 10/29/21 07:29 [facility] (Rec: 10/29/21 08:21 [facility] [id number]) Current Condition History of Current Condition Current Complaints B hip History of Current Condition Pt reports R hip has been given him trouble for about a year for unknown reason. He had surgery for impingement of L hip and repaired labrum in early May. Surgeon was Dr. Sher. Long strides, hills, and twisting gives it pain. R hip is currently doing pretty well. He has done some small walks that are pretty flat. He will notice discomfort by the end in L hip. He rides the [place] at home. Pt is cleared for activity as tolerated. He does not return to MD until completing PT. ROlled R ankle about 1 year ago. LBP that is chronic. R hip pt had surgery for labral tear and impingment of june o f2021 Treatment Goals Patient/Caregiver Goals improve ROM of hips, Return to hiking, light mtn biking, being active PT-OP-C Subjective Start: 10/28/21 17:46 Freq: Status: Active Protocol: Document 12/10/21 08:32 [facility] (Rec: 12/10/21 09:08 [facility] [id number]) OP-PT Subjective Patient Comments Patient Comments NOtes he moved furniture wednesday and did okay after. did ice and take tylenol. Hip was ok past 2 days but woke up this AM sore. PT-OP-D Balance Start: 10/28/21 17:46 Freq: Status: Active Protocol: Document 10/29/21 07:29 [facility] (Rec: 10/29/21 08:21 [facility] [id number]) Balance Tests Single Limb Standing Single Limb- Right >30 sec Single Limb- Left >30 sec w/slight lat lean PT-OP-F Manual Assessment Start: 10/28/21 17:46 Freq: Status: Active Protocol: Document 10/29/21 07:29 [facility] (Rec: 10/29/21 08:21 [facility] [id number]) Manual Assessments Soft Tissue Assessment Soft Tissue Mobility Assessment tightness in B hip flexors, ITB, adductors, VL, RF Joint Mobility Assessment Joint Mobility Assessment ER of femur and tibia L; R ER of femur and IR of tibia w/ knee bend PT-OP-G Mobility & Gait Start: 10/28/21 17:46 Freq: Status: Active Protocol: Document 10/29/21 07:29 [facility] (Rec: 10/29/21 08:21 [facility] [id number]) OP Gait Assessment Comments Gait Comments lat lean L w/WB L, dec pelvis motion, dec push off PT-OP-J Posture/Palpation/Skin Start: 10/28/21 17:46 Freq: Status: Active Protocol: Document 10/29/21 07:29 [facility] (Rec: 10/29/21 08:21 [facility] [id number]) Posture Evaluation [facility] Postural Classification System Qiana Postural Classifications Posterior/Posterior Lumbar Protective Mechanism Left AP 1 Lumbar Protective Mechanism Right AP 1 Lumbar Protective Mechanism Left PA 2 Lumbar Protective Mechanism Right PA 2 PT-OP-K Range of Motion Start: 10/28/21 17:46 Freq: Status: Active Protocol: Document 10/29/21 07:29 [facility] (Rec: 10/29/21 08:21 [facility] [id number]) Hip Goniometric Range of Motion Hip Right Active Flexion w/Knee Flexed 97 Straight Leg Raise 71 Abduction 38 Internal Rotation 27 External Rotation 28 Left Active Flexion w/Knee Flexed 95 Straight Leg Raise 68 Abduction 20 Internal Rotation 20 External Rotation 25 PT-OP-L Special Tests Start: 10/28/21 17:46 Freq: Status: Active Protocol: Document 10/29/21 07:29 [facility] (Rec: 10/29/21 08:21 [facility] [id number]) Special Tests Hip Special Tests Obers Test Results neg R, mild tightness L Shmuel Test Results tight TFL, dec opp hip flex ROM but WNL for RF & hip flexor PT-OP-M Strength Start: 10/28/21 17:46 Freq: Status: Active Protocol: Document 10/29/21 07:29 [facility] (Rec: 10/29/21 08:21 [facility] [id number]) Hip Strength Hip Manual Muscle Testing Right Flexion (L2) 4 Good Extension (S1) 4 Good Abduction 4+ Good+ Adduction 5 Normal External Rotation 5 Normal Internal Rotation 4+ Good+ Left Flexion (L2) 3+ Fair+ Extension (S1) 4- Good- Abduction 4- Good- Adduction 3+ Fair+ External Rotation 3+ Fair+ Internal Rotation 3+ Fair+ Comments pain w/hip flex, IR B, ER pain L Knee Strength Knee Manual Muscle Testing Right Flexion (S2) 5 Normal Extension (L3) 5 Normal Left Flexion (S2) 4 Good Extension (L3) 4+ Good+ Ankle/Foot Strength Ankle and Foot Manual Muscle Testing Right Dorsiflexion (L4) 5 Normal Plantarflexion (S1) 5 Normal Comments 20 heel raises, pain in R ankle Left Dorsiflexion (L4) 5 Normal Plantarflexion (S1) 5 Normal Comments 20 heel raises PT-OP-Q Treatments Start: 10/28/21 17:46 Freq: Status: Active Protocol: Document 12/10/21 08:32 [facility] (Rec: 12/10/21 09:08 [facility] [id number]) Therapeutic Exercises Sidelying Exercises add Side left Reps/Minutes 15 Manual Therapy Treatment Soft Tissue Mobilization ITB Body Location L ITB & TFL Mobilization Type Rolling,Strumming Intensity/Depth Moderate Body Position Supine Comments IR/ER adductors Body Location L adductors Mobilization Type Rolling,Strumming,Sustained Pressure Intensity/Depth Moderate Body Position Supine hip flexors Body Location R iliacus and pectinius Mobilization Type Rolling,Strumming,Sustained Pressure Intensity/Depth Moderate Body Position Supine Comments w/rotiatons Joint Mobilizations hip Joint IR FM supine Neuro Re-Education Treatment Balance Activities SLS Comments 1. SLS w/rotation B 2. SLS on blue side bosu B 3. SLS EC B bosu Comments 1.step up w/alt april x10 B 2. fwd lunge mini x10 B 3. side lunge mini x10 B 4. black side and blue side mini squat x10 ea 5. blue and black side stand EC 6. lat set up /april x10 B PT-OP-T Assessment and Plan Start: 10/28/21 17:46 Freq: Status: Active Protocol: Document 12/10/21 08:32 [facility] (Rec: 12/10/21 09:08 [facility] [id number]) Physical Therapy Assessment Goals activity Short Term Goal (STG) pt will be able to get out of chair/car/couch w/o inc hip pain or difficulty. STG Duration 12/28 Residential Goal (LTG) Pt will return to hiking on uneven terrain for greater than 3 miles w/o inc pain greater than 1/10 LTG Duration 01/28 strength Short Term Goal (STG) Ptw ill be indep w/HEP for stability, strength, balance and ROM STG Duration 12/28/21 Medical Assistant Float Goal (LTG) Pt will score at least 4/5 on LPM in all planes and 5/5 MMT B in all planes w/o inc pain to inc hip stability and allow pt return to typical activities LTG Duration 01/28 ROM Short Term Goal (STG) Pt will improve hip flex to 110 deg B STG Duration Medical Assistant Float Goal (LTG) Pt will improve ROM to report ease w/donning/doffing socks/ shoes and squatting. LTG Duration 01/28/22 LEFS Impairment 38/80 Short Term Goal (STG) Pt will improve LEFS score to at least 50/80 to show improved functional ability. STG Duration 12/18/21 Residential Goal (LTG) Pt will improve LEFS score to at least 70/80 to show improved functional ability. LTG Duration 01/28/22 Assessment Summary Assessment Pt cont to do well with strengthening exercises with deeper lunges today noted. He is weak into adduction and mostly limited when going into multiplane motions like flex w/add or IR. Physical Therapy Plan Frequency and Duration Frequency of Treatment 2x/Week Plan of Care Start Date 10/29/21 Plan of Care End Date 01/28/22 Next Visit Focus/Plan Next Note Type Treatment Note Next Visit Plan Cont to wrok on hip stability, balance activity, cont manual to hip to work on ROM
--- NOTE | 2021-12-25 09:52 | PT.OTN ---
Current Diagnoses Other specified joint disorders, left hip (12/25/21) Difficulty in walking, not elsewhere classified (12/25/21) Abnormal posture (12/25/21) Weakness (12/25/21) Other sprain of right hip, subsequent encounter (12/25/21) Physical Therapy Treatment Note PT-OP-A Visit Information Start: 10/28/21 17:46 Freq: Status: Active Protocol: Document 12/25/21 07:36 [facility] (Rec: 12/25/21 09:52 [facility] [id number]) Out-Patient Physical Therapy Visit Information Visit Information Visit Type Treatment Note Visit Start Time 09:05 Visit Stop Time 09:45 Total Visit Minutes 40 Visit Number 12/[address] AW[address] DRIVER Visits 0 PT-OP-B Current Condition Start: 10/28/21 17:46 Freq: Status: Active Protocol: Document 10/29/21 07:29 [facility] (Rec: 10/29/21 08:21 [facility] [id number]) Current Condition History of Current Condition Current Complaints B hip History of Current Condition Pt reports R hip has been given him trouble for about a year for unknown reason. He had surgery for impingement of L hip and repaired labrum in early May. Surgeon was Dr. Sher. Long strides, hills, and twisting gives it pain. R hip is currently doing pretty well. He has done some small walks that are pretty flat. He will notice discomfort by the end in L hip. He rides the pelaton at home. Pt is cleared for activity as tolerated. He does not return to MD until completing PT. ROlled R ankle about 1 year ago. LBP that is chronic. R hip pt had surgery for labral tear and impingment of june o f2021 Treatment Goals Patient/Caregiver Goals improve ROM of hips, Return to hiking, light mtn biking, being active PT-OP-C Subjective Start: 10/28/21 17:46 Freq: Status: Active Protocol: Document 12/25/21 07:36 [facility] (Rec: 12/25/21 09:52 [facility] [id number]) OP-PT Subjective Patient Comments Patient Comments Pt saw MD about his ankle and took xray and ordered MRI and sent to podiatry. Notes he did a walk on the [place] [address] and had some points where his hip pain was sharp and leg felt like jello PT-OP-D Balance Start: 10/28/21 17:46 Freq: Status: Active Protocol: Document 10/29/21 07:29 [facility] (Rec: 10/29/21 08:21 [facility] [id number]) Balance Tests Single Limb Standing Single Limb- Right >30 sec Single Limb- Left >30 sec w/slight lat lean PT-OP-F Manual Assessment Start: 10/28/21 17:46 Freq: Status: Active Protocol: Document 10/29/21 07:29 [facility] (Rec: 10/29/21 08:21 [facility] [id number]) Manual Assessments Soft Tissue Assessment Soft Tissue Mobility Assessment tightness in B hip flexors, ITB, adductors, VL, RF Joint Mobility Assessment Joint Mobility Assessment ER of femur and tibia L; R ER of femur and IR of tibia w/ knee bend PT-OP-G Mobility & Gait Start: 10/28/21 17:46 Freq: Status: Active Protocol: Document 10/29/21 07:29 [facility] (Rec: 10/29/21 08:21 [facility] [id number]) OP Gait Assessment Comments Gait Comments lat lean L w/WB L, dec pelvis motion, dec push off PT-OP-J Posture/Palpation/Skin Start: 10/28/21 17:46 Freq: Status: Active Protocol: Document 10/29/21 07:29 [facility] (Rec: 10/29/21 08:21 [facility] [id number]) Posture Evaluation Qiana Postural Classification System Qiana Postural Classifications Posterior/Posterior Lumbar Protective Mechanism Left AP 1 Lumbar Protective Mechanism Right AP 1 Lumbar Protective Mechanism Left PA 2 Lumbar Protective Mechanism Right PA 2 PT-OP-K Range of Motion Start: 10/28/21 17:46 Freq: Status: Active Protocol: Document 10/29/21 07:29 [facility] (Rec: 10/29/21 08:21 [facility] [id number]) Hip Goniometric Range of Motion Hip Right Active Flexion w/Knee Flexed 97 Straight Leg Raise 71 Abduction 38 Internal Rotation 27 External Rotation 28 Left Active Flexion w/Knee Flexed 95 Straight Leg Raise 68 Abduction 20 Internal Rotation 20 External Rotation 25 PT-OP-L Special Tests Start: 10/28/21 17:46 Freq: Status: Active Protocol: Document 10/29/21 07:29 [facility] (Rec: 10/29/21 08:21 [facility] [id number]) Special Tests Hip Special Tests Obers Test Results neg R, mild tightness L Shmuel Test Results tight TFL, dec opp hip flex ROM but WNL for RF & hip flexor PT-OP-M Strength Start: 10/28/21 17:46 Freq: Status: Active Protocol: Document 10/29/21 07:29 [facility] (Rec: 10/29/21 08:21 [facility] [id number]) Hip Strength Hip Manual Muscle Testing Right Flexion (L2) 4 Good Extension (S1) 4 Good Abduction 4+ Good+ Adduction 5 Normal External Rotation 5 Normal Internal Rotation 4+ Good+ Left Flexion (L2) 3+ Fair+ Extension (S1) 4- Good- Abduction 4- Good- Adduction 3+ Fair+ External Rotation 3+ Fair+ Internal Rotation 3+ Fair+ Comments pain w/hip flex, IR B, ER pain L Knee Strength Knee Manual Muscle Testing Right Flexion (S2) 5 Normal Extension (L3) 5 Normal Left Flexion (S2) 4 Good Extension (L3) 4+ Good+ Ankle/Foot Strength Ankle and Foot Manual Muscle Testing Right Dorsiflexion (L4) 5 Normal Plantarflexion (S1) 5 Normal Comments 20 heel raises, pain in R ankle Left Dorsiflexion (L4) 5 Normal Plantarflexion (S1) 5 Normal Comments 20 heel raises PT-OP-Q Treatments Start: 10/28/21 17:46 Freq: Status: Active Protocol: Document 12/25/21 07:36 [facility] (Rec: 12/25/21 09:52 [facility] [id number]) Therapeutic Exercises Standing Exercises gait at wall Side bilateral Reps/Minutes 10 sec x2 Manual Therapy Treatment Soft Tissue Mobilization hip flexors Body Location L iliacus and RF Mobilization Type Rolling,Strumming,Sustained Pressure Intensity/Depth Moderate Body Position Supine Comments w/rotiatons Joint Mobilizations pubic bone Comments L inf FM (consent given) hip Comments L inf FM Neuro Re-Education Treatment Balance Activities SLS Comments SLS Y reach x6 ea B bosu Comments 1. lat step up w/alt april x10 B 2. fwd lunge mini x10 B 3. side lunge mini x10 B 4. black side mini squat x10 ea Other Activities faciliation Comments faciliation w/chop pattern and chin tuck for L flex,add ER pattern-mult reps until got magnetic clinic-tonic spread PT-OP-T Assessment and Plan Start: 10/28/21 17:46 Freq: Status: Active Protocol: Document 12/25/21 07:36 [facility] (Rec: 12/25/21 09:52 [facility] [id number]) Physical Therapy Assessment Goals activity Short Term Goal (STG) pt will be able to get out of chair/car/couch w/o inc hip pain or difficulty. STG Duration 12/28 Rose Grower Goal (LTG) Pt will return to hiking on uneven terrain for greater than 3 miles w/o inc pain greater than 1/10 LTG Duration 01/28 strength Short Term Goal (STG) Ptw ill be indep w/HEP for stability, strength, balance and ROM STG Duration 12/28/21 Assisted Goal (LTG) Pt will score at least 4/5 on LPM in all planes and 5/5 MMT B in all planes w/o inc pain to inc hip stability and allow pt return to typical activities LTG Duration 01/28 ROM Short Term Goal (STG) Pt will improve hip flex to 110 deg B STG Duration Rose Grower Goal (LTG) Pt will improve ROM to report ease w/donning/doffing socks/ shoes and squatting. LTG Duration 01/28/22 LEFS Impairment 38/80 Short Term Goal (STG) Pt will improve LEFS score to at least 50/80 to show improved functional ability. STG Duration 12/18/21 Rose Grower Goal (LTG) Pt will improve LEFS score to at least 70/80 to show improved functional ability. LTG Duration 01/28/22 Assessment Summary Assessment Pt had a huge imrpovement in ability to IR and flex w/less pain after manual treatment to pubic bone. He is improving in depth of squats and lunges and showed improved core stabiltiy w/PNF Physical Therapy Plan Frequency and Duration Frequency of Treatment 2x/Week Plan of Care Start Date 10/29/21 Plan of Care End Date 01/28/22 Next Visit Focus/Plan Next Note Type Treatment Note Next Visit Plan Cont to wrok on hip stability, balance activity, cont manual to hip to work on ROM
--- NOTE | 2022-01-06 09:18 | PT.OTN ---
Current Diagnoses Other specified joint disorders, left hip (01/06/22) Difficulty in walking, not elsewhere classified (01/06/22) Abnormal posture (01/06/22) Weakness (01/06/22) Other sprain of right hip, subsequent encounter (01/06/22) Physical Therapy Treatment Note PT-OP-A Visit Information Start: 10/28/21 17:46 Freq: Status: Active Protocol: Document 01/06/22 08:14 [facility] (Rec: 01/06/22 09:18 [facility] [id number]) Out-Patient Physical Therapy Visit Information Visit Information Visit Type Treatment Note Visit Start Time 08:16 Visit Stop Time 09:00 Total Visit Minutes 44 Visit Number 01/22 Number of DIETARY SUPERVISOR Visits 0 PT-OP-B Current Condition Start: 10/28/21 17:46 Freq: Status: Active Protocol: Document 10/29/21 07:29 [facility] (Rec: 10/29/21 08:21 [facility] [id number]) Current Condition History of Current Condition Current Complaints B hip History of Current Condition Pt reports R hip has been given him trouble for about a year for unknown reason. He had surgery for impingement of L hip and repaired labrum in early May. Surgeon was Dr. Sher. Long strides, hills, and twisting gives it pain. R hip is currently doing pretty well. He has done some small walks that are pretty flat. He will notice discomfort by the end in L hip. He rides the [place] at home. Pt is cleared for activity as tolerated. He does not return to MD until completing PT. ROlled R ankle about 1 year ago. LBP that is chronic. R hip pt had surgery for labral tear and impingment of june o f2021 Treatment Goals Patient/Caregiver Goals improve ROM of hips, Return to hiking, light mtn biking, being active PT-OP-C Subjective Start: 10/28/21 17:46 Freq: Status: Active Protocol: Document 01/06/22 08:14 [facility] (Rec: 01/06/22 09:18 [facility] [id number]) OP-PT Subjective Patient Comments Patient Comments Pt reports he has been getting at least 4500k steps a day per his watch but has not been doing walks but has been doing some stretchign and squats and lunges. He got on the room this weekend and was sore later that day but it was better the next day. Shoes and socks are easier now. PT-OP-D Balance Start: 10/28/21 17:46 Freq: Status: Active Protocol: Document 10/29/21 07:29 [facility] (Rec: 10/29/21 08:21 [facility] [id number]) Balance Tests Single Limb Standing Single Limb- Right >30 sec Single Limb- Left >30 sec w/slight lat lean PT-OP-F Manual Assessment Start: 10/28/21 17:46 Freq: Status: Active Protocol: Document 10/29/21 07:29 [facility] (Rec: 10/29/21 08:21 [facility] [id number]) Manual Assessments Soft Tissue Assessment Soft Tissue Mobility Assessment tightness in B hip flexors, ITB, adductors, VL, RF Joint Mobility Assessment Joint Mobility Assessment ER of femur and tibia L; R ER of femur and IR of tibia w/ knee bend PT-OP-G Mobility & Gait Start: 10/28/21 17:46 Freq: Status: Active Protocol: Document 10/29/21 07:29 [facility] (Rec: 10/29/21 08:21 [facility] [id number]) OP Gait Assessment Comments Gait Comments lat lean L w/WB L, dec pelvis motion, dec push off PT-OP-J Posture/Palpation/Skin Start: 10/28/21 17:46 Freq: Status: Active Protocol: Document 10/29/21 07:29 [facility] (Rec: 10/29/21 08:21 [facility] [id number]) Posture Evaluation Qiana Postural Classification System Qiana Postural Classifications Posterior/Posterior Lumbar Protective Mechanism Left AP 1 Lumbar Protective Mechanism Right AP 1 Lumbar Protective Mechanism Left PA 2 Lumbar Protective Mechanism Right PA 2 PT-OP-K Range of Motion Start: 10/28/21 17:46 Freq: Status: Active Protocol: Document 10/29/21 07:29 [facility] (Rec: 10/29/21 08:21 [facility] [id number]) Hip Goniometric Range of Motion Hip Right Active Flexion w/Knee Flexed 97 Straight Leg Raise 71 Abduction 38 Internal Rotation 27 External Rotation 28 Left Active Flexion w/Knee Flexed 95 Straight Leg Raise 68 Abduction 20 Internal Rotation 20 External Rotation 25 PT-OP-L Special Tests Start: 10/28/21 17:46 Freq: Status: Active Protocol: Document 10/29/21 07:29 [facility] (Rec: 10/29/21 08:21 [facility] [id number]) Special Tests Hip Special Tests Obers Test Results neg R, mild tightness L Shmuel Test Results tight TFL, dec opp hip flex ROM but WNL for RF & hip flexor PT-OP-M Strength Start: 10/28/21 17:46 Freq: Status: Active Protocol: Document 10/29/21 07:29 [facility] (Rec: 10/29/21 08:21 [facility] [id number]) Hip Strength Hip Manual Muscle Testing Right Flexion (L2) 4 Good Extension (S1) 4 Good Abduction 4+ Good+ Adduction 5 Normal External Rotation 5 Normal Internal Rotation 4+ Good+ Left Flexion (L2) 3+ Fair+ Extension (S1) 4- Good- Abduction 4- Good- Adduction 3+ Fair+ External Rotation 3+ Fair+ Internal Rotation 3+ Fair+ Comments pain w/hip flex, IR B, ER pain L Knee Strength Knee Manual Muscle Testing Right Flexion (S2) 5 Normal Extension (L3) 5 Normal Left Flexion (S2) 4 Good Extension (L3) 4+ Good+ Ankle/Foot Strength Ankle and Foot Manual Muscle Testing Right Dorsiflexion (L4) 5 Normal Plantarflexion (S1) 5 Normal Comments 20 heel raises, pain in R ankle Left Dorsiflexion (L4) 5 Normal Plantarflexion (S1) 5 Normal Comments 20 heel raises PT-OP-Q Treatments Start: 10/28/21 17:46 Freq: Status: Active Protocol: Document 01/06/22 08:14 [facility] (Rec: 01/06/22 09:18 [facility] [id number]) Therapeutic Exercises Standing Exercises RDL Standing Exercise Name 1.DL w/stick on back 2. SL w/ stick on back Side bilateral Reps/Minutes 10 ea hip ext Side bilateral Equipment Used L2 Reps/Minutes 15 Manual Therapy Treatment Soft Tissue Mobilization HS Body Location L Intensity/Depth Moderate Comments w/active HS stretch adductors Body Location L adductors Mobilization Type Rolling,Strumming,Sustained Pressure Intensity/Depth Moderate Body Position Supine Comments w/rotation hip flexors Body Location L iliacus and RF, pectineus & psoas Mobilization Type Rolling,Strumming,Sustained Pressure Intensity/Depth Moderate Body Position Supine Comments w/rotiatons & erlinda knife FM Joint Mobilizations hip Comments L inf FM Neuro Re-Education Treatment Balance Activities SLS Comments 1.SLS Y reach x6 ea B 2. SLS w/rotation B bosu Comments 1. lat step acros then up w/ alt april x10 B 2. fwd lunge x10 B 3. side lunge x10 B 4. black side mini squat x10 ea 5. fwd step up and april B x10 PT-OP-T Assessment and Plan Start: 10/28/21 17:46 Freq: Status: Active Protocol: Document 01/06/22 08:14 [facility] (Rec: 01/06/22 09:18 [facility] [id number]) Physical Therapy Assessment Goals activity Short Term Goal (STG) pt will be able to get out of chair/car/couch w/o inc hip pain or difficulty. STG Duration 12/28 Usp Goal (LTG) Pt will return to hiking on uneven terrain for greater than 3 miles w/o inc pain greater than 1/10 LTG Duration 01/28 strength Short Term Goal (STG) Ptw ill be indep w/HEP for stability, strength, balance and ROM STG Duration 12/28/21 Cold Rolling Machine Setter Goal (LTG) Pt will score at least 4/5 on LPM in all planes and 5/5 MMT B in all planes w/o inc pain to inc hip stability and allow pt return to typical activities LTG Duration 01/28 ROM Short Term Goal (STG) Pt will improve hip flex to 110 deg B STG Duration Cold Rolling Machine Setter Goal (LTG) Pt will improve ROM to report ease w/donning/doffing socks/ shoes and squatting. LTG Duration 01/28/22 LEFS Impairment 38/80 Short Term Goal (STG) Pt will improve LEFS score to at least 50/80 to show improved functional ability. STG Duration 12/18/21 Cold Rolling Machine Setter Goal (LTG) Pt will improve LEFS score to at least 70/80 to show improved functional ability. LTG Duration 01/28/22 Assessment Summary Assessment Pt is doing more full lunges and squats now w/less discomfort. He tolerated all exercises w/o inc pain just felt some less stability/ mobility on L. He maintained IR mobility from last session and had improved flex w/todays manual especially psoas work. Physical Therapy Plan Frequency and Duration Frequency of Treatment 2x/Week Plan of Care Start Date 10/29/21 Plan of Care End Date 01/28/22 Next Visit Focus/Plan Next Note Type Treatment Note Next Visit Plan Cont to wrok on hip stability, balance activity, cont manual to hip to work on ROM
--- NOTE | 2022-01-16 08:18 | PT.OTN ---
Current Diagnoses Other specified joint disorders, left hip (01/16/22) Difficulty in walking, not elsewhere classified (01/16/22) Abnormal posture (01/16/22) Weakness (01/16/22) Other sprain of right hip, subsequent encounter (01/16/22) Physical Therapy Treatment Note PT-OP-A Visit Information Start: 10/28/21 17:46 Freq: Status: Active Protocol: Document 01/16/22 07:17 TS (Rec: 01/16/22 11:47 TS [id number]) Out-Patient Physical Therapy Visit Information Visit Information Visit Type Treatment Note Visit Note SPTA Johann lead treatment, supervised and directed by EDSON Doss. Take a look at appointments and POC date. Visit Start Time 07:30 Visit Stop Time 08:18 Total Visit Minutes 48 Visit Number 02/21 Number of SENIOR PROGRAM PLANNER Visits 1 PT-OP-B Current Condition Start: 10/28/21 17:46 Freq: Status: Active Protocol: Document 10/29/21 07:29 [facility] (Rec: 10/29/21 08:21 [facility] [id number]) Current Condition History of Current Condition Current Complaints B hip History of Current Condition Pt reports R hip has been given him trouble for about a year for unknown reason. He had surgery for impingement of L hip and repaired labrum in early May. Surgeon was Dr. Sher. Long strides, hills, and twisting gives it pain. R hip is currently doing pretty well. He has done some small walks that are pretty flat. He will notice discomfort by the end in L hip. He rides the pel[place] at home. Pt is cleared for activity as tolerated. He does not return to MD until completing PT. ROlled R ankle about 1 year ago. LBP that is chronic. R hip pt had surgery for labral tear and impingment of june o f2021 Treatment Goals Patient/Caregiver Goals improve ROM of hips, Return to hiking, light mtn biking, being active PT-OP-C Subjective Start: 10/28/21 17:46 Freq: Status: Active Protocol: Document 01/16/22 07:17 TS (Rec: 01/16/22 11:47 TS [id number]) OP-PT Subjective Patient Comments Patient Comments Pt feels zingy pain in L hip when stepping back with foot and when taking longer strides . PT-OP-D Balance Start: 10/28/21 17:46 Freq: Status: Active Protocol: Document 10/29/21 07:29 [facility] (Rec: 10/29/21 08:21 [facility] [id number]) Balance Tests Single Limb Standing Single Limb- Right >30 sec Single Limb- Left >30 sec w/slight lat lean PT-OP-F Manual Assessment Start: 10/28/21 17:46 Freq: Status: Active Protocol: Document 10/29/21 07:29 [facility] (Rec: 10/29/21 08:21 [facility] [id number]) Manual Assessments Soft Tissue Assessment Soft Tissue Mobility Assessment tightness in B hip flexors, ITB, adductors, VL, RF Joint Mobility Assessment Joint Mobility Assessment ER of femur and tibia L; R ER of femur and IR of tibia w/ knee bend PT-OP-G Mobility & Gait Start: 10/28/21 17:46 Freq: Status: Active Protocol: Document 10/29/21 07:29 [facility] (Rec: 10/29/21 08:21 [facility] [id number]) OP Gait Assessment Comments Gait Comments lat lean L w/WB L, dec pelvis motion, dec push off PT-OP-J Posture/Palpation/Skin Start: 10/28/21 17:46 Freq: Status: Active Protocol: Document 10/29/21 07:29 [facility] (Rec: 10/29/21 08:21 [facility] [id number]) Posture Evaluation Qiana Postural Classification System Qiana Postural Classifications Posterior/Posterior Lumbar Protective Mechanism Left AP 1 Lumbar Protective Mechanism Right AP 1 Lumbar Protective Mechanism Left PA 2 Lumbar Protective Mechanism Right PA 2 PT-OP-K Range of Motion Start: 10/28/21 17:46 Freq: Status: Active Protocol: Document 10/29/21 07:29 [facility] (Rec: 10/29/21 08:21 [facility] [id number]) Hip Goniometric Range of Motion Hip Right Active Flexion w/Knee Flexed 97 Straight Leg Raise 71 Abduction 38 Internal Rotation 27 External Rotation 28 Left Active Flexion w/Knee Flexed 95 Straight Leg Raise 68 Abduction 20 Internal Rotation 20 External Rotation 25 PT-OP-L Special Tests Start: 10/28/21 17:46 Freq: Status: Active Protocol: Document 10/29/21 07:29 [facility] (Rec: 10/29/21 08:21 [facility] [id number]) Special Tests Hip Special Tests Obers Test Results neg R, mild tightness L Shmuel Test Results tight TFL, dec opp hip flex ROM but WNL for RF & hip flexor PT-OP-M Strength Start: 10/28/21 17:46 Freq: Status: Active Protocol: Document 10/29/21 07:29 [facility] (Rec: 10/29/21 08:21 [facility] [id number]) Hip Strength Hip Manual Muscle Testing Right Flexion (L2) 4 Good Extension (S1) 4 Good Abduction 4+ Good+ Adduction 5 Normal External Rotation 5 Normal Internal Rotation 4+ Good+ Left Flexion (L2) 3+ Fair+ Extension (S1) 4- Good- Abduction 4- Good- Adduction 3+ Fair+ External Rotation 3+ Fair+ Internal Rotation 3+ Fair+ Comments pain w/hip flex, IR B, ER pain L Knee Strength Knee Manual Muscle Testing Right Flexion (S2) 5 Normal Extension (L3) 5 Normal Left Flexion (S2) 4 Good Extension (L3) 4+ Good+ Ankle/Foot Strength Ankle and Foot Manual Muscle Testing Right Dorsiflexion (L4) 5 Normal Plantarflexion (S1) 5 Normal Comments 20 heel raises, pain in R ankle Left Dorsiflexion (L4) 5 Normal Plantarflexion (S1) 5 Normal Comments 20 heel raises PT-OP-Q Treatments Start: 10/28/21 17:46 Freq: Status: Active Protocol: Document 01/16/22 07:17 TS (Rec: 01/16/22 11:47 TS [id number]) Therapeutic Exercises Sitting Exercises HS stretch Side bilateral Reps/Minutes 1x30 Comments Feels good stretch Standing Exercises Single Leg heel raise Equipment Used flat floor Reps/Minutes 1x10 ea Comments Cues for slower descent Other Exercises ankle mob Other Exercise Name standing Side right Resistance foot propped up on raised table Equipment Used #2 TB around ant R ankle and posterior L thigh Reps/Minutes 15 ankle mob, 30 RLF stretch Comments cued wt shift over R forefoot- good feedback posterior glide self Manual Therapy Treatment Joint Mobilizations ankle Comments 1.calcaneus distraction & med & lat glides FM 2. talus med/lat glides, AP FM 3. DIP, PIP distraction Manual, still some popping and stiffness in ankle. hip Direction Lateral, inferior Body Position Supine Reps/Duration 20-30 sec holds Comments Pt reports relief of symptoms Neuro Re-Education Treatment Balance Activities SLS Comments 1.SLS Y reach x6 ea B 2. SLS w/rotation B Cues for keeping knee behind toes and glutes back to relieve pressure in knees. Self-Care/Home Management Treatment Education Other Education Education on self-stm to achilles, self mobilization DF with calf stm - long sit calf over tennis ball rolling, sustained pressure ankle ROM - pin achilles with AP AROM PT-OP-T Assessment and Plan Start: 10/28/21 17:46 Freq: Status: Active Protocol: Document 01/16/22 07:17 TS (Rec: 01/16/22 11:47 TS [id number]) Physical Therapy Assessment Goals activity Short Term Goal (STG) pt will be able to get out of chair/car/couch w/o inc hip pain or difficulty. STG Duration 12/28 Assisted Goal (LTG) Pt will return to hiking on uneven terrain for greater than 3 miles w/o inc pain greater than 1/10 LTG Duration 01/28 strength Short Term Goal (STG) Ptw ill be indep w/HEP for stability, strength, balance and ROM STG Duration 12/28/21 Assisted Goal (LTG) Pt will score at least 4/5 on LPM in all planes and 5/5 MMT B in all planes w/o inc pain to inc hip stability and allow pt return to typical activities LTG Duration 01/28 ROM Short Term Goal (STG) Pt will improve hip flex to 110 deg B STG Duration Industrial Hygiene Engineer Goal (LTG) Pt will improve ROM to report ease w/donning/doffing socks/ shoes and squatting. LTG Duration 01/28/22 LEFS Impairment 38/80 Short Term Goal (STG) Pt will improve LEFS score to at least 50/80 to show improved functional ability. STG Duration 12/18/21 Assisted Goal (LTG) Pt will improve LEFS score to at least 70/80 to show improved functional ability. LTG Duration 01/28/22 Assessment Summary Assessment Take a look at appointments and POC date. Pt required cues for knees behind toes and glutes back to reduce discomfort in knees during SLS reach. Pt responded well to hip distraction relieving symptoms of zingy sensation in hip. Pts R ankle still feeling stiff after mobs, provided pt education on massaging achilles, calf with ball and self ankle mob w/ TB with good feedback response. Physical Therapy Plan Frequency and Duration Frequency of Treatment 2x/Week Plan of Care Start Date 10/29/21 Plan of Care End Date 01/28/22 Therapeutic Interventions Therapeutic Interventions Aquatic Therapy,Balance Training,Gait Training,Home Exercise Program,Joint Mobilizations,Manual Therapy, Neuromuscular Re-education, Patient/Caregiver Education, Self-Care/Home Management,Soft Tissue Mobilization,Taping, Therapeutic Activities, Therapeutic Exercises Modalities Cold Pack/Ice Massage,Electric Stimulation,Hot Packs, Infrared Therapy,Iontophoresis ,Ultrasound Next Visit Focus/Plan Next Note Type Treatment Note Next Visit Plan Cont hip mobility if symptoms persist, ankle mobs. Assess self massage of achilles and calf. Cont balance activity
--- NOTE | 2022-02-19 09:50 | PT.OTN ---
Current Diagnoses Other specified joint disorders, left hip (02/19/22) Difficulty in walking, not elsewhere classified (02/19/22) Abnormal posture (02/19/22) Weakness (02/19/22) Other sprain of right hip, subsequent encounter (02/19/22) Physical Therapy Treatment Note PT-OP-A Visit Information Start: 10/28/21 17:46 Freq: Status: Active Protocol: Document 02/19/22 07:30 [facility] (Rec: 02/19/22 09:50 [facility] [id number]) Out-Patient Physical Therapy Visit Information Visit Information Visit Type Progress Note Visit Start Time 07:30 Visit Stop Time 08:13 Total Visit Minutes 43 Visit Number Number of DOCUMENT CLERK Visits 0 PT-OP-B Current Condition Start: 10/28/21 17:46 Freq: Status: Active Protocol: Document 10/29/21 07:29 [facility] (Rec: 10/29/21 08:21 [facility] [id number]) Current Condition History of Current Condition Current Complaints B hip History of Current Condition Pt reports R hip has been given him trouble for about a year for unknown reason. He had surgery for impingement of L hip and repaired labrum in early May. Surgeon was Dr. Sher. Long strides, hills, and twisting gives it pain. R hip is currently doing pretty well. He has done some small walks that are pretty flat. He will notice discomfort by the end in L hip. He rides the [place] at home. Pt is cleared for activity as tolerated. He does not return to MD until completing PT. ROlled R ankle about 1 year ago. LBP that is chronic. R hip pt had surgery for labral tear and impingment of june o f2021 Treatment Goals Patient/Caregiver Goals improve ROM of hips, Return to hiking, light mtn biking, being active PT-OP-C Subjective Start: 10/28/21 17:46 Freq: Status: Active Protocol: Document 02/19/22 07:30 [facility] (Rec: 02/19/22 09:50 [facility] [id number]) OP-PT Subjective Patient Comments Patient Comments Pt reports walking up the hill w/kids when sledding and hip was painfula fter. He was feeling better vefore this PT-OP-D Balance Start: 10/28/21 17:46 Freq: Status: Active Protocol: Document 10/29/21 07:29 [facility] (Rec: 10/29/21 08:21 [facility] [id number]) Balance Tests Single Limb Standing Single Limb- Right >30 sec Single Limb- Left >30 sec w/slight lat lean PT-OP-F Manual Assessment Start: 10/28/21 17:46 Freq: Status: Active Protocol: Document 10/29/21 07:29 [facility] (Rec: 10/29/21 08:21 [facility] [id number]) Manual Assessments Soft Tissue Assessment Soft Tissue Mobility Assessment tightness in B hip flexors, ITB, adductors, VL, RF Joint Mobility Assessment Joint Mobility Assessment ER of femur and tibia L; R ER of femur and IR of tibia w/ knee bend PT-OP-G Mobility & Gait Start: 10/28/21 17:46 Freq: Status: Active Protocol: Document 10/29/21 07:29 [facility] (Rec: 10/29/21 08:21 [facility] [id number]) OP Gait Assessment Comments Gait Comments lat lean L w/WB L, dec pelvis motion, dec push off PT-OP-J Posture/Palpation/Skin Start: 10/28/21 17:46 Freq: Status: Active Protocol: Document 10/29/21 07:29 [facility] (Rec: 10/29/21 08:21 [facility] [id number]) Posture Evaluation Qiana Postural Classification System Qiana Postural Classifications Posterior/Posterior Lumbar Protective Mechanism Left AP 1 Lumbar Protective Mechanism Right AP 1 Lumbar Protective Mechanism Left PA 2 Lumbar Protective Mechanism Right PA 2 PT-OP-K Range of Motion Start: 10/28/21 17:46 Freq: Status: Active Protocol: Document 02/19/22 07:30 [facility] (Rec: 02/19/22 09:50 [facility] [id number]) Hip Goniometric Range of Motion Hip Right Active Flexion w/Knee Flexed 101 Left Active Flexion w/Knee Flexed 103 PT-OP-L Special Tests Start: 10/28/21 17:46 Freq: Status: Active Protocol: Document 10/29/21 07:29 [facility] (Rec: 10/29/21 08:21 [facility] [id number]) Special Tests Hip Special Tests Obers Test Results neg R, mild tightness L Shmuel Test Results tight TFL, dec opp hip flex ROM but WNL for RF & hip flexor PT-OP-M Strength Start: 10/28/21 17:46 Freq: Status: Active Protocol: Document 02/19/22 07:30 [facility] (Rec: 02/19/22 09:50 [facility] [id number]) Hip Strength Hip Manual Muscle Testing Right Flexion (L2) 5 Normal Extension (S1) 5 Normal Abduction 5 Normal Adduction 5 Normal External Rotation 5 Normal Internal Rotation 5 Normal Left Flexion (L2) 5 Normal Extension (S1) 5 Normal Abduction 5 Normal Adduction 5 Normal External Rotation 5 Normal Internal Rotation 5 Normal Comments pain w/hip IR B Knee Strength Knee Manual Muscle Testing Right Flexion (S2) 5 Normal Extension (L3) 5 Normal Left Flexion (S2) 5 Normal Extension (L3) 5 Normal Ankle/Foot Strength Ankle and Foot Manual Muscle Testing Right Dorsiflexion (L4) 5 Normal Plantarflexion (S1) 5 Normal Comments 20 heel raises, pain in R ankle Left Dorsiflexion (L4) 5 Normal Plantarflexion (S1) 5 Normal Comments 20 heel raises PT-OP-Q Treatments Start: 10/28/21 17:46 Freq: Status: Active Protocol: Document 02/19/22 07:30 [facility] (Rec: 02/19/22 09:50 [facility] [id number]) Therapeutic Exercises Supine Exercises bridge Supine Exercise Name w/alt march Side bilateral core Supine Exercise Name DL isometric Side bilateral Reps/Minutes 30 sec Other Exercises quadruped Other Exercise Name alt hip ext Side bilateral Reps/Minutes 12 Manual Therapy Treatment Soft Tissue Mobilization adductors Body Location L adductors Mobilization Type Rolling,Strumming,Sustained Pressure Intensity/Depth Moderate Body Position Supine Comments w/rotation Joint Mobilizations sacrum Joint L caudal and L UPA FM innominate Joint B IR FM, R caudal FM hip Comments B inf FM, hip on axis ER FM, hip on axis IR FM B-manual facilitaiton at end ranges PT-OP-T Assessment and Plan Start: 10/28/21 17:46 Freq: Status: Active Protocol: Document 02/19/22 07:30 [facility] (Rec: 02/19/22 09:50 [facility] [id number]) Physical Therapy Assessment Goals activity Short Term Goal (STG) pt will be able to get out of chair/car/couch w/o inc hip pain or difficulty. 02/19-until the last few days it was fine STG Duration 03/25 Kosher Sealer Goal (LTG) Pt will return to hiking on uneven terrain for greater than 3 miles w/o inc pain greater than 1/10 02/19-has not tried LTG Duration 3/ strength Short Term Goal (STG) Ptw ill be indep w/HEP for stability, strength, balance and ROM 02/19-progressing as able STG Duration 03/22 Alf Goal (LTG) Pt will score at least 4/5 on LPM in all planes and 5/5 MMT B in all planes w/o inc pain to inc hip stability and allow pt return to typical activities LTG Duration 3/ ROM Short Term Goal (STG) Pt will improve hip flex to 110 deg B 02/19-improvrd STG Duration Kosher Sealer Goal (LTG) Pt will improve ROM to report ease w/donning/doffing socks/ shoes and squatting. LTG Duration achieved 02/19 LEFS Impairment 38/80 Short Term Goal (STG) Pt will improve LEFS score to at least 50/80 to show improved functional ability. STG Duration achieved to 51/80 Alf Goal (LTG) Pt will improve LEFS score to at least 70/80 to show improved functional ability. LTG Duration 04/30 Assessment Summary Assessment Pt had made progress overall with his mobility, but did falre up recently w/walking up the snow hill with his kids. His strength is good and ROM is much improved but is still limited. he would benefit from cont PT for cont to improve functional ability. Physical Therapy Plan Frequency and Duration Frequency of Treatment 1-2x/wk Duration of treatment (weeks) 10 Plan of Care Start Date 02/19/22 Plan of Care End Date 04/30/22 Therapeutic Interventions Therapeutic Interventions Aquatic Therapy,Balance Training,Gait Training,Home Exercise Program,Joint Mobilizations,Manual Therapy, Neuromuscular Re-education, Patient/Caregiver Education, Self-Care/Home Management,Soft Tissue Mobilization,Taping, Therapeutic Activities, Therapeutic Exercises Modalities Cold Pack/Ice Massage,Electric Stimulation,Hot Packs, Infrared Therapy,Iontophoresis ,Ultrasound Next Visit Focus/Plan Next Note Type Treatment Note
--- NOTE | 2022-02-19 09:50 | PT.OPPOC ---
Physical, Occupational & Speech Therapy At [facility] Current Diagnoses Other specified joint disorders, left hip (02/19/22) Difficulty in walking, not elsewhere classified (02/19/22) Abnormal posture (02/19/22) Weakness (02/19/22) Other sprain of right hip, subsequent encounter (02/19/22) Visit Care Team Role Provider Type Santos Oneal Family Provider Non-Staff Primary Care Provider Specialty: Medical Address: [address], [address] Email: Addison Sher MD Attending Provider Non-Staff Referring Provider Specialty: Orthopedic Surgery Address: [address] [place] [address] , [place], [address] Email: Plan Of Care PT-OP-T Assessment and Plan Start: 10/28/21 17:46 Freq: Status: Active Protocol: Document 02/19/22 07:30 [facility] (Rec: 02/19/22 09:50 [facility] [id number]) Physical Therapy Assessment Goals activity Short Term Goal (STG) pt will be able to get out of chair/car/couch w/o inc hip pain or difficulty. 02/19-until the last few days it was fine STG Duration 03/25 Shelter Goal (LTG) Pt will return to hiking on uneven terrain for greater than 3 miles w/o inc pain greater than 1/10 02/19-has not tried LTG Duration 3/2 strength Short Term Goal (STG) Ptw ill be indep w/HEP for stability, strength, balance and ROM 02/19-progressing as able STG Duration 03/22 Metal Sprayer Goal (LTG) Pt will score at least 4/5 on LPM in all planes and 5/5 MMT B in all planes w/o inc pain to inc hip stability and allow pt return to typical activities LTG Duration 3/2 ROM Short Term Goal (STG) Pt will improve hip flex to 110 deg B 02/19-improvrd STG Duration Shelter Goal (LTG) Pt will improve ROM to report ease w/donning/doffing socks/ shoes and squatting. LTG Duration achieved 02/19 LEFS Impairment 38/80 Short Term Goal (STG) Pt will improve LEFS score to at least 50/80 to show improved functional ability. STG Duration achieved to 51/80 Shelter Goal (LTG) Pt will improve LEFS score to at least 70/80 to show improved functional ability. LTG Duration 3/ Assessment Summary Assessment Pt had made progress overall with his mobility, but did falre up recently w/walking up the snow hill with his kids. His strength is good and ROM is much improved but is still limited. he would benefit from cont PT for cont to improve functional ability. Physical Therapy Plan Frequency and Duration Frequency of Treatment 1-2x/wk Duration of treatment (weeks) 10 Plan of Care Start Date 02/19/22 Plan of Care End Date 04/30/22 Therapeutic Interventions Therapeutic Interventions Aquatic Therapy,Balance Training,Gait Training,Home Exercise Program,Joint Mobilizations,Manual Therapy, Neuromuscular Re-education, Patient/Caregiver Education, Self-Care/Home Management,Soft Tissue Mobilization,Taping, Therapeutic Activities, Therapeutic Exercises Modalities Cold Pack/Ice Massage,Electric Stimulation,Hot Packs, Infrared Therapy,Iontophoresis ,Ultrasound Next Visit Focus/Plan Next Note Type Treatment Note Plan of Care Dates Plan of Care Start Date 02/19/22 Plan of Care End Date 04/30/22 Electronically Signed by: Tea Andersen, PT 02/19/22 8068 If you are in agreement with this Plan of Care, please return a signed and dated copy. I have reviewed this Plan of Care and certify that the skilled therapy services above are required to meet the patient?s needs. Physician Signature Date Printed Name and Credentials Clinical Instructor Signature Printed Name and Credentials
--- NOTE | 2022-05-04 08:44 | PT.OPDS ---
Current Diagnoses Other specified joint disorders, left hip (02/19/22) Difficulty in walking, not elsewhere classified (02/19/22) Abnormal posture (02/19/22) Weakness (02/19/22) Other sprain of right hip, subsequent encounter (02/19/22) Visit Care Team Role Provider Type [facility] Oneal Family Provider Non-Staff Primary Care Provider Specialty: Medical Address: [address] [place] [address], [place], [address] Email: Addison Sher MD Attending Provider Non-Staff Referring Provider Specialty: Orthopedic Surgery Address: [address] [place] [address] , [place], [address] Email: Visit Number Visit Number Discharge Summary PT-OP-B Current Condition Start: 10/28/21 17:46 Freq: Status: Active Protocol: Document 10/29/21 07:29 [facility] (Rec: 10/29/21 08:21 [facility] [id number]) Current Condition History of Current Condition Current Complaints B hip History of Current Condition Pt reports R hip has been given him trouble for about a year for unknown reason. He had surgery for impingement of L hip and repaired labrum in early May. Surgeon was Dr. Sher. Long strides, hills, and twisting gives it pain. R hip is currently doing pretty well. He has done some small walks that are pretty flat. He will notice discomfort by the end in L hip. He rides the [place] at home. Pt is cleared for activity as tolerated. He does not return to MD until completing PT. ROlled R ankle about 1 year ago. LBP that is chronic. R hip pt had surgery for labral tear and impingment of june o f2021 Treatment Goals Patient/Caregiver Goals improve ROM of hips, Return to hiking, light mtn biking, being active PT-OP-C Subjective Start: 10/28/21 17:46 Freq: Status: Active Protocol: Document 02/19/22 07:30 [facility] (Rec: 02/19/22 09:50 [facility] [id number]) OP-PT Subjective Patient Comments Patient Comments Pt reports walking up the hill w/kids when sledding and hip was painfula fter. He was feeling better vefore this PT-OP-D Balance Start: 10/28/21 17:46 Freq: Status: Active Protocol: Document 10/29/21 07:29 [facility] (Rec: 10/29/21 08:21 [facility] [id number]) Balance Tests Single Limb Standing Single Limb- Right >30 sec Single Limb- Left >30 sec w/slight lat lean PT-OP-F Manual Assessment Start: 10/28/21 17:46 Freq: Status: Active Protocol: Document 10/29/21 07:29 [facility] (Rec: 10/29/21 08:21 [facility] [id number]) Manual Assessments Soft Tissue Assessment Soft Tissue Mobility Assessment tightness in B hip flexors, ITB, adductors, VL, RF Joint Mobility Assessment Joint Mobility Assessment ER of femur and tibia L; R ER of femur and IR of tibia w/ knee bend PT-OP-G Mobility & Gait Start: 10/28/21 17:46 Freq: Status: Active Protocol: Document 10/29/21 07:29 [facility] (Rec: 10/29/21 08:21 [facility] [id number]) OP Gait Assessment Comments Gait Comments lat lean L w/WB L, dec pelvis motion, dec push off PT-OP-J Posture/Palpation/Skin Start: 10/28/21 17:46 Freq: Status: Active Protocol: Document 10/29/21 07:29 [facility] (Rec: 10/29/21 08:21 [facility] [id number]) Posture Evaluation Qiana Postural Classification System Qiana Postural Classifications Posterior/Posterior Lumbar Protective Mechanism Left AP 1 Lumbar Protective Mechanism Right AP 1 Lumbar Protective Mechanism Left PA 2 Lumbar Protective Mechanism Right PA 2 PT-OP-K Range of Motion Start: 10/28/21 17:46 Freq: Status: Active Protocol: Document 02/19/22 07:30 [facility] (Rec: 02/19/22 09:50 [facility] [id number]) Hip Goniometric Range of Motion Hip Right Active Flexion w/Knee Flexed 101 Left Active Flexion w/Knee Flexed 103 PT-OP-L Special Tests Start: 10/28/21 17:46 Freq: Status: Active Protocol: Document 10/29/21 07:29 [facility] (Rec: 10/29/21 08:21 [facility] [id number]) Special Tests Hip Special Tests Obers Test Results neg R, mild tightness L Shmuel Test Results tight TFL, dec opp hip flex ROM but WNL for RF & hip flexor PT-OP-M Strength Start: 10/28/21 17:46 Freq: Status: Active Protocol: Document 02/19/22 07:30 [facility] (Rec: 02/19/22 09:50 [facility] [id number]) Hip Strength Hip Manual Muscle Testing Right Flexion (L2) 5 Normal Extension (S1) 5 Normal Abduction 5 Normal Adduction 5 Normal External Rotation 5 Normal Internal Rotation 5 Normal Left Flexion (L2) 5 Normal Extension (S1) 5 Normal Abduction 5 Normal Adduction 5 Normal External Rotation 5 Normal Internal Rotation 5 Normal Comments pain w/hip IR B Knee Strength Knee Manual Muscle Testing Right Flexion (S2) 5 Normal Extension (L3) 5 Normal Left Flexion (S2) 5 Normal Extension (L3) 5 Normal Ankle/Foot Strength Ankle and Foot Manual Muscle Testing Right Dorsiflexion (L4) 5 Normal Plantarflexion (S1) 5 Normal Comments 20 heel raises, pain in R ankle Left Dorsiflexion (L4) 5 Normal Plantarflexion (S1) 5 Normal Comments 20 heel raises PT-OP-T Assessment and Plan Start: 10/28/21 17:46 Freq: Status: Active Protocol: Document 05/04/22 08:43 [facility] (Rec: 05/04/22 08:44 [facility] [id number]) Physical Therapy Assessment Goals activity Short Term Goal (STG) pt will be able to get out of chair/car/couch w/o inc hip pain or difficulty. 02/19-until the last few days it was fine STG Duration 03/25 Residential Goal (LTG) Pt will return to hiking on uneven terrain for greater than 3 miles w/o inc pain greater than 1/10 02/19-has not tried LTG Duration 3/2 strength Short Term Goal (STG) Ptw ill be indep w/HEP for stability, strength, balance and ROM 02/19-progressing as able STG Duration 03/22 Targeteer Goal (LTG) Pt will score at least 4/5 on LPM in all planes and 5/5 MMT B in all planes w/o inc pain to inc hip stability and allow pt return to typical activities LTG Duration 3/2 ROM Short Term Goal (STG) Pt will improve hip flex to 110 deg B 02/19-improvrd STG Duration Residential Goal (LTG) Pt will improve ROM to report ease w/donning/doffing socks/ shoes and squatting. LTG Duration achieved 02/19 LEFS Impairment 38/80 Short Term Goal (STG) Pt will improve LEFS score to at least 50/80 to show improved functional ability. STG Duration achieved to 51/80 Targeteer Goal (LTG) Pt will improve LEFS score to at least 70/80 to show improved functional ability. LTG Duration 04/30 Assessment Summary Assessment Pt cancelled 8/9 appts in course of 3 months and was intermittent w/HEP. He made progress w/PT but was still limited, but was not always doing and progressing his walking etc. D/t pt no longer attending appts, pt DC Physical Therapy Plan Discharge Physical Therapy Discharge Reasons No Longer Attending PT
== END 2022-05-07 10:15 | disposition home or self-care (01) ==
LOC: PHYS 07:30
PROVIDERS: Referring Provider Orthopaedic Surgery; Visit Provider Orthopaedic Surgery
DX: M25.852 Other specified joint disorders, left hip (principal); S73.191D Other sprain of right hip, subsequent encounter; R53.1 Weakness; R29.3 Abnormal posture; R26.2 Difficulty in walking, not elsewhere classified
CPT/HCPCS: 97110; 97112; 97140; 97162

== ENCOUNTER 2022-10-23 14:36 | Emergency (ER) | payer OTHER, SELFPAY ==
[2022-10-23 14:39] VITALS: BP 128/76; PULSE 81; RESP 16; TEMP 36.9; O2SAT 99; BMI 27.1
--- NOTE | 2022-10-23 14:44 | ED_ITS ---
HPI - Dizziness <KATHRNI Nolan - Last Filed: 10/23/22 15:18> General Chief Complaint: Dizziness Stated Complaint: vertigo, dizzy, nausea Time Seen by Provider: 10/23/22 14:43 History of Present Illness HPI Narrative: This is a 42-year-old gentleman who presents to the emergency department for increasing episodes of vertigo related to prior diagnosis of BPPV. He states he is had this problem for at least a year with prior episodes evaluated by ENT in the past. He has been taking meclizine, states that he has frequent episodes of this at least a few times a week and denies any other symptoms. Reports that he takes Alden currently as well as Flonase daily. Denies any symptoms of illness including fever, chills, current allergies related to the environment or other symptoms of illness. He endorses muffled sounds in the right ear. Related Data Home Medications Medication Instructions Recorded Confirmed Fexofenadine Hydrochloride 30 mg PO ##0 04/04/12 (ALDEN~) Previous Rx's Medication Instructions Recorded cetirizine 10 mg tablet 10 mg PO DAILY PRN congestion/ear 10/23/22 fullness #30 tabs cetirizine 5 mg-pseudoephedrine ER 1 tab PO BID #20 tabs 10/23/22 120 mg tablet,extended release,12hr (Zyrtec-D) methylprednisolone 4 mg tablets in 4 mg PO DAILY #21 ea 10/23/22 a dose pack (Medrol (Yevgeniy)) Allergies Allergy/AdvReac Type Severity Reaction Status Date / Time omeprazole AdvReac Headache Verified 10/23/22 14:39 Review of Systems <KATHRIN Nolan - Last Filed: 10/23/22 15:18> Review of Systems ROS Unobtainable: All systems reviewed & are unremarkable except as noted in HPI and below Patient History <KATHRIN Nolan - Last Filed: 10/23/22 15:18> Social History Smoking Status: Never smoker Smoking Status: Never smoker alcohol intake frequency: 0-2 drinks per day Substance Use Type: does not use Exam <KATHRIN Nolan - Last Filed: 10/23/22 15:18> Narrative Exam Narrative: HEENT: Right TM is bulging, serous media behind TM, positive light reflex, no erythema, normal canal, left TM is not bulging, clear fluid behind with normal landmarks and light reflex, no anterior cervical lymphadenopathy, no tinnitus, patient reports hearing is slightly decreased on the right Initial Vital Signs Initial Vital Signs: Vital Signs Temperature 98.5 F 10/23/22 14:39 Pulse Rate 81 10/23/22 14:39 Respiratory Rate 16 10/23/22 14:39 Blood Pressure 128/76 10/23/22 14:39 Pulse Oximetry 99 10/23/22 14:39 Oxygen Delivery Method Room Air 10/23/22 14:39 <Pérez Friedman DO - Last Filed: 10/24/22 07:10> Initial Vital Signs Initial Vital Signs: Vital Signs Temperature 98.5 F 10/23/22 14:39 Pulse Rate 81 10/23/22 14:39 Respiratory Rate 16 10/23/22 14:39 Blood Pressure 128/76 10/23/22 14:39 Pulse Oximetry 99 10/23/22 14:39 Oxygen Delivery Method Room Air 10/23/22 14:39 Course <JERRY NolanP - Last Filed: 10/23/22 15:18> Orders Ordered: Discontinued Medications Dexamethasone (Dexamethasone 10 Mg/Ml Vial) 10 mg PO NOW ONE Stop: 10/23/22 15:02 Last Admin: 10/23/22 15:08 Dose: 10 mg Documented By: DUNCAN Meclizine HCl (Meclizine Hcl 12.5 Mg Tablet) 25 mg PO NOW ONE Stop: 10/23/22 15:03 Last Admin: 10/23/22 15:09 Dose: 25 mg Documented By: DUNCAN Vital Signs Vital signs: Vital Signs - 8 hr 10/23/22 14:39 Temperature 98.5 F Pulse Rate 81 Respiratory Rate 16 Blood Pressure 128/76 Pulse Oximetry 99 Oxygen Delivery Method Room Air <Pérez Friedman DO - Last Filed: 10/24/22 07:10> Orders Ordered: Discontinued Medications Dexamethasone (Dexamethasone 10 Mg/Ml Vial) 10 mg PO NOW ONE Stop: 10/23/22 15:02 Last Admin: 10/23/22 15:08 Dose: 10 mg Documented By: DUNCAN Meclizine HCl (Meclizine Hcl 12.5 Mg Tablet) 25 mg PO NOW ONE Stop: 10/23/22 15:03 Last Admin: 10/23/22 15:09 Dose: 25 mg Documented By: DUNCAN Vital Signs Vital signs: Vital Signs - 8 hr 10/23/22 14:39 Temperature 98.5 F Pulse Rate 81 Respiratory Rate 16 Blood Pressure 128/76 Pulse Oximetry 99 Oxygen Delivery Method Room Air MDM - Dizziness <KATHRIN Nolan - Last Filed: 10/23/22 15:18> [facility] Narrative Medical decision making narrative: Chief Complaint: Dizziness/BPPV Differential diagnosis considered but not limited to: Peripheral vertigo, central vertigo, intracranial mass, intracranial hemorrhage, Meniere's disease, vestibular neuritis, BPPV, acoustic neuroma, MS, basilar/vertebral artery insufficiency, cerebellar mass, autoimmune inner ear disease, otosclerosis, Arnold-Chiari malformation, anemia, dehydration, carotid stenosis Imaging studies: Deferred CT imaging as patient reports he had a normal CT scan last year which was normal and does not have any headache at this time, denies any neck pain, denies any vision changes. Presentation not consistent without acute neuro changes, without evidence of infection, they are without headache, no recent trauma. He has intermittent vertigo that is not fatigable with no obvious trigger that is concerning for central etiology of either posterior circulation stroke vs intracranial mass vs intracranial hemorrhage vs vertebral basilar artery insufficiency. Right TM is bulging with serous media behind, suspect this is most likely eustachian tube dysfunction and treated with dexamethasone, meclizine, and prescriptions of Zyrtec and Zyrtec D. Recommend patient changes antihistamine since he has been taking Alden for a long period of time and use Zyrtec D as needed for congestion of the middle ear and cetirizine if not taking the pseudoephedrine. He will continue using Flonase, recommend that he follow-up [facility] ear nose and throat and he has scheduled follow-up with Neurology soon. Recent CT imaging last year for this same problem was not significant for mass or hemorrhage. Patient does not have any focal neuro deficits on my exam. No sensation deficit, ambulatory with steady gait no vision changes. No nystagmus with position changes. The Toy maneuver was performed 2-3 times without change in his symptoms. Social considerations that may affect disposition: none Questions are addressed and there is agreement with the plan and for follow-up. I consulted with the ED attending physician Dr. Friedman as needed for higher level of care considerations and they were available for discussion and recommendations regarding plan of care and diagnostic testing. Patient is appropriate for outpatient management. Discharge Plan Departure Patient Disposition: Home Clinical Impression: Benign paroxysmal positional vertigo Qualifiers: Laterality: right Qualified Code(s): H81.11 - Benign paroxysmal vertigo, right ear Eustachian tube disorder Qualifiers: Laterality: right Qualified Code(s): H69.91 - Unspecified Eustachian tube disorder, right ear Instructions: Benign Paroxysmal Positional Vertigo, DI for Eustachian Tube Dysfunction-Adult Activity Restrictions/Additional Instructions: This is most likely BPPV and Eustachian tube dysfunction. You may continue with your Alden and take either Sudafed or cetirizine in addition to this daily. Please follow-up with neurology and schedule follow-up with ear nose and throat for another evaluation. Today in the emergency department you received Decadron, a prescription for regular Zyrtec and for Zyrtec with pseudoephedrine/Sudafed. Please take the Sudafed in the morning with food and water, please take the steroid with food so that your stomach does not have pain since you are not taking your PPI. Please continue with Flonase, practice Toy maneuver, hopefully this is helpful for you. *What to do: *Please continue to take your regular medications as directed. [ x] New medication prescriptions sent to your pharmacy: [ [facility]] [ ] New medication written as a paper prescription [ ] No new medications given *Please call and schedule follow up with your primary care provider in 2-3 days, at least for an update. Let them know you were seen in the Emergency Department for the above problem. We will electronically transmit a record of today's note if your PCP or specialist is in our system. *If you do not have a primary care provider please contact [phone] to establish care with one of the [facility] primary care providers. *Return to the Emergency Department for worsening symptoms, inability to keep liquids down, fever greater than 101F, chills, or other concerning symptom. Prescriptions: New cetirizine-pseudoephedrine [Zyrtec-D] 5-120 mg tablet extended release 12 hr 1 tab PO BID Qty: 20 2RF cetirizine 10 mg tablet 10 mg PO DAILY PRN (Reason: congestion/ear fullness) Qty: 30 3RF methylprednisolone [Medrol (Yevgeniy)] 4 mg tablets,dose pack 4 mg PO DAILY Qty: 21 0RF No Action Fexofenadine Hydrochloride (ALDEN~) 30 mg PO Qty: 0 Referrals: Lawrence Andersen MD [Physician] - As soon as possible Wilfred England DO [Non-Staff] - Provider,Mirna HALE [Primary Care Provider] - Stand Alone Forms: Patient Portal/API <Pérez Friedman DO - Last Filed: 10/24/22 07:10> Cosign ED Attending Abielature Attestation: I was immediately available in the department for consultation. Documentation has been reviewed. I agree with assessment and plan.
[2022-10-23] MEDS: DEXAMETHASONE 10 MG/ML VIAL PO (15:08)
[2022-10-23] MEDS: MECLIZINE HCL 12.5 MG TABLET 25 MG PO (15:09)
== END 2022-10-23 15:19 | disposition home or self-care (01) ==
PROVIDERS: Emergency Provider Nurse Practitioner Critical Care Medicine
DX: H81.11 Benign paroxysmal vertigo, right ear (principal); H69.91 Unspecified Eustachian tube disorder, right ear
CPT/HCPCS: 99283; J1100

== ENCOUNTER 2022-10-25 11:21 | Emergency (ER) | payer OTHER, SELFPAY ==
[2022-10-25] VITALS (15 sets, daily range): BP systolic 114–153; BP diastolic 60–72; PULSE 76–112; RESP 9–28; TEMP 36.9; O2SAT 94–100; BMI 27.1
--- NOTE | 2022-10-25 11:37 | DI.CT.S_ITS ---
PROCEDURE: CT HEAD/BRAIN WO CON INDICATIONS: dizziness, R side numbness and tingling TECHNIQUE: Noncontrast 4.5 mm thick angled axial sections acquired from the foramen magnum to the vertex, with coronal and sagittal reformats. For radiation dose reduction, the following was used: automated exposure control, adjustment of mA and/or kV according to patient size. COMPARISON: None. FINDINGS: Image quality: Excellent. CSF spaces: Basal cisterns are patent. No extra-axial fluid collections. Ventricles are normal in size and shape. Brain: No midline shift. No intracranial masses or hemorrhage. Meade-white matter interface is normal. Skull and face: Calvarium and visualized facial bones are intact, without suspicious lesions. Sinuses: Visualized sinuses and mastoids are clear. IMPRESSION: No acute intracranial hemorrhage is seen. No acute intracranial process is seen. If there is strong clinical suspicion for an acute stroke, please consider a brain MRI for further evaluation, as it is more sensitive (assuming that there is no contraindication to MRI). Dictated by: Michele Walker M.D. on 10/25/2022 at 12:01 Approved by: Michele Walker M.D. on 10/25/2022 at 12:03
--- NOTE | 2022-10-25 12:09 | DI.CT.S_ITS ---
PROCEDURE: CT ANGIO HEAD AND NECK INDICATIONS: dizziness, R side numbness and tingling TECHNIQUE: After the administration of intravenous contrast, 1 mm thick sections acquired from the aortic arch through the [place] of [place]. 3-dimensional aodeqzr-fgwxwdilw-ssjvqzhqco (MIP) and/or volume rendering reformats were acquired of the central intracranial vasculature and neck separately. For radiation dose reduction, the following was used: automated exposure control, adjustment of mA and/or kV according to patient size. COMPARISON: [facility], CT, CT HEAD/BRAIN WO [facility], 10/25/2022, 12:01. FINDINGS: Image quality: Diagnostic. BRAIN: CSF spaces: Ventricles are normal in size and shape. Basal cisterns are patent. No extra-axial fluid collections. Brain: No significant abnormality of the brain can be seen. Skull and face: Calvarium and facial bones appear intact, without suspicious lesions. Orbits appear normal. Sinuses: Sinuses and mastoids are clear. HEAD CT ANGIOGRAPHY: Anterior circulation: Intracranial internal carotid arteries are normal in size and flow. The flow within the paired anterior cerebral arteries is normal and symmetric. The flow within the middle cerebral arteries is normal and symmetric. The anterior communicating artery is seen. No aneurysms are seen. Posterior circulation: Visualized portions of the vertebral arteries demonstrate normal caliber, and join to form a normal appearing basilar artery. Flow within the posterior cerebral arteries is normal and symmetric. No aneurysms are seen. NECK CT ANGIOGRAPHY: Carotid system: The great vessels demonstrate a conventional anatomy as they arise from the aortic arch. The origins of the common carotid arteries appear patent. The common carotid arteries demonstrate normal caliber and courses. The bifurcation regions are both widely patent. The internal carotid arteries demonstrate normal calibers and courses. Posterior circulation: The origins of the vertebral arteries both appear widely patent. The more superior extracranial portions of both vertebral arteries also demonstrate normal courses and calibers. They join to form a normal appearing basilar artery. Soft tissues: Visualized neck soft tissues demonstrate no suspicious abnormalities. Bones: No suspicious bony lesions. Visualized cervical spine appears normally aligned. IMPRESSION: No significant intracranial arterial abnormality is seen. Within the arteries of the neck, no hemodynamically significant stenosis can be seen. No findings of dissection are seen. Any quantitative measurements of stenosis were performed using NASCET criteria. Dictated by: Michele Walker M.D. on 10/25/2022 at 12:08 Approved by: Michele Walker M.D. on 10/25/2022 at 12:08
[2022-10-25 12:23] LABS: Add Manual Diff / Slide Review NO; Basophils Absolute Auto 100 /uL (0-100); Eosinophils Absolute Auto 0 /uL (0-450); Eosinophils Percent Auto 0.1 % (2-4); Hematocrit 38.5 % (41-53); Hemoglobin 13.5 g/dL (13.5-17.5); Lymphocytes Absolute Auto 1300 /uL (1100-4500); Mean Corpuscular HGB Conc 35.1 % (30-36); Mean Corpuscular Hemoglobin 30.9 PG (26-34); Mean Corpuscular Volume 87.8 fL (80-100); Monocytes Absolute Auto 700 /uL (0-900); Neutrophils Absolute Auto 8500 /uL (1500-7000); Neutrophils Percent Auto 79.9 % (50-75); Platelet Count 252 X10^3/uL (150-400); Red Blood Cell Count 4.38 X10^6/uL (4.5-5.9); Red Cell Distribution Width 12.4 % (11.6-14.8); White Blood Cell Count 10.6 X10^3/uL (4.5-11.0)
[2022-10-25 12:28] LABS: INR 1.2 (0.9-1.3); Prothrombin Time 13.2 SECONDS (10.1-12.7)
[2022-10-25 12:31] LABS: PTT Partial Thromboplastin Tim 23 SECONDS (26-36)
[2022-10-25 12:33] LABS: Alanine Aminotransferase 48 IU/L (<50); Albumin 4.1 g/dL (3.5-5.0); Albumin Globulin Ratio 1.7 (1.0-2.8); Alkaline Phosphatase 57 U/L (38-126); Aspartate Aminotransferase 23 IU/L (17-59); BUN Creatinine Ratio 20.5 (6-22); Bilirubin Total 0.7 mg/dL (0.2-1.3); Blood Urea Nitrogen 16 mg/dL (9-20); Calcium 8.7 mg/dL (8.4-10.2); Carbon Dioxide 26 mmol/L (22-32); Chloride 98 mmol/L (98-107); Creatine Kinase 54 U/L (55-170); Estimated Glomerular Filt Rate > 60 mL/min (>60); Globulin 2.4 g/dL (1.7-4.1); Glucose 120 mg/dL (70-100); HEMOLYSIS < 15 (0-50); Potassium 3.5 mmol/L (3.4-5.1); Sodium 134 mmol/L (137-145); Total Protein 6.5 g/dL (6.3-8.2)
[2022-10-25] MEDS: SODIUM CHLORIDE 0.9% 1,000 ML 1000 ML IV (12:35)
[2022-10-25 12:45] LABS: Troponin I < 0.012 ng/mL (0.01-0.034)
--- NOTE | 2022-10-25 12:45 | ED.GENADULT ---
HPI - General Adult General Chief complaint: Dizziness Stated complaint: numbness rt side of body Time Seen by Provider: 10/25/22 11:35 History of Present Illness HPI narrative: 42-year-old male nonsmoker with history of BPPV and Eustachian tube dysfunction with recent visits for chronic dizziness presents with a change in symptoms and now has numbness on the right side of his body since about 9 am. He denies any obvious weakness nor other neurologic symptoms such as blurred vision or trouble with speech. He states the R arm and R leg are numb and tingling and it seems to come in waves that are unprovoked. He's never had these symptoms before. Related Data Home Medications Medication Instructions Recorded Confirmed Fexofenadine Hydrochloride 30 mg PO ##0 04/04/12 (ALDEN~) Previous Rx's Medication Instructions Recorded cetirizine 10 mg tablet 10 mg PO DAILY PRN congestion/ear 10/23/22 fullness #30 tabs cetirizine 5 mg-pseudoephedrine ER 1 tab PO BID #20 tabs 10/23/22 120 mg tablet,extended release,12hr (Zyrtec-D) methylprednisolone 4 mg tablets in 4 mg PO DAILY #21 ea 10/23/22 a dose pack (Medrol (Yevgeniy)) Allergies Allergy/AdvReac Type Severity Reaction Status Date / Time omeprazole AdvReac Headache Verified 10/23/22 14:39 Review of Systems Review of Systems Narrative: GENERAL: Denies chills, fatigue, malaise, fever, sweats. HEENT: Denies sinus pain, ear pain, sore throat, difficulty swallowing, dizziness. RESPIRATORY: Denies dyspnea, cough, wheezing, hemoptysis, sputum. CARDIOVASCULAR: Denies chest pain, palpitations, orthopnea, edema, GASTROINTESTINAL: Denies nausea, vomiting, abdominal pain, diarrhea, constipation, melena. : Denies dysuria, frequency, incontinence, hematuria, urinary retention. MUSCULOSKELETAL: denies weakness, joint pain, or bony pain SKIN: Denies rash, skin lesions, or other NEUROLOGIC: See HPI PSYCHIATRIC: No concerning psychosocial issues. 12 point review of systems is negative except for those stated above Patient History Social History Smoking Status: Never smoker Smoking Status: Never smoker alcohol intake frequency: 0-2 drinks per day Substance Use Type: does not use Exam Narrative Exam Narrative: GENERAL: [42] year old patient appears stated age. Well-developed patient, in mild distress. HEAD: Atraumatic. Normocephalic. EYES: Pupils equal round and reactive. Extraocular motions intact. No scleral icterus. No injection or drainage. ENT: Nose without bleeding, purulent drainage. Throat without erythema, tonsillar hypertrophy or exudate. Airway patent. NECK: Trachea midline. Non tender CARDIOVASCULAR: Regular rate and rhythm without murmurs, gallops, or rubs. RESPIRATORY: Clear to auscultation. Breath sounds equal bilaterally. No wheezes, rales, or rhonchi. GASTROINTESTINAL: Abdomen soft, non-tender, nondistended. EXTREMITIES: No edema or joint tenderness. BACK: Nontender without deformity or crepitance. No flank tenderness. NEURO: AOx3. SKIN: No rash or erythema of visible areas NIH Stroke Scale 1a. LOC: Patient is alert and keenly responsive (0) 1b. LOC Questions: Patient answers both LOC questions accurately (0) 1c. LOC Commands: Patient performs both tasks correctly (0) 2. Best Gaze: Normal (0) 3. Visual: No visual loss (0) 4. Facial palsy: Normal symmetrical movements (0) 5. Motor arm: No drift (0) 6. Motor leg: No drift (0) 7. Limb ataxia: Absent (0) 8. Sensory: Normal (0) 9. Best language: No aphasia; normal (0) 10. Dysarthria: Normal (0) 11. Extinction and inattention: No abnormality (0) NIHSS: 0 Initial Vital Signs Initial Vital Signs: Vital Signs Pulse Rate 80 10/25/22 11:25 Blood Pressure 139/69 10/25/22 11:25 Pulse Oximetry 96 10/25/22 11:25 Course Orders Ordered: ED Orders 10/25/22 11:37 CT head/brain wo con Stat 10/25/22 11:38 EKG-12 Lead Stat 10/25/22 12:08 Complete Blood Count AUTO DIFF Stat Comprehensive Metabolic Panel Stat PTT Partial Thromboplastin Bernardo Stat Prothrombin Time INR Stat Troponin & CK Cardiac Panel Stat 10/25/22 12:09 CT angio head and neck Stat 10/25/22 14:42 Urinalysis and Microscopic Stat Urine Drug Screen, Rapid Stat 10/25/22 15:04 MR head/brain wo con Stat Discontinued Medications Aspirin (Aspirin Ec 325 Mg Tablet) 325 mg PO NOW ONE Stop: 10/25/22 15:09 Last Admin: 10/25/22 15:30 Dose: 325 mg Documented By: NR Sodium Chloride (Normal Saline 0.9%) 1,000 mls @ 1,000 mls/hr IV BOLUS ONE Stop: 10/25/22 12:36 Last Infusion: 10/25/22 15:30 Dose: 0 mls/hr Documented By: Admin: 10/25/22 12:35 Dose: 1,000 mls/hr Documented By: MAURA Ondansetron HCl (Ondansetron 4 Mg/2 Ml Inj) 4 mg IV NOW ONE Stop: 10/25/22 16:37 Last Admin: 10/25/22 17:04 Dose: 4 mg Documented By: CHRISTOPHER Consultations Consultation #1: call to Stroke Time: 14:56 Vital Signs Vital signs: Vital Signs - 8 hr 10/25/22 11:30 10/25/22 11:25 10/25/22 11:25 Temperature 98.4 F Pulse Rate 81 80 Respiratory Rate 16 Blood Pressure 139/69 139/69 Pulse Oximetry 100 96 Oxygen Delivery Method Room Air 10/25/22 11:30 10/25/22 12:03 10/25/22 12:16 Temperature Pulse Rate 85 88 82 Respiratory Rate Blood Pressure Pulse Oximetry 100 100 Oxygen Delivery Method 10/25/22 12:16 10/25/22 12:30 10/25/22 12:30 Temperature Pulse Rate 78 Respiratory Rate Blood Pressure 114/60 121/61 Pulse Oximetry 99 Oxygen Delivery Method 10/25/22 13:00 10/25/22 13:00 10/25/22 13:30 Temperature Pulse Rate 76 Respiratory Rate 11 L Blood Pressure 120/62 118/62 Pulse Oximetry 95 Oxygen Delivery Method 10/25/22 13:30 10/25/22 14:00 10/25/22 14:00 Temperature Pulse Rate 77 77 Respiratory Rate 14 11 L Blood Pressure 125/71 Pulse Oximetry 100 94 Oxygen Delivery Method 10/25/22 14:30 10/25/22 14:30 10/25/22 15:00 Temperature Pulse Rate 80 Respiratory Rate 14 Blood Pressure 120/68 118/66 Pulse Oximetry 99 Oxygen Delivery Method 10/25/22 15:00 10/25/22 15:30 10/25/22 15:58 Temperature Pulse Rate 79 88 81 Respiratory Rate 14 28 H 14 Blood Pressure Pulse Oximetry 96 100 Oxygen Delivery Method 10/25/22 15:58 10/25/22 16:00 10/25/22 16:00 Temperature Pulse Rate 77 Respiratory Rate 9 L Blood Pressure 153/72 H 128/60 Pulse Oximetry 100 Oxygen Delivery Method 10/25/22 16:30 10/25/22 16:30 10/25/22 17:00 Temperature Pulse Rate 112 H Respiratory Rate 27 H Blood Pressure 138/66 138/72 Pulse Oximetry 99 Oxygen Delivery Method 10/25/22 17:00 Temperature Pulse Rate 108 H Respiratory Rate 20 Blood Pressure Pulse Oximetry 96 Oxygen Delivery Method Medical Decision Making Lab Data 10/25/22 12:08 10/25/22 12:08 Labs: Lab Results 10/25/22 10/25/22 10/25/22 Range/Units 12:08 12:08 12:08 WBC 10.6 (4.5-11.0) X10^3/uL RBC 4.38 L (4.5-5.9) X10^6/uL Hgb 13.5 (13.5-17.5) g/dL Hct 38.5 L (41-53) % MCV 87.8 (80-100) fL MCH 30.9 (26-34) PG MCHC 35.1 (30-36) % RDW 12.4 (11.6-14.8) % Plt Count 252 (150-400) X10^3/uL Neut % (Auto) 79.9 H (50-75) % Lymph % (Auto) 12.0 L (25-40) % Victoria % (Auto) 7.0 (3-14) % Eos % (Auto) 0.1 L (2-4) % Baso % (Auto) 1.0 (0-2) % Neut # (Auto) 8500 H (8311-8350) /uL Lymph # (Auto) 1300 (9399-7786) /uL Victoria # (Auto) 700 (0-900) /uL Eos # (Auto) 0 (0-450) /uL Baso # (Auto) 100 (0-100) /uL PT 13.2 H (10.1-12.7) SECONDS INR 1.2 (0.9-1.3) APTT 23 L (26-36) SECONDS Sodium 134 L (137-145) mmol/L Potassium 3.5 (3.4-5.1) mmol/L Chloride 98 (98-107) mmol/L Carbon Dioxide 26 (22-32) mmol/L BUN 16 (9-20) mg/dL Creatinine 0.78 (0.66-1.25) mg/dL Estimated GFR > 60 (>60) mL/min BUN/Creatinine Ratio 20.5 (6-22) Glucose 120 H (70-100) mg/dL Calcium 8.7 (8.4-10.2) mg/dL Total Bilirubin 0.7 (0.2-1.3) mg/dL AST 23 (17-59) IU/L ALT 48 (<50) IU/L Alkaline Phosphatase 57 (38-126) U/L Total Creatine Kinase 54 L (55-170) U/L Troponin I < 0.012 (0.01-0.034) ng/mL Total Protein 6.5 (6.3-8.2) g/dL Albumin 4.1 (3.5-5.0) g/dL Globulin 2.4 (1.7-4.1) g/dL Albumin/Globulin Ratio 1.7 (1.0-2.8) Urine Color Urine Appearance Urine pH (4.5-8.0) Ur Specific [place] (1.000-1.035) Urine Protein (Negative) Urine Glucose (UA) (Negative) g/dL Urine Ketones (NEGATIVE) Urine Occult Blood (Negative) Urine Nitrate (Negative) Urine Bilirubin (NEGATIVE) Urine Urobilinogen (0.2) E.U./dL Ur Leukocyte Esterase (NEGATIVE) Urine RBC (0-5/HPF) Urine WBC (0-5/HPF) Ur Squamous Epith Cells (0-5/HPF) Urine Bacteria (None) Ur Culture Indicated? U Opiates 300ng/mL cut (Negative) Ur Oxycodone Screen (Negative) Urine Methadone Screen (Negative) Ur Barbiturates Screen (Negative) U Tricyclic Antidepress (Negative) Ur Phencyclidine Scrn (Negative) Ur Amphetamines Screen (Negative) U Methamphetamines Scrn (Negative) Ur MDMA Scrn (Ecstasy) (Negative) U Benzodiazepines Scrn (Negative) Urine Cocaine Screen (Negative) U Marijuana (THC) Screen (Negative) 10/25/22 10/25/22 Range/Units 14:42 14:42 WBC (4.5-11.0) X10^3/uL RBC (4.5-5.9) X10^6/uL Hgb (13.5-17.5) g/dL Hct (41-53) % MCV (80-100) fL MCH (26-34) PG MCHC (30-36) % RDW (11.6-14.8) % Plt Count (150-400) X10^3/uL Neut % (Auto) (50-75) % Lymph % (Auto) (25-40) % Victoria % (Auto) (3-14) % Eos % (Auto) (2-4) % Baso % (Auto) (0-2) % Neut # (Auto) (3929-9576) /uL Lymph # (Auto) (3125-8614) /uL Victoria # (Auto) (0-900) /uL Eos # (Auto) (0-450) /uL Baso # (Auto) (0-100) /uL PT (10.1-12.7) SECONDS INR (0.9-1.3) APTT (26-36) SECONDS Sodium (137-145) mmol/L Potassium (3.4-5.1) mmol/L Chloride (98-107) mmol/L Carbon Dioxide (22-32) mmol/L BUN (9-20) mg/dL Creatinine (0.66-1.25) mg/dL Estimated GFR (>60) mL/min BUN/Creatinine Ratio (6-22) Glucose (70-100) mg/dL Calcium (8.4-10.2) mg/dL Total Bilirubin (0.2-1.3) mg/dL AST (17-59) IU/L ALT (<50) IU/L Alkaline Phosphatase (38-126) U/L Total Creatine Kinase (55-170) U/L Troponin I (0.01-0.034) ng/mL Total Protein (6.3-8.2) g/dL Albumin (3.5-5.0) g/dL Globulin (1.7-4.1) g/dL Albumin/Globulin Ratio (1.0-2.8) Urine Color Yellow Urine Appearance Clear Urine pH 6.5 (4.5-8.0) Ur Specific [place] 1.010 (1.000-1.035) Urine Protein Negative (Negative) Urine Glucose (UA) Negative (Negative) g/dL Urine Ketones Negative (NEGATIVE) Urine Occult Blood Negative (Negative) Urine Nitrate Negative (Negative) Urine Bilirubin Negative (NEGATIVE) Urine Urobilinogen 0.2 (0.2) E.U./dL Ur Leukocyte Esterase Negative (NEGATIVE) Urine RBC None seen (0-5/HPF) Urine WBC None seen (0-5/HPF) Ur Squamous Epith Cells None seen (0-5/HPF) Urine Bacteria None seen (None) Ur Culture Indicated? Cult not indicated U Opiates 300ng/mL cut Negative (Negative) Ur Oxycodone Screen Negative (Negative) Urine Methadone Screen Negative (Negative) Ur Barbiturates Screen Negative (Negative) U Tricyclic Antidepress Negative (Negative) Ur Phencyclidine Scrn Negative (Negative) Ur Amphetamines Screen Negative (Negative) U Methamphetamines Scrn Negative (Negative) Ur MDMA Scrn (Ecstasy) Negative (Negative) U Benzodiazepines Scrn Negative (Negative) Urine Cocaine Screen Negative (Negative) U Marijuana (THC) Screen Negative (Negative) Point of Care Testing Glucose POC 118 Urine Dip Bedside Urine Glucose Negative Bedside Urine Bilirubin - Negative Bedside Urine Ketone - Negative Urine Specific [place] 1.005 Bedside Urine Occult Blood - Negative Bedside Urine pH 6.0 Bedside Urine Protein - Negative Bedside Urine Urobilinogen - Negative Bedside Urine Nitrite - Negative Bedside Urine Leukocytes - Negative Esterase Point of care testing: Point of Care Testing Glucose POC 118 Urine Dip Bedside Urine Glucose Negative Bedside Urine Bilirubin - Negative Bedside Urine Ketone - Negative Urine Specific [place] 1.005 Bedside Urine Occult Blood - Negative Bedside Urine pH 6.0 Bedside Urine Protein - Negative Bedside Urine Urobilinogen - Negative Bedside Urine Nitrite - Negative Bedside Urine Leukocytes - Negative Esterase [facility] Narrative Medical decision making narrative: CC: 42-year-old male with history of chronic peripheral type vertigo presents with waxing waning episodes numbness and tingling on the right side of his body today Complicating co-morbidities: Chronic dizziness Data collected from: Patient Medical records reviewed: Prior notes reviewed in our EMR Differential considered, but not limited to: Stroke versus focal seizure versus intracranial hemorrhage versus other Exam documented above, pertinent findings include: Heart rate regular, lungs clear, cranial nerves 2-12 grossly intact, NIH stroke scale 0, no objective findings Lab Test results independently reviewed as above. Pertinent findings: No leukocytosis or left shift, no signs of anemia, electrolytes and kidney function within normal limits Independently reviewed EKG as above Imaging studies independently reviewed: CT of the head, CTA of the head and neck and MRI of the brain without acute findings, no evidence of bleed, stroke, dissection or other Scores Used: nIHSSn 0 Consultations: Discussed with neuro at /[facility] ([place] We had a few phone calls to discuss the patient's history and physical exam as well as lab and imaging findings. As noted above they recommended MRI but had low suspicion for stroke or significant findings. Recommendation is to discharge with PCP follow-up if MRI is normal. Treatments: Saline, aspirin, Zofran Re-evaluations: Resting in baseline Discussion: Patient with known, chronic peripheral type vertigo presents with a new finding of episodes of unprovoked in brief right-sided numbness and tingling. There is no weakness and this is absent of other obvious neurologic symptoms. History physical exam reassuring, labs unremarkable and multiple imaging modalities show no significant findings. Extensive discussions with on-call Neurology who suggest there is no indication for further evaluation in the emergency department and recommend follow-up with his primary care provider Disposition: see below, along with detailed discharge instructions that have been reviewed with patient as well as indications for ED re-evaluation and additional outpatient follow up Discharge Plan Departure Patient Disposition: Home Clinical Impression: Vertigo, Paresthesia Instructions: DI for Vertigo Activity Restrictions/Additional Instructions: *You have been diagnosed with [dizziness and right sided numbness. As we discussed your history and physical exam are very reassuring, there is no evidence of stroke or bleeding in her brain, no tumor or other significant abnormal finding. I have discussed this case with Neurology at the [facility] and they are comfortable with you being discharged and following up with your primary care provider.] *What to do: *Please continue to take your regular medications as directed. [ ] New medication prescriptions sent to your pharmacy: [ ] [ ] New medication written as a paper prescription [ ] No new medications given *Please follow up with your primary care provider in 2-3 days, call for an appointment. Let them know you were seen in the Emergency Department and that we ask that you be seen in follow up. We will electronically transmit a record of today's note if your PCP is in our system *If you do not have a primary care provider please contact the [facility] Resource line at [phone]. They will ask some questions about your medical history and help get you set up with a doctor in the community. *Return to Emergency Department if you should have any new, worsening or concerning symptoms, such as [fever greater than 101 F, shaking chills, worsening pain, persistent vomiting or other bothersome symptoms] Prescriptions: No Action Fexofenadine Hydrochloride (ALDEN~) 30 mg PO Qty: 0 cetirizine-pseudoephedrine [Zyrtec-D] 5-120 mg tablet extended release 12 hr 1 tab PO BID Qty: 20 2RF cetirizine 10 mg tablet 10 mg PO DAILY PRN (Reason: congestion/ear fullness) Qty: 30 3RF methylprednisolone [Medrol (Yevgeniy)] 4 mg tablets,dose pack 4 mg PO DAILY Qty: 21 0RF Referrals: ProviderMirna [Primary Care Provider] - Stand Alone Forms: Patient Portal/API
--- NOTE | 2022-10-25 13:31 | PC.NURSE ---
During discussion with patient and spouse noticed right leg visibly shaking. Asked patient if they were cold or needed a warm blanket, patient stated he was fine but did not have control over leg shaking. Previous encounter with this patient 2 days ago, this RN did not witness this shaking occurring.
[2022-10-25 15:01] LABS: Ur Creatinine Normal (Normal); Ur Specific Gravity Normal (Normal); Urine pH Normal (Normal)
[2022-10-25 15:02] LABS: UR Morphine/Opiate cutoff 300 Negative (Negative); Urine Amphetamines Negative (Negative); Urine Barbiturates Negative (Negative); Urine Benzodiazepines Negative (Negative); Urine Cocaine Negative (Negative); Urine MDMA Negative (Negative); Urine Methadone Negative (Negative); Urine Methamphetamines Negative (Negative); Urine Oxycodone Negative (Negative); Urine Phencyclidine Negative (Negative); Urine Tetrahydrocannabinol Negative (Negative); Urine Tricyclic Antidepressant Negative (Negative)
--- NOTE | 2022-10-25 15:04 | DI.MRI.S_ITS ---
PROCEDURE: MR HEAD/BRAIN WO CON INDICATIONS: R sided numbness, per Neuro TECHNIQUE: Noncontrast axial T1 spin echo, axial T2 fast spin echo, sagittal and axial FLAIR, coronal T2 fast spin echo, axial gradient echo, axial diffusion and ADC through the brain. COMPARISON: [facility], CT, CT HEAD/BRAIN WO CON, 10/25/2022, 12:01. [facility], CT, CT ANGIO HEAD AND NECK, 10/25/2022, 12:01. FINDINGS: Image quality: Excellent. CSF Spaces: Basal cisterns are patent. No extra-axial fluid collections. Ventricles are normal in size and shape. Brain: No intracranial masses or hemorrhage. Meade/white matter interface is normal. Brainstem appears normal. Diffusion-weighted images demonstrate no acute ischemic insult. No chronic ischemic insults. Normal intravascular flow voids are present. Skull and face: Calvarium has normal marrow signal. Orbits appear normal. Sinuses: Sinuses and mastoids are clear. IMPRESSION: No findings of acute or subacute infarction can be seen. Dictated by: Michele Walker M.D. on 10/25/2022 at 15:35 Approved by: Michele Walker M.D. on 10/25/2022 at 15:36
[2022-10-25] MEDS: ASPIRIN EC 325 MG TABLET PO (15:30)
[2022-10-25 16:30] LABS: Appearance Urine UA CLEAR; Bilirubin Urine UA NEGATIVE (NEGATIVE); Glucose Urine UA NEGATIVE (Negative); Ketones Urine UA NEGATIVE (NEGATIVE); Leukocyte Esterase Urine UA NEGATIVE (NEGATIVE); Nitrite Urine UA NEGATIVE (Negative); Occult Blood Urine UA NEGATIVE (Negative); Protein Urine UA NEGATIVE (Negative); Urobilinogen Urine UA 0.2 E.U./dL (0.2); pH Urine UA 6.5 (4.5-8.0)
[2022-10-25 16:42] LABS: Bacteria Urine None Seen; Color Urine UA Yellow; Culture Indicated Urine Cult Not Indicated; RBC Urine None Seen (0-5/HPF); Squamous Epithelial Cell Urine None Seen (0-5/HPF); WBC Urine None Seen (0-5/HPF)
[2022-10-25] MEDS: ONDANSETRON 4 MG/2 ML INJ IV (17:04)
== END 2022-10-25 17:15 | disposition home or self-care (01) ==
PROVIDERS: Emergency Provider Emergency Medicine
DX: R42 Dizziness and giddiness (principal); R20.2 Paresthesia of skin
CPT/HCPCS: 36415; 70450; 70496; 70498; 70551; 80053; 80305; 81001; 81003; 82550; 82962; 84484; 85025; 85610; 85730; 93005; 96361; 96374; 99284; 99285; J2405

== ENCOUNTER → 2023-01-04 15:12 | Outpatient (CLI) | payer OTHER, SELFPAY ==
--- NOTE | 2023-01-04 15:19 | DI.MRI.S_ITS ---
PROCEDURE: MR BRAIN (IAC) WWO CON INDICATIONS: Dizziness and giddiness TECHNIQUE: Noncontrast sagittal T1 spin echo, axial FLAIR, axial gradient echo, axial diffusion and ADC through the brain. Axial thin-slice 3D CISS, coronal TruFISP, axial T1 spin echo with fat saturation through the internal auditory canals. After the administration of contrast, thin slice axial and coronal T1 spin echo with fat saturation through the internal auditory canals, and axial and coronal and sagittal T1 spin echo with fat saturation through the brain. COMPARISON: None. FINDINGS: Image quality: Excellent. Cerebellopontine angles: No cerebellopontine angle masses. Inner ear structures appear normally formed. No suspicious enhancement in the internal auditory canal or along the course of the 7th cranial nerve. CSF spaces: Ventricles are normal in size and shape. No extra-axial fluid collections. Basal cisterns are patent. Brain: No intracranial bleeds or mass effects. Meade-white matter interface is intact. No abnormal intracranial enhancement. Diffusion weighted images demonstrate no acute ischemic insults. Brainstem appears normal. Normal intravascular flow voids are present. Skull and face: Calvarial marrow signal is normal. Orbits appear normal. Sinuses: Sinuses and mastoids are clear. IMPRESSION: Normal MRI of the brain and internal auditory canals with and without contrast Approved by: Mo Alvarado M.D. on 01/04/2023 at 17:50
== END ==
PROVIDERS: Referring Provider General Practice; Visit Provider General Practice
DX: R42 Dizziness and giddiness (principal)
CPT/HCPCS: 70553; A9579

== ENCOUNTER 2023-07-18 17:31 | Emergency (ER) | payer OTHER, SELFPAY ==
[2023-07-18 17:54] VITALS: BP 115/57; PULSE 76; RESP 16; TEMP 36.6; O2SAT 100; BMI 28.2
--- NOTE | 2023-07-18 18:02 | DI.RAD.S_ITS ---
PROCEDURE: XR CHEST 1V INDICATIONS: chest pain TECHNIQUE: One view of the chest was acquired. COMPARISON: None. FINDINGS: Surgical changes and devices: None. Lungs and pleura: Lungs are clear. No pleural effusions or pneumothorax. Mediastinum: Mediastinal contours appear normal. Heart size is normal. Bones and chest wall: No suspicious bony lesions. Overlying soft tissues appear unremarkable. IMPRESSION: No acute cardiopulmonary abnormality is seen. Dictated by: Daniel Wilson M.D. on 07/18/2023 at 17:40 Approved by: Daniel Wilson M.D. on 07/18/2023 at 17:41
--- NOTE | 2023-07-18 18:02 | DI.CT.S_ITS ---
PROCEDURE: CT HEAD/BRAIN WO CON INDICATIONS: can't remember TECHNIQUE: Noncontrast 4.5 mm thick angled axial sections acquired from the foramen magnum to the vertex, with coronal and sagittal reformats. For radiation dose reduction, the following was used: automated exposure control, adjustment of mA and/or kV according to patient size. COMPARISON: [facility], CT, CT HEAD/BRAIN WO CON, 10/25/2022, 12:01. FINDINGS: Image quality: Diagnostic. CSF spaces: Basal cisterns are patent. No extra-axial fluid collections. Ventricles are normal in size and shape. Brain: No midline shift. No intracranial masses or hemorrhage. Meade-white matter interface is normal. Skull and face: Calvarium and visualized facial bones are intact, without suspicious lesions. Sinuses: Air-fluid levels within the right maxillary sinus.. IMPRESSION: No acute intracranial pathology. Frothy air fluid levels in the right maxillary sinus, correlate for sinusitis. Dictated by: Daniel Wilson M.D. on 07/18/2023 at 17:38 Approved by: Daniel Wilson M.D. on 07/18/2023 at 17:40
[2023-07-18 19:46] LABS: Add Manual Diff / Slide Review NO; Basophils Absolute Auto 100 /uL (0-100); Basophils Percent Auto 0.8 % (0-2); Eosinophils Absolute Auto 0 /uL (0-450); Eosinophils Percent Auto 0.2 % (2-4); Hemoglobin 13.4 g/dL (13.5-17.5); Lymphocytes Absolute Auto 1100 /uL (1100-4500); Lymphocytes Percent Auto 15.4 % (25-40); Mean Corpuscular HGB Conc 34.5 % (30-36); Mean Corpuscular Hemoglobin 30.5 PG (26-34); Mean Corpuscular Volume 88.3 fL (80-100); Monocytes Absolute Auto 300 /uL (0-900); Monocytes Percent Auto 3.9 % (3-14); Neutrophils Absolute Auto 5600 /uL (1500-7000); Neutrophils Percent Auto 79.7 % (50-75); Platelet Count 245 X10^3/uL (150-400); Red Blood Cell Count 4.41 X10^6/uL (4.5-5.9); Red Cell Distribution Width 12.7 % (11.6-14.8)
[2023-07-18 19:52] LABS: Alanine Aminotransferase 99 IU/L (<50); Albumin 4.8 g/dL (3.5-5.0); Albumin Globulin Ratio 2.3 (1.0-2.8); Alkaline Phosphatase 69 U/L (38-126); Aspartate Aminotransferase 60 IU/L (17-59); BUN Creatinine Ratio 25.4 (6-22); Bilirubin Total 0.8 mg/dL (0.2-1.3); Blood Urea Nitrogen 18 mg/dL (9-20); Carbon Dioxide 28 mmol/L (22-32); Chloride 103 mmol/L (98-107); Creatine Kinase 80 U/L (55-170); Estimated Glomerular Filt Rate > 60 mL/min (>60); Ethanol (ETOH) < 10 mg/dL; Globulin 2.1 g/dL (1.7-4.1); Glucose 117 mg/dL (70-100); HEMOLYSIS < 15 (0-50); Lipase 96 U/L (23-300); Potassium 4.1 mmol/L (3.4-5.1); Sodium 138 mmol/L (137-145); Total Protein 6.9 g/dL (6.3-8.2)
[2023-07-18 20:02] LABS: Troponin I < 0.012 ng/mL (0.01-0.034)
[2023-07-18 22:50] LABS: Ur Creatinine Normal (Normal); Ur Specific Gravity Normal (Normal); Urine Amphetamines Negative (Negative); Urine Barbiturates Negative (Negative); Urine Benzodiazepines Negative (Negative); Urine Cocaine Negative (Negative); Urine MDMA Negative (Negative); Urine Methadone Negative (Negative); Urine Methamphetamines Negative (Negative); Urine Opiates Negative (Negative); Urine Oxycodone Negative (Negative); Urine Phencyclidine Negative (Negative); Urine THC Negative (Negative); Urine Tricyclic Antidepressant Negative (Negative); Urine pH Normal (Normal)
--- NOTE | 2023-07-18 23:16 | ED.AMS ---
HPI - Altered Mental Status General Chief Complaint: Altered Mental Status Stated Complaint: dizzy, memory issues Time Seen by Provider: 07/18/23 18:03 Source: patient and family Mode of arrival: Ambulatory History of Present Illness HPI narrative: 43-year-old male here for evaluation of recent memory problems. He is most recently followed by neurology in [place] Dr. Lukasz Santamaria, for ongoing vertigo dizziness nausea vomiting for the last 1 year, previous evaluations through your nose and throat specialists, prior courses of antibiotics that sometimes helped in sometimes did not seem to help, prior CT and MRI brain imaging studies, saw a neurologist at [place] who recommended trial of Botox that they did not want to try due to logistics and long distance travel, therefore more recently established with [facility] neurology 2 months ago, subsequently has EEG normal, CT head and neck vessels at some point in the past had been checked as well, recent recommendation for trial of Keppra that has been sent by mail not yet filled or taken. 11:00 a.m. this morning he had a similar episode of dizziness lightheadedness that was typical, however since 11:00 a.m. 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 No injury or trauma. No fevers or chills. No focal weakness, no tingling or numbness symptoms. No shaking or staring episodes. No visual complaints. Related Data Home Medications Medication Instructions Recorded Confirmed Fexofenadine Hydrochloride 30 mg PO ##0 04/04/12 (ALDEN~) Previous Rx's Medication Instructions Recorded cetirizine 10 mg tablet 10 mg PO DAILY PRN congestion/ear 10/23/22 fullness #30 tabs cetirizine 5 mg-pseudoephedrine ER 1 tab PO BID #20 tabs 10/23/22 120 mg tablet,extended release,12hr (Zyrtec-D) methylprednisolone 4 mg tablets in 4 mg PO DAILY #21 ea 10/23/22 a dose pack (Medrol (Yevgeniy)) Allergies Allergy/AdvReac Type Severity Reaction Status Date / Time omeprazole AdvReac Headache Verified 10/23/22 14:39 Patient History Social History (Reviewed 10/25/22 @ 14:57 by RUBI Kaufman Smoking Status: Never smoker Smoking Status: Never smoker alcohol intake frequency: holidays/special occasions only Substance Use Type: does not use Exam Narrative Exam Narrative: GENERAL: Well-developed patient, in mild distress. HEAD: Atraumatic. Normocephalic. EYES: Pupils equal round and reactive. Extraocular motions intact. No scleral icterus. No injection or drainage. ENT: Nose without bleeding, purulent drainage. Throat without erythema, tonsillar hypertrophy or exudate. Airway patent. NECK: Trachea midline. Non tender CARDIOVASCULAR: Regular rate and rhythm without murmurs, gallops, or rubs. RESPIRATORY: Clear to auscultation. Breath sounds equal bilaterally. No wheezes, rales, or rhonchi. GASTROINTESTINAL: Abdomen soft, non-tender, nondistended. EXTREMITIES: No edema or joint tenderness. BACK: Nontender without deformity or crepitance. No flank tenderness. NEURO: AOx3. Clear speech. Cranial nerves intact. Motor 5/5 upper extremities and lower extremities. Intact light touch sensation facial cutaneous divisions, upper extremities, lower extremities. Ekladu-fa-aflj testing normal. SKIN: No rash or erythema of visible areas Initial Vital Signs Initial Vital Signs: Vital Signs Temperature 97.9 F 07/18/23 17:54 Pulse Rate 76 07/18/23 17:54 Respiratory Rate 16 07/18/23 17:54 Blood Pressure 115/57 L 07/18/23 17:54 Pulse Oximetry 100 07/18/23 17:54 Oxygen Delivery Method Room Air 07/18/23 17:54 Course Orders Ordered: ED Orders 07/18/23 22:40 Urine Drug Screen, Rapid Stat Vital Signs Vital signs: Vital Signs - 8 hr 07/19/23 00:36 Pulse Rate 76 Respiratory Rate 16 Blood Pressure 113/64 Pulse Oximetry 99 Oxygen Delivery Method Room Air MDM - Altered Mental Status Lab Data 07/18/23 19:31 07/18/23 19:31 Labs: Lab Results 07/18/23 07/18/23 Range/Units 19:31 22:40 WBC 7.0 (4.5-11.0) X10^3/uL RBC 4.41 L (4.5-5.9) X10^6/uL Hgb 13.4 L (13.5-17.5) g/dL Hct 39.0 L (41-53) % MCV 88.3 (80-100) fL MCH 30.5 (26-34) PG MCHC 34.5 (30-36) % RDW 12.7 (11.6-14.8) % Plt Count 245 (150-400) X10^3/uL Neut % (Auto) 79.7 H (50-75) % Lymph % (Auto) 15.4 L (25-40) % Oliver % (Auto) 3.9 (3-14) % Eos % (Auto) 0.2 L (2-4) % Baso % (Auto) 0.8 (0-2) % Neut # (Auto) 5600 (8431-5953) /uL Lymph # (Auto) 1100 (9385-4914) /uL Oliver # (Auto) 300 (0-900) /uL Eos # (Auto) 0 (0-450) /uL Baso # (Auto) 100 (0-100) /uL Sodium 138 (137-145) mmol/L Potassium 4.1 (3.4-5.1) mmol/L Chloride 103 (98-107) mmol/L Carbon Dioxide 28 (22-32) mmol/L BUN 18 (9-20) mg/dL Creatinine 0.71 (0.66-1.25) mg/dL Estimated GFR > 60 (>60) mL/min BUN/Creatinine Ratio 25.4 H (6-22) Glucose 117 H (70-100) mg/dL Calcium 9.0 (8.4-10.2) mg/dL Total Bilirubin 0.8 (0.2-1.3) mg/dL AST 60 H (17-59) IU/L ALT 99 H (<50) IU/L Alkaline Phosphatase 69 (38-126) U/L Total Creatine Kinase 80 (55-170) U/L Troponin I < 0.012 (0.01-0.034) ng/mL Total Protein 6.9 (6.3-8.2) g/dL Albumin 4.8 (3.5-5.0) g/dL Globulin 2.1 (1.7-4.1) g/dL Albumin/Globulin Ratio 2.3 (1.0-2.8) Lipase 96 (23-300) U/L U Opiates 300ng/mL cut Negative (Negative) Ur Oxycodone Screen Negative (Negative) Urine Methadone Screen Negative (Negative) Ur Barbiturates Screen Negative (Negative) U Tricyclic Antidepress Negative (Negative) Ur Phencyclidine Scrn Negative (Negative) Ur Amphetamines Screen Negative (Negative) U Methamphetamines Scrn Negative (Negative) Ur MDMA Scrn (Ecstasy) Negative (Negative) U Benzodiazepines Scrn Negative (Negative) Urine Cocaine Screen Negative (Negative) U Marijuana (THC) Screen Negative (Negative) Urine pH Normal (Normal) Urine Specific [place] Normal (Normal) Ethyl Alcohol < 10 ( - 10) mg/dL Ur Creatinine Normal (Normal) Imaging Data CT scan - head: Radiologist's Impression: [address] [address] [address] Scan Report Signed Patient: Arnaud Jackson MR#: [id number] : 1980 Acct:[id number] Age/Sex: 43 / M Date of Service: 07/18/23 Loc: ED Accession Number: [id number] Procedure: CT head/brain wo con Ordering Provider: Kala Bhakta D.O. PROCEDURE: CT HEAD/BRAIN WO CON INDICATIONS: can't remember TECHNIQUE: Noncontrast 4.5 mm thick angled axial sections acquired from the foramen magnum to the vertex, with coronal and sagittal reformats. For radiation dose reduction, the following was used: automated exposure control, adjustment of mA and/or kV according to patient size. COMPARISON: [facility], CT, CT HEAD/BRAIN WO CON, 10/25/2022, 12:01. FINDINGS: Image quality: Diagnostic. CSF spaces: Basal cisterns are patent. No extra-axial fluid collections. Ventricles are normal in size and shape. Brain: No midline shift. No intracranial masses or hemorrhage. Meade-white matter interface is normal. Skull and face: Calvarium and visualized facial bones are intact, without suspicious lesions. Sinuses: Air-fluid levels within the right maxillary sinus.. IMPRESSION: No acute intracranial pathology. Frothy air fluid levels in the right maxillary sinus, correlate for sinusitis. Dictated by: Daniel Wilson M.D. on 07/18/2023 at 17:38 Approved by: Daniel Wilson M.D. on 07/18/2023 at 17:40 [facility] Narrative Medical decision making narrative: 43-year-old male with ongoing nausea vomiting vertigo symptoms, previous ENT and neurology consultations, most recently established with [facility] neurologist 2 months ago, awaiting Keppra trial to see if that affects these recurrent episodes. Today having short-term memory problems noted by . CT head scan showed no acute changes. CBC, CMP, ethanol, UDS studies negative. We will consult with [facility]. Case discussed with cross cover neurologist Dr. Davis, who feels that this is not a neurological problem, feels that this is likely more psychological, acknowledges patient has had imaging workup in the last year that by report includes MRI imaging of the brain and CT imaging of the brain and some kind of vascular angiography studies, within the last year or so by report, would not admit to repeat at this time. Follow up with Dr. Santamaria early next week. 0030, Discussed cross cover neurology opinion with patient/, they will call their regular neurologist Dr. Santamaira later this morning. Discharge Plan Departure Patient Disposition: Home Clinical Impression: Memory changes Instructions: DI for Altered Mental Status Activity Restrictions/Additional Instructions: Ongoing workup and neurology consultation with Dr. Santamaria for nausea vomiting vertigo symptoms, awaiting a trial of Keppra medication to see if this breaks the cycle of recurrent symptoms. Today noted to have difficulty with memory with regard to tasks and recent events. Reassuring neurological exam in the emergency department. CT head imaging showed some maxillary sinus thickening, but you had no sinus discomfort, offered antibiotics, declined. No fever, lab studies unremarkable. Case discussed with cross covering neurologist Dr. Davis of [place], who felt reassured of recent reported workup prior negative brain and neck vessel imaging, recent EEG, who felt that this was a ?benign non neurological condition. He did not feel there is any further workup tonight, continue follow up with Dr. Santamaria, take Keppra as directed when the medication comes available. Follow up with your neurologist, call his office later this morning when available, to speak directly with Dr. Santamaria who is more familiar with her case, to see if he has a 2nd opinion. Return earlier to this/nearest emergency department for any change worsening symptoms or any concerns prior Prescriptions: No Action Fexofenadine Hydrochloride (ALDEN~) 30 mg PO Qty: 0 cetirizine-pseudoephedrine [Zyrtec-D] 5-120 mg tablet extended release 12 hr 1 tab PO BID Qty: 20 2RF cetirizine 10 mg tablet 10 mg PO DAILY PRN (Reason: congestion/ear fullness) Qty: 30 3RF methylprednisolone [Medrol (Yevgeniy)] 4 mg tablets,dose pack 4 mg PO DAILY Qty: 21 0RF Referrals: ProviderMirna [Primary Care Provider] - Stand Alone Forms: Patient Portal/API
[2023-07-19 00:36] VITALS: BP 113/64; PULSE 76; RESP 16; O2SAT 99
--- NOTE | 2023-07-19 18:09 | PC.NURSE ---
Spouse called back and states patient has changed their mind about abx. Spoke with Dr Myers, who will send in RX to [facility].
== END 2023-07-19 00:40 | disposition home or self-care (01) ==
PROVIDERS: Emergency Medicine; Emergency Provider Emergency Medicine
DX: R42 Dizziness and giddiness (principal); R41.3 Other amnesia
CPT/HCPCS: 36415; 70450; 71045; 80053; 80305; 80320; 82550; 83690; 84484; 85025; 99281; 99284

== ENCOUNTER → 2023-11-22 10:17 | Outpatient (CLI) | payer OTHER, SELFPAY ==
[2023-11-22 11:07] LABS: Add Manual Diff / Slide Review NO; Basophils Absolute Auto 100 /uL (0-100); Basophils Percent Auto 0.9 % (0-2); Eosinophils Absolute Auto 100 /uL (0-450); Eosinophils Percent Auto 1.6 % (2-4); Hematocrit 42.7 % (41-53); Hemoglobin 14.8 g/dL (13.5-17.5); Lymphocytes Absolute Auto 1600 /uL (1100-4500); Lymphocytes Percent Auto 26.3 % (25-40); Mean Corpuscular HGB Conc 34.7 % (30-36); Mean Corpuscular Hemoglobin 30.5 PG (26-34); Mean Corpuscular Volume 87.9 fL (80-100); Monocytes Absolute Auto 400 /uL (0-900); Monocytes Percent Auto 6.6 % (3-14); Neutrophils Absolute Auto 4000 /uL (1500-7000); Neutrophils Percent Auto 64.6 % (50-75); Platelet Count 236 X10^3/uL (150-400); Red Blood Cell Count 4.86 X10^6/uL (4.5-5.9); Red Cell Distribution Width 12.3 % (11.6-14.8); White Blood Cell Count 6.3 X10^3/uL (4.5-11.0)
[2023-11-22 11:31] LABS: Hemoglobin A1C% w Est Avg Glu 5.2 % (4.0-6.0)
[2023-11-22 11:48] LABS: HEMOLYSIS < 15 (0-50); Iron 128 ug/dL (49-181)
[2023-11-22 11:49] LABS: Alanine Aminotransferase 84 IU/L (<50); Albumin 4.6 g/dL (3.5-5.0); Albumin Globulin Ratio 1.9 (1.0-2.8); Alkaline Phosphatase 88 U/L (38-126); Aspartate Aminotransferase 36 IU/L (17-59); BUN Creatinine Ratio 11.6 (6-22); Bilirubin Total 0.9 mg/dL (0.2-1.3); Blood Urea Nitrogen 10 mg/dL (9-20); Calcium 10.1 mg/dL (8.4-10.2); Carbon Dioxide 28 mmol/L (22-32); Chloride 100 mmol/L (98-107); Estimated Glomerular Filt Rate > 60 mL/min (>60); Globulin 2.4 g/dL (1.7-4.1); Glucose 94 mg/dL (70-100); HEMOLYSIS < 15 (0-50); Potassium 4.5 mmol/L (3.4-5.1); Sodium 138 mmol/L (137-145)
[2023-11-22 11:58] LABS: Percent Iron Saturation 34 % (20-50); Total Iron Binding Capacity 376 ug/dL (261-462); Transferrin 305 mg/dL (206-381)
[2023-11-22 12:18] LABS: TSH w/ Reflex to FT4 1.01 uIU/mL (0.47-4.68)
[2023-11-22 12:38] LABS: Vitamin B12 Reflex MMA if <400 589 pg/mL (239-931)
[2023-11-22 12:54] LABS: Folate > 20.0 ng/mL (2.76-20.0)
[2023-11-23 03:14] LABS: Homocysteine 9.9 umol/L (0.0-14.5)
== END ==
PROVIDERS: PCP Family Medicine; Referring Provider Family Medicine; Visit Provider Family Medicine
DX: Z00.00 Encounter for general adult medical examination without abnormal findings (principal); R55 Syncope and collapse; R79.89 Other specified abnormal findings of blood chemistry; K58.9 Irritable bowel syndrome, unspecified; R73.03 Prediabetes; D51.9 Vitamin B12 deficiency anemia, unspecified
CPT/HCPCS: 36415; 80053; 82607; 82746; 83036; 83090; 83540; 83550; 84402; 84403; 84443; 85025; 86340

== ENCOUNTER → 2023-12-01 07:48 | Outpatient (CLI) | payer OTHER, SELFPAY ==
--- NOTE | 2023-12-01 07:49 | DI.NM.S_ITS ---
PROCEDURE: NM EXERCISE TREADMILL NON NUC COMPARISON: None. INDICATIONS: near syncope FINDINGS: Rest ECG sinus rhythm, 72 bpm. Gumaro protocol 11:03, maximum heart rate 156 bpm (89% peak predicted), maximum blood pressure 160/70, 12.8 METS, CALEB 4%. Exercise ECG sinus tachycardia, no ST segment changes or arrhythmia. The patient did not complain of exercise-induced chest discomfort. IMPRESSION: Low risk study. No evidence of exercise-induced ischemia. Normal hemodynamic response. Fair exercise capacity. Dictated by: Mary Galindo D.O. on 12/01/2023 at 16:54 Approved by: Mary Galindo D.O. on 12/01/2023 at 16:56
== END ==
PROVIDERS: PCP Family Medicine; Referring Provider Family Medicine; Visit Provider Family Medicine
DX: R55 Syncope and collapse (principal); E53.8 Deficiency of other specified B group vitamins; D51.9 Vitamin B12 deficiency anemia, unspecified
CPT/HCPCS: 93017

== ENCOUNTER → 2023-12-02 14:06 | Outpatient (CLI) | payer OTHER, SELFPAY | PROVIDERS: PCP Family Medicine; Referring Provider Family Medicine; Visit Provider Family Medicine | DX: R55 Syncope and collapse (principal); D51.9 Vitamin B12 deficiency anemia, unspecified | CPT/HCPCS: 93246; 93248 ==

== ENCOUNTER → 2025-01-29 07:08 | Outpatient (CLI) | payer OTHER, SELFPAY ==
[2025-01-29 07:56] LABS: Add Manual Diff / Slide Review NO; Hematocrit 45.3 % (41-53); Hemoglobin 15.8 g/dL (13.5-17.5); Lymphocytes Absolute Auto 1700 /uL (1100-4500); Mean Corpuscular HGB Conc 34.9 % (30-36); Mean Corpuscular Hemoglobin 31.0 PG (26-34); Mean Corpuscular Volume 88.7 fL (80-100); Platelet Count 247 X10^3/uL (150-400)
[2025-01-29 08:06] LABS: Alanine Aminotransferase 32 IU/L (<50); Albumin 4.7 g/dL (3.5-5.0); Albumin Globulin Ratio 2.1 (1.0-2.8); Alkaline Phosphatase 59 U/L (38-126); Blood Urea Nitrogen 18 mg/dL (9-20); Calcium 9.6 mg/dL (8.4-10.2); Carbon Dioxide 24 mmol/L (22-32); Chloride 105 mmol/L (98-107); Cholesterol 247 mg/dL (140-199); Estimated Glomerular Filt Rate > 60 mL/min (>60); Globulin 2.2 g/dL (1.7-4.1); Glucose 102 mg/dL (70-99); HDL Cholesterol 43 mg/dL (40-60); HEMOLYSIS < 15 (0-50); Potassium 4.3 mmol/L (3.4-5.1); Sodium 139 mmol/L (137-145); Total Protein 6.9 g/dL (6.3-8.2); Triglycerides 203 mg/dL (35-150)
[2025-01-29 08:09] LABS: HEMOLYSIS < 15 (0-50); Iron 151 ug/dL (49-181)
[2025-01-29 08:20] LABS: Percent Iron Saturation 35 % (20-50); Total Iron Binding Capacity 433 ug/dL (261-462); Transferrin 375 mg/dL (206-381)
[2025-01-29 08:56] LABS: Vitamin B12 809 pg/mL (239-931)
== END ==
PROVIDERS: PCP Family Medicine; Referring Provider Family Medicine; Visit Provider Family Medicine
DX: Z12.5 Encounter for screening for malignant neoplasm of prostate (principal); Z00.00 Encounter for general adult medical examination without abnormal findings; D51.9 Vitamin B12 deficiency anemia, unspecified; R79.89 Other specified abnormal findings of blood chemistry; R73.03 Prediabetes; E87.5 Hyperkalemia
CPT/HCPCS: 36415; 80053; 80061; 82607; 83540; 83550; 84402; 84403; 85025; G0103